=== PATIENT | female | born 1940 | race Caucasian/White ===

== ENCOUNTER 2021-01-25 17:22 | Observation (INO) | payer OTHER ==
--- OUTSIDE RECORDS SUMMARY | 2021-01-25 17:27 | XMS REPORT | Continuity of Care Document ---
:1940 Author Organization [facility] t Address [address] [place] [address] Care Team Providers Name Role Phone Asked, Pcp Primary Care Physician Unavailable Payers Payer Name Policy Type Policy Number Effective Date Expiration Date S ource Problems This patient has no known problems. Allergies, Adverse Reactions, Alerts Allergy Allergy Status Severity Reaction(s) Onset Inactive Treating Comm ents Source Name Type Date Date Clinician ciproflo DA Active U [facility] xacin 5-28 Clear 00:00: [address] [place] Active [place] 2018-11 [facility] ins 0-04 Clear 00:00: [address] codeine DA Active [place] 2018-11 [facility] 0-04 Clear 00:00: [address] [place] Active [place] 2018-11 [facility] ins [place]- [place] 00:00: [address] codeine DA Active [place] 2018-11 [facility] 0- [place] 00:00: [address] [place] [facility] ins 08-09 [place] 00:00: [address] codeine DA Active [place] [facility] 9 [place] 00:00: [address] [place] [facility] ins 03-07 [place] 00:00: [address] codeine DA Active AR [facility] 4-27 [place] 00:00: [address] Social History Social Habit Start Date Stop Date Quantity Comments Source Sex Assigned At [birth year] Jamie Wesley ethodist 00:00:00 00:00:00 Medications This patient has no known medications. Procedures This patient has no known procedures. Plan of Care Planned Activity Planned Date Details Comments Source Future Scheduled 2020-06-11 INFLUENZA VACCINE [place] [facility] 00:00:00 [code = INFLUENZA VACCINE] Future Scheduled 1990 SHINGLES VACCINES (#1) [facility] 00:00:00 [code = SHINGLES VACCINES (#1)] Future Scheduled 1956 [facility]-19 [facility]INE [facility]:00 2) [code = COVID-19 VACCINE (1 of 2)] Future Scheduled 1946 65+ PNEUMOCOCCAL [place] [facility] 00:00:00 VACCINE (1 of 2 - PPSV23) [code = 65+ PNEUMOCOCCAL VACCINE (1 of 2 - PPSV23)] Results Test Description Test Time Test Comments Results Result Comments Source SURG 2020-04-12 14:43:00 RUN DATE: 04/12/20 [facility] PAGE 1 RUN TIME: 6953 Specimen Inquiry RUN USER: INTERFACE PATIENT: RUTH LOCK ACCHaley #: [id number] LOC: [place] #: [id number] AGE/SX: 79/F ROOM: [facility] RE04/07/20REG DR: Harry Johns MD : 40 BED: 1 DIS: 04/09/20 STATUS: DIS IN TLOC: SPEC #: [id number] RECD: 04/08/20 STATUS: REESE REEdenilson #: [id number] TRANG: 04/08/[address]: Harry Johns MD ENTERED: 04/08/20 SP TYPE: SURG OTHR DR: DOES_NOT KNOW Self Referred Shane Palacio Jr, MD, Nizam Mohammad MDORDERED: SURG PATH LVL 02/10 COPIES TO: DOES_NOT KNOW Self Referred Shane Palacio Jr, MD [address] [facility] [address] [facility] [address] [place] [address] [place] [address] [email or web address] Rosario Nuñez MD [address] [address] HISTOLOGY: TISSUE ID BLK PCS RASHAWN LEV PROCEDURE DISPOSITION ____ ___ ___ ___ STOMACH, NOS A 1 2 STOMACH, NOS B 1 2 PROCEDURES: SURG PATH LVL 4 (04/08/20) TISSUES: A. STOMACH, NOS - GASTRIC ULCER BIOPSY B. STOMACH, NOS - ANTRUM AND BODY BIOPSY CLINICAL HISTORY HTN/DM CONTINUED ON NEXT PAGE RUN DATE: 04/12/20 [facility] PAGE 2 RUN TIME: 1443 Specimen Inquiry RUN USER: INTERFACE SPEC #: [id number] PATIENT: RUTH LOCK #[id number] (Continued)--------- --- CPT CODES CPT CODE(S): 11241K3 , , , , , , FINAL DIAGNOSIS A. Stomach, biopsy: ACUTE AND CHRONIC GASTRITIS WITH INTESTINAL METAPLASIA NEGATIVE FOR DYSPLASIA OR MALIGNANCY NEGATIVE FOR HELICOBACTER PYLORI ORGANISMS B. Stomach, antrum and body, biopsy: MILD CHRONIC GASTRITIS NEGATIVE FOR INTESTINAL METAPLASIA, DYSPLASIA, OR MALIGNANCY NEGATIVE FOR HELICOBACTER PYLORI ORGANISMS GROSS DESCRIPTION A. Gastric ulcer biopsy. Received in formalin are two cohen tissue fragments, 0.2 - 0.6 cm, all as A. B. Antrum and body biopsy. Received in formalin are two cohen tissue fragments, 0.2 cm each, all as B. judi/nr Grossing performed at [facility] Pathology, [address] [place] [address], [address], [place], [place] [address]. Acrylic Fabricator: Julian Phan M.D. MICROSCOPIC DESCRIPTION A. Gastric ulcer biopsy. Sections demonstrate gastric mucosa with chronic inflammation and intestinal metaplasia. Mucosa demonstrates a reactive appearance. No evidence of dysplasia or malignancy is seen. No evidence of Helicobacter pylori organisms is identified. B. Antrum and body biopsy. Sections demonstrate gastric mucosa with mild chronic inflammation. No dysplasia or malignancy is identified. No evidence of Helicobacter pylori organisms or intestinal metaplasia is seen. Signed SIGNATURE ON FILE Augusto Crum 04/12/20 1443 END OF REPORT HGB HCT 2020-04-09 13:42:00 Test Item Value Reference Range Interpretation Comme nts HEMOGLOBIN (test code = HGB) 9.4 G/DL 10.4-14.9 L HEMATOCRIT (test code = HCT) 29.2 % 31.5-44.1 L GLUCOSE BEDSIDE [id number] 12:16:00 Test Item Value Reference Range Interpretation Comments GLUCOSE BEDSIDE TESTING (test code 132 mg/dL 70-110 H = GLUBED) GLUCOSE BEDSIDE [id number] 07:57:00 Test Item Value Reference Range Interpretation Comments GLUCOSE BEDSIDE TESTING (test code = 85 mg/dL 70-110 N GLUBED) BASIC METABOLIC [id number] 06:28:00 Test Item Value Reference Range Interpretation Comments SODIUM (test code = NA) 135 mmol/L 134-147 N POTASSIUM (test code = 3.7 mmol/L 3.4-5.0 N K) CHLORIDE (test code = 104 mmol/L 100-108 N CL) CARBON DIOXIDE (test 23 mmol/L 21-32 N code = CO2) ANION GAP (test code = 8.0 GAP calc 4.0-15.0 N GAP) GLUCOSE (test code = 86 MG/DL 70-110 N GLU) BLOOD UREA NITROGEN 7 MG/DL 7-18 (test code = BUN) GLOMERULAR FILTRATION >=60 max estimate >60 RATE (test code = GFR) estGFR CREATININE (test code = 0.7 MG/DL 0.6-1.0 N CREAT) CALCIUM (test code = CA) 8.3 MG/DL 8.5-10.1 L CBC W/AUTO [id number] 06:22:00 Test Item Value Reference Range Interpretation Comments WHITE BLOOD CELL (test code = 6.1 K/mm3 3.5-11.0 N WBC) RED BLOOD CELL (test code = 3.21 M/mm3 4.70-6.10 L RBC) HEMOGLOBIN (test code = HGB) 8.9 G/DL 10.4-14.9 L HEMATOCRIT (test code = HCT) 28.0 % 31.5-44.1 L MEAN CELL VOLUME (test code = 87.2 Fl 84.5-98.6 N MCV) MEAN CELL HGB (test code = MCH) 27.7 pg 27.0-34.2 N MEAN CELL HGB CONCETRATION 31.8 G/DL 31.5-34.0 N (test code = MCHC) RED CELL DISTRIBUTION WIDTH 13.4 SD 11.5-14.5 N (test code = RDW) PLATELET COUNT (test code = 167 K/mm3 150-450 N PLT) MEAN PLATELET VOLUME (test code 9.60 fL 7.0-10.5 N = MPV) NEUTROPHIL % (test code = NT%) 60.3 % 40-76 N LYMPHOCYTE % (test code = LY%) 27.3 % 20.5-51.1 N MONOCYTE % (test code = MO%) 8.8 % 1.7-9.3 N EOSINOPHIL % (test code = EO%) 2.3 % 0.0-6.0 N BASOPHIL % (test code = BA%) 0.8 % 0.0-2.0 N NUCLEATED RBC % (test code = 0.0 /100WBC% 0.0-1.0 N NRBC%) NEUTROPHIL # (test code = NT#) 3.7 K/mm3 1.8-7.6 N IMMATURE GRANULOCYTE # (test 0.03 x10 3/uL 0.00-0.03 N code = IG#) LYMPHOCYTE # (test code = LY#) 1.7 K/mm3 0.6-3.2 N MONOCYTE # (test code = MO#) 0.5 K/mm3 0.3-1.1 N EOSINOPHIL # (test code = EO#) 0.1 K/mm3 0.0-0.4 N BASOPHIL # (test code = BA#) 0.1 K/mm3 0.0-0.1 N NUCLEATED RBC # (test code = 0.0 K/mm3 0.0-0.1 N NRBC#) MANUAL DIFF REQUIRED (test code NO DIFF/SCN CRITERIA = MDIFF) - XR KNEE 1 OR 2 V [id number] 23:00:00 Name: RUTH LOCK [place] : 1940 Age/S: 79 / F [address] [address] Unit #: [id number] Loc: [place] [address] Phys: Amy Pena MD Acct: [id number] Dis Date: Status: ADM IN PHONE #: [phone] Exam Date: 04/08/2020 2250 FAX #: Reason: right knee pain, s/p fall EXAMS: CPT: [id number] XR KNEE 1 [place] 2 [place] [address] Fluoro Time: DAP (Gy m2): Air Kerma (mGy): Location code: H5 Right knee 2 views: Indication: right knee pain, s/p fall Comparison: none. Findings: No evidence of fracture, subluxation, or dislocation. Jointspace is preserved. Articular surfaces are smooth. No evidence of joint effusion. Soft tissues are unremarkable. Vascular calcification. Impression: 1. Normal exam. at 2300 Reportedand signed by: Austin Baca M.D. CC: Shane Palacio Jr, MD; Amy Pena MD; Harry Johns MD PAGE 1 Signed Report Name: RUTH LOCK [place] : 1940 Age/S: 79 / F [address] Unit #: [id number] Loc: [place] [address] Phys:Amy Pena MD Acct: [id number] Dis Date: Status: ADM IN PHONE #: [phone] Exam Date: 04/08/20202252 FAX #: Reason: right knee pain, s/p fall EXAMS: CPT: [id number] XR KNEE 1 OR 2 [place] [address]91 Fluoro Time: DAP (Gy m2): Air Kerma (mGy): <Continued> Technologist: Louann Ascencio, RT(R)(CT) Trnscb Date/Time: 04/08/2020 (2299) t.SDR.DRB1 Orig Print D/T: S: 04/08/2020 (2302) PAGE 2 Signed ReportGLUCOSE BEDSIDE TESTING 2020-04-08 20:40:00 Test Item Value Reference Range Interpretation Comments GLUCOSE BEDSIDE TESTING (test code 131 mg/dL 70-110 H = GLUBED) HGB [id number] 17:56:00 Test Item Value Reference Range Interpretation Comments HEMOGLOBIN (test code = HGB) 8.9 G/DL 10.4-14.9 L HEMATOCRIT (test code = HCT) 27.0 % 31.5-44.1 L GLUCOSE BEDSIDE [id number] 16:53:00 Test Item Value Reference Range Interpretation Comments GLUCOSE BEDSIDE TESTING (test code = 90 mg/dL 70-110 N GLUBED) GLUCOSE BEDSIDE [id number] 12:20:00 Test Item Value Reference Range Interpretation Comments GLUCOSE BEDSIDE TESTING (test code = 90 mg/dL 70-110 N GLUBED) HGB [id number] 09:51:00 Test Item Value Reference Range Interpretation Comments HEMOGLOBIN (test code = HGB) 10.0 G/DL 10.4-14.9 L HEMATOCRIT (test code = HCT) 31.2 % 31.5-44.1 L GLUCOSE BEDSIDE [id number] 09:42:00 Test Item Value Reference Range Interpretation Comments GLUCOSE BEDSIDE TESTING (test code = 91 mg/dL 70-110 N GLUBED) HGB [id number] 01:53:00 Test Item Value Reference Range Interpretation Comments HEMOGLOBIN (test code = HGB) 6.8 G/DL 10.4-14.9 L HEMATOCRIT (test code = HCT) 22.1 % 31.5-44.1 L GLUCOSE BEDSIDE [id number] 21:24:00 Test Item Value Reference Range Interpretation Comments GLUCOSE BEDSIDE TESTING (test code 106 mg/dL 70-110 N = GLUBED) HGB [id number] 17:29:00 Test Item Value Reference Range Interpretation Comments HEMOGLOBIN (test code = HGB) 7.2 G/DL 10.4-14.9 L HEMATOCRIT (test code = HCT) 22.5 % 31.5-44.1 L GLUCOSE BEDSIDE [id number] 17:06:00 Test Item Value Reference Range Interpretation Comments GLUCOSE BEDSIDE TESTING (test code 102 mg/dL 70-110 N = GLUBED) Coronavirus 2019 nCoV [id number] 13:34:00 Test Item Value Reference Range Interpretation Comments Coronavirus 2019 nCoV Bedside (test Negative code = COVNONPUIBED) GLUCOSE BEDSIDE [id number] 12:01:00 Test Item Value Reference Range Interpretation Comments GLUCOSE BEDSIDE TESTING (test code = 96 mg/dL 70-110 N GLUBED) HGB [id number] 08:55:00 Test Item Value Reference Range Interpretation Comments HEMOGLOBIN (test code = HGB) 7.1 G/DL 10.4-14.9 L HEMATOCRIT (test code = HCT) 22.6 % 31.5-44.1 L GLUCOSE BEDSIDE [id number] 08:02:00 Test Item Value Reference Range Interpretation Comments GLUCOSE BEDSIDE TESTING (test code = 95 mg/dL 70-110 N GLUBED) [id number] 03:21:00 Test Item Value Reference Range Interpretation Comments GLYCOSYLATED HEMOGLOBIN (HA1C) 5.8 % A1C 0.0-5.7 H (test code = GLYHGB) ESTIMATED AVERAGE GLUCOSE (test 120 MG/DLest code = EAG) CBC W/AUTO [id number] 03:03:00 Test Item Value Reference Range Interpretation Comments WHITE BLOOD CELL (test code = 12.3 K/mm3 3.5-11.0 H WBC) RED BLOOD CELL (test code = RBC) 2.84 M/mm3 4.70-6.10 L HEMOGLOBIN (test code = HGB) 7.6 G/DL 10.4-14.9 L HEMATOCRIT (test code = HCT) 23.9 % 31.5-44.1 L MEAN CELL VOLUME (test code = 84.2 Fl 84.5-98.6 L MCV) MEAN CELL HGB (test code = MCH) 26.8 pg 27.0-34.2 L MEAN CELL HGB CONCETRATION (test 31.8 G/DL 31.5-34.0 N code = MCHC) RED CELL DISTRIBUTION WIDTH (test 13.3 SD 11.5-14.5 N code = RDW) PLATELET COUNT (test code = PLT) 183.0 K/mm3 150-450 N MEAN PLATELET VOLUME (test code = 9.70 fL 7.0-10.5 N MPV) NEUTROPHIL % (test code = NT%) 84.6 % 40-76 H LYMPHOCYTE % (test code = LY%) 10.8 % 20.5-51.1 L MONOCYTE % (test code = MO%) 4.4 % 1.7-9.3 N EOSINOPHIL % (test code = EO%) 0.0 % 0.0-6.0 N BASOPHIL % (test code = BA%) 0.2 % 0.0-2.0 N NEUTROPHIL # (test code = NT#) 10.43 K/mm3 1.8-7.6 H LYMPHOCYTE # (test code = LY#) 1.3 K/mm3 0.6-3.2 N MONOCYTE # (test code = MO#) 0.5 K/mm3 0.3-1.1 N EOSINOPHIL # (test code = EO#) 0.0 K/mm3 0.0-0.4 N BASOPHIL # (test code = BA#) 0.0 K/mm3 0.0-0.1 N MANUAL DIFF REQUIRED (test code = NO DIFF/SCN CRITERIA MDIFF) COMPREHENSIVE METABOLIC [id number] 02:44:00 Test Item Value Reference Range Interpretation Comments SODIUM (test code = NA) 130 mmol/L 134-147 L POTASSIUM (test code = 4.1 mmol/L 3.4-5.0 N K) CHLORIDE (test code = 105 mmol/L 100-108 N CL) CARBON DIOXIDE (test 16 mmol/L 21-32 L code = CO2) ANION GAP (test code = 9.0 GAP calc 4.0-15.0 N GAP) GLUCOSE (test code = 122 MG/DL 70-110 H GLU) BLOOD UREA NITROGEN 52 MG/DL 7-18 H (test code = BUN) GLOMERULAR FILTRATION >=60 max estimate >60 RATE (test code = GFR) estGFR CREATININE (test code = 0.8 MG/DL 0.6-1.0 N CREAT) TOTAL PROTEIN (test code 5.6 G/DL 6.4-8.2 L = PROT) ALBUMIN (test code = 2.5 G/DL 3.4-5.0 L ALB) GLOBULIN (test code = 3.1 GM/dL GLOB) ALBUMIN/GLOBULIN RATIO 0.8 RATIO 1.2-2.2 L (test code = A/G) CALCIUM (test code = CA) 7.6 MG/DL 8.5-10.1 L BILIRUBIN TOTAL (test 0.40 MG/DL 0.2-1.2 N code = BILT) SGOT/AST (test code = 19 Unit/L 15-37 N AST) SGPT/ALT (test code = 12 Unit/L 12-78 N ALT) ALKALINE PHOSPHATASE 66 Unit/L 45-117 N TOTAL (test code = ALKP) COMPREHENSIVE METABOLIC [id number] 06:20:00 Test Item Value Reference Range Interpretation Comments SODIUM (test code = NA) 128 MMOL/L 137-145 L POTASSIUM (test code = 3.8 MMOL/L 3.5-5.1 N K) CHLORIDE (test code = 98 MMOL/L 98-107 N CL) CARBON DIOXIDE (test 26 MMOL/L 22-30 N code = CO2) ANION GAP (test code = 8 MMOL/L 14-24 L GAP) GLUCOSE (test code = 95 MG/DL 74-106 N GLU) BLOOD UREA NITROGEN 15 MG/DL 7-17 N (test code = BUN) GLOMERULAR FILTRATION > 60 Report ing units: RATE (test code = GFR) ml/mi n/1.73 m2 (Modified MDRD Formula)Referen ce Range: > or = 6 0 ml/min/1.73 m2 CREATININE (test code = 0.50 MG/DL 0.52-1.04 L CREAT) TOTAL PROTEIN (test 5.4 G/DL 6.3-8.2 L code = PROT) ALBUMIN (test code = 3.1 G/DL 3.5-5.0 L ALB) CALCIUM (test code = 8.7 MG/DL 8.4-10.2 N CA) BILIRUBIN TOTAL (test 0.7 MG/DL 0.2-1.3 N code = BILT) SGOT/AST (test code = 24 UNITS/L 14-36 N AST) SGPT/ALT (test code = 25 UNITS/L 9-52 ALT) ALKALINE PHOSPHATASE 61 UNITS/L 38-126 N (test code = ALKP) COMPREHENSIVE METABOLIC [id number] 06:19:00 Test Item Value Reference Range Interpretation Comments SODIUM (test code = NA) 128 MMOL/L 137-145 L POTASSIUM (test code = 3.8 MMOL/L 3.5-5.1 N K) CHLORIDE (test code = 98 MMOL/L 98-107 N CL) CARBON DIOXIDE (test 26 MMOL/L 22-30 N code = CO2) ANION GAP (test code = 8 MMOL/L 14-24 L GAP) GLUCOSE (test code = 95 MG/DL 74-106 N GLU) BLOOD UREA NITROGEN 15 MG/DL 7-17 N (test code = BUN) GLOMERULAR FILTRATION > 60 Report ing units: RATE (test code = GFR) ml/mi n/1.73 m2 (Modified MDRD Formula)Referen ce Range: > or = 6 0 ml/min/1.73 m2 CREATININE (test code = 0.50 MG/DL 0.52-1.04 L CREAT) TOTAL PROTEIN (test 5.4 G/DL 6.3-8.2 L code = PROT) ALBUMIN (test code = 3.1 G/DL 3.5-5.0 L ALB) CALCIUM (test code = MG/DL 8.7-9.7 CA) BILIRUBIN TOTAL (test 0.7 MG/DL 0.2-1.3 N code = BILT) SGOT/AST (test code = 24 UNITS/L 14-36 N AST) SGPT/ALT (test code = 25 UNITS/L 9-52 ALT) ALKALINE PHOSPHATASE 61 UNITS/L 38-126 N (test code = ALKP) COMPREHENSIVE METABOLIC [id number] 06:18:00 Test Item Value Reference Range Interpretation Comments SODIUM (test code = NA) 128 MMOL/L 137-145 L POTASSIUM (test code = 3.8 MMOL/L 3.5-5.1 N K) CHLORIDE (test code = 98 MMOL/L 98-107 N CL) CARBON DIOXIDE (test MMOL/L 22-30 code = CO2) GLUCOSE (test code = MG/DL 74-106 GLU) BLOOD UREA NITROGEN MG/DL 7-17 (test code = BUN) GLOMERULAR FILTRATION > 60 Report ing units: RATE (test code = GFR) ml/mi n/1.73 m2 (Modified MDRD Formula)Referen ce Range: > or = 6 0 ml/min/1.73 m2 CREATININE (test code = 0.50 MG/DL 0.52-1.04 L CREAT) TOTAL PROTEIN (test G/DL 6.3-8.2 code = PROT) ALBUMIN (test code = 3.1 G/DL 3.5-5.0 L ALB) CALCIUM (test code = MG/DL 8.7-9.7 CA) BILIRUBIN TOTAL (test 0.7 MG/DL 0.2-1.3 N code = BILT) SGOT/AST (test code = UNITS/L 15-37 AST) SGPT/ALT (test code = UNITS/L 9-52 ALT) ALKALINE PHOSPHATASE UNITS/L 38-126 (test code = ALKP) COMPREHENSIVE METABOLIC [id number] 06:16:00 Test Item Value Reference Range Interpretation Comments SODIUM (test code = NA) 128 MMOL/L 137-145 L POTASSIUM (test code = K) 3.8 MMOL/L 3.5-5.1 N CHLORIDE (test code = CL) 98 MMOL/L 98-107 N CARBON DIOXIDE (test code = CO2) MMOL/L 22-30 GLUCOSE (test code = GLU) MG/DL 74-106 BLOOD UREA NITROGEN (test code = MG/DL 7-17 BUN) GLOMERULAR FILTRATION RATE (test code = GFR) CREATININE (test code = CREAT) MG/DL 0.52-1.04 TOTAL PROTEIN (test code = PROT) G/DL 6.3-8.2 ALBUMIN (test code = ALB) 3.1 G/DL 3.5-5.0 L CALCIUM (test code = CA) MG/DL 8.7-9.7 BILIRUBIN TOTAL (test code = BILT) MG/DL 0.2-1.3 SGOT/AST (test code = AST) UNITS/L 15-37 SGPT/ALT (test code = ALT) UNITS/L 9-52 ALKALINE PHOSPHATASE (test code = UNITS/L 38-126 ALKP) - XR CHEST [id number] 07:39:00 Patient Name: RUTH LOCK Unit No: [id number] EXAMS: CPT CODE: [id number] XR CHEST 1V 15295 EXAM: Portable chest x-ray Dictation location: [id number]: Chest x-ray performed one day prior INDICATION: s/p pericardial window, chest tube, pleural effusion DISCUSSION: Left retrocardiac consolidation and the left pleural effusion are improving, the latter of which is small. 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 The cardiac silhouette is within normal limits. No acute bony abnormalities are identified. IMPRESSION: Improving left retrocardiac atelectasis or pneumonia and improving small left pleural effusion. No new abnormalities. at 0739 Reported and signed by: Mynor Weiss MD CC: Cj Palacio MD; Erica Burgess MD; Kristan Trejo BLOWER ROOM ATTENDANT Technologist: Lary Lewis (RT)(R) Transcrpt Date/Tm/Trnsp: 08/21/2019(0739) t.SDR.BC0 [facility] NAME: RUTH LOCK [address] PHYS: KRIST[place] [address] : 1940 AGE: 79 SEX: F LOC: [id number] A PHONE #: [phone] EXAM DATE: 08/21/2019 STATUS:ADM IN FAX #: [phone] RADIOLOGY NO: PAGE 1 Signed ReportBASIC METABOLIC [id number] 06:44:00 Test Item Value Reference Range Interpretation Comments SODIUM (test code = 128 MMOL/L 137-145 L NA) POTASSIUM (test code = 4.1 MMOL/L 3.5-5.1 N K) CHLORIDE (test code = 96 MMOL/L 98-107 L CL) CARBON DIOXIDE (test 28 MMOL/L 22-30 N code = CO2) GLUCOSE (test code = 101 MG/DL 74-106 GLU) BLOOD UREA NITROGEN 16 MG/DL 7-17 N (test code = BUN) GLOMERULAR FILTRATION > 60 Report ing units: RATE (test code = GFR) ml/mi n/1.73 m2 (Modified MDRD Formula)Referen ce Range: > or = 6 0 ml/min/1.73 m2 CREATININE (test code 0.50 MG/DL 0.52-1.04 L = CREAT) CALCIUM (test code = 8.7 MG/DL 8.4-10.2 N CA) BASIC METABOLIC [id number] 06:43:00 Test Item Value Reference Range Interpretation Comments SODIUM (test code = 128 MMOL/L 137-145 L NA) POTASSIUM (test code = 4.1 MMOL/L 3.5-5.1 N K) CHLORIDE (test code = 96 MMOL/L 98-107 L CL) CARBON DIOXIDE (test 28 MMOL/L 22-30 N code = CO2) GLUCOSE (test code = MG/DL 74-106 GLU) BLOOD UREA NITROGEN MG/DL 7-17 (test code = BUN) GLOMERULAR FILTRATION > 60 Report ing units: RATE (test code = GFR) ml/mi n/1.73 m2 (Modified MDRD Formula)Referen ce Range: > or = 6 0 ml/min/1.73 m2 CREATININE (test code 0.50 MG/DL 0.52-1.04 L = CREAT) CALCIUM (test code = MG/DL 8.7-9.7 CA) BASIC METABOLIC [id number] 06:41:00 Test Item Value Reference Range Interpretation Comments SODIUM (test code = NA) 128 MMOL/L 137-145 L POTASSIUM (test code = K) 4.1 MMOL/L 3.5-5.1 N CHLORIDE (test code = CL) 96 MMOL/L 98-107 L CARBON DIOXIDE (test code = CO2) MMOL/L 22-30 GLUCOSE (test code = GLU) MG/DL 74-106 BLOOD UREA NITROGEN (test code = MG/DL 7-17 BUN) GLOMERULAR FILTRATION RATE (test code = GFR) CREATININE (test code = CREAT) MG/DL 0.52-1.04 CALCIUM (test code = CA) MG/DL 8.7-9.7 BASIC METABOLIC [id number] 06:39:00 Test Item Value Reference Range Interpretation Comments SODIUM (test code = NA) 128 MMOL/L 137-145 L POTASSIUM (test code = K) MMOL/L 3.5-5.1 CHLORIDE (test code = CL) 96 MMOL/L 98-107 L CARBON DIOXIDE (test code = CO2) MMOL/L 22-30 GLUCOSE (test code = GLU) MG/DL 74-106 BLOOD UREA NITROGEN (test code = MG/DL 7-17 BUN) GLOMERULAR FILTRATION RATE (test code = GFR) CREATININE (test code = CREAT) MG/DL 0.52-1.04 CALCIUM (test code = CA) MG/DL 8.7-9.7 - XR CHEST [id number] 07:45:00 Patient Name: RUTH LOCK Unit No: [id number] EXAMS: CPT CODE: [id number] XR CHEST 1V 22225 EXAM: Chest x-ray Dictation location: B2 COMPARISON: Chest x-ray on 08/19/2019 INDICATION: s/p pericardial window, chest tube, pleural effusion DISCUSSION: Left retrocardiac consolidation and a small left pleural effusion are again noted. No pneumothorax is seen. 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 The cardiac silhouette is within normal limits. No acute bony abnormalities are identified. IMPRESSION: Unchanged left retrocardiac atelectasis or pneumonia and small left pleural effusion. No new abnormalities. at 0745 Reported and signed by: Mynor Weiss MD CC: Cj Palacio MD; Erica Burgess MD; Kristan Trejo NP Technologist: Michelle Wei RT(R) Transcrpt Date/Tm/Trnsp: 08/20/2019 (0745) [email or web address] Orig Print D/T: S: 08/20/2019 (0748) [facility] NAME: RUTH LOCK [id number] [address] PHYS: [place] [address] : 1940 AGE: 79 SEX: F LOC: [id number] A PHONE #: [phone] EXAM DATE: 08/20/2019 STATUS: ADM IN FAX #: [phone] RADIOLOGY NO: PAGE 1 Signed ReportBASIC METABOLIC [id number] 06:44:00 Test Item Value Reference Range Interpretation Comments SODIUM (test code = 129 MMOL/L 137-145 L NA) POTASSIUM (test code = 4.0 MMOL/L 3.5-5.1 N K) CHLORIDE (test code = 95 MMOL/L 98-107 L CL) CARBON DIOXIDE (test 30 MMOL/L 22-30 N code = CO2) GLUCOSE (test code = 86 MG/DL 74-106 N GLU) BLOOD UREA NITROGEN 18 MG/DL 7-17 H (test code = BUN) GLOMERULAR FILTRATION > 60 Report ing units: RATE (test code = GFR) ml/mi n/1.73 m2 (Modified MDRD Formula)Referen ce Range: > or = 6 0 ml/min/1.73 m2 CREATININE (test code 0.50 MG/DL 0.52-1.04 L = CREAT) CALCIUM (test code = 8.5 MG/DL 8.4-10.2 N CA) BASIC METABOLIC [id number] 06:43:00 Test Item Value Reference Range Interpretation Comments SODIUM (test code = 129 MMOL/L 137-145 L NA) POTASSIUM (test code = 4.0 MMOL/L 3.5-5.1 N K) CHLORIDE (test code = 95 MMOL/L 98-107 L CL) CARBON DIOXIDE (test 30 MMOL/L 22-30 N code = CO2) GLUCOSE (test code = MG/DL 74-106 GLU) BLOOD UREA NITROGEN 18 MG/DL 7-17 H (test code = BUN) GLOMERULAR FILTRATION > 60 Report ing units: RATE (test code = GFR) ml/mi n/1.73 m2 (Modified MDRD Formula)Referen ce Range: > or = 6 0 ml/min/1.73 m2 CREATININE (test code 0.50 MG/DL 0.52-1.04 L = CREAT) CALCIUM (test code = MG/DL 8.7-9.7 CA) BASIC METABOLIC [id number] 06:40:00 Test Item Value Reference Range Interpretation Comments SODIUM (test code = NA) 129 MMOL/L 137-145 L POTASSIUM (test code = K) 4.0 MMOL/L 3.5-5.1 N CHLORIDE (test code = CL) 95 MMOL/L 98-107 L CARBON DIOXIDE (test code = CO2) MMOL/L 22-30 GLUCOSE (test code = GLU) MG/DL 74-106 BLOOD UREA NITROGEN (test code = MG/DL 7-17 BUN) GLOMERULAR FILTRATION RATE (test code = GFR) CREATININE (test code = CREAT) MG/DL 0.52-1.04 CALCIUM (test code = CA) MG/DL 8.7-9.7 - XR CHEST [id number] 09:35:00 Patient Name: RUTH LOCK Unit No: [id number] EXAMS: CPT CODE: [id number] XR CHEST 1V [id number] LOCATION: T18 EXAM: CHEST 1 VIEW INDICATION: s/p pericardial window, chest tube, pleural effusion COMPARISON: Chest x-ray August 19, 2019 TECHNIQUE: AP chest radiograph. FINDINGS: Moderate left pleural effusion again noted without change. The heart is normal in size. Calcification aorta noted. Right subclavian catheter is unchanged. Patient status post median sternotomy. Bones are unchanged. IMPRESSION: Unchanged moderate left pleural effusion. Cardiac silhouetteis normal in size. at 0935 Reported and signed by: Tha Rogers MD CC: Cj Paalcio MD; Erica Burgess MD; Kristan Trejo BLOWER ROOM ATTENDANT Technologist: [facility] STUDENT ; Cr Barton (RT) (R) Transcrpt Date/Tm/Trnsp: 08/19/2019 (0935) [email or web address] Orig Print D/T: S: 08/19/2019 (0938) [facility] NAME: RUTH LOCK [address] PHYS: KRISTIE.[place] [address] : 1940 AGE: 79 SEX: F LOC: Z.361 A PHONE #: [phone] EXAM DATE: 08/19/2019 STATUS: ADM IN FAX #: [phone] RADIOLOGY NO: PAGE 1 Signed Report- XR CHEST [id number] 07:42:00 Patient Name: RUTH LOCK Unit No: [id number] EXAMS: CPT CODE: [id number] XR CHEST 1V 96051 Chest Radiograph History: post CT Comparison: August 16, 2019 Location: R16 A single frontal view of the chest is submitted. The heart appears unchanged in size. Pulmonary vasculature is unremarkable. There is a tiny left pleural effusion. There is increased density in the left retrocardiac region. The bones appear unchanged. The vascular catheter appears unchanged. IMPRESSION: There is a tiny left pleural effusion. There continues to be increased density in the left cardiac region. This could be due to atelectasis or pneumonia. Elec tronically Signed by Brad Mackey MD on 08/19/2019 at 0742 Reported and signed by: Brad Mackey MD CC: Cj Dodson; Erica Burgess MD; Alem Hernandez NP Technologist: Michelle Wei RT(R) Transcrpt Date/Tm/Trnsp: 08/19/2019 (0742) [email or web address] Orig Print D/T: S: 08/19/2019 (0745) [facility] NAME: RUTH LOCK[address] PHYS: [place] [address] : 1940 AGE: 79 SEX: F LOC: ZNini A PHONE #: [phone] EXAM DATE: 08/19/2019 STATUS: ADM IN FAX #: [phone] RADIOLOGY NO: PAGE 1 Signed ReportCOMPREHENSIVE METABOLIC [id number] 07:17:00 Test Item Value Reference Range Interpretation Comments SODIUM (test code = NA) 128 MMOL/L 137-145 L POTASSIUM (test code = 4.2 MMOL/L 3.5-5.1 N K) CHLORIDE (test code = 94 MMOL/L 98-107 L CL) CARBON DIOXIDE (test 28 MMOL/L 22-30 N code = CO2) ANION GAP (test code = 10 MMOL/L 14-24 L GAP) GLUCOSE (test code = 98 MG/DL 74-106 N GLU) BLOOD UREA NITROGEN 21 MG/DL 7-17 H (test code = BUN) GLOMERULAR FILTRATION > 60 Report ing units: RATE (test code = GFR) ml/mi n/1.73 m2 (Modified MDRD Formula)Referen ce Range: > or = 6 0 ml/min/1.73 m2 CREATININE (test code = 0.50 MG/DL 0.52-1.04 L CREAT) TOTAL PROTEIN (test 5.1 G/DL 6.3-8.2 L code = PROT) ALBUMIN (test code = 2.9 G/DL 3.5-5.0 L ALB) CALCIUM (test code = 8.6 MG/DL 8.4-10.2 N CA) BILIRUBIN TOTAL (test 0.7 MG/DL 0.2-1.3 N code = BILT) SGOT/AST (test code = 17 UNITS/L 14-36 N AST) SGPT/ALT (test code = 18 UNITS/L 9-52 N ALT) ALKALINE PHOSPHATASE 63 UNITS/L 38-126 N (test code = ALKP) COMPREHENSIVE METABOLIC [id number] 07:16:00 Test Item Value Reference Range Interpretation Comments SODIUM (test code = NA) 128 MMOL/L 137-145 L POTASSIUM (test code = 4.2 MMOL/L 3.5-5.1 N K) CHLORIDE (test code = 94 MMOL/L 98-107 L CL) CARBON DIOXIDE (test 28 MMOL/L 22-30 N code = CO2) ANION GAP (test code = 10 MMOL/L 14-24 L GAP) GLUCOSE (test code = 98 MG/DL 74-106 N GLU) BLOOD UREA NITROGEN 21 MG/DL 7-17 H (test code = BUN) GLOMERULAR FILTRATION > 60 Report ing units: RATE (test code = GFR) ml/mi n/1.73 m2 (Modified MDRD Formula)Referen ce Range: > or = 6 0 ml/min/1.73 m2 CREATININE (test code = 0.50 MG/DL 0.52-1.04 L CREAT) TOTAL PROTEIN (test 5.1 G/DL 6.3-8.2 L code = PROT) ALBUMIN (test code = 2.9 G/DL 3.5-5.0 L ALB) CALCIUM (test code = MG/DL 8.7-9.7 CA) BILIRUBIN TOTAL (test 0.7 MG/DL 0.2-1.3 N code = BILT) SGOT/AST (test code = 17 UNITS/L 14-36 N AST) SGPT/ALT (test code = 18 UNITS/L 9-52 N ALT) ALKALINE PHOSPHATASE 63 UNITS/L 38-126 N (test code = ALKP) COMPREHENSIVE METABOLIC [id number] 07:15:00 Test Item Value Reference Range Interpretation Comments SODIUM (test code = NA) 128 MMOL/L 137-145 L POTASSIUM (test code = 4.2 MMOL/L 3.5-5.1 N K) CHLORIDE (test code = 94 MMOL/L 98-107 L CL) CARBON DIOXIDE (test MMOL/L 22-30 code = CO2) GLUCOSE (test code = MG/DL 74-106 GLU) BLOOD UREA NITROGEN MG/DL 7-17 (test code = BUN) GLOMERULAR FILTRATION > 60 Report ing units: RATE (test code = GFR) ml/mi n/1.73 m2 (Modified MDRD Formula)Referen ce Range: > or = 6 0 ml/min/1.73 m2 CREATININE (test code = 0.50 MG/DL 0.52-1.04 L CREAT) TOTAL PROTEIN (test G/DL 6.3-8.2 code = PROT) ALBUMIN (test code = 2.9 G/DL 3.5-5.0 L ALB) CALCIUM (test code = MG/DL 8.7-9.7 CA) BILIRUBIN TOTAL (test MG/DL 0.2-1.3 code = BILT) SGOT/AST (test code = UNITS/L 15-37 AST) SGPT/ALT (test code = UNITS/L 9-52 ALT) ALKALINE PHOSPHATASE UNITS/L 38-126 (test code = ALKP) COMPREHENSIVE METABOLIC [id number] 07:13:00 Test Item Value Reference Range Interpretation Comments SODIUM (test code = NA) MMOL/L 137-145 POTASSIUM (test code = K) MMOL/L 3.5-5.1 CHLORIDE (test code = CL) MMOL/L 98-107 CARBON DIOXIDE (test code = CO2) MMOL/L 22-30 GLUCOSE (test code = GLU) MG/DL 74-106 BLOOD UREA NITROGEN (test code = MG/DL 7-17 BUN) GLOMERULAR FILTRATION RATE (test code = GFR) CREATININE (test code = CREAT) MG/DL 0.52-1.04 TOTAL PROTEIN (test code = PROT) G/DL 6.3-8.2 ALBUMIN (test code = ALB) 2.9 G/DL 3.5-5.0 L CALCIUM (test code = CA) MG/DL 8.7-9.7 BILIRUBIN TOTAL (test code = BILT) MG/DL 0.2-1.3 SGOT/AST (test code = AST) UNITS/L 15-37 SGPT/ALT (test code = ALT) UNITS/L 9-52 ALKALINE PHOSPHATASE (test code = UNITS/L 38-126 ALKP) COMPREHENSIVE METABOLIC [id number] 07:13:00 Test Item Value Reference Range Interpretation Comments SODIUM (test code = NA) 128 MMOL/L 137-145 L POTASSIUM (test code = K) 4.2 MMOL/L 3.5-5.1 N CHLORIDE (test code = CL) 94 MMOL/L 98-107 L CARBON DIOXIDE (test code = CO2) MMOL/L 22-30 GLUCOSE (test code = GLU) MG/DL 74-106 BLOOD UREA NITROGEN (test code = MG/DL 7-17 BUN) GLOMERULAR FILTRATION RATE (test code = GFR) CREATININE (test code = CREAT) MG/DL 0.52-1.04 TOTAL PROTEIN (test code = PROT) G/DL 6.3-8.2 ALBUMIN (test code = ALB) 2.9 G/DL 3.5-5.0 L CALCIUM (test code = CA) MG/DL 8.7-9.7 BILIRUBIN TOTAL (test code = BILT) MG/DL 0.2-1.3 SGOT/AST (test code = AST) UNITS/L 15-37 SGPT/ALT (test code = ALT) UNITS/L 9-52 ALKALINE PHOSPHATASE (test code = UNITS/L 38-126 ALKP) CBC W/AUTO [id number] 06:51:00 Test Item Value Reference Range Interpretation Comments WHITE BLOOD CELL (test code = 7.7 K/MM3 3.8-9.8 N WBC) RED BLOOD CELL (test code = 3.75 M/MM3 3.58-4.97 N RBC) HEMOGLOBIN (test code = HGB) 10.7 G/DL 11.2-14.9 L HEMATOCRIT (test code = HCT) 32.1 % 33.2-43.5 L MEAN CELL VOLUME (test code = 86 fL 80.7-99.1 N MCV) MEAN CELL HGB (test code = MCH) 28.5 pg 27.0-34.1 N MEAN CELL HGB CONCETRATION 33.3 % 32.2-35.7 N (test code = MCHC) RED CELL DISTRIBUTION WIDTH 13.9 % 12.1-15.2 N (test code = RDW) PLATELET COUNT (test code = 154 K/MM3 129-368 N PLT) MEAN PLATELET VOLUME (test code 10.4 fl 7.4-10.4 N = MPV) NEUTROPHIL % (test code = NT%) 62.0 % 43-75 N IMMATURE GRANULOCYTE % (test 0.5 % 0.0-2.0 N code = IG%) LYMPHOCYTE % (test code = LY%) 23.4 % 14-44 N MONOCYTE % (test code = MO%) 11.9 % 4-13 N EOSINOPHIL % (test code = EO%) 2.1 % 0-6 N BASOPHIL % (test code = BA%) 0.1 % 0-2 N NUCLEATED RBC % (test code = 0.0 % 0-1.0 N NRBC%) NEUTROPHIL # (test code = NT#) 4.75 K/mm3 2.0-7.6 N IMMATURE GRANULOCYTE # (test 0.04 x10 3/uL 0-0.03 H code = IG#) LYMPHOCYTE # (test code = LY#) 1.79 K/mm3 1.0-3.8 N MONOCYTE # (test code = MO#) 0.91 K/mm3 0.1-0.8 H EOSINOPHIL # (test code = EO#) 0.16 K/mm3 0.0-0.2 N BASOPHIL # (test code = BA#) 0.01 K/mm3 0.0-0.2 N NUCLEATED RBC # (test code = 0.00 K/mm3 0.0-0.1 N NRBC#) CBC W/AUTO [id number] 13:00:00 Test Item Value Reference Range Interpretation Comments WHITE BLOOD CELL (test code = 11.0 K/MM3 3.8-9.8 H WBC) RED BLOOD CELL (test code = 3.90 M/MM3 3.58-4.97 N RBC) HEMOGLOBIN (test code = HGB) 11.4 G/DL 11.2-14.9 N HEMATOCRIT (test code = HCT) 33.8 % 33.2-43.5 N MEAN CELL VOLUME (test code = 87 fL 80.7-99.1 N MCV) MEAN CELL HGB (test code = MCH) 29.2 pg 27.0-34.1 N MEAN CELL HGB CONCETRATION 33.7 % 32.2-35.7 N (test code = MCHC) RED CELL DISTRIBUTION WIDTH 14.0 % 12.1-15.2 N (test code = RDW) PLATELET COUNT (test code = 162 K/MM3 129-368 N PLT) MEAN PLATELET VOLUME (test code 10.3 fl 7.4-10.4 N = MPV) NEUTROPHIL % (test code = NT%) 75.9 % 43-75 H IMMATURE GRANULOCYTE % (test 0.5 % 0.0-2.0 N code = IG%) LYMPHOCYTE % (test code = LY%) 14.0 % 14-44 N MONOCYTE % (test code = MO%) 8.7 % 4-13 N EOSINOPHIL % (test code = EO%) 0.8 % 0-6 N BASOPHIL % (test code = BA%) 0.1 % 0-2 N NUCLEATED RBC % (test code = 0.0 % 0-1.0 N NRBC%) NEUTROPHIL # (test code = NT#) 8.34 K/mm3 2.0-7.6 H IMMATURE GRANULOCYTE # (test 0.05 x10 3/uL 0-0.03 H code = IG#) LYMPHOCYTE # (test code = LY#) 1.54 K/mm3 1.0-3.8 N MONOCYTE # (test code = MO#) 0.95 K/mm3 0.1-0.8 H EOSINOPHIL # (test code = EO#) 0.09 K/mm3 0.0-0.2 N BASOPHIL # (test code = BA#) 0.01 K/mm3 0.0-0.2 N NUCLEATED RBC # (test code = 0.00 K/mm3 0.0-0.1 N NRBC#) UNABLE TO DRAW BLOOD, REASON: CBNNOTIFIED PATIENT CARE STAFF: SANDHYA JC 08/18/19 AT 1247 BY Ana Loomis METABOLIC [id number] 05:14:00 Test Item Value Reference Range Interpretation Comments SODIUM (test code = NA) 130 MMOL/L 137-145 L POTASSIUM (test code = 4.4 MMOL/L 3.5-5.1 N K) CHLORIDE (test code = 95 MMOL/L 98-107 L CL) CARBON DIOXIDE (test 31 MMOL/L 22-30 H code = CO2) GLUCOSE (test code = 98 MG/DL 74-106 N GLU) BLOOD UREA NITROGEN 18 MG/DL 7-17 H (test code = BUN) GLOMERULAR FILTRATION > 60 Report ing units: RATE (test code = GFR) ml/mi n/1.73 m2 (Modified MDRD Formula)Referen ce Range: > or = 6 0 ml/min/1.73 m2 CREATININE (test code = 0.50 MG/DL 0.52-1.04 L CREAT) TOTAL PROTEIN (test 5.2 G/DL 6.3-8.2 L code = PROT) ALBUMIN (test code = 3.1 G/DL 3.5-5.0 L ALB) CALCIUM (test code = 8.6 MG/DL 8.4-10.2 N CA) BILIRUBIN TOTAL (test 0.9 MG/DL 0.2-1.3 N code = BILT) SGOT/AST (test code = 23 UNITS/L 14-36 N AST) SGPT/ALT (test code = 21 UNITS/L 9-52 N ALT) ALKALINE PHOSPHATASE 67 UNITS/L 38-126 N (test code = ALKP) COMPREHENSIVE METABOLIC [id number] 05:11:00 Test Item Value Reference Range Interpretation Comments SODIUM (test code = NA) 130 MMOL/L 137-145 L POTASSIUM (test code = K) 4.4 MMOL/L 3.5-5.1 N CHLORIDE (test code = CL) 95 MMOL/L 98-107 L CARBON DIOXIDE (test code = CO2) MMOL/L 22-30 GLUCOSE (test code = GLU) MG/DL 74-106 BLOOD UREA NITROGEN (test code = MG/DL 7-17 BUN) GLOMERULAR FILTRATION RATE (test code = GFR) CREATININE (test code = CREAT) MG/DL 0.52-1.04 TOTAL PROTEIN (test code = PROT) G/DL 6.3-8.2 ALBUMIN (test code = ALB) 3.1 G/DL 3.5-5.0 L CALCIUM (test code = CA) MG/DL 8.7-9.7 BILIRUBIN TOTAL (test code = BILT) MG/DL 0.2-1.3 SGOT/AST (test code = AST) UNITS/L 15-37 SGPT/ALT (test code = ALT) UNITS/L 9-52 ALKALINE PHOSPHATASE (test code = UNITS/L 38-126 ALKP) COMPREHENSIVE METABOLIC [id number] 04:44:00 Test Item Value Reference Range Interpretation Comments SODIUM (test code = NA) 129 MMOL/L 137-145 L POTASSIUM (test code = 3.5 MMOL/L 3.5-5.1 N K) CHLORIDE (test code = 96 MMOL/L 98-107 L CL) CARBON DIOXIDE (test 28 MMOL/L 22-30 N code = CO2) ANION GAP (test code = 9 MMOL/L 14-24 L GAP) GLUCOSE (test code = 90 MG/DL 74-106 GLU) BLOOD UREA NITROGEN 20 MG/DL 7-17 H (test code = BUN) GLOMERULAR FILTRATION > 60 Report ing units: RATE (test code = GFR) ml/mi n/1.73 m2 (Modified MDRD Formula)Referen ce Range: > or = 6 0 ml/min/1.73 m2 CREATININE (test code = 0.50 MG/DL 0.52-1.04 L CREAT) TOTAL PROTEIN (test 4.9 G/DL 6.3-8.2 L code = PROT) ALBUMIN (test code = 2.6 G/DL 3.5-5.0 L ALB) CALCIUM (test code = 8.0 MG/DL 8.4-10.2 L CA) BILIRUBIN TOTAL (test 0.9 MG/DL 0.2-1.3 N code = BILT) SGOT/AST (test code = 18 UNITS/L 14-36 AST) SGPT/ALT (test code = 21 UNITS/L 9-52 N ALT) ALKALINE PHOSPHATASE 51 UNITS/L 38-126 (test code = ALKP) COMPREHENSIVE METABOLIC [id number] 04:21:00 Test Item Value Reference Range Interpretation Comments SODIUM (test code = NA) 129 MMOL/L 137-145 L POTASSIUM (test code = K) 3.5 MMOL/L 3.5-5.1 N CHLORIDE (test code = CL) 96 MMOL/L 98-107 L CARBON DIOXIDE (test code = CO2) MMOL/L 22-30 GLUCOSE (test code = GLU) MG/DL 74-106 BLOOD UREA NITROGEN (test code = MG/DL 7-17 BUN) GLOMERULAR FILTRATION RATE (test code = GFR) CREATININE (test code = CREAT) MG/DL 0.52-1.04 TOTAL PROTEIN (test code = PROT) G/DL 6.3-8.2 ALBUMIN (test code = ALB) 2.6 G/DL 3.5-5.0 L CALCIUM (test code = CA) MG/DL 8.7-9.7 BILIRUBIN TOTAL (test code = BILT) MG/DL 0.2-1.3 SGOT/AST (test code = AST) UNITS/L 15-37 SGPT/ALT (test code = ALT) UNITS/L 9-52 ALKALINE PHOSPHATASE (test code = UNITS/L 38-126 ALKP) - XR CHEST [id number] 09:06:00 Patient Name: RUTH LOCK Unit No: [id number] EXAMS: CPT CODE: [id number] XR CHEST 1V 51127 Location: T 18 Chest x-ray exam, portable upright frontal projec tion, 08/16/19 Comparison exam: 08/15/19 chest x-ray exam CLINICAL HISTORY: Postextubation ET tube and nasogastric tube have been removed. Right subclavian line remains in situ. COPD identified. Improvement in aeration at the left lung base with persistence of some retrocardiac density likely due to residual atelectatic changes versus possible pneumonia. Small degree of blunting of both CP angles noted. IMPRESSION: Patient has been extubated and there has been removal of the nasogastric tube.Some improvement in retrocardiac density. at 0906 Reported and signed by: Emilia Garcia MD CC: Cj Palacio MD; Erica Burgess MD; Alem Hernandez NP Technologist: Lary Lewis (RT)(R) Transcrpt Date/Tm/Trnsp: 08/16/2019 (0906) [email or web address] [facility] NAME: RUTH LOCK [address] [address] PHYS: [place] [address] : 1940 AGE: 79 SEX: F LOC: Z.SI06 A PHONE #: [phone] EXAM DATE: 08/16/2019 STATUS: ADM IN FAX #: [phone] RADIOLOGY NO: PAGE 1 Signed ReportCOMPREHENSIVE METABOLIC PANEL 2019-08-16 05:25:00 Test Item Value Reference Range Interpretation Comments SODIUM (test code = NA) 130 MMOL/L 137-145 L POTASSIUM (test code = 3.9 MMOL/L 3.5-5.1 N K) CHLORIDE (test code = 94 MMOL/L 98-107 L CL) CARBON DIOXIDE (test 32 MMOL/L 22-30 H code = CO2) ANION GAP (test code = 8 MMOL/L 14-24 L GAP) GLUCOSE (test code = 114 MG/DL 74-106 H GLU) BLOOD UREA NITROGEN 18 MG/DL 7-17 H (test code = BUN) GLOMERULAR FILTRATION > 60 Report ing units: RATE (test code = GFR) ml/mi n/1.73 m2 (Modified MDRD Formula)Referen ce Range: > or = 6 0 ml/min/1.73 m2 CREATININE (test code = 0.40 MG/DL 0.52-1.04 L CREAT) TOTAL PROTEIN (test 5.7 G/DL 6.3-8.2 L code = PROT) ALBUMIN (test code = 3.3 G/DL 3.5-5.0 L ALB) CALCIUM (test code = 8.5 MG/DL 8.4-10.2 N CA) BILIRUBIN TOTAL (test 0.9 MG/DL 0.2-1.3 code = BILT) SGOT/AST (test code = 23 UNITS/L 14-36 N AST) SGPT/ALT (test code = 20 UNITS/L 9-52 N ALT) ALKALINE PHOSPHATASE 71 UNITS/L 38-126 N (test code = ALKP) COMPREHENSIVE METABOLIC [id number] 05:16:00 Test Item Value Reference Range Interpretation Comments SODIUM (test code = NA) 130 MMOL/L 137-145 L POTASSIUM (test code = 3.9 MMOL/L 3.5-5.1 N K) CHLORIDE (test code = 94 MMOL/L 98-107 L CL) CARBON DIOXIDE (test 32 MMOL/L 22-30 H code = CO2) ANION GAP (test code = 8 MMOL/L 14-24 L GAP) GLUCOSE (test code = MG/DL 74-106 GLU) BLOOD UREA NITROGEN MG/DL 7-17 (test code = BUN) GLOMERULAR FILTRATION > 60 Report ing units: RATE (test code = GFR) ml/mi n/1.73 m2 (Modified MDRD Formula)Referen ce Range: > or = 6 0 ml/min/1.73 m2 CREATININE (test code = 0.40 MG/DL 0.52-1.04 L CREAT) TOTAL PROTEIN (test G/DL 6.3-8.2 code = PROT) ALBUMIN (test code = 3.3 G/DL 3.5-5.0 L ALB) CALCIUM (test code = MG/DL 8.7-9.7 CA) BILIRUBIN TOTAL (test MG/DL 0.2-1.3 code = BILT) SGOT/AST (test code = UNITS/L 15-37 AST) SGPT/ALT (test code = UNITS/L 9-52 ALT) ALKALINE PHOSPHATASE UNITS/L 38-126 (test code = ALKP) COMPREHENSIVE METABOLIC [id number] 05:15:00 Test Item Value Reference Range Interpretation Comments SODIUM (test code = NA) 130 MMOL/L 137-145 L POTASSIUM (test code = K) 3.9 MMOL/L 3.5-5.1 N CHLORIDE (test code = CL) 94 MMOL/L 98-107 L CARBON DIOXIDE (test code = CO2) MMOL/L 22-30 GLUCOSE (test code = GLU) MG/DL 74-106 BLOOD UREA NITROGEN (test code = MG/DL 7-17 BUN) GLOMERULAR FILTRATION RATE (test code = GFR) CREATININE (test code = CREAT) MG/DL 0.52-1.04 TOTAL PROTEIN (test code = PROT) G/DL 6.3-8.2 ALBUMIN (test code = ALB) 3.3 G/DL 3.5-5.0 L CALCIUM (test code = CA) MG/DL 8.7-9.7 BILIRUBIN TOTAL (test code = BILT) MG/DL 0.2-1.3 SGOT/AST (test code = AST) UNITS/L 15-37 SGPT/ALT (test code = ALT) UNITS/L 9-52 ALKALINE PHOSPHATASE (test code = UNITS/L 38-126 ALKP) COMPREHENSIVE METABOLIC [id number] 05:14:00 Test Item Value Reference Range Interpretation Comments SODIUM (test code = NA) 130 MMOL/L 137-145 L POTASSIUM (test code = K) MMOL/L 3.5-5.1 CHLORIDE (test code = CL) 94 MMOL/L 98-107 L CARBON DIOXIDE (test code = CO2) MMOL/L 22-30 GLUCOSE (test code = GLU) MG/DL 74-106 BLOOD UREA NITROGEN (test code = MG/DL 7-17 BUN) GLOMERULAR FILTRATION RATE (test code = GFR) CREATININE (test code = CREAT) MG/DL 0.52-1.04 TOTAL PROTEIN (test code = PROT) G/DL 6.3-8.2 ALBUMIN (test code = ALB) 3.3 G/DL 3.5-5.0 L CALCIUM (test code = CA) MG/DL 8.7-9.7 BILIRUBIN TOTAL (test code = BILT) MG/DL 0.2-1.3 SGOT/AST (test code = AST) UNITS/L 15-37 SGPT/ALT (test code = ALT) UNITS/L 9-52 ALKALINE PHOSPHATASE (test code = UNITS/L 38-126 ALKP) - XR CHEST [id number] 07:30:00 Patient Name: RUTH LOCK Unit No: [id number] EXAMS: CPT CODE: [id number] XR CHEST 1V 56937 Portable AP chest, 1 view Location Code: D4 CLINICAL HISTO RY: On Ventilator COMPARISON: 08/14/2019 COMMENT: Tubes and life support lines are stable. Mild central congestion remains. Patchy bibasilar airspace disease with likely small effusions appear stable. The cardiomediastinal silhouette is unchanged. There is no acute osseous abnormality. IMPRESSION: No significant interval change. at 0730 Reported and signed by: Flaco Livingston MD CC: Cj Palacio MD; [facility] JIAN; Erica Burgess MD Technologist: Flaco Puentes, RT(R) Transcrpt Date/Tm/Trnsp: 08/15/2019 (07) [id number] Orig Print D/T: S: 08/15/2019 (33) [facility] NAME: RUTH LOCK [address] [address] PHYS: CURTO - EDDIE,[place] [address] : 1940 AGE: 79 SEX: F LOC: Z.SI06 A PHONE #: [phone] EXAM DATE: 08/15/2019 STATUS: ADM IN FAX #: [phone] RADIOLOGY NO: PAGE 1 Signed ReportCOMPREHENSIVE METABOLIC PANEL 2019-08-15 07:10:00 Test Item Value Reference Range Interpretation Comments SODIUM (test code = NA) 131 MMOL/L 137-145 L POTASSIUM (test code = 3.7 MMOL/L 3.5-5.1 N K) CHLORIDE (test code = 98 MMOL/L 98-107 N CL) CARBON DIOXIDE (test 30 MMOL/L 22-30 N code = CO2) GLUCOSE (test code = 113 MG/DL 74-106 H GLU) BLOOD UREA NITROGEN 18 MG/DL 7-17 H (test code = BUN) GLOMERULAR FILTRATION > 60 Report ing units: RATE (test code = GFR) ml/mi n/1.73 m2 (Modified MDRD Formula)Referen ce Range: > or = 6 0 ml/min/1.73 m2 CREATININE (test code = 0.40 MG/DL 0.52-1.04 L CREAT) TOTAL PROTEIN (test 5.7 G/DL 6.3-8.2 L code = PROT) ALBUMIN (test code = 3.2 G/DL 3.5-5.0 L ALB) CALCIUM (test code = 8.3 MG/DL 8.4-10.2 L CA) BILIRUBIN TOTAL (test 0.8 MG/DL 0.2-1.3 code = BILT) SGOT/AST (test code = 21 UNITS/L 14-36 N AST) SGPT/ALT (test code = 21 UNITS/L 9-52 ALT) ALKALINE PHOSPHATASE 62 UNITS/L 38-126 N (test code = ALKP) COMPREHENSIVE METABOLIC [id number] 06:52:00 Test Item Value Reference Range Interpretation Comments SODIUM (test code = NA) 131 MMOL/L 137-145 L POTASSIUM (test code = 3.7 MMOL/L 3.5-5.1 N K) CHLORIDE (test code = 98 MMOL/L 98-107 N CL) CARBON DIOXIDE (test 30 MMOL/L 22-30 N code = CO2) GLUCOSE (test code = MG/DL 74-106 GLU) BLOOD UREA NITROGEN MG/DL 7-17 (test code = BUN) GLOMERULAR FILTRATION > 60 Report ing units: RATE (test code = GFR) ml/mi n/1.73 m2 (Modified MDRD Formula)Referen ce Range: > or = 6 0 ml/min/1.73 m2 CREATININE (test code = 0.40 MG/DL 0.52-1.04 L CREAT) TOTAL PROTEIN (test G/DL 6.3-8.2 code = PROT) ALBUMIN (test code = 3.2 G/DL 3.5-5.0 L ALB) CALCIUM (test code = MG/DL 8.7-9.7 CA) BILIRUBIN TOTAL (test MG/DL 0.2-1.3 code = BILT) SGOT/AST (test code = UNITS/L 15-37 AST) SGPT/ALT (test code = UNITS/L 9-52 ALT) ALKALINE PHOSPHATASE UNITS/L 38-126 (test code = ALKP) COMPREHENSIVE METABOLIC [id number] 06:50:00 Test Item Value Reference Range Interpretation Comments SODIUM (test code = NA) 131 MMOL/L 137-145 L POTASSIUM (test code = K) 3.7 MMOL/L 3.5-5.1 N CHLORIDE (test code = CL) 98 MMOL/L 98-107 N CARBON DIOXIDE (test code = CO2) MMOL/L 22-30 GLUCOSE (test code = GLU) MG/DL 74-106 BLOOD UREA NITROGEN (test code = MG/DL 7-17 BUN) GLOMERULAR FILTRATION RATE (test code = GFR) CREATININE (test code = CREAT) MG/DL 0.52-1.04 TOTAL PROTEIN (test code = PROT) G/DL 6.3-8.2 ALBUMIN (test code = ALB) 3.2 G/DL 3.5-5.0 L CALCIUM (test code = CA) MG/DL 8.7-9.7 BILIRUBIN TOTAL (test code = BILT) MG/DL 0.2-1.3 SGOT/AST (test code = AST) UNITS/L 15-37 SGPT/ALT (test code = ALT) UNITS/L 9-52 ALKALINE PHOSPHATASE (test code = UNITS/L 38-126 ALKP) COMPREHENSIVE METABOLIC [id number] 06:49:00 Test Item Value Reference Range Interpretation Comments SODIUM (test code = NA) MMOL/L 137-145 POTASSIUM (test code = K) MMOL/L 3.5-5.1 CHLORIDE (test code = CL) 98 MMOL/L 98-107 N CARBON DIOXIDE (test code = CO2) MMOL/L 22-30 GLUCOSE (test code = GLU) MG/DL 74-106 BLOOD UREA NITROGEN (test code = MG/DL 7-17 BUN) GLOMERULAR FILTRATION RATE (test code = GFR) CREATININE (test code = CREAT) MG/DL 0.52-1.04 TOTAL PROTEIN (test code = PROT) G/DL 6.3-8.2 ALBUMIN (test code = ALB) G/DL 3.5-5.0 CALCIUM (test code = CA) MG/DL 8.7-9.7 BILIRUBIN TOTAL (test code = BILT) MG/DL 0.2-1.3 SGOT/AST (test code = AST) UNITS/L 15-37 SGPT/ALT (test code = ALT) UNITS/L 9-52 ALKALINE PHOSPHATASE (test code = UNITS/L 38-126 ALKP) ARTERIAL BLOOD [id number] 05:52:00 Test Item Value Reference Range Interpretation Comments ARTERIAL BLOOD GAS PH (test code 7.47 mmHg 7.35-7.45 H = PHA) ARTERIAL BLOOD GAS PCO2 (test 35.6 mmHg 35.0-45.0 N code = PCO2A) ARTERIAL BLOOD GAS PO2 (test code 79.7 mmol/L 80.0-100.0 L = PO2A) BICARBONATE TOTAL HCO3 (test code 25.4 mmol/L 20.0-26.0 N = HCO3) BASE EXCESS (test code = DEMETRI) 2.1 mmol/L -3.0-3.0 N ABG O2 SATURATION (test code = 96.5 % 95.0-100.0 N SATA) ABG DELIVERY (test code = THOMAS) VENT ABG VENT MODE (test code = MODEA) CPAP ABG PEEP (test code = PEEPA) 5.0 cmH2O ABG PRESSURE SUPPORT (test code = 10 cmH2O PSABG) ABG TEMPERATURE (test code = 37.0 C >37 TEMPA) ABG SITE (test code = SITEA) RB ALLENS TEST (test code = ALLENS) NA CHECK FIO2 (test code = COHBGFFIO2) 30 % - XR CHEST [id number] 09:31:00 Patient Name: RUTH LOCK Unit No: [id number] EXAMS: CPT CODE: [id number] XR CHEST 1V [id number] STUDY: Chest radiograph HISTORY: Ventilator COMPAR SAADIA: 08/13/2019 TECHNIQUE: Frontal view of the chest. SITE: R16 FINDINGS: Endotracheal tube, enteric tube, right subclavian line are in similar positions. The cardiac silhouette is stable in size. The aorta is atherosclerotic.There is a hazy opacity at the left lung base, not significantly changed. There is improved aeration at the right lung base. No pneumothorax is demonstrated. IMPRESSION: Improved aeration at the right lung base. No additional significant change. at 0931 Reported and signed by: Ankit Carroll MD CC: Cj Palacio MD; DANIEL GRIFFITH [facility];Erica Burgess MD Technologist: Emperatriz Khan RT(R) Transcrpt Date/Tm/Trnsp: 08/14/2019 (930) [email or web address] Orig Print D/T: S: 08/14/2019 (0934)[facility] NAME: RUTH LOCK [id number] [address] PHYS: JIANTO - EDDIE,DANIEL GRIFFITH [employer] [place] [address] : 1940AGE: 79 SEX: F LOC: [id number] A PHONE #: [phone] EXAM DATE: 08/14/2019 STATUS: ADM IN FAX #: [phone] RADIOLOGY NO: PAGE 1 Signed ReportCOMPREHENSIVE METABOLIC [id number] 07:30:00 Test Item Value Reference Range Interpretation Comments SODIUM (test code = NA) 132 MMOL/L 137-145 L POTASSIUM (test code = 3.1 MMOL/L 3.5-5.1 L K) CHLORIDE (test code = 103 MMOL/L 98-107 N CL) CARBON DIOXIDE (test 26 MMOL/L 22-30 N code = CO2) ANION GAP (test code = 6 MMOL/L 14-24 L GAP) GLUCOSE (test code = 125 MG/DL 74-106 H GLU) BLOOD UREA NITROGEN 16 MG/DL 7-17 N (test code = BUN) GLOMERULAR FILTRATION > 60 Report ing units: RATE (test code = GFR) ml/mi n/1.73 m2 (Modified MDRD Formula)Referen ce Range: > or = 6 0 ml/min/1.73 m2 CREATININE (test code = 0.40 MG/DL 0.52-1.04 L CREAT) TOTAL PROTEIN (test 5.2 G/DL 6.3-8.2 L code = PROT) ALBUMIN (test code = 2.9 G/DL 3.5-5.0 L ALB) CALCIUM (test code = 7.9 MG/DL 8.4-10.2 L CA) BILIRUBIN TOTAL (test 0.5 MG/DL 0.2-1.3 N code = BILT) SGOT/AST (test code = 19 UNITS/L 14-36 N AST) SGPT/ALT (test code = 17 UNITS/L 9-52 N ALT) ALKALINE PHOSPHATASE 56 UNITS/L 38-126 N (test code = ALKP) COMPREHENSIVE METABOLIC [id number] 07:25:00 Test Item Value Reference Range Interpretation Comments SODIUM (test code = NA) 132 MMOL/L 137-145 L POTASSIUM (test code = 3.1 MMOL/L 3.5-5.1 L K) CHLORIDE (test code = 103 MMOL/L 98-107 N CL) CARBON DIOXIDE (test MMOL/L 22-30 code = CO2) GLUCOSE (test code = MG/DL 74-106 GLU) BLOOD UREA NITROGEN MG/DL 7-17 (test code = BUN) GLOMERULAR FILTRATION > 60 Report ing units: RATE (test code = GFR) ml/mi n/1.73 m2 (Modified MDRD Formula)Referen ce Range: > or = 6 0 ml/min/1.73 m2 CREATININE (test code = 0.40 MG/DL 0.52-1.04 L CREAT) TOTAL PROTEIN (test G/DL 6.3-8.2 code = PROT) ALBUMIN (test code = 2.9 G/DL 3.5-5.0 L ALB) CALCIUM (test code = MG/DL 8.7-9.7 CA) BILIRUBIN TOTAL (test MG/DL 0.2-1.3 code = BILT) SGOT/AST (test code = UNITS/L 15-37 AST) SGPT/ALT (test code = UNITS/L 9-52 ALT) ALKALINE PHOSPHATASE UNITS/L 38-126 (test code = ALKP) COMPREHENSIVE METABOLIC [id number] 07:23:00 Test Item Value Reference Range Interpretation Comments SODIUM (test code = NA) MMOL/L 137-145 POTASSIUM (test code = K) MMOL/L 3.5-5.1 CHLORIDE (test code = CL) 103 MMOL/L 98-107 N CARBON DIOXIDE (test code = CO2) MMOL/L 22-30 GLUCOSE (test code = GLU) MG/DL 74-106 BLOOD UREA NITROGEN (test code = MG/DL 7-17 BUN) GLOMERULAR FILTRATION RATE (test code = GFR) CREATININE (test code = CREAT) MG/DL 0.52-1.04 TOTAL PROTEIN (test code = PROT) G/DL 6.3-8.2 ALBUMIN (test code = ALB) 2.9 G/DL 3.5-5.0 L CALCIUM (test code = CA) MG/DL 8.7-9.7 BILIRUBIN TOTAL (test code = BILT) MG/DL 0.2-1.3 SGOT/AST (test code = AST) UNITS/L 15-37 SGPT/ALT (test code = ALT) UNITS/L 9-52 ALKALINE PHOSPHATASE (test code = UNITS/L 38-126 ALKP) COMPREHENSIVE METABOLIC [id number] 07:23:00 Test Item Value Reference Range Interpretation Comments SODIUM (test code = NA) 132 MMOL/L 137-145 L POTASSIUM (test code = K) MMOL/L 3.5-5.1 CHLORIDE (test code = CL) 103 MMOL/L 98-107 N CARBON DIOXIDE (test code = CO2) MMOL/L 22-30 GLUCOSE (test code = GLU) MG/DL 74-106 BLOOD UREA NITROGEN (test code = MG/DL 7-17 BUN) GLOMERULAR FILTRATION RATE (test code = GFR) CREATININE (test code = CREAT) MG/DL 0.52-1.04 TOTAL PROTEIN (test code = PROT) G/DL 6.3-8.2 ALBUMIN (test code = ALB) 2.9 G/DL 3.5-5.0 L CALCIUM (test code = CA) MG/DL 8.7-9.7 BILIRUBIN TOTAL (test code = BILT) MG/DL 0.2-1.3 SGOT/AST (test code = AST) UNITS/L 15-37 SGPT/ALT (test code = ALT) UNITS/L 9-52 ALKALINE PHOSPHATASE (test code = UNITS/L 38-126 ALKP) COMPREHENSIVE METABOLIC [id number] 07:23:00 Test Item Value Reference Range Interpretation Comments SODIUM (test code = NA) 132 MMOL/L 137-145 L POTASSIUM (test code = K) 3.1 MMOL/L 3.5-5.1 L CHLORIDE (test code = CL) 103 MMOL/L 98-107 N CARBON DIOXIDE (test code = CO2) MMOL/L 22-30 GLUCOSE (test code = GLU) MG/DL 74-106 BLOOD UREA NITROGEN (test code = MG/DL 7-17 BUN) GLOMERULAR FILTRATION RATE (test code = GFR) CREATININE (test code = CREAT) MG/DL 0.52-1.04 TOTAL PROTEIN (test code = PROT) G/DL 6.3-8.2 ALBUMIN (test code = ALB) 2.9 G/DL 3.5-5.0 L CALCIUM (test code = CA) MG/DL 8.7-9.7 BILIRUBIN TOTAL (test code = BILT) MG/DL 0.2-1.3 SGOT/AST (test code = AST) UNITS/L 15-37 SGPT/ALT (test code = ALT) UNITS/L 9-52 ALKALINE PHOSPHATASE (test code = UNITS/L 38-126 ALKP) ARTERIAL BLOOD [id number] 03:50:00 Test Item Value Reference Range Interpretation Comments ARTERIAL BLOOD GAS PH (test code 7.44 mmHg 7.35-7.45 N = PHA) ARTERIAL BLOOD GAS PCO2 (test 35.3 mmHg 35.0-45.0 N code = PCO2A) ARTERIAL BLOOD GAS PO2 (test 133.4 mmol/L 80.0-100.0 H code = PO2A) BICARBONATE TOTAL HCO3 (test 23.5 mmol/L 20.0-26.0 N code = HCO3) BASE EXCESS (test code = DEMETRI) -0.1 mmol/L -3.0-3.0 N ABG O2 SATURATION (test code = 98.8 % 95.0-100.0 N SATA) ABG DELIVERY (test code = THOMAS) VENT ABG VENT MODE (test code = A/C MODEA) ABG VENT RESP RATE (test code = 14.0 /MIN RRA) ABG TIDAL VOLUME (test code = 350 ml TVA) ABG PEEP (test code = PEEPA) 5.0 cmH2O ABG TEMPERATURE (test code = 37.0 C >37 TEMPA) ABG SITE (test code = SITEA) RB ALLENS TEST (test code = ALLENS) NA CHECK FIO2 (test code = COHBGFFIO2) 35 % [id number] 20:05:00 Test Item Value Reference Range Interpretation Comments SODIUM (test code = NA) 132 MMOL/L 137-145 L UNABLE TO DRAW BLOOD, REASON: CBN NOTIFIED PATIENT CARE STAFF: SANDHYA HADDAD 08/13/19 AT 1933 BY Tolu Virgen METABOLIC [id number] 18:07:00 Test Item Value Reference Range Interpretation Comments SODIUM (test code = 132 MMOL/L 137-145 L NA) POTASSIUM (test code = 3.6 MMOL/L 3.5-5.1 N K) CHLORIDE (test code = 104 MMOL/L 98-107 N CL) CARBON DIOXIDE (test 23 MMOL/L 22-30 N code = CO2) GLUCOSE (test code = 150 MG/DL 74-106 H GLU) BLOOD UREA NITROGEN 13 MG/DL 7-17 N (test code = BUN) GLOMERULAR FILTRATION > 60 Report ing units: RATE (test code = GFR) ml/mi n/1.73 m2 (Modified MDRD Formula)Referen ce Range: > or = 6 0 ml/min/1.73 m2 CREATININE (test code 0.40 MG/DL 0.52-1.04 L = CREAT) CALCIUM (test code = 8.0 MG/DL 8.4-10.2 L CA) BASIC METABOLIC [id number] 18:06:00 Test Item Value Reference Range Interpretation Comments SODIUM (test code = 132 MMOL/L 137-145 L NA) POTASSIUM (test code = 3.6 MMOL/L 3.5-5.1 N K) CHLORIDE (test code = 104 MMOL/L 98-107 N CL) CARBON DIOXIDE (test MMOL/L 22-30 code = CO2) GLUCOSE (test code = MG/DL 74-106 GLU) BLOOD UREA NITROGEN MG/DL 7-17 (test code = BUN) GLOMERULAR FILTRATION > 60 Report ing units: RATE (test code = GFR) ml/mi n/1.73 m2 (Modified MDRD Formula)Referen ce Range: > or = 6 0 ml/min/1.73 m2 CREATININE (test code 0.40 MG/DL 0.52-1.04 L = CREAT) CALCIUM (test code = MG/DL 8.7-9.7 CA) BASIC METABOLIC [id number] 18:04:00 Test Item Value Reference Range Interpretation Comments SODIUM (test code = NA) 132 MMOL/L 137-145 L POTASSIUM (test code = K) 3.6 MMOL/L 3.5-5.1 N CHLORIDE (test code = CL) 104 MMOL/L 98-107 N CARBON DIOXIDE (test code = CO2) MMOL/L 22-30 GLUCOSE (test code = GLU) MG/DL 74-106 BLOOD UREA NITROGEN (test code = MG/DL 7-17 BUN) GLOMERULAR FILTRATION RATE (test code = GFR) CREATININE (test code = CREAT) MG/DL 0.52-1.04 CALCIUM (test code = CA) MG/DL 8.7-9.7 BASIC METABOLIC [id number] 18:03:00 Test Item Value Reference Range Interpretation Comments SODIUM (test code = NA) MMOL/L 137-145 POTASSIUM (test code = K) MMOL/L 3.5-5.1 CHLORIDE (test code = CL) 104 MMOL/L 98-107 N CARBON DIOXIDE (test code = CO2) MMOL/L 22-30 GLUCOSE (test code = GLU) MG/DL 74-106 BLOOD UREA NITROGEN (test code = MG/DL 7-17 BUN) GLOMERULAR FILTRATION RATE (test code = GFR) CREATININE (test code = CREAT) MG/DL 0.52-1.04 CALCIUM (test code = CA) MG/DL 8.7-9.7 [id number] 17:56:00 Test Item Value Reference Range Interpretation Comments SODIUM (test code = NA) 132 MMOL/L 137-145 L - XR CHEST [id number] 10:44:00 Patient Name: RUTH LOCK Unit No: [id number] EXAMS: CPT CODE: [id number] XR CHEST 1V [id number] Site ID: [id number] Portable AP chest x ray INDICATION: V entilator patient COMPARISON: Chest x ray of the previous day FINDINGS: Endotracheal and NG tube and right subclavian line remain appropriately positioned. No pneumothorax or evolving alveolar infiltrate. The heart size and mediastinal contours are within normal limits. Previous CABG noted. No acute osseous finding. IMPRESSION: Adequately situated lines and tubes, without evidence of pneumothorax or acute cardiopulmonary process at 1044 Reported and signed by: Adams Romero MD CC: Cj Palacio MD; [facility] CUR; Erica Burgess MD Technologist: Emperatriz Khan, RT(R) Transcrpt Date/Tm/Trnsp: 08/13/2019 (1044) [id number] OrigPrint D/T: S: 08/13/2019 (1048) [facility] NAME: RUTH LOCK [id number] [address] PHYS: CURTO - CURL,DANIELKulwinder [place] [address] : 1940 AGE: 79 SEX: F LOC: Z.SI06 A PHONE #: [phone] EXAM DATE: 08/13/2019 STATUS: ADM IN FAX #: [phone] RADIOLOGY NO: PAGE 1 Signed ReportARTERIAL BLOOD [id number] 10:43:00 Test Item Value Reference Range Interpretation Comments ARTERIAL BLOOD GAS PH 7.44 mmHg 7.35-7.45 N (test code = PHA) ARTERIAL BLOOD GAS 38.3 mmHg 35.0-45.0 N PCO2 (test code = PCO2A) ARTERIAL BLOOD GAS 159.5 mmol/L 80.0-100.0 H PO2 (test code = PO2A) BICARBONATE TOTAL 25.1 mmol/L 20.0-26.0 N HCO3 (test code = HCO3) BASE EXCESS (test 1.1 mmol/L -3.0-3.0 N code = DEMETRI) ABG O2 SATURATION 99.1 % 95.0-100.0 N All critic al values (test code = SATA) report to and readback by by DANITZA at 08/12/2019 9:40: 05 AM ABG L/M (test code = 40 L/MIN L/M) ABG DELIVERY (test VENT Previousl y reported code = THOMAS) result: HI FLOW NC Edited by: FLOR PATIÑO on 08/13/19:[id number] 9 1042: DELIVE RY previously repo rted as: HI FLOW NC ABG VENT MODE (test A/C code = MODEA) ABG VENT RESP RATE 18 /MIN (test code = RRA) ABG TIDAL VOLUME 350 ml (test code = TVA) ABG PEEP (test code = 5 cmH2O PEEPA) ABG TEMPERATURE (test 37.0 C >37 code = TEMPA) ABG SITE (test code = AL SITEA) ALLENS TEST (test NA CHECK code = ALLENS) FIO2 (test code = 60 % COHBGFFIO2) ARTERIAL BLOOD [id number] 06:06:00 Test Item Value Reference Range Interpretation Comments ARTERIAL BLOOD GAS PH 7.53 mmHg 7.35-7.45 HH (test code = PHA) ARTERIAL BLOOD GAS 28.3 mmHg 35.0-45.0 LL PCO2 (test code = PCO2A) ARTERIAL BLOOD GAS PO2 139.7 mmol/L 80.0-100.0 H (test code = PO2A) BICARBONATE TOTAL HCO3 23.0 mmol/L 20.0-26.0 N (test code = HCO3) BASE EXCESS (test code 1.5 mmol/L -3.0-3.0 N = DEMETRI) ABG O2 SATURATION 99.1 % 95.0-100.0 N All critic al values (test code = SATA) report to and readback by Dr. Molina by GILES at 08/13/2019 6:05: 15 AM ABG DELIVERY (test VENT code = THOMAS) ABG VENT MODE (test A/C code = MODEA) ABG VENT RESP RATE 18.0 /MIN (test code = RRA) ABG TIDAL VOLUME (test 350 ml code = TVA) ABG PEEP (test code = 5.0 cmH2O PEEPA) ABG TEMPERATURE (test 37.0 C >37 code = TEMPA) ABG SITE (test code = AL SITEA) ALLENS TEST (test code NA CHECK = ALLENS) FIO2 (test code = 35 % COHBGFFIO2) COMPREHENSIVE METABOLIC [id number] 04:55:00 Test Item Value Reference Range Interpretation Comments SODIUM (test code = NA) 124 MMOL/L 137-145 L POTASSIUM (test code = 3.2 MMOL/L 3.5-5.1 L K) CHLORIDE (test code = 95 MMOL/L 98-107 L CL) CARBON DIOXIDE (test 25 MMOL/L 22-30 N code = CO2) GLUCOSE (test code = 148 MG/DL 74-106 H GLU) BLOOD UREA NITROGEN 15 MG/DL 7-17 N (test code = BUN) GLOMERULAR FILTRATION > 60 Report ing units: RATE (test code = GFR) ml/mi n/1.73 m2 (Modified MDRD Formula)Referen ce Range: > or = 6 0 ml/min/1.73 m2 CREATININE (test code = 0.40 MG/DL 0.52-1.04 L CREAT) TOTAL PROTEIN (test 5.2 G/DL 6.3-8.2 L code = PROT) ALBUMIN (test code = 2.9 G/DL 3.5-5.0 L ALB) CALCIUM (test code = 8.3 MG/DL 8.4-10.2 L CA) BILIRUBIN TOTAL (test 0.7 MG/DL 0.2-1.3 N code = BILT) SGOT/AST (test code = 23 UNITS/L 14-36 N AST) SGPT/ALT (test code = 20 UNITS/L 9-52 N ALT) ALKALINE PHOSPHATASE 56 UNITS/L 38-126 N (test code = ALKP) [id number] 04:55:00 Test Item Value Reference Range Interpretation Comments MAGNESIUM (test code = MAG) 1.8 MG/DL 1.6-2.3 N COMPREHENSIVE METABOLIC [id number] 04:54:00 Test Item Value Reference Range Interpretation Comments SODIUM (test code = NA) 124 MMOL/L 137-145 L POTASSIUM (test code = 3.2 MMOL/L 3.5-5.1 L K) CHLORIDE (test code = 95 MMOL/L 98-107 L CL) CARBON DIOXIDE (test 25 MMOL/L 22-30 N code = CO2) GLUCOSE (test code = MG/DL 74-106 GLU) BLOOD UREA NITROGEN 15 MG/DL 7-17 N (test code = BUN) GLOMERULAR FILTRATION > 60 Report ing units: RATE (test code = GFR) ml/mi n/1.73 m2 (Modified MDRD Formula)Referen ce Range: > or = 6 0 ml/min/1.73 m2 CREATININE (test code = 0.40 MG/DL 0.52-1.04 L CREAT) TOTAL PROTEIN (test 5.2 G/DL 6.3-8.2 L code = PROT) ALBUMIN (test code = 2.9 G/DL 3.5-5.0 L ALB) CALCIUM (test code = MG/DL 8.7-9.7 CA) BILIRUBIN TOTAL (test 0.7 MG/DL 0.2-1.3 N code = BILT) SGOT/AST (test code = 23 UNITS/L 14-36 N AST) SGPT/ALT (test code = UNITS/L 9-52 ALT) ALKALINE PHOSPHATASE 56 UNITS/L 38-126 N (test code = ALKP) [id number] 04:54:00 Test Item Value Reference Range Interpretation Comments MAGNESIUM (test code = MAG) MG/DL 1.6-2.3 COMPREHENSIVE METABOLIC [id number] 04:52:00 Test Item Value Reference Range Interpretation Comments SODIUM (test code = NA) 124 MMOL/L 137-145 L POTASSIUM (test code = K) 3.2 MMOL/L 3.5-5.1 L CHLORIDE (test code = CL) 95 MMOL/L 98-107 L CARBON DIOXIDE (test code = CO2) MMOL/L 22-30 GLUCOSE (test code = GLU) MG/DL 74-106 BLOOD UREA NITROGEN (test code = MG/DL 7-17 BUN) GLOMERULAR FILTRATION RATE (test code = GFR) CREATININE (test code = CREAT) MG/DL 0.52-1.04 TOTAL PROTEIN (test code = PROT) G/DL 6.3-8.2 ALBUMIN (test code = ALB) 2.9 G/DL 3.5-5.0 L CALCIUM (test code = CA) MG/DL 8.7-9.7 BILIRUBIN TOTAL (test code = BILT) MG/DL 0.2-1.3 SGOT/AST (test code = AST) UNITS/L 15-37 SGPT/ALT (test code = ALT) UNITS/L 9-52 ALKALINE PHOSPHATASE (test code = UNITS/L 38-126 ALKP) [id number] 04:52:00 Test Item Value Reference Range Interpretation Comments MAGNESIUM (test code = MAG) MG/DL 1.6-2.3 COMPREHENSIVE METABOLIC [id number] 04:51:00 Test Item Value Reference Range Interpretation Comments SODIUM (test code = NA) MMOL/L 137-145 POTASSIUM (test code = K) MMOL/L 3.5-5.1 CHLORIDE (test code = CL) MMOL/L 98-107 CARBON DIOXIDE (test code = CO2) MMOL/L 22-30 GLUCOSE (test code = GLU) MG/DL 74-106 BLOOD UREA NITROGEN (test code = MG/DL 7-17 BUN) GLOMERULAR FILTRATION RATE (test code = GFR) CREATININE (test code = CREAT) MG/DL 0.52-1.04 TOTAL PROTEIN (test code = PROT) G/DL 6.3-8.2 ALBUMIN (test code = ALB) 2.9 G/DL 3.5-5.0 L CALCIUM (test code = CA) MG/DL 8.7-9.7 BILIRUBIN TOTAL (test code = BILT) MG/DL 0.2-1.3 SGOT/AST (test code = AST) UNITS/L 15-37 SGPT/ALT (test code = ALT) UNITS/L 9-52 ALKALINE PHOSPHATASE (test code = UNITS/L 38-126 ALKP) [id number] 04:51:00 Test Item Value Reference Range Interpretation Comments MAGNESIUM (test code = MAG) MG/DL 1.6-2.3 CBC W/AUTO [id number] 04:41:00 Test Item Value Reference Range Interpretation Comments WHITE BLOOD CELL (test code = 8.6 K/MM3 3.8-9.8 N WBC) RED BLOOD CELL (test code = 3.86 M/MM3 3.58-4.97 N RBC) HEMOGLOBIN (test code = HGB) 10.9 G/DL 11.2-14.9 L HEMATOCRIT (test code = HCT) 32.6 % 33.2-43.5 L MEAN CELL VOLUME (test code = 85 fL 80.7-99.1 N MCV) MEAN CELL HGB (test code = MCH) 28.2 pg 27.0-34.1 N MEAN CELL HGB CONCETRATION 33.4 % 32.2-35.7 N (test code = MCHC) RED CELL DISTRIBUTION WIDTH 13.6 % 12.1-15.2 N (test code = RDW) PLATELET COUNT (test code = 141 K/MM3 129-368 N PLT) MEAN PLATELET VOLUME (test code 10.2 fl 7.4-10.4 N = MPV) NEUTROPHIL % (test code = NT%) 85.0 % 43-75 H IMMATURE GRANULOCYTE % (test 0.8 % 0.0-2.0 N code = IG%) LYMPHOCYTE % (test code = LY%) 8.3 % 14-44 L MONOCYTE % (test code = MO%) 5.9 % 4-13 N EOSINOPHIL % (test code = EO%) 0.0 % 0-6 N BASOPHIL % (test code = BA%) 0 % 0-2 N NUCLEATED RBC % (test code = 0.0 % 0-1.0 N NRBC%) NEUTROPHIL # (test code = NT#) 7.29 K/mm3 2.0-7.6 N IMMATURE GRANULOCYTE # (test 0.07 x10 3/uL 0-0.03 H code = IG#) LYMPHOCYTE # (test code = LY#) 0.71 K/mm3 1.0-3.8 L MONOCYTE # (test code = MO#) 0.51 K/mm3 0.1-0.8 N EOSINOPHIL # (test code = EO#) 0.00 K/mm3 0.0-0.2 N BASOPHIL # (test code = BA#) 0 K/mm3 0.0-0.2 N NUCLEATED RBC # (test code = 0.00 K/mm3 0.0-0.1 N NRBC#) ARTERIAL BLOOD [id number] 14:25:00 Test Item Value Reference Range Interpretation Comments ARTERIAL BLOOD GAS PH 7.44 mmHg 7.35-7.45 N (test code = PHA) ARTERIAL BLOOD GAS 38.3 mmHg 35.0-45.0 N PCO2 (test code = PCO2A) ARTERIAL BLOOD GAS PO2 159.5 mmol/L 80.0-100.0 H (test code = PO2A) BICARBONATE TOTAL HCO3 25.1 mmol/L 20.0-26.0 N (test code = HCO3) BASE EXCESS (test code 1.1 mmol/L -3.0-3.0 N = DEMETRI) ABG O2 SATURATION 99.1 % 95.0-100.0 N All critic al values (test code = SATA) report to and readback by by DANITZA at 08/12/2019 9:40: 05 AM ABG L/M (test code = 40 L/MIN L/M) ABG DELIVERY (test HI FLOW NC code = THOMAS) ABG TEMPERATURE (test 37.0 C >37 code = TEMPA) ABG SITE (test code = AL SITEA) ALLENS TEST (test code NA CHECK = ALLENS) FIO2 (test code = 60 % COHBGFFIO2) ARTERIAL BLOOD [id number] 14:17:00 Test Item Value Reference Range Interpretation Comments ARTERIAL BLOOD GAS PH 7.46 mmHg 7.35-7.45 H (test code = PHA) ARTERIAL BLOOD GAS 33.5 mmHg 35.0-45.0 L PCO2 (test code = PCO2A) ARTERIAL BLOOD GAS PO2 142.0 mmol/L 80.0-100.0 H (test code = PO2A) BICARBONATE TOTAL HCO3 23.4 mmol/L 20.0-26.0 N (test code = HCO3) BASE EXCESS (test code 0.3 mmol/L -3.0-3.0 N = DEMETRI) ABG O2 SATURATION 99.0 % 95.0-100.0 N All critic al values (test code = SATA) report to and readback by DR. DUARTE by DANITZA at 08/12/2019 1:49: 23 PM ABG DELIVERY (test VENT code = THOMAS) ABG VENT MODE (test A/C code = MODEA) ABG VENT RESP RATE 18.0 /MIN (test code = RRA) ABG TIDAL VOLUME (test 350 ml code = TVA) ABG PEEP (test code = 5.0 cmH2O PEEPA) ABG TEMPERATURE (test 37.0 C >37 code = TEMPA) ABG SITE (test code = AL SITEA) ALLENS TEST (test code NA CHECK = ALLENS) FIO2 (test code = 40 % COHBGFFIO2) LACTIC [id number] 11:20:00 Test Item Value Reference Range Interpretation Comments LACTIC ACID (test code = LACT) 1.0 MMOL/L 0.7-2.1 N UNABLE TO DRAW BLOOD, REASON: CBNNOTIFIED PATIENT CARE STAFF: SOLIS MCKEON 08/12/19 AT 1101 BY [place] EppsnB-TYPE NATRIURETIC [id number] 09:42:00 Test Item Value Reference Range Interpretation Comments B-TYPE NATRIURETIC PEPTIDE (test 1186.0 PG/ML 0-100 H code = BNP) - XR CHEST [id number] 09:18:00 Patient Name: RUTH LOCK Unit No: [id number] EXAMS: CPT CODE: [id number] XR CHEST 1V [id number] STUDY: Chest radiograph HISTORY: Intubated ELAINAI SON: 08/12/2019 TECHNIQUE: Frontal view of the chest. SITE: R16 FINDINGS: There has been placement of an endotracheal tube 5.5 cm proximal to the vicenta. The right subclavian line remains in similar position. The cardiac silhouette isstable in size. The patient is status post median sternotomy. The interstitial lung markings are again noted to be coarsened, this may be related to the hyperaerated lungs suggestive of COPD. There is improved aeration of bibasilar opacities. No pneumothorax is demonstrated. Again seen is screw fixation of the right humeral head. IMPRESSION: Interval endotracheal tube placement in appropriate position. Improving bibasilar atelectasis/infiltrates. at 0918 Reported and signed by: Ankit Carroll MD CC: Cj Palacio MD; [facility] JIAN; Erica Burgess MD Technologist: Cr Barton (RT) (R) Transcrpt Date/Tm/Trnsp: 08/12/2019 (0918) [email or web address] Orig Print D/T: S: 08/12/2019 (920) [facility] NAME: RUTH LOCK [id number] [address] PHYS: [place] [address] : 1940 AGE: 79 SEX: F LOC: Z.SI06 A PHONE #: [phone] EXAM DATE: 08/12/2019 STATUS: ADM INFAX #: [phone] RADIOLOGY NO: PAGE 1 Signed ReportARTERIAL BLOOD [id number] 08:46:00 Test Item Value Reference Range Interpretation Comments ARTERIAL BLOOD GAS PH 7.29 mmHg 7.35-7.45 LL (test code = PHA) ARTERIAL BLOOD GAS 52.3 mmHg 35.0-45.0 HH PCO2 (test code = PCO2A) ARTERIAL BLOOD GAS PO2 108.1 mmol/L 80.0-100.0 H (test code = PO2A) BICARBONATE TOTAL HCO3 24.8 mmol/L 20.0-26.0 N (test code = HCO3) BASE EXCESS (test code -2.5 mmol/L -3.0-3.0 N = DEMETRI) ABG O2 SATURATION 97.4 % 95.0-100.0 N All critic al values (test code = SATA) report to and readback by dr paul by JARED SILVERIOA at 08/12/2019 7:40:14 AM ABG DELIVERY (test HI FLOW NC code = THOMAS) ABG TEMPERATURE (test 37.0 C >37 code = TEMPA) ABG SITE (test code = AL SITEA) ALLENS TEST (test code NA CHECK = ALLENS) FIO2 (test code = 60 % COHBGFFIO2) - XR CHEST [id number] 08:38:00 Patient Name: RUTH LOCK Unit No: [id number] EXAMS: CPT CODE: [id number] XR CHEST 1V [id number] Single View Chest. Location: B2 Clinical Indication: 79-year-old with extubation Comparison: August 11, 2019 Findings: An AP view of the chest was obtained. The left neck surgical drain has been removed. Right subclavian central line remains in place. There is dense hazy opacification of the lower lungs, slightly worsened from prior study. Heart size is stable. Prior sternotomy and CABG. No acute osseous abnormality. Prior internal fixation of the right humerus. Impression: 1. Interval removal of the left neck surgical drain. 2. Increasingopacification of the lung bases, likely a combination of edema and atelectasis. at 0838 Reported and signed by: Ankit Conrad M.D. CC: Cj Palacio MD; Erica Burgess MD Technologist: Lauren Cardona, RT (R); [facility] STUDENT Transcrpt Date/Tm/Trnsp: 08/12/2019 (837) [id number] Orig Print D/T: S: 08/12/2019 (0842) [facility] NAME: RUTH LOCK [id number] PHYS: [place] [address] : 1940 AGE: 79 SEX: F LOC: [id number] A PHONE #: [phone] EXAM DATE: 08/12/2019 STATUS: ADM IN FAX #: [phone] RADIOLOGY NO: PAGE 1 Signed ReportBASIC METABOLIC [id number] 06:55:00 Test Item Value Reference Range Interpretation Comments SODIUM (test code = 127 MMOL/L 137-145 L NA) POTASSIUM (test code = 3.5 MMOL/L 3.5-5.1 N K) CHLORIDE (test code = 90 MMOL/L 98-107 L CL) CARBON DIOXIDE (test 27 MMOL/L 22-30 N code = CO2) GLUCOSE (test code = 156 MG/DL 74-106 H GLU) BLOOD UREA NITROGEN 13 MG/DL 7-17 N (test code = BUN) GLOMERULAR FILTRATION > 60 Report ing units: RATE (test code = GFR) ml/mi n/1.73 m2 (Modified MDRD Formula)Referen ce Range: > or = 6 0 ml/min/1.73 m2 CREATININE (test code 0.30 MG/DL 0.52-1.04 L = CREAT) CALCIUM (test code = 8.6 MG/DL 8.4-10.2 N CA) [id number] 06:55:00 Test Item Value Reference Range Interpretation Comments MAGNESIUM (test code = MAG) 1.8 MG/DL 1.6-2.3 N BASIC METABOLIC [id number] 06:54:00 Test Item Value Reference Range Interpretation Comments SODIUM (test code = 127 MMOL/L 137-145 L NA) POTASSIUM (test code = 3.5 MMOL/L 3.5-5.1 N K) CHLORIDE (test code = 90 MMOL/L 98-107 L CL) CARBON DIOXIDE (test 27 MMOL/L 22-30 N code = CO2) GLUCOSE (test code = MG/DL 74-106 GLU) BLOOD UREA NITROGEN MG/DL 7-17 (test code = BUN) GLOMERULAR FILTRATION > 60 Report ing units: RATE (test code = GFR) ml/mi n/1.73 m2 (Modified MDRD Formula)Referen ce Range: > or = 6 0 ml/min/1.73 m2 CREATININE (test code 0.30 MG/DL 0.52-1.04 L = CREAT) CALCIUM (test code = MG/DL 8.7-9.7 CA) [id number] 06:54:00 Test Item Value Reference Range Interpretation Comments MAGNESIUM (test code = MAG) MG/DL 1.6-2.3 BASIC METABOLIC [id number] 06:51:00 Test Item Value Reference Range Interpretation Comments SODIUM (test code = NA) 127 MMOL/L 137-145 L POTASSIUM (test code = K) MMOL/L 3.5-5.1 CHLORIDE (test code = CL) 90 MMOL/L 98-107 L CARBON DIOXIDE (test code = CO2) MMOL/L 22-30 GLUCOSE (test code = GLU) MG/DL 74-106 BLOOD UREA NITROGEN (test code = MG/DL 7-17 BUN) GLOMERULAR FILTRATION RATE (test code = GFR) CREATININE (test code = CREAT) MG/DL 0.52-1.04 CALCIUM (test code = CA) MG/DL 8.7-9.7 [id number] 06:51:00 Test Item Value Reference Range Interpretation Comments MAGNESIUM (test code = MAG) MG/DL 1.6-2.3 CBC W/AUTO [id number] 06:49:00 Test Item Value Reference Range Interpretation Comments WHITE BLOOD CELL (test code = 12.5 K/MM3 3.8-9.8 H WBC) RED BLOOD CELL (test code = 4.16 M/MM3 3.58-4.97 N RBC) HEMOGLOBIN (test code = HGB) 11.8 G/DL 11.2-14.9 N HEMATOCRIT (test code = HCT) 36.5 % 33.2-43.5 N MEAN CELL VOLUME (test code = 88 fL 80.7-99.1 N MCV) MEAN CELL HGB (test code = MCH) 28.4 pg 27.0-34.1 N MEAN CELL HGB CONCETRATION 32.3 % 32.2-35.7 N (test code = MCHC) RED CELL DISTRIBUTION WIDTH 13.9 % 12.1-15.2 N (test code = RDW) PLATELET COUNT (test code = 162 K/MM3 129-368 N PLT) MEAN PLATELET VOLUME (test code 10.2 fl 7.4-10.4 N = MPV) NEUTROPHIL % (test code = NT%) 90.6 % 43-75 H IMMATURE GRANULOCYTE % (test 1.1 % 0.0-2.0 N code = IG%) LYMPHOCYTE % (test code = LY%) 4.4 % 14-44 L MONOCYTE % (test code = MO%) 3.8 % 4-13 L EOSINOPHIL % (test code = EO%) 0.0 % 0-6 N BASOPHIL % (test code = BA%) 0.1 % 0-2 N NUCLEATED RBC % (test code = 0.0 % 0-1.0 N NRBC%) NEUTROPHIL # (test code = NT#) 11.34 K/mm3 2.0-7.6 H IMMATURE GRANULOCYTE # (test 0.14 x10 3/uL 0-0.03 H code = IG#) LYMPHOCYTE # (test code = LY#) 0.55 K/mm3 1.0-3.8 L MONOCYTE # (test code = MO#) 0.47 K/mm3 0.1-0.8 N EOSINOPHIL # (test code = EO#) 0.00 K/mm3 0.0-0.2 N BASOPHIL # (test code = BA#) 0.01 K/mm3 0.0-0.2 N NUCLEATED RBC # (test code = 0.00 K/mm3 0.0-0.1 N NRBC#) ARTERIAL BLOOD [id number] 03:48:00 Test Item Value Reference Range Interpretation Comments ARTERIAL BLOOD GAS PH 7.26 mmHg 7.35-7.45 LL (test code = PHA) ARTERIAL BLOOD GAS PCO2 63.1 mmHg 35.0-45.0 HH (test code = PCO2A) ARTERIAL BLOOD GAS PO2 47.7 mmol/L 80.0-100.0 LL (test code = PO2A) BICARBONATE TOTAL HCO3 27.7 mmol/L 20.0-26.0 H (test code = HCO3) BASE EXCESS (test code -0.9 mmol/L -3.0-3.0 N = DEMETRI) ABG O2 SATURATION (test 76.4 % 95.0-100.0 L All critical values code = SATA) report to and readback by SANDHYA VALENZUELA by JARED MONTAGUE at 08/12/2019 3:38:06 AM ABG DELIVERY (test code HI FLOW NC = THOMAS) ABG TEMPERATURE (test 37.0 C >37 code = TEMPA) ABG SITE (test code = AL SITEA) ALLENS TEST (test code NA CHECK = ALLENS) FIO2 (test code = 30 % COHBGFFIO2) ARTERIAL BLOOD [id number] 19:46:00 Test Item Value Reference Range Interpretation Comments ARTERIAL BLOOD GAS PH (test code 7.37 mmHg 7.35-7.45 N = PHA) ARTERIAL BLOOD GAS PCO2 (test 37.2 mmHg 35.0-45.0 N code = PCO2A) ARTERIAL BLOOD GAS PO2 (test 136.8 mmol/L 80.0-100.0 H code = PO2A) BICARBONATE TOTAL HCO3 (test 20.9 mmol/L 20.0-26.0 N code = HCO3) BASE EXCESS (test code = DEMETRI) -3.8 mmol/L -3.0-3.0 L ABG O2 SATURATION (test code = 98.7 % 95.0-100.0 N SATA) ABG DELIVERY (test code = THOMAS) N/C ABG TEMPERATURE (test code = 37.0 C >37 TEMPA) ABG SITE (test code = SITEA) AL ALLENS TEST (test code = ALLENS) NA CHECK FIO2 (test code = COHBGFFIO2) 28 % ARTERY,[id number] 15:32:00 RUN DATE: 08/11/19 [facility] PAGE 1 RUN TIME: 1533 Specimen Inquiry RUN USER: INTERFACE PATIENT: RUTH LOCK LOC: MONY Zelaya #: [id number] AGE/SX: 79/F ROOM: DARON RE08/07/19REG DR: Ankit Love MD : 40 BED: A DIS: STATUS: ADM IN TLOC: SPEC #: [id number]:[id number] RECD: 08/10/19-1600 STATUS: REESE REEdenilson #: [id number] TRANG: 08/10/19-[address]: Ankit Love MD ENTERED: 08/10/19-1601 SP TYPE: ARTERY, PL OTHR DR: April Escamilla MD, David E MD Dabaghi, Salim F MD Karim, Nioti R MD Patel, Rupert MDORDERED: DECAL, SURG PATH LVL 3, SURG PATH LVL 4 CODES: [id number] - PLAQUE, NOS [id number] - ARTERY, NOS [id number] - CAROTID ARTERY ATHEROSCLEROSIS [id number] - CERVIX EXCISIONAL BIOP [id number] - LY MPH NODE, NOS [place]: [place] [address] [place] [address] [email or web address] Cj Palacio MD [address] [place] [address] Erica Burgess MD [address] [place] [address] [address] [place] [id number] [email or web address] [address] [place] [address] [place] [address] [facility] [address] [place] [address] Eric Lamas MD [address] [facility] [address] [place] [id number] CONTINUED ON NEXT PAGE RUN DATE: 08/11/19 [facility] LAB PAGE 2 RUN TIME: 1533 Specimen Inquiry RUN USER: INTERFACE SPEC #: [id number]:[id number] PATIENT: RUTH LOCK #[id number] (Continued) ICD CODES: 440 - PROCEDURES: DECAL (08/10/19-1601) SURG PATH LVL 3 (08/10/19-1601) SURG PATH LVL 4 (08/10/191601) TISSUES: A. ARTERY, NOS - LEFT CAROTID PLAQUE B. LYMPH NODE, NOS - LEFT CERVICAL LYMPH NODE CLINICAL HISTORY LEFT INTERNAL CAROTID ENDARTECTOMY CPT CODES CPT CODE(S): 68708 , 09326 , 33068 , , , , FINAL DIAGNOSIS A. Plaque, left carotid artery, endarterectomy: SEVERE ATHEROSCLEROSIS B. Lymph node, left cervical, excisional biopsy: MILD, NONSPECIFIC, REACTIVE CHANGE GROSS DESCRIPTION A. Left carotid plaque. Received in formalin is a Y-shaped yellow-cohen material, grossly consistent with plaque, 3.0 x 1.2 x 0.5 cm. The cut surface is yellow-cohen and solid with focal gritty areas. Bpm Architect sections submitted following decalcification labeled A. B. Left cervical lymph node. Received in formalin is an ovoid, rubbery, yellow-cohen nodule, grossly consistent with lymph node, 1.3 x 1.1 x 0.6 cm. The lymph node is serially sectioned and entirely submitted as B. ba/nr MICROSCOPIC DESCRIPTION A. Left carotid plaque. Ovoid sclerotic nodule with dense calcific degeneration and foci of luminal recanalization. No atypical features. B. Left cervical lymph node. Benign lymphnode with mild follicular, paracortical, and sinusoidal reactive change. No atypical features. /j b SignedSIGNATURE ON FILE Ervin Deras 08/11/19 1532 END OF REPORT ARTERIAL BLOOD [id number] 13:58:00 Test Item Value Reference Range Interpretation Comments ARTERIAL BLOOD GAS PH (test code 7.50 mmHg 7.35-7.45 H = PHA) ARTERIAL BLOOD GAS PCO2 (test 31.5 mmHg 35.0-45.0 L code = PCO2A) ARTERIAL BLOOD GAS PO2 (test 169.3 mmol/L 80.0-100.0 H code = PO2A) BICARBONATE TOTAL HCO3 (test 23.9 mmol/L 20.0-26.0 N code = HCO3) BASE EXCESS (test code = DEMETRI) 1.5 mmol/L -3.0-3.0 N ABG O2 SATURATION (test code = 99.3 % 95.0-100.0 N SATA) ABG DELIVERY (test code = THOMAS) FACETENT ABG TEMPERATURE (test code = 37.0 C >37 TEMPA) ABG SITE (test code = SITEA) CORD ALLENS TEST (test code = ALLENS) Y CHECK FIO2 (test code = COHBGFFIO2) 60 % - XR CHEST [id number] 13:01:00 Patient Name: RUTH LOCK Unit No: [id number] EXAMS: CPT CODE: [id number] XR CHEST 1V 02528 STUDY: Chest radiograph HISTORY: Extubation. GEORGES RISON: 08/11/2019 TECHNIQUE: Frontal view of the chest. SITE: R16 FINDINGS: There has been interval removal of an endotracheal tube. Left internal jugular venous sheath and right subclavian line are in similar positions. The patient is status post median sternotomy. The cardiac silhouette is stable in size. The aorta isatherosclerotic. The lungs are hyperaerated. There is improved aeration of a hazy opacities at the lung bases. There is no pleural effusion or pneumothorax. No acute osseous abnormalities are identified. 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 IMPRESSION: Interval extubation with improved aeration at the lung bases. at 1301 Reported and signed by: Ankit Carroll MD CC: Cj Palacio MD; Erica Burgess MD; Alem Hernandez NP Technologist: Michelle Wei RT(R) Transcrpt Date/Tm/Trnsp: 08/11/2019 (1301) t.[email or web address] Orig Print D/T: S: 08/11/2019 (3584) [facility] NAME: RUTH LOCK [address] PHYS: [place] [address] : 1940 AGE: 79 SEX: F LOC: Z.SI06 A PHONE #: [phone] EXAM DATE: 08/11/2019 STATUS: ADM IN FAX #: [phone] RADIOLOGY NO: PAGE 1 Signed ReportARTERIAL BLOOD [id number] 12:05:00 Test Item Value Reference Range Interpretation Comments ARTERIAL BLOOD GAS PH 7.55 mmHg 7.35-7.45 HH (test code = PHA) ARTERIAL BLOOD GAS 28.8 mmHg 35.0-45.0 LL PCO2 (test code = PCO2A) ARTERIAL BLOOD GAS PO2 134.5 mmol/L 80.0-100.0 H (test code = PO2A) BICARBONATE TOTAL HCO3 24.6 mmol/L 20.0-26.0 N (test code = HCO3) BASE EXCESS (test code 3.3 mmol/L -3.0-3.0 H = DEEMTRI) ABG O2 SATURATION 99.0 % 95.0-100.0 N All critic al values (test code = SATA) report to and readback by ICU Physician by WILNER at 08/11/2019 12:05 :10 PM ABG DELIVERY (test VENT code = THOMAS) ABG VENT MODE (test CPAP code = MODEA) ABG PEEP (test code = 5.0 cmH2O PEEPA) ABG PRESSURE SUPPORT 10 cmH2O (test code = PSABG) ABG TEMPERATURE (test 37.0 C >37 code = TEMPA) ABG SITE (test code = LINE SITEA) ALLENS TEST (test code NA CHECK = ALLENS) FIO2 (test code = 30 % COHBGFFIO2) - XR CHEST [id number] 08:16:00 Patient Name: RUTH LOCK Unit No: [id number] EXAMS: CPT CODE: [id number] XR CHEST 1V 57303 REASON FOR EXAM: Respiratory distress, ventilator. COMPARISON: [facility] 2018. Chest, portable single frontal view. The ET tube is in good position above the vicenta by 4.7 cm. Right subclavian central line with its tip at the right atrium margin. Left IJ sheath, stable. The lungs are well-inflated and clear. Heart size is normal. Pulmonary vessels may be borderline congested. Median sternotomy changes. No effusion or pneumothorax can be seen. Osseous structures appear to beintact. IMPRESSION: No acute infiltrates. Borderline vascular congestion. Support lines and tubes intact Location: U19 Electronically Sig richie by Ankit Fowler MD on 08/11/2019 at 0816 Reported and signed by: Ankit Fowler MD CC: Cj Dodson; DANIELKulwinder [facility] CURL; Erica Burgess MD Technologist: Emperatriz Khan RT(R) Transcrpt Date/Tm/Trnsp: 08/11/2019 (0816) Jennifer Orig Print D/T: S: 08/11/2019 (0819) [facility] NAME: RUTH LOCK[address] PHYS: CURTO - CURL,DANIELKul[place] [address] : 1940 AGE: 79 SEX: F LOC: Z.SI06 A PHONE #: [phone] EXAM DATE: 08/11/2019 STATUS: ADM IN FAX #: [phone] RADIOLOGY NO: PAGE 1 Signed ReportARTERIAL BLOOD [id number] 05:35:00 Test Item Value Reference Range Interpretation Comments ARTERIAL BLOOD GAS PH (test code 7.41 mmHg 7.35-7.45 N = PHA) ARTERIAL BLOOD GAS PCO2 (test 39.0 mmHg 35.0-45.0 N code = PCO2A) ARTERIAL BLOOD GAS PO2 (test code 97.0 mmol/L 80.0-100.0 N = PO2A) BICARBONATE TOTAL HCO3 (test code 24.2 mmol/L 20.0-26.0 N = HCO3) BASE EXCESS (test code = DEMETRI) -0.2 mmol/L -3.0-3.0 N ABG O2 SATURATION (test code = 97.5 % 95.0-100.0 N SATA) ABG DELIVERY (test code = THOMAS) VENT ABG VENT MODE (test code = MODEA) SIMV ABG VENT RESP RATE (test code = 12.0 /MIN RRA) ABG TIDAL VOLUME (test code = 350 ml TVA) ABG PEEP (test code = PEEPA) 5.0 cmH2O ABG PRESSURE SUPPORT (test code = 10 cmH2O PSABG) ABG TEMPERATURE (test code = 37.0 C >37 TEMPA) ABG SITE (test code = SITEA) AL ALLENS TEST (test code = ALLENS) NA CHECK FIO2 (test code = COHBGFFIO2) 30 % COMPREHENSIVE METABOLIC [id number] 04:57:00 Test Item Value Reference Range Interpretation Comments SODIUM (test code = NA) 128 MMOL/L 137-145 L POTASSIUM (test code = 3.8 MMOL/L 3.5-5.1 N K) CHLORIDE (test code = 97 MMOL/L 98-107 L CL) CARBON DIOXIDE (test 26 MMOL/L 22-30 N code = CO2) ANION GAP (test code = 9 MMOL/L 14-24 L GAP) GLUCOSE (test code = 167 MG/DL 74-106 H GLU) BLOOD UREA NITROGEN 14 MG/DL 7-17 N (test code = BUN) GLOMERULAR FILTRATION > 60 Report ing units: RATE (test code = GFR) ml/mi n/1.73 m2 (Modified MDRD Formula)Referen ce Range: > or = 6 0 ml/min/1.73 m2 CREATININE (test code = 0.30 MG/DL 0.52-1.04 L CREAT) TOTAL PROTEIN (test 5.9 G/DL 6.3-8.2 L code = PROT) ALBUMIN (test code = 3.4 G/DL 3.5-5.0 L ALB) CALCIUM (test code = 8.4 MG/DL 8.4-10.2 N CA) BILIRUBIN TOTAL (test 0.8 MG/DL 0.2-1.3 N code = BILT) SGOT/AST (test code = 24 UNITS/L 14-36 AST) SGPT/ALT (test code = 18 UNITS/L 9-52 ALT) ALKALINE PHOSPHATASE 70 UNITS/L 38-126 (test code = ALKP) [id number] 04:57:00 Test Item Value Reference Range Interpretation Comments MAGNESIUM (test code = MAG) 2.0 MG/DL 1.6-2.3 N COMPREHENSIVE METABOLIC [id number] 04:49:00 Test Item Value Reference Range Interpretation Comments SODIUM (test code = NA) 128 MMOL/L 137-145 L POTASSIUM (test code = K) 3.8 MMOL/L 3.5-5.1 N CHLORIDE (test code = CL) 97 MMOL/L 98-107 L CARBON DIOXIDE (test code = CO2) MMOL/L 22-30 GLUCOSE (test code = GLU) MG/DL 74-106 BLOOD UREA NITROGEN (test code = MG/DL 7-17 BUN) GLOMERULAR FILTRATION RATE (test code = GFR) CREATININE (test code = CREAT) MG/DL 0.52-1.04 TOTAL PROTEIN (test code = PROT) G/DL 6.3-8.2 ALBUMIN (test code = ALB) 3.4 G/DL 3.5-5.0 L CALCIUM (test code = CA) MG/DL 8.7-9.7 BILIRUBIN TOTAL (test code = BILT) MG/DL 0.2-1.3 SGOT/AST (test code = AST) UNITS/L 15-37 SGPT/ALT (test code = ALT) UNITS/L 9-52 ALKALINE PHOSPHATASE (test code = UNITS/L 38-126 ALKP) [id number] 04:49:00 Test Item Value Reference Range Interpretation Comments MAGNESIUM (test code = MAG) MG/DL 1.6-2.3 COMPREHENSIVE METABOLIC [id number] 04:48:00 Test Item Value Reference Range Interpretation Comments SODIUM (test code = NA) MMOL/L 137-145 POTASSIUM (test code = K) MMOL/L 3.5-5.1 CHLORIDE (test code = CL) MMOL/L 98-107 CARBON DIOXIDE (test code = CO2) MMOL/L 22-30 GLUCOSE (test code = GLU) MG/DL 74-106 BLOOD UREA NITROGEN (test code = MG/DL 7-17 BUN) GLOMERULAR FILTRATION RATE (test code = GFR) CREATININE (test code = CREAT) MG/DL 0.52-1.04 TOTAL PROTEIN (test code = PROT) G/DL 6.3-8.2 ALBUMIN (test code = ALB) 3.4 G/DL 3.5-5.0 L CALCIUM (test code = CA) MG/DL 8.7-9.7 BILIRUBIN TOTAL (test code = BILT) MG/DL 0.2-1.3 SGOT/AST (test code = AST) UNITS/L 15-37 SGPT/ALT (test code = ALT) UNITS/L 9-52 ALKALINE PHOSPHATASE (test code = UNITS/L 38-126 ALKP) [id number] 04:48:00 Test Item Value Reference Range Interpretation Comments MAGNESIUM (test code = MAG) MG/DL 1.6-2.3 CBC W/AUTO [id number] 04:37:00 Test Item Value Reference Range Interpretation Comments WHITE BLOOD CELL (test code = 16.4 K/MM3 3.8-9.8 H WBC) RED BLOOD CELL (test code = 4.08 M/MM3 3.58-4.97 N RBC) HEMOGLOBIN (test code = HGB) 11.5 G/DL 11.2-14.9 N HEMATOCRIT (test code = HCT) 35.3 % 33.2-43.5 N MEAN CELL VOLUME (test code = 87 fL 80.7-99.1 N MCV) MEAN CELL HGB (test code = MCH) 28.2 pg 27.0-34.1 N MEAN CELL HGB CONCETRATION 32.6 % 32.2-35.7 N (test code = MCHC) RED CELL DISTRIBUTION WIDTH 14.0 % 12.1-15.2 N (test code = RDW) PLATELET COUNT (test code = 164 K/MM3 129-368 N PLT) MEAN PLATELET VOLUME (test code 9.8 fl 7.4-10.4 N = MPV) NEUTROPHIL % (test code = NT%) 93.1 % 43-75 H IMMATURE GRANULOCYTE % (test 0.6 % 0.0-2.0 N code = IG%) LYMPHOCYTE % (test code = LY%) 3.7 % 14-44 L MONOCYTE % (test code = MO%) 2.5 % 4-13 L EOSINOPHIL % (test code = EO%) 0.0 % 0-6 N BASOPHIL % (test code = BA%) 0.1 % 0-2 N NUCLEATED RBC % (test code = 0.0 % 0-1.0 N NRBC%) NEUTROPHIL # (test code = NT#) 15.24 K/mm3 2.0-7.6 H IMMATURE GRANULOCYTE # (test 0.10 x10 3/uL 0-0.03 H code = IG#) LYMPHOCYTE # (test code = LY#) 0.60 K/mm3 1.0-3.8 L MONOCYTE # (test code = MO#) 0.41 K/mm3 0.1-0.8 N EOSINOPHIL # (test code = EO#) 0.00 K/mm3 0.0-0.2 N BASOPHIL # (test code = BA#) 0.01 K/mm3 0.0-0.2 N NUCLEATED RBC # (test code = 0.00 K/mm3 0.0-0.1 N NRBC#) [id number] 00:36:00 Test Item Value Reference Range Interpretation Comments POTASSIUM (test code = K) 3.9 MMOL/L 3.5-5.1 N [id number] 00:36:00 Test Item Value Reference Range Interpretation Comments CALCIUM (test code = CA) MG/DL 8.7-9.7 [id number] 00:36:00 Test Item Value Reference Range Interpretation Comments MAGNESIUM (test code = MAG) 2.1 MG/DL 1.6-2.3 N [id number] 00:36:00 Test Item Value Reference Range Interpretation Comments POTASSIUM (test code = K) 3.9 MMOL/L 3.5-5.1 N [id number] 00:36:00 Test Item Value Reference Range Interpretation Comments CALCIUM (test code = CA) 8.5 MG/DL 8.4-10.2 N [id number] 00:36:00 Test Item Value Reference Range Interpretation Comments MAGNESIUM (test code = MAG) 2.1 MG/DL 1.6-2.3 N [id number] 00:33:00 Test Item Value Reference Range Interpretation Comments POTASSIUM (test code = K) 3.9 MMOL/L 3.5-5.1 N [id number] 00:33:00 Test Item Value Reference Range Interpretation Comments CALCIUM (test code = CA) MG/DL 8.7-9.7 [id number] 00:33:00 Test Item Value Reference Range Interpretation Comments MAGNESIUM (test code = MAG) MG/DL 1.6-2.3 ARTERIAL BLOOD [id number] 20:54:00 Test Item Value Reference Range Interpretation Comments ARTERIAL BLOOD GAS PH (test code 7.35 mmHg 7.35-7.45 N = PHA) ARTERIAL BLOOD GAS PCO2 (test 39.2 mmHg 35.0-45.0 N code = PCO2A) ARTERIAL BLOOD GAS PO2 (test code 75.0 mmol/L 80.0-100.0 L = PO2A) BICARBONATE TOTAL HCO3 (test code 21.2 mmol/L 20.0-26.0 N = HCO3) BASE EXCESS (test code = DEMETRI) -4.0 mmol/L -3.0-3.0 L ABG O2 SATURATION (test code = 94.5 % 95.0-100.0 L SATA) ABG DELIVERY (test code = THOMAS) VENT ABG VENT MODE (test code = MODEA) SIMV ABG VENT RESP RATE (test code = 10.0 /MIN RRA) ABG TIDAL VOLUME (test code = 350 ml TVA) ABG PEEP (test code = PEEPA) 5.0 cmH2O ABG PRESSURE SUPPORT (test code = 10 cmH2O PSABG) ABG TEMPERATURE (test code = 37.0 C >37 TEMPA) ABG SITE (test code = SITEA) AL ALLENS TEST (test code = ALLENS) NA CHECK FIO2 (test code = COHBGFFIO2) 21 % ARTERIAL BLOOD [id number] 17:23:00 Test Item Value Reference Range Interpretation Comments ARTERIAL BLOOD GAS PH (test code 7.39 mmHg 7.35-7.45 N = PHA) ARTERIAL BLOOD GAS PCO2 (test 36.7 mmHg 35.0-45.0 N code = PCO2A) ARTERIAL BLOOD GAS PO2 (test 116.8 mmol/L 80.0-100.0 H code = PO2A) BICARBONATE TOTAL HCO3 (test 21.8 mmol/L 20.0-26.0 N code = HCO3) BASE EXCESS (test code = DEMETRI) -2.5 mmol/L -3.0-3.0 N ABG O2 SATURATION (test code = 98.3 % 95.0-100.0 N SATA) ABG DELIVERY (test code = THOMAS) VENT ABG VENT MODE (test code = A/C MODEA) ABG VENT RESP RATE (test code = 16.0 /MIN RRA) ABG TIDAL VOLUME (test code = 350 ml TVA) ABG PEEP (test code = PEEPA) 5.0 cmH2O ABG TEMPERATURE (test code = 37.0 C >37 TEMPA) ABG SITE (test code = SITEA) AL ALLENS TEST (test code = ALLENS) NA CHECK FIO2 (test code = COHBGFFIO2) 45 % POC ARTERIAL BLOOD [id number] 17:09:00 Test Item Value Reference Range Interpretation Comments POC ARTERIAL BLOOD GAS PH (test 7.417 7.35-7.45 N code = POCPHA) POC ARTERIAL BLOOD GAS PCO2 (test 36.3 mmHg 35.0-45.0 N code = YKNJRK2O) POC ARTERIAL BLOOD GAS PO2 (test 472 75.0-100.0 HH code = [id number]) POC HCO3 ARTERIAL (test code = 23.4 MMOL/L 20.0-26.0 N [id number]) POC BASE EXCESS (test code = -1.0 MMOL/L -3.0-3.0 N POCBEA) POC O2 SATURATION (test code = 100 % 92.0-98.5 H POCO2S) FIO2 (test code = FIO2A) 100 % 21-100 N ABG DELIVERY (test code = THOMAS) Anesth ABG SITE (test code = SITEA) Art Line ALLENS TEST (test code = ALLENS) N/A CHECK ~ POC LACTIC ACID (test code = 0.87 MMOL/L 0.4-2.0 N POCLAC) B-TYPE NATRIURETIC [id number] 17:05:00 Test Item Value Reference Range Interpretation Comments B-TYPE NATRIURETIC PEPTIDE (test 1101.0 PG/ML 0-100 H code = BNP) - XR CHEST [id number] 16:55:00 Patient Name: RUTH LOCK Unit No: [id number] EXAMS: CPT CODE: [id number] XR CHEST 1V 43973 STUDY: Chest radiograph HISTORY: Intubation. GEORGES RISON: 08/10/2019 TECHNIQUE: Frontal view of the chest. SITE: R16 FINDINGS: There has been interval placement of an endotracheal tube with tip at the level of the vicenta. Right subclavian and left IJ catheter/sheath are in similar positions. The cardiac silhouette is stable in size. There is similar appearance of pulmonary vascular congestion and increased densities at the lung bases. There is no pneumothorax. The lungs are hyperaerated. IMPRESSION: Endotracheal tube tip is at the level of the vicenta, recommend retraction of 5 cm. No additional significant interval anibal e. at 5761 Reported and signed by: Ankit Carroll MD CC: Cj Palacio MD; Erica Burgess MD; Yun Brothers MD Technologist: CHIDI Schwartz, RT(R) Transcrpt Date/Tm/Trnsp: 08/10/2019 (5744) [email or web address].[email or web address] Orig Print D/T: S: 08/10/2019 (2416) [facility] NAME: RUTH LOCK [address] [address] PHYS: [place] [address] : 1940 AGE: 79 SEX: F LOC: Z.SI06 A PHONE #: [phone] EXAM DATE: 08/10/2019 STATUS: ADM IN FAX #: [phone] RADIOLOGY NO: PAGE 1 Signed ReportCOMPREHENSIVE METABOLIC [id number] 16:54:00 Test Item Value Reference Range Interpretation Comments SODIUM (test code = 129 MMOL/L 137-145 L NA) POTASSIUM (test code = 4.3 MMOL/L 3.5-5.1 N K) CHLORIDE (test code = 100 MMOL/L 98-107 N CL) CARBON DIOXIDE (test 23 MMOL/L 22-30 N code = CO2) ANION GAP (test code = 10 MMOL/L 14-24 L GAP) GLUCOSE (test code = 208 MG/DL 74-106 H GLU) BLOOD UREA NITROGEN 16 MG/DL 7-17 N (test code = BUN) GLOMERULAR FILTRATION > 60 Report ing units: RATE (test code = GFR) ml/mi n/1.73 m2 (Modified MDRD Formula)Referen ce Range: > or = 6 0 ml/min/1.73 m2 CREATININE (test code 0.40 MG/DL 0.52-1.04 L = CREAT) TOTAL PROTEIN (test 5.8 G/DL 6.3-8.2 L code = PROT) ALBUMIN (test code = 3.4 G/DL 3.5-5.0 L ALB) CALCIUM (test code = 8.3 MG/DL 8.4-10.2 L CA) BILIRUBIN TOTAL (test 0.8 MG/DL 0.2-1.3 code = BILT) SGOT/AST (test code = 20 UNITS/L 14-36 AST) SGPT/ALT (test code = < 6 UNITS/L 9-52 L ALT) ALKALINE PHOSPHATASE 56 UNITS/L 38-126 N (test code = ALKP) [id number] 16:54:00 Test Item Value Reference Range Interpretation Comments PHOSPHOROUS (test code = PHOS) 3.2 MG/DL 2.5-4.5 N [id number] 16:54:00 Test Item Value Reference Range Interpretation Comments MAGNESIUM (test code = MAG) 1.9 MG/DL 1.6-2.3 N PROCALCITONIN (PCT)2019-08-10 16:54:00 Test Item Value Reference Range Interpretation Comments PROCALCITONIN (PCT) < 0.05 NG/ML PROCALCI TONIN (PCT) (test code = PROCAL) NORMAL RANGE (ADULT):<0.05 N G/ML. - a concentratio n < 0.5 ng/mL represent s a low risk ofsevere s epsis and/or septic s hock. - a concentratio n > 2 ng/mL represent s a high risk ofsev ere sepsis and/or s eptic shock. Neverth eless, concentrations < 0.5 ng/mL do not ex clude aninfection, on account of loca lized infections (withoutsystemi c signs) which ca n be associated with such lowconcentratio ns, or a systemic infe ction in its initials tages (< 6 hours). Furthermore, in creased procalcitoninca n occur without infecti on. PCT concentrations between 0.5and 2.0 ng/ mL should be inter preted taking into acc ount thepatient's hi story. It is recommend ed to retest PCT with in 6-24 hours if any concentrations < 2 ng/mL are obtai richie. COMPREHENSIVE METABOLIC [id number] 16:42:00 Test Item Value Reference Range Interpretation Comments SODIUM (test code = 129 MMOL/L 137-145 L NA) POTASSIUM (test code = 4.3 MMOL/L 3.5-5.1 N K) CHLORIDE (test code = 100 MMOL/L 98-107 N CL) CARBON DIOXIDE (test 23 MMOL/L 22-30 N code = CO2) ANION GAP (test code = 10 MMOL/L 14-24 L GAP) GLUCOSE (test code = 208 MG/DL 74-106 H GLU) BLOOD UREA NITROGEN 16 MG/DL 7-17 N (test code = BUN) GLOMERULAR FILTRATION > 60 Report ing units: RATE (test code = GFR) ml/mi n/1.73 m2 (Modified MDRD Formula)Referen ce Range: > or = 6 0 ml/min/1.73 m2 CREATININE (test code 0.40 MG/DL 0.52-1.04 L = CREAT) TOTAL PROTEIN (test 5.8 G/DL 6.3-8.2 L code = PROT) ALBUMIN (test code = 3.4 G/DL 3.5-5.0 L ALB) CALCIUM (test code = 8.3 MG/DL 8.4-10.2 L CA) BILIRUBIN TOTAL (test 0.8 MG/DL 0.2-1.3 code = BILT) SGOT/AST (test code = 20 UNITS/L 14-36 AST) SGPT/ALT (test code = < 6 UNITS/L 9-52 L ALT) ALKALINE PHOSPHATASE 56 UNITS/L 38-126 N (test code = ALKP) [id number] 16:42:00 Test Item Value Reference Range Interpretation Comments PHOSPHOROUS (test code = PHOS) 3.2 MG/DL 2.5-4.5 N [id number] 16:42:00 Test Item Value Reference Range Interpretation Comments MAGNESIUM (test code = MAG) 1.9 MG/DL 1.6-2.3 N PROCALCITONIN (PCT)2019-08-10 16:42:00 Test Item Value Reference Range Interpretation Comments PROCALCITONIN (PCT) (test code = NG/ML PROCAL) LACTIC [id number] 16:38:00 Test Item Value Reference Range Interpretation Comments LACTIC ACID (test code = LACT) 1.1 MMOL/L 0.7-2.1 N COMPREHENSIVE METABOLIC [id number] 16:37:00 Test Item Value Reference Range Interpretation Comments SODIUM (test code = NA) 129 MMOL/L 137-145 L POTASSIUM (test code = K) 4.3 MMOL/L 3.5-5.1 N CHLORIDE (test code = CL) 100 MMOL/L 98-107 N CARBON DIOXIDE (test code = CO2) MMOL/L 22-30 GLUCOSE (test code = GLU) MG/DL 74-106 BLOOD UREA NITROGEN (test code = MG/DL 7-17 BUN) GLOMERULAR FILTRATION RATE (test code = GFR) CREATININE (test code = CREAT) MG/DL 0.52-1.04 TOTAL PROTEIN (test code = PROT) G/DL 6.3-8.2 ALBUMIN (test code = ALB) 3.4 G/DL 3.5-5.0 L CALCIUM (test code = CA) MG/DL 8.7-9.7 BILIRUBIN TOTAL (test code = BILT) MG/DL 0.2-1.3 SGOT/AST (test code = AST) UNITS/L 15-37 SGPT/ALT (test code = ALT) UNITS/L 9-52 ALKALINE PHOSPHATASE (test code = UNITS/L 38-126 ALKP) [id number] 16:37:00 Test Item Value Reference Range Interpretation Comments PHOSPHOROUS (test code = PHOS) MG/DL 2.5-4.5 [id number] 16:37:00 Test Item Value Reference Range Interpretation Comments MAGNESIUM (test code = MAG) MG/DL 1.6-2.3 PROCALCITONIN (PCT)2019-08-10 16:37:00 Test Item Value Reference Range Interpretation Comments PROCALCITONIN (PCT) (test code = NG/ML PROCAL) BASIC METABOLIC [id number] 15:45:00 Test Item Value Reference Range Interpretation Comments SODIUM (test code = 131 MMOL/L 137-145 L NA) POTASSIUM (test code = 4.1 MMOL/L 3.5-5.1 N K) CHLORIDE (test code = 102 MMOL/L 98-107 N CL) CARBON DIOXIDE (test 24 MMOL/L 22-30 N code = CO2) ANION GAP (test code = 9 MMOL/L 14-24 L GAP) GLUCOSE (test code = 152 MG/DL 74-106 H GLU) BLOOD UREA NITROGEN 15 MG/DL 7-17 N (test code = BUN) GLOMERULAR FILTRATION > 60 Report ing units: RATE (test code = GFR) ml/mi n/1.73 m2 (Modified MDRD Formula)Referen ce Range: > or = 6 0 ml/min/1.73 m2 CREATININE (test code 0.40 MG/DL 0.52-1.04 L = CREAT) CALCIUM (test code = 8.4 MG/DL 8.4-10.2 N CA) [id number] 15:45:00 Test Item Value Reference Range Interpretation Comments MAGNESIUM (test code = MAG) 1.9 MG/DL 1.6-2.3 N BASIC METABOLIC [id number] 15:38:00 Test Item Value Reference Range Interpretation Comments SODIUM (test code = NA) 131 MMOL/L 137-145 L POTASSIUM (test code = K) 4.1 MMOL/L 3.5-5.1 N CHLORIDE (test code = CL) 102 MMOL/L 98-107 N CARBON DIOXIDE (test code = CO2) MMOL/L 22-30 GLUCOSE (test code = GLU) MG/DL 74-106 BLOOD UREA NITROGEN (test code = MG/DL 7-17 BUN) GLOMERULAR FILTRATION RATE (test code = GFR) CREATININE (test code = CREAT) MG/DL 0.52-1.04 CALCIUM (test code = CA) MG/DL 8.7-9.7 [id number] 15:38:00 Test Item Value Reference Range Interpretation Comments MAGNESIUM (test code = MAG) MG/DL 1.6-2.3 CBC W/AUTO [id number] 15:37:00 Test Item Value Reference Range Interpretation Comments WHITE BLOOD CELL (test code = 14.3 K/MM3 3.8-9.8 H WBC) RED BLOOD CELL (test code = 4.03 M/MM3 3.58-4.97 RBC) HEMOGLOBIN (test code = HGB) 11.7 G/DL 11.2-14.9 HEMATOCRIT (test code = HCT) 34.9 % 33.2-43.5 MEAN CELL VOLUME (test code = 87 fL 80.7-99.1 N MCV) MEAN CELL HGB (test code = MCH) 29.0 pg 27.0-34.1 N MEAN CELL HGB CONCETRATION 33.5 % 32.2-35.7 N (test code = MCHC) RED CELL DISTRIBUTION WIDTH 14.0 % 12.1-15.2 N (test code = RDW) PLATELET COUNT (test code = 144 K/MM3 129-368 N PLT) MEAN PLATELET VOLUME (test code 9.8 fl 7.4-10.4 N = MPV) NEUTROPHIL % (test code = NT%) 82.3 % 43-75 H IMMATURE GRANULOCYTE % (test 0.8 % 0.0-2.0 N code = IG%) LYMPHOCYTE % (test code = LY%) 10.8 % 14-44 L MONOCYTE % (test code = MO%) 5.6 % 4-13 N EOSINOPHIL % (test code = EO%) 0.4 % 0-6 N BASOPHIL % (test code = BA%) 0.1 % 0-2 N NUCLEATED RBC % (test code = 0.0 % 0-1.0 N NRBC%) NEUTROPHIL # (test code = NT#) 11.74 K/mm3 2.0-7.6 H IMMATURE GRANULOCYTE # (test 0.12 x10 3/uL 0-0.03 H code = IG#) LYMPHOCYTE # (test code = LY#) 1.55 K/mm3 1.0-3.8 N MONOCYTE # (test code = MO#) 0.80 K/mm3 0.1-0.8 N EOSINOPHIL # (test code = EO#) 0.06 K/mm3 0.0-0.2 N BASOPHIL # (test code = BA#) 0.02 K/mm3 0.0-0.2 N NUCLEATED RBC # (test code = 0.00 K/mm3 0.0-0.1 N NRBC#) - XR CHEST [id number] 15:32:00 Patient Name: RUTH LOCK Unit No: [id number] EXAMS: CPT CODE: [id number] XR CHEST 1V 46433 STUDY: Chest radiograph HISTORY: Postop. COMPARISON: 08/10/2019 TECHNIQUE: Frontal view of the chest. SITE: B2 FINDINGS: There is a right subclavian catheter with tip projecting over the cavoatrialjunction. A left internal jugular catheter/sheath is also present. There is tubing overlyingthe right hemithorax, possibly extrinsic. The patient is status post median sternotomy. The cardiac silhouette is at the upper lungs are normal in size. The aorta is atherosclerotic. There is pulmonary vascular congestion with increased densities at the lung bases. The lungs are hyperaerated suggestive of underlying COPD. No pneumothorax is demonstrated. Chronic bony remodeling of the right shoulder is unchanged. There is a chronic, left distal clavicular fracture. IMPRESSION: Mild pulmonary vascular congestion with bibasilar atelectasis. Support lines as above. at 1532 Reported and signed by: Ankit Carroll MD CC: Cj Palacio MD; Erica Burgess MD Technologist: Veronica Hoang, RT(R) Transcrpt Date/Tm/Trnsp: 08/10/2019 (1532) [id number] Orig Print D/T: S: 08/10/2019 (1533) [facility] NAME: RUTH LOCK [id number] PHYS: [place] [address] : 1940 AGE: 79 SEX: F LOC: [id number] Aj PHONE #: [phone] EXAMDATE: 08/10/2019 STATUS: ADM IN FAX #: [phone] RADIOLOGY NO: PAGE1 Signed ReportARTERIAL BLOOD [id number] 15:24:00 Test Item Value Reference Range Interpretation Comments ARTERIAL BLOOD GAS PH (test code 7.33 mmHg 7.35-7.45 L = PHA) ARTERIAL BLOOD GAS PCO2 (test 41.9 mmHg 35.0-45.0 N code = PCO2A) ARTERIAL BLOOD GAS PO2 (test 167.5 mmol/L 80.0-100.0 H code = PO2A) BICARBONATE TOTAL HCO3 (test 21.4 mmol/L 20.0-26.0 N code = HCO3) BASE EXCESS (test code = DEMETRI) -4.3 mmol/L -3.0-3.0 L ABG O2 SATURATION (test code = 99.0 % 95.0-100.0 N SATA) ABG DELIVERY (test code = THOMAS) FACETENT ABG TEMPERATURE (test code = 37.0 C >37 TEMPA) ABG SITE (test code = SITEA) AL ALLENS TEST (test code = ALLENS) NA CHECK FIO2 (test code = COHBGFFIO2) 98 % CHEMISTRY 8 [id number] 13:29:00 Test Item Value Reference Range Interpretation Comments IONIZED CALCIUM (test MMOL/L 1.12-1.24 code = CAIABG) ISTAT-TCO2 VENOUS (test MMOL/L 23-32 N code = TCO2VP) ISTAT-SODIUM (test code MMOL/L 137-144 = NAP) ISTAT-POTASSIUM (test MMOL/L 3.1-4.8 code = KP) ISTAT-CHLORIDE (test MMOL/L 97-108 code = CLP) ISTAT-GLUCOSE (test code MG/DL 60-99 H = GLUP) ISTAT-BUN (test code = MG/DL 9-21 N BUNP) BEDSIDE CREATININE (test MG/DL 0.6-1.4 L code = CREATBED) GLOMERULAR FILTRATION 215 39-90 H Report ing units: RATE POC (test code = ml/min /1.73 m2 GFRBED) (Modified MDRD Formula)Referen ce Range: > or = 6 0 ml/min/1.73 m2 CHEMISTRY 8 [id number] 13:29:00 Test Item Value Reference Range Interpretation Comments IONIZED CALCIUM (test 1.10 MMOL/L 1.12-1.24 L code = CAIABG) ISTAT-TCO2 VENOUS 25 MMOL/L 23-32 N (test code = TCO2VP) ISTAT-HEMOGLOBIN 7.8 G/DL 11.2-14.9 L HGB result is (test code = HBP) calculated from the HCT ISTAT-HEMATOCRIT 23 % 33.2-43.5 L (test code = HCTP) ISTAT-SODIUM (test 132 MMOL/L 137-144 L code = NAP) ISTAT-POTASSIUM (test 3.5 MMOL/L 3.1-4.8 N code = KP) ISTAT-CHLORIDE (test 101 MMOL/L 97-108 N code = CLP) ISTAT-GLUCOSE (test 102 MG/DL 60-99 H code = GLUP) ISTAT-BUN (test code 15 MG/DL 9-21 N = BUNP) BEDSIDE CREATININE 0.3 MG/DL 0.6-1.4 L (test code = CREATBED) GLOMERULAR FILTRATION 215 39-90 H Report ing units: RATE POC (test code = ml/min /1.73 m2 GFRBED) (Modified MDRD Formula)Referen ce Range: > or = 6 0 ml/min/1.73 m2 - XR CHEST [id number] 08:13:00 Patient Name: RUTH LOCK Unit No: [id number] EXAMS: CPT CODE: [id number] XR CHEST 1V 44364 REASON FOR EXAM: Cardiorespiratory clearance for surgery. COMPAR SAADIA: August 07, 2019. Chest, single view, frontal projection. The lungs are hyperinflated with chronic lung pattern changes but no acute infiltrates. Haziness inthe left lung likely from overlying breast tissue artifact Median sternotomy changes. Heart size is normal. No effusion or pneumothorax can be seen. Osseous structures appear to be intact. Old internally reduced right humeral neck fracture . IMPRESSION: No acute cardiopulmonary disease. Hyperinflated lung pattern with some chronic lung pattern changes Location: U19 at 0813 Reported and signed by: Ankit Fowler MD CC: Cj Palacio MD; Erica Burgess MD; Alem Hernandez NP Technologist: Michelle Wei RT(R) Transcrpt Date/Tm/Trnsp: 08/10/2019 (08) t.SDR.RCM Orig Print D/T: S: 08/10/2019 (0816) [facility] NAME: RUTH LOCK [id number] PHYS: [place] [address] : 1940 AGE: 79 SEX: F LOC: [id number] PHONE #: [phone] EXAM DATE: 08/10/2019 STATUS: ADM IN FAX #:[phone] RADIOLOGY NO: PAGE 1 Signed Report COMPREHENSIVE METABOLIC [id number] 07:04:00 Test Item Value Reference Range Interpretation Comments SODIUM (test code = NA) 130 MMOL/L 137-145 L POTASSIUM (test code = 3.9 MMOL/L 3.5-5.1 N K) CHLORIDE (test code = 103 MMOL/L 98-107 N CL) CARBON DIOXIDE (test 21 MMOL/L 22-30 L code = CO2) ANION GAP (test code = 10 MMOL/L 14-24 L GAP) GLUCOSE (test code = 93 MG/DL 74-106 GLU) BLOOD UREA NITROGEN 21 MG/DL 7-17 H (test code = BUN) GLOMERULAR FILTRATION > 60 Report ing units: RATE (test code = GFR) ml/mi n/1.73 m2 (Modified MDRD Formula)Referen ce Range: > or = 6 0 ml/min/1.73 m2 CREATININE (test code = 0.50 MG/DL 0.52-1.04 L CREAT) TOTAL PROTEIN (test 5.4 G/DL 6.3-8.2 L code = PROT) ALBUMIN (test code = 3.2 G/DL 3.5-5.0 L ALB) CALCIUM (test code = 8.6 MG/DL 8.4-10.2 N CA) BILIRUBIN TOTAL (test 0.3 MG/DL 0.2-1.3 N code = BILT) SGOT/AST (test code = 15 UNITS/L 14-36 N AST) SGPT/ALT (test code = 10 UNITS/L 9-52 ALT) ALKALINE PHOSPHATASE 55 UNITS/L 38-126 N (test code = ALKP) COMPREHENSIVE METABOLIC [id number] 07:02:00 Test Item Value Reference Range Interpretation Comments SODIUM (test code = NA) 130 MMOL/L 137-145 L POTASSIUM (test code = 3.9 MMOL/L 3.5-5.1 N K) CHLORIDE (test code = 103 MMOL/L 98-107 N CL) CARBON DIOXIDE (test MMOL/L 22-30 code = CO2) GLUCOSE (test code = MG/DL 74-106 GLU) BLOOD UREA NITROGEN MG/DL 7-17 (test code = BUN) GLOMERULAR FILTRATION > 60 Report ing units: RATE (test code = GFR) ml/mi n/1.73 m2 (Modified MDRD Formula)Referen ce Range: > or = 6 0 ml/min/1.73 m2 CREATININE (test code = 0.50 MG/DL 0.52-1.04 L CREAT) TOTAL PROTEIN (test G/DL 6.3-8.2 code = PROT) ALBUMIN (test code = 3.2 G/DL 3.5-5.0 L ALB) CALCIUM (test code = MG/DL 8.7-9.7 CA) BILIRUBIN TOTAL (test 0.3 MG/DL 0.2-1.3 N code = BILT) SGOT/AST (test code = UNITS/L 15-37 AST) SGPT/ALT (test code = UNITS/L 9-52 ALT) ALKALINE PHOSPHATASE UNITS/L 38-126 (test code = ALKP) COMPREHENSIVE METABOLIC [id number] 07:00:00 Test Item Value Reference Range Interpretation Comments SODIUM (test code = NA) 130 MMOL/L 137-145 L POTASSIUM (test code = K) 3.9 MMOL/L 3.5-5.1 N CHLORIDE (test code = CL) 103 MMOL/L 98-107 N CARBON DIOXIDE (test code = CO2) MMOL/L 22-30 GLUCOSE (test code = GLU) MG/DL 74-106 BLOOD UREA NITROGEN (test code = MG/DL 7-17 BUN) GLOMERULAR FILTRATION RATE (test code = GFR) CREATININE (test code = CREAT) MG/DL 0.52-1.04 TOTAL PROTEIN (test code = PROT) G/DL 6.3-8.2 ALBUMIN (test code = ALB) 3.2 G/DL 3.5-5.0 L CALCIUM (test code = CA) MG/DL 8.7-9.7 BILIRUBIN TOTAL (test code = BILT) MG/DL 0.2-1.3 SGOT/AST (test code = AST) UNITS/L 15-37 SGPT/ALT (test code = ALT) UNITS/L 9-52 ALKALINE PHOSPHATASE (test code = UNITS/L 38-126 ALKP) CBC W/AUTO [id number] 06:23:00 Test Item Value Reference Range Interpretation Comments WHITE BLOOD CELL (test code = 14.4 K/MM3 3.8-9.8 H WBC) RED BLOOD CELL (test code = 3.19 M/MM3 3.58-4.97 L RBC) HEMOGLOBIN (test code = HGB) 9.1 G/DL 11.2-14.9 L HEMATOCRIT (test code = HCT) 28.1 % 33.2-43.5 L MEAN CELL VOLUME (test code = 88 fL 80.7-99.1 N MCV) MEAN CELL HGB (test code = MCH) 28.5 pg 27.0-34.1 N MEAN CELL HGB CONCETRATION 32.4 % 32.2-35.7 N (test code = MCHC) RED CELL DISTRIBUTION WIDTH 14.1 % 12.1-15.2 N (test code = RDW) PLATELET COUNT (test code = 165 K/MM3 129-368 N PLT) MEAN PLATELET VOLUME (test code 9.6 fl 7.4-10.4 N = MPV) NEUTROPHIL % (test code = NT%) 85.9 % 43-75 H IMMATURE GRANULOCYTE % (test 0.5 % 0.0-2.0 N code = IG%) LYMPHOCYTE % (test code = LY%) 8.9 % 14-44 L MONOCYTE % (test code = MO%) 4.6 % 4-13 N EOSINOPHIL % (test code = EO%) 0.0 % 0-6 N BASOPHIL % (test code = BA%) 0.1 % 0-2 N NUCLEATED RBC % (test code = 0.0 % 0-1.0 N NRBC%) NEUTROPHIL # (test code = NT#) 12.34 K/mm3 2.0-7.6 H IMMATURE GRANULOCYTE # (test 0.07 x10 3/uL 0-0.03 H code = IG#) LYMPHOCYTE # (test code = LY#) 1.28 K/mm3 1.0-3.8 N MONOCYTE # (test code = MO#) 0.66 K/mm3 0.1-0.8 N EOSINOPHIL # (test code = EO#) 0.00 K/mm3 0.0-0.2 N BASOPHIL # (test code = BA#) 0.01 K/mm3 0.0-0.2 N NUCLEATED RBC # (test code = 0.00 K/mm3 0.0-0.1 N NRBC#) BASIC METABOLIC [id number] 20:19:00 Test Item Value Reference Range Interpretation Comments SODIUM (test code = 130 MMOL/L 137-145 L NA) POTASSIUM (test code = 4.6 MMOL/L 3.5-5.1 N K) CHLORIDE (test code = 100 MMOL/L 98-107 N CL) CARBON DIOXIDE (test 23 MMOL/L 22-30 N code = CO2) ANION GAP (test code = 12 MMOL/L 14-24 L GAP) GLUCOSE (test code = 142 MG/DL 74-106 H GLU) BLOOD UREA NITROGEN 24 MG/DL 7-17 H (test code = BUN) GLOMERULAR FILTRATION > 60 Report ing units: RATE (test code = GFR) ml/mi n/1.73 m2 (Modified MDRD Formula)Referen ce Range: > or = 6 0 ml/min/1.73 m2 CREATININE (test code 0.50 MG/DL 0.52-1.04 L = CREAT) CALCIUM (test code = 9.1 MG/DL 8.4-10.2 N CA) BASIC METABOLIC [id number] 20:05:00 Test Item Value Reference Range Interpretation Comments SODIUM (test code = 130 MMOL/L 137-145 L NA) POTASSIUM (test code = 4.6 MMOL/L 3.5-5.1 N K) CHLORIDE (test code = 100 MMOL/L 98-107 N CL) CARBON DIOXIDE (test MMOL/L 22-30 code = CO2) GLUCOSE (test code = MG/DL 74-106 GLU) BLOOD UREA NITROGEN MG/DL 7-17 (test code = BUN) GLOMERULAR FILTRATION > 60 Report ing units: RATE (test code = GFR) ml/mi n/1.73 m2 (Modified MDRD Formula)Referen ce Range: > or = 6 0 ml/min/1.73 m2 CREATININE (test code 0.50 MG/DL 0.52-1.04 L = CREAT) CALCIUM (test code = MG/DL 8.7-9.7 CA) PROTHROMBIN [id number] 20:04:00 Test Item Value Reference Range Interpretation Comments PROTHROMBIN TIME 10.0 SECONDS 9.6-11.6 N PATIENT (test code = PTP) INTERNATIONAL NORMAL 0.9 0.8-1.1 N The INR is to be RATIO (test code = used only for INR) monitoring oral anticoagulantth erap y. INDICATION I NR VALUE ---- ---- ---- -------1. Prophylaxis, de ep venous thrombos is, including hig h risk surgery. 2.0 - 3.0 2. Prophylaxis, de ep venous thrombos is, hip surgery, treatment for d eep venous thrombosis or pulmonary prevention of systemic emboli sm in patients wit h valvular heart disease, atrial fibrillation, tissue heart va lve, or acute myocar dial infarction. 2.0 - 3 .0 3. Mechanical prosthesis hear t valves, recurrent syste nidia embolism. 3.0 - 4.5 PTT [id number] 20:04:00 Test Item Value Reference Range Interpretation Comments PTT ACTIVATED (test code = APTT) 25.2 SECONDS 22.0-33.0 N BASIC METABOLIC [id number] 20:03:00 Test Item Value Reference Range Interpretation Comments SODIUM (test code = NA) 130 MMOL/L 137-145 L POTASSIUM (test code = K) 4.6 MMOL/L 3.5-5.1 N CHLORIDE (test code = CL) 100 MMOL/L 98-107 N CARBON DIOXIDE (test code = CO2) MMOL/L 22-30 GLUCOSE (test code = GLU) MG/DL 74-106 BLOOD UREA NITROGEN (test code = MG/DL 7-17 BUN) GLOMERULAR FILTRATION RATE (test code = GFR) CREATININE (test code = CREAT) MG/DL 0.52-1.04 CALCIUM (test code = CA) MG/DL 8.7-9.7 GLUCOSE BEDSIDE [id number] 17:16:00 Test Item Value Reference Range Interpretation Comments GLUCOSE BEDSIDE TESTING (test code 172 MG/DL 60-99 H = GLUBED) HCG SERUM [id number] 14:15:00 Test Item Value Reference Range Interpretation Comments HCG SERUM QUAL (test code = HCGQL) NEGATIVE NEGATIVE A ADD ONURINALYSIS [id number] 12:40:00 Test Item Value Reference Range Interpretation Comments UA COLOR (test code = YELLOW YELLOW COLU) UA APPEARANCE (test code very cloudy CLEAR = APPU) UA GLUCOSE DIPSTICK (test 50 MG/DL NORMAL A code = DGLUU) UA BILIRUBIN DIPSTICK NEGATIVE MG/DL NEGATIVE (test code = BILU) UA KETONE DIPSTICK (test NEGATIVE MG/DL NEGATIVE code = KETU) UA SPECIFIC GRAVITY (test 1.015 1.003-1.030 N code = SGU) UA BLOOD DIPSTICK (test 25 Rustam/mm3 NEGATIVE A code = ABEL) UA PH DIPSTICK (test code 6.0 5.0-9.0 N = KRISTINA) UA PROTEIN DIPSTICK (test 30 MG/DL NEGATIVE A code = PROU) UA UROBILINIOGEN DIPSTICK NORMAL MG/DL NORMAL (test code = URO) UA NITRITE DIPSTICK (test POSITIVE NEGATIVE A code = TAMICA) UA LEUKOCYTE ESTERASE 500 /mm3 NEGATIVE A DIPSTICK (test code = LEUU) UA CULTURE NEEDED? (test YES,WBC>10 & EPI<25 Culture Chk code = UACULT) Criteria SOURCE OF URINE: CLEAN CATCHUA [id number] 12:40:00 Test Item Value Reference Range Interpretation Comments UA RBC (test code = RBCU) 5-10 RBC/HPF 0-3 A UA WBC (test code = XWBCU) >100 WBC/HPF 0-5 A UA EPITHELIAL CELLS (test code = FEW EPI/HPF FEW EPIU) UA BACTERIA (test code = XBACU) MANY NONE A UA MUCUS (test code = MUCU) SLIGHT #/LPF NONE SOURCE OF URINE: CLEAN CATCHURINALYSIS [id number] 12:33:00 Test Item Value Reference Range Interpretation Comments UA COLOR (test code = COLU) YELLOW YELLOW UA APPEARANCE (test code = very cloudy CLEAR APPU) UA GLUCOSE DIPSTICK (test code 50 MG/DL NORMAL A = DGLUU) UA BILIRUBIN DIPSTICK (test NEGATIVE MG/DL NEGATIVE code = BILU) UA KETONE DIPSTICK (test code NEGATIVE MG/DL NEGATIVE = KETU) UA SPECIFIC GRAVITY (test code 1.015 1.003-1.030 N = SGU) UA BLOOD DIPSTICK (test code = 25 Rustam/mm3 NEGATIVE A ABEL) UA PH DIPSTICK (test code = 6.0 5.0-9.0 N KRISTINA) UA PROTEIN DIPSTICK (test code 30 MG/DL NEGATIVE A = PROU) UA UROBILINIOGEN DIPSTICK NORMAL MG/DL NORMAL (test code = URO) UA NITRITE DIPSTICK (test code POSITIVE NEGATIVE A = TAMICA) UA LEUKOCYTE ESTERASE DIPSTICK 500 /mm3 NEGATIVE A (test code = LEUU) UA CULTURE NEEDED? (test code Criteria Culture Chk = UACULT) SOURCE OF URINE: CLEAN CATCHUA [id number] 12:33:00 Test Item Value Reference Range Interpretation Comments UA RBC (test code = RBCU) RBC/HPF 0-3 UA WBC (test code = XWBCU) WBC/HPF 0-5 UA EPITHELIAL CELLS (test code = EPI/HPF FEW EPIU) UA BACTERIA (test code = XBACU) NONE SOURCE OF URINE: CLEAN CATCHURINALYSIS [id number] 12:33:00 Test Item Value Reference Range Interpretation Comments UA COLOR (test code = COLU) YELLOW YELLOW UA APPEARANCE (test code = very cloudy CLEAR APPU) UA GLUCOSE DIPSTICK (test code 50 MG/DL NORMAL A = DGLUU) UA BILIRUBIN DIPSTICK (test NEGATIVE MG/DL NEGATIVE code = BILU) UA KETONE DIPSTICK (test code NEGATIVE MG/DL NEGATIVE = KETU) UA SPECIFIC GRAVITY (test code 1.015 1.003-1.030 N = SGU) UA BLOOD DIPSTICK (test code = 25 Rustam/mm3 NEGATIVE A ABEL) UA PH DIPSTICK (test code = 6.0 5.0-9.0 N KRISTINA) UA PROTEIN DIPSTICK (test code 30 MG/DL NEGATIVE A = PROU) UA UROBILINIOGEN DIPSTICK NORMAL MG/DL NORMAL (test code = URO) UA NITRITE DIPSTICK (test code POSITIVE NEGATIVE A = TAMICA) UA LEUKOCYTE ESTERASE DIPSTICK 500 /mm3 NEGATIVE A (test code = LEUU) UA CULTURE NEEDED? (test code Criteria Culture Chk = UACULT) SOURCE OF URINE: CLEAN CATCHUA [id number] 12:33:00 Test Item Value Reference Range Interpretation Comments UA RBC (test code = RBCU) RBC/HPF 0-3 UA WBC (test code = XWBCU) WBC/HPF 0-5 UA EPITHELIAL CELLS (test code = EPI/HPF FEW EPIU) UA BACTERIA (test code = XBACU) NONE SOURCE OF URINE: CLEAN CATCHCOMPREHENSIVE METABOLIC [id number] 06:13:00 Test Item Value Reference Range Interpretation Comments SODIUM (test code = NA) 130 MMOL/L 137-145 L POTASSIUM (test code = 4.4 MMOL/L 3.5-5.1 N K) CHLORIDE (test code = 100 MMOL/L 98-107 N CL) CARBON DIOXIDE (test 22 MMOL/L 22-30 N code = CO2) ANION GAP (test code = 12 MMOL/L 14-24 L GAP) GLUCOSE (test code = 147 MG/DL 74-106 H GLU) BLOOD UREA NITROGEN 18 MG/DL 7-17 H (test code = BUN) GLOMERULAR FILTRATION > 60 Report ing units: RATE (test code = GFR) ml/mi n/1.73 m2 (Modified MDRD Formula)Referen ce Range: > or = 6 0 ml/min/1.73 m2 CREATININE (test code = 0.50 MG/DL 0.52-1.04 L CREAT) TOTAL PROTEIN (test 6.3 G/DL 6.3-8.2 N code = PROT) ALBUMIN (test code = 3.7 G/DL 3.5-5.0 N ALB) CALCIUM (test code = 9.0 MG/DL 8.4-10.2 N CA) BILIRUBIN TOTAL (test 0.6 MG/DL 0.2-1.3 code = BILT) SGOT/AST (test code = 17 UNITS/L 14-36 AST) SGPT/ALT (test code = 8 UNITS/L 9-52 L ALT) ALKALINE PHOSPHATASE 68 UNITS/L 38-126 (test code = ALKP) COMPREHENSIVE METABOLIC [id number] 06:04:00 Test Item Value Reference Range Interpretation Comments SODIUM (test code = NA) 130 MMOL/L 137-145 L POTASSIUM (test code = 4.4 MMOL/L 3.5-5.1 N K) CHLORIDE (test code = 100 MMOL/L 98-107 N CL) CARBON DIOXIDE (test MMOL/L 22-30 code = CO2) GLUCOSE (test code = MG/DL 74-106 GLU) BLOOD UREA NITROGEN MG/DL 7-17 (test code = BUN) GLOMERULAR FILTRATION > 60 Report ing units: RATE (test code = GFR) ml/mi n/1.73 m2 (Modified MDRD Formula)Referen ce Range: > or = 6 0 ml/min/1.73 m2 CREATININE (test code = 0.50 MG/DL 0.52-1.04 L CREAT) TOTAL PROTEIN (test G/DL 6.3-8.2 code = PROT) ALBUMIN (test code = 3.7 G/DL 3.5-5.0 N ALB) CALCIUM (test code = MG/DL 8.7-9.7 CA) BILIRUBIN TOTAL (test MG/DL 0.2-1.3 code = BILT) SGOT/AST (test code = UNITS/L 15-37 AST) SGPT/ALT (test code = UNITS/L 9-52 ALT) ALKALINE PHOSPHATASE UNITS/L 38-126 (test code = ALKP) COMPREHENSIVE METABOLIC [id number] 06:03:00 Test Item Value Reference Range Interpretation Comments SODIUM (test code = NA) 130 MMOL/L 137-145 L POTASSIUM (test code = K) 4.4 MMOL/L 3.5-5.1 N CHLORIDE (test code = CL) 100 MMOL/L 98-107 N CARBON DIOXIDE (test code = CO2) MMOL/L 22-30 GLUCOSE (test code = GLU) MG/DL 74-106 BLOOD UREA NITROGEN (test code = MG/DL 7-17 BUN) GLOMERULAR FILTRATION RATE (test code = GFR) CREATININE (test code = CREAT) MG/DL 0.52-1.04 TOTAL PROTEIN (test code = PROT) G/DL 6.3-8.2 ALBUMIN (test code = ALB) 3.7 G/DL 3.5-5.0 N CALCIUM (test code = CA) MG/DL 8.7-9.7 BILIRUBIN TOTAL (test code = BILT) MG/DL 0.2-1.3 SGOT/AST (test code = AST) UNITS/L 15-37 SGPT/ALT (test code = ALT) UNITS/L 9-52 ALKALINE PHOSPHATASE (test code = UNITS/L 38-126 ALKP) COMPREHENSIVE METABOLIC [id number] 06:02:00 Test Item Value Reference Range Interpretation Comments SODIUM (test code = NA) 130 MMOL/L 137-145 L POTASSIUM (test code = K) MMOL/L 3.5-5.1 CHLORIDE (test code = CL) 100 MMOL/L 98-107 N CARBON DIOXIDE (test code = CO2) MMOL/L 22-30 GLUCOSE (test code = GLU) MG/DL 74-106 BLOOD UREA NITROGEN (test code = MG/DL 7-17 BUN) GLOMERULAR FILTRATION RATE (test code = GFR) CREATININE (test code = CREAT) MG/DL 0.52-1.04 TOTAL PROTEIN (test code = PROT) G/DL 6.3-8.2 ALBUMIN (test code = ALB) 3.7 G/DL 3.5-5.0 N CALCIUM (test code = CA) MG/DL 8.7-9.7 BILIRUBIN TOTAL (test code = BILT) MG/DL 0.2-1.3 SGOT/AST (test code = AST) UNITS/L 15-37 SGPT/ALT (test code = ALT) UNITS/L 9-52 ALKALINE PHOSPHATASE (test code = UNITS/L 38-126 ALKP) CBC W/AUTO [id number] 05:31:00 Test Item Value Reference Range Interpretation Comments WHITE BLOOD CELL (test code = 8.9 K/MM3 3.8-9.8 N WBC) RED BLOOD CELL (test code = 3.72 M/MM3 3.58-4.97 N RBC) HEMOGLOBIN (test code = HGB) 10.6 G/DL 11.2-14.9 L HEMATOCRIT (test code = HCT) 32.4 % 33.2-43.5 L MEAN CELL VOLUME (test code = 87 fL 80.7-99.1 N MCV) MEAN CELL HGB (test code = MCH) 28.5 pg 27.0-34.1 N MEAN CELL HGB CONCETRATION 32.7 % 32.2-35.7 N (test code = MCHC) RED CELL DISTRIBUTION WIDTH 13.8 % 12.1-15.2 N (test code = RDW) PLATELET COUNT (test code = 188 K/MM3 129-368 N PLT) MEAN PLATELET VOLUME (test code 9.9 fl 7.4-10.4 N = MPV) NEUTROPHIL % (test code = NT%) 92.0 % 43-75 H IMMATURE GRANULOCYTE % (test 0.5 % 0.0-2.0 N code = IG%) LYMPHOCYTE % (test code = LY%) 6.9 % 14-44 L MONOCYTE % (test code = MO%) 0.5 % 4-13 L EOSINOPHIL % (test code = EO%) 0.0 % 0-6 N BASOPHIL % (test code = BA%) 0.1 % 0-2 N NUCLEATED RBC % (test code = 0.0 % 0-1.0 N NRBC%) NEUTROPHIL # (test code = NT#) 8.15 K/mm3 2.0-7.6 H IMMATURE GRANULOCYTE # (test 0.04 x10 3/uL 0-0.03 H code = IG#) LYMPHOCYTE # (test code = LY#) 0.61 K/mm3 1.0-3.8 L MONOCYTE # (test code = MO#) 0.04 K/mm3 0.1-0.8 L EOSINOPHIL # (test code = EO#) 0.00 K/mm3 0.0-0.2 N BASOPHIL # (test code = BA#) 0.01 K/mm3 0.0-0.2 N NUCLEATED RBC # (test code = 0.00 K/mm3 0.0-0.1 N NRBC#) BASIC METABOLIC [id number] 21:20:00 Test Item Value Reference Range Interpretation Comments SODIUM (test code = 126 MMOL/L 137-145 L NA) POTASSIUM (test code = 4.4 MMOL/L 3.5-5.1 N K) CHLORIDE (test code = 95 MMOL/L 98-107 L CL) CARBON DIOXIDE (test 21 MMOL/L 22-30 L code = CO2) ANION GAP (test code = 14 MMOL/L 14-24 N GAP) GLUCOSE (test code = 216 MG/DL 74-106 H GLU) BLOOD UREA NITROGEN 16 MG/DL 7-17 N (test code = BUN) GLOMERULAR FILTRATION > 60 Report ing units: RATE (test code = GFR) ml/mi n/1.73 m2 (Modified MDRD Formula)Referen ce Range: > or = 6 0 ml/min/1.73 m2 CREATININE (test code 0.70 MG/DL 0.52-1.04 N = CREAT) CALCIUM (test code = 8.9 MG/DL 8.4-10.2 N CA) BASIC METABOLIC [id number] 21:12:00 Test Item Value Reference Range Interpretation Comments SODIUM (test code = NA) 126 MMOL/L 137-145 L POTASSIUM (test code = K) 4.4 MMOL/L 3.5-5.1 N CHLORIDE (test code = CL) 95 MMOL/L 98-107 L CARBON DIOXIDE (test code = CO2) MMOL/L 22-30 GLUCOSE (test code = GLU) MG/DL 74-106 BLOOD UREA NITROGEN (test code = MG/DL 7-17 BUN) GLOMERULAR FILTRATION RATE (test code = GFR) CREATININE (test code = CREAT) MG/DL 0.52-1.04 CALCIUM (test code = CA) MG/DL 8.7-9.7 - CT HD/BR W W/O [id number] 20:23:00 Patient Name: RUTH LOCK Unit No: [id number] EXAMS: CPT CODE: [id number] CT HD/BR W W/O CONT [address] HEAD WITHOUT and with CONTRAST HISTORY: hyponat remia TECHNIQUE: Axial CT images from the skull base to the vertex without intravenous contrast. Coronal and sagittal reformatted images were created from the data set. One or more of the following dose reduction techniques were used: Automated exposure control, adjustment of the mA and/or kV according to patient size, and/or iterative reconstructio n. COMPARISON: None FINDINGS: Multiple white matter hypodensities. No evidence of acute infarction, intracranial hemorrhage, mass or mass effect, or abnormal extra-axial fluid collection. Volume loss results in mild ex vacuo dilatat ion of the ventricular system. The density in the larger dural sinuses is grossly normal. The osseous structures and orbits have no significant abnormalities. The visualized paranasal sinuses and mastoid air cells are predominantly clear. No abnormal parenchymal or leptomeningeal enhancement. IMPRESSION: Moderate white matter microvascular disease. at 2022 Reported and signed by: Jaquan Magallanes MD CC: Cj Palacio MD; Erica Burgess MD; Eric Lamas M.D. Technologist: [facility] STUDENT ; Judd Rollins RT CTDI: DLP: Trnscrpt: 08/08/2019 (2022) t.SDR.VB7 [facility] NAME: RUTH LOCK [id number] [address] PHYS: [place] [address] : 1940 AGE: 79 SEX: F LOC: Z.355 A PHONE #: [phone] EXAM DATE: 08/08/2019 STATUS: ADM IN FAX #: [phone] RAD #: D/C DT PAGE 1 Signed Report Patient Name: RUTH LOCK Unit No: [id number] EXAMS: CPT CODE: [id number] CT HD/BR W W/O CONT 87872 <Continued> Orig Print D/T: S: 08/08/2019 (2025) [facility] NAME: RUTH LOCK [address] [address] PHYS: [place] [address] : 1940 AGE: 79 SEX: F LOC: Z.355 A PHONE #: [phone] EXAM DATE: 08/08/2019 STATUS: ADM IN FAX #: [phone] RAD #: D/C DT PAGE 2 Signed Report- CT CHEST W/[id number] 16:24:00 Patient Name: RUTH LOCK Unit No: [id number] EXAMS: CPT CODE: [id number] CT CHEST W/CONTRAST 06443 CT chest History: HYPONATREMIA Comparison: None at this time Location: R16 CT scan of the chest was performed with intravenouscontrast. One or more of the following radiation dose reduction techniques was used: automated exposure control, adjustment of mA and/or KV according to patient size, and/or utilization of iterative reconstruction technique. Quality of Exam: Acceptable. Thoracic aorta: The thoracic aorta is unremarkable. Other mediastinal structures: The other mediastinal structures are unremarkable. Pulmonary arteries: The main pulmonary artery and right and left main pulmonary arteries are unremarkable, without intraluminal filling defect. Lymph nodes: No lymphadenopathy is identified. Pleura: There are no pleural effusions. Lung parenchyma: There is minimal dependent atelectasis in the lungs. Bones/soft tissues: No concerning bony lesion is identified. No mass lesions are identified. EXAM: CT abdomen and pelvis COMPARISON: None at this time CT scan of the abdomen and pelvis was performed with intravenous contrast. One or more of the following radiation dose reduction techniques was used: aut omated exposure control, adjustment of mA and/or KV according to patient size, and/or utilization of iterative reconstruction technique. FINDINGS: Quality of Exam: Acceptable. LIVER: There are small hypodense lesions in the liver, measuring less than 1 cm in diameter each. BILIARY SYSTEM: There is no biliary dilatation. [facility] NAME: RUTH LOCK [id number] [address] PHYS: [place] [address] : 1940 AGE: 79 SEX: F LOC: Z.355 A PHONE #: [phone] EXAM DATE: 08/08/2019 STATUS: ADM IN FAX #: [phone] RAD #: D/C DT PAGE 1 Signed Report (CONTINUED) Patient Name: RUTH LOCK Unit No: [id number] EXAMS: CPT CODE: [id number] CT CHEST W/CONTRAST 25248 <Continued> SPLEEN: The spleen is unremarkable. PANCREAS: The pancreas is unremarkable. ADRENAL GLANDS: The adrenalglands are unremarkable. 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 The left kidney is unremarkable. AORTA: There is no abdominal aortic aneurysm or dissection. APPENDIX: The appendix is not identified. No abnormal inflammatory changes in the region of the expected location of the appendix are identified. GASTROINTESTINAL: There is no imaging evidence of large or small bowel obstruction. There are diverticula involving the colon. BONES/SOFT TISSUES: No concerning bony lesion identified. LYMPHATICS: No enlarged lymph nodes by CT criteria. PERITONEUM/OTHER: No free air and no free fluid are identified. IMPRESSION: There are small hypodense lesions in the liver, measuring less than a centimeter in diameter each. These are too small to characterize with CT. Metastatic disease is possible and follow-up is recommended. There is diverticulosis of the colon. ElectronicallySigned by Brad Mackey MD on 08/08/2019 at 1624 Reported and signed by: Brad Mackey MD CC: Cj Palacio MD; Erica Burgess MD Technologist: [facility] STUDENT ; Judd SÁNCHEZ CTDI: DLP: Trnscrpt: 08/08/2019 (3416)t.SDR.PMT [facility] NAME: RUTH LOCK[address] PHYS: Ankit Pinzon MD [place] [id number] : 1940 AGE: 79 SEX: F LOC: Z.355 A PHONE #: [phone] EXAM DATE: 08/08/2019 STATUS: ADM IN FAX #: [phone] RAD #: D/C DT PAGE 2 Signed Report Patient Name: RUTH LOCK Unit No: [id number] EXAMS: CPT CODE: [id number] CT CHEST W/CONTRAST 28263 <Continued> Orig Print D/T: S: 08/08/2019 (7102) [facility] NAME: RUTH LOCK [address] PHYS: [place] [address] : 1940 AGE: 79 SEX: F LOC: Z.355 A PHONE #: [phone] EXAM DATE: 08/08/2019 STATUS: ADM IN FAX #: [phone] RAD #: D/C DT PAGE 3 Signed Report- CT ABD PELVIS [id number] 16:24:00 Patient Name: RUTH LOCK Unit No: [id number] EXAMS: CPT CODE: [id number] CT ABD PELVIS W/CONT 67903 CT chest History: HYPONATREMIA Comparison: None at this time Location: R16 CT scan of the chest was performed with intravenouscontrast. One or more of the following radiation dose reduction techniques was used: automated exposure control, adjustment of mA and/or KV according to patient size, and/or utilization of iterative reconstruction technique. Quality of Exam: Acceptable. Thoracic aorta: The thoracic aorta is unremarkable. Other mediastinal structures: The other mediastinal structures are unremarkable. Pulmonary arteries: The main pulmonary artery and right and left main pulmonary arteries are unremarkable, without intraluminal filling defect. Lymph nodes: No lymphadenopathy is identified. Pleura: There are no pleural effusions. Lung parenchyma: There is minimal dependent atelectasis in the lungs. Bones/soft tissues: No concerning bony lesion is identified. No mass lesions are identified. EXAM: CT abdomen and pelvis COMPARISON: None at this time CT scan of the abdomen and pelvis was performed with intravenous contrast. One or more of the following radiation dose reduction techniques was used: automated exposure control, adjustment of mA and/or KV according to patient size, and/or utilization of iterative reconstruction technique. FINDINGS: Quality of Exam: Acceptable. LIVER: There are small hypodense lesions in the liver, measuring less than 1 cm in diameter each. BILIARY SYSTEM: There is no biliary dilatation. [facility] NAME: RUTH LOCK [address] [address] PHYS: ANAYELI [place] [address] : 1940 AGE: 79 SEX: F LOC: Z.355 A PHONE #: [phone] EXAM DATE: 08/08/2019 STATUS: ADM IN FAX #: [phone] RAD #: D/C DT PAGE 1 Signed Report (CONTINUED) Patient Name: RUTH LOCK Unit No: [id number] EXAMS: CPT CODE: [id number] CT ABD PELVIS W/CONT 57217 <Continued> SPLEEN: The spleen is unremarkable. PANCREAS: The pancreas is unremarkable. ADRENAL GLANDS: The adrenalglands are unremarkable. 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 The left kidney is unremarkable. AORTA: There is no abdominal aortic aneurysm or dissection. APPENDIX: The appendix is not identified. No abnormal inflammatory changes in the region of the expected location of the appendix are identified. GASTROINTESTINAL: There is no imaging evidence of large or small bowel obstruction. There are diverticul a involving the colon. BONES/SOFT TISSUES: No concerning bony lesion identified. LYMPHATICS: No enlarged lymph nodes by CT criteria. PERITONEUM/OTHER: No free air and no free fluid are identified. IMPRESSION: There are small hypodense lesions in the liver, measuring less than a centimeter in diameter each. These are too small to characterize with CT. Metastatic disease is possible and follow-up is recommended. There is diverticulosis of the colon. ElectronicallySigned by Brad Mackey MD on 08/08/2019 at 1624 Reported and signed by: Brad Mackey MD CC: Cj Palacio MD; Erica Burgess MD; Eric Lamas M.D. Technologist: [facility] STUDENT ; Judd SÁNCHEZ CTDI: DLP: Trnscrpt: 08/08/2019 (4316)t.SDR.PMT [facility] NAME: RUTH LOCK [address] [address] PHYS: [place] [address] : 1940 AGE: 79 SEX: F LOC: Z.355 A PHONE #: [phone] EXAM DATE: 08/08/2019 STATUS: ADM IN FAX #: [phone] RAD #: D/C DT PAGE 2 Signed Report Patient Name: RUTH LOCK Unit No: [id number] EXAMS: CPT CODE: [id number] CT ABD PELVIS W/CONT 53252 <Continued> Orig Print D/T: S: 08/08/2019 (5809) [facility] NAME: RUTH LOCK [address] [address] PHYS: [place] [address] : 1940 AGE: 79 SEX: F LOC: Z.355 A PHONE #: [phone] EXAM DATE: 08/08/2019 STATUS: ADM IN FAX #: [phone] RAD #: D/C DT PAGE 3 Signed ReportUR OSMOLALITY [id number] 12:16:00 Test Item Value Reference Range Interpretation Comments UR OSMOLALITY RANDOM (test code = 384 MOS/KG 300-1200 OSMOU) BASIC METABOLIC [id number] 10:30:00 Test Item Value Reference Range Interpretation Comments SODIUM (test code = 126 MMOL/L 137-145 L NA) POTASSIUM (test code = 4.0 MMOL/L 3.5-5.1 N K) CHLORIDE (test code = 93 MMOL/L 98-107 L CL) CARBON DIOXIDE (test 25 MMOL/L 22-30 N code = CO2) GLUCOSE (test code = 90 MG/DL 74-106 GLU) BLOOD UREA NITROGEN 14 MG/DL 7-17 N (test code = BUN) GLOMERULAR FILTRATION > 60 Report ing units: RATE (test code = GFR) ml/mi n/1.73 m2 (Modified MDRD Formula)Referen ce Range: > or = 6 0 ml/min/1.73 m2 CREATININE (test code 0.50 MG/DL 0.52-1.04 L = CREAT) CALCIUM (test code = 9.0 MG/DL 8.4-10.2 N CA) BASIC METABOLIC [id number] 10:08:00 Test Item Value Reference Range Interpretation Comments SODIUM (test code = 126 MMOL/L 137-145 L NA) POTASSIUM (test code = 4.0 MMOL/L 3.5-5.1 N K) CHLORIDE (test code = 93 MMOL/L 98-107 L CL) CARBON DIOXIDE (test 25 MMOL/L 22-30 N code = CO2) GLUCOSE (test code = MG/DL 74-106 GLU) BLOOD UREA NITROGEN 14 MG/DL 7-17 N (test code = BUN) GLOMERULAR FILTRATION > 60 Report ing units: RATE (test code = GFR) ml/mi n/1.73 m2 (Modified MDRD Formula)Referen ce Range: > or = 6 0 ml/min/1.73 m2 CREATININE (test code 0.50 MG/DL 0.52-1.04 L = CREAT) CALCIUM (test code = MG/DL 8.7-9.7 CA) BASIC METABOLIC [id number] 10:05:00 Test Item Value Reference Range Interpretation Comments SODIUM (test code = NA) 126 MMOL/L 137-145 L POTASSIUM (test code = K) 4.0 MMOL/L 3.5-5.1 N CHLORIDE (test code = CL) 93 MMOL/L 98-107 L CARBON DIOXIDE (test code = CO2) MMOL/L 22-30 GLUCOSE (test code = GLU) MG/DL 74-106 BLOOD UREA NITROGEN (test code = MG/DL 7-17 BUN) GLOMERULAR FILTRATION RATE (test code = GFR) CREATININE (test code = CREAT) MG/DL 0.52-1.04 CALCIUM (test code = CA) MG/DL 8.7-9.7 THYROID STIMULATING [id number] 07:25:00 Test Item Value Reference Range Interpretation Comments THYROID STIMULATING 3.680 MIU/L 0.465-4.68 N Please b e aware that HORMONE (test code = bias re sults for TSH TSH) may occur forpa tient who are taking Biotin suppleme nts. COMPREHENSIVE METABOLIC [id number] 07:24:00 Test Item Value Reference Range Interpretation Comments SODIUM (test code = 120 MMOL/L 137-145 L CALLED Haley Bernstein & NA) READBACK ON AT 0722 Jena Trivedi POTASSIUM (test code = 5.2 MMOL/L 3.5-5.1 H K) CHLORIDE (test code = 95 MMOL/L 98-107 L CL) CARBON DIOXIDE (test 21 MMOL/L 22-30 L code = CO2) ANION GAP (test code = 9 MMOL/L 14-24 L GAP) GLUCOSE (test code = 72 MG/DL 74-106 L GLU) BLOOD UREA NITROGEN 16 MG/DL 7-17 N (test code = BUN) GLOMERULAR FILTRATION > 60 Report ing units: RATE (test code = GFR) ml/mi n/1.73 m2 (Modified MDRD Formula)Referen ce Range: > or = 6 0 ml/min/1.73 m2 CREATININE (test code 0.50 MG/DL 0.52-1.04 L = CREAT) TOTAL PROTEIN (test 6.1 G/DL 6.3-8.2 L code = PROT) ALBUMIN (test code = 3.5 G/DL 3.5-5.0 N ALB) CALCIUM (test code = 8.8 MG/DL 8.4-10.2 N CA) BILIRUBIN TOTAL (test 1.0 MG/DL 0.2-1.3 code = BILT) SGOT/AST (test code = 31 UNITS/L 14-36 AST) SGPT/ALT (test code = < 6 UNITS/L 9-52 L ALT) ALKALINE PHOSPHATASE 52 UNITS/L 38-126 (test code = ALKP) COMPREHENSIVE METABOLIC [id number] 06:54:00 Test Item Value Reference Range Interpretation Comments SODIUM (test code = NA) MMOL/L 137-145 POTASSIUM (test code = K) MMOL/L 3.5-5.1 CHLORIDE (test code = CL) MMOL/L 98-107 CARBON DIOXIDE (test code = CO2) MMOL/L 22-30 GLUCOSE (test code = GLU) MG/DL 74-106 BLOOD UREA NITROGEN (test code = MG/DL 7-17 BUN) GLOMERULAR FILTRATION RATE (test code = GFR) CREATININE (test code = CREAT) MG/DL 0.52-1.04 TOTAL PROTEIN (test code = PROT) G/DL 6.3-8.2 ALBUMIN (test code = ALB) 3.5 G/DL 3.5-5.0 N CALCIUM (test code = CA) MG/DL 8.7-9.7 BILIRUBIN TOTAL (test code = BILT) MG/DL 0.2-1.3 SGOT/AST (test code = AST) UNITS/L 15-37 SGPT/ALT (test code = ALT) UNITS/L 9-52 ALKALINE PHOSPHATASE (test code = UNITS/L 38-126 ALKP) CBC W/AUTO [id number] 06:40:00 Test Item Value Reference Range Interpretation Comments WHITE BLOOD CELL (test code = 6.6 K/MM3 3.8-9.8 N WBC) RED BLOOD CELL (test code = 3.62 M/MM3 3.58-4.97 N RBC) HEMOGLOBIN (test code = HGB) 10.3 G/DL 11.2-14.9 L HEMATOCRIT (test code = HCT) 31.0 % 33.2-43.5 L MEAN CELL VOLUME (test code = 86 fL 80.7-99.1 N MCV) MEAN CELL HGB (test code = MCH) 28.5 pg 27.0-34.1 N MEAN CELL HGB CONCETRATION 33.2 % 32.2-35.7 N (test code = MCHC) RED CELL DISTRIBUTION WIDTH 13.8 % 12.1-15.2 N (test code = RDW) PLATELET COUNT (test code = 174 K/MM3 129-368 N PLT) MEAN PLATELET VOLUME (test code 10.1 fl 7.4-10.4 N = MPV) NEUTROPHIL % (test code = NT%) 65.8 % 43-75 N IMMATURE GRANULOCYTE % (test 0.2 % 0.0-2.0 N code = IG%) LYMPHOCYTE % (test code = LY%) 23.2 % 14-44 N MONOCYTE % (test code = MO%) 8.2 % 4-13 N EOSINOPHIL % (test code = EO%) 2.0 % 0-6 N BASOPHIL % (test code = BA%) 0.6 % 0-2 N NUCLEATED RBC % (test code = 0.0 % 0-1.0 N NRBC%) NEUTROPHIL # (test code = NT#) 4.34 K/mm3 2.0-7.6 N IMMATURE GRANULOCYTE # (test 0.01 x10 3/uL 0-0.03 N code = IG#) LYMPHOCYTE # (test code = LY#) 1.53 K/mm3 1.0-3.8 N MONOCYTE # (test code = MO#) 0.54 K/mm3 0.1-0.8 N EOSINOPHIL # (test code = EO#) 0.13 K/mm3 0.0-0.2 N BASOPHIL # (test code = BA#) 0.04 K/mm3 0.0-0.2 N NUCLEATED RBC # (test code = 0.00 K/mm3 0.0-0.1 N NRBC#) UR OSMOLALITY [id number] 20:44:00 Test Item Value Reference Range Interpretation Comments UR OSMOLALITY RANDOM (test code = 335 MOS/KG 300-1200 N OSMOU) - XR CHEST 2 [id number] 19:29:00 Patient Name: RUTH LOCK Unit No: [id number] EXAMS: CPT CODE: [id number] XR CHEST 2 V 25980 EXAM: - XR CHEST 2 V LOCATION: C3 HISTORY: CAD, HTN COMPARISON: 08/07/2019 FINDINGS: 2 views of the chest. No indwelling lines or tubes. No pneumothorax. The lungs areclear without significant effusions. The mediastinal contours are unremarkable/unchanged. The mediastinal contours are unremarkable. No acute osseous findings are present. IMPRESSION: No acute cardiopulmonary abnormality. at 1929 Reported and signed by: Dylan Benítez MD CC: Cj Palacio MD; Erica Burgess MD; Eric Lamas M.D. Technologist: Tavia Bryan RT(R) Transcrpt Date/Tm/Trnsp: 08/07/2019 (1928) [id number] Orig Print D/T: S: 08/07/2019 (1931) [facility] NAME: RUTH LOCK [address] [address] PHYS: [place] [address] : 1940 AGE: 79 SEX: F LOC: Z.355 A PHONE #: [phone] EXAM DATE: 08/07/2019 STATUS: ADM IN FAX #: [phone] RADIOLOGY NO:PAGE 1 Signed ReportBASIC METABOLIC [id number] 14:21:00 Test Item Value Reference Range Interpretation Comments SODIUM (test code = 127 MMOL/L 137-145 L NA) POTASSIUM (test code = 4.7 MMOL/L 3.5-5.1 N K) CHLORIDE (test code = 93 MMOL/L 98-107 L CL) CARBON DIOXIDE (test 26 MMOL/L 22-30 N code = CO2) GLUCOSE (test code = 88 MG/DL 74-106 N GLU) BLOOD UREA NITROGEN 11 MG/DL 7-17 N (test code = BUN) GLOMERULAR FILTRATION > 60 Report ing units: RATE (test code = GFR) ml/mi n/1.73 m2 (Modified MDRD Formula)Referen ce Range: > or = 6 0 ml/min/1.73 m2 CREATININE (test code 0.50 MG/DL 0.52-1.04 L = CREAT) CALCIUM (test code = 9.4 MG/DL 8.4-10.2 N CA) BASIC METABOLIC [id number] 14:18:00 Test Item Value Reference Range Interpretation Comments SODIUM (test code = NA) 127 MMOL/L 137-145 L POTASSIUM (test code = K) 4.7 MMOL/L 3.5-5.1 N CHLORIDE (test code = CL) 93 MMOL/L 98-107 L CARBON DIOXIDE (test code = CO2) MMOL/L 22-30 GLUCOSE (test code = GLU) MG/DL 74-106 BLOOD UREA NITROGEN (test code = MG/DL 7-17 BUN) GLOMERULAR FILTRATION RATE (test code = GFR) CREATININE (test code = CREAT) MG/DL 0.52-1.04 CALCIUM (test code = CA) MG/DL 8.7-9.7 HIV 12 AB [id number] 13:07:00 Test Item Value Reference Range Interpretation Comments HIV 1 2 COMBO AG/AB SCREEN AB/AG NON REACTIVE NONREACTIVE (test code = [id number]) PLT RESPONSE TO [id number] 12:49:00 Test Item Value Reference Range Interpretation Comments PLT RESPONSE TO 377 PRU 194-418 N P2Y12 Result s PLAVIX (test code = Interpre tation: Test PLAVRES) results are in P2Y12 Reaction Units (PRU). Pre-Drug Refe rence Range is 194-41 8. Pre-drug platel et function estima pamela the total possible platelet aggregation independent of P2Y12 inhibitor drugs . Values <194 cou ld be due to low HCT, low platelet count, or p resence of IIb/IIIa inhibi tors. Post-Drug Resu lts: Lower PRU levels are associated with expec fracisco antiplatelet ef fect. Values may be b elow the stated refe rence range. Studies show that patients wi th <230 PRU had fewer a dverse events. CLOTTED; RECOLLECT 1215 SMGIS PATIENT ON ANTICOAGULANTS: IRVIN ANTICOAGULANTS: Aspirin- XR CHEST [id number] 12:42:00 Patient Name: RUTH LOCK Unit No: [id number] EXAMS: CPT CODE: [id number] XR CHEST 1V 70173 Single View Chest. Location: B2 Clinical Indication: 79-year-old presents for preoperative assessment Comparison: None Findings: An AP view of the chest was obtained. Prior sternotomy. Prior CABG. Aortic atherosclerosis is present. The lungs are hyperinflated. No focal consolidation. Lungs are hyper inflat ed. There is some linear high density which appears to be on or within the chest wall rather than within the lungs. No acute osseous abnormality. Impression: Pulmonary hyperinflation. No focal consolidation. at 1242 Reported and signed by: Ankit Conrad M.D. CC: Cj Palacio MD; Erica Burgess MD Technologist: Lary Lewis (RT)(R) Transcrpt Date/Tm/Trnsp: 08/07/2019 (5729) NoemiR.[email or web address] Orig Print D/T: S: 08/07/2019 (8949) [facility] NAME: RUTH LOCK [address] [address] PHYS: [place] [address] : 1940 AGE: 79 SEX: F LOC: Z.SRG PHONE #: [phone] EXAM DATE: 08/07/2019 STATUS: REG SDC FAX #: [phone] RADIOLOGY NO: PAGE 1 Signed ReportGLYCOSYLATED HEMOGLOBIN [id number] 12:09:00 Test Item Value Reference Range Interpretation Comments GLYCOSYLATED 5.8 % 4.8-5.9 N Any condition t hat HEMOGLOBIN (HA1C) shortens e rythocyte (test code = survival or dec reasesmean GLYHGB) erythrocyte age (e.g., recovery from a cute blood loss,hemolytic anemia) will falsely lo wer HGBA1c resultsregardle ss of the method used. H GBA1c results from jada cooney HbSS, HbCC, and HbSc must be interpreted with cautiongiven th e pathological pr ocesses, including anemia,increase d red cell turnover, trans fusion requirements, thatadversely i mpact HGBA1c as a mar ker of long-term glycemiccontrol . Alternative for ms of testing such as fructosaminesho uld be considered for these patients. MEAN BLOOD GLUCOSE 120 MG/DL 70-110 H (test code = MBG) COMPREHENSIVE METABOLIC [id number] 12:07:00 Test Item Value Reference Range Interpretation Comments SODIUM (test code = NA) 126 MMOL/L 137-145 L POTASSIUM (test code = 4.5 MMOL/L 3.5-5.1 N K) CHLORIDE (test code = 92 MMOL/L 98-107 L CL) CARBON DIOXIDE (test 26 MMOL/L 22-30 N code = CO2) GLUCOSE (test code = 92 MG/DL 74-106 N GLU) BLOOD UREA NITROGEN 12 MG/DL 7-17 N (test code = BUN) GLOMERULAR FILTRATION > 60 Report ing units: RATE (test code = GFR) ml/mi n/1.73 m2 (Modified MDRD Formula)Referen ce Range: > or = 6 0 ml/min/1.73 m2 CREATININE (test code = 0.50 MG/DL 0.52-1.04 L CREAT) TOTAL PROTEIN (test 6.8 G/DL 6.3-8.2 N code = PROT) ALBUMIN (test code = 4.1 G/DL 3.5-5.0 N ALB) CALCIUM (test code = 9.6 MG/DL 8.4-10.2 N CA) BILIRUBIN TOTAL (test 0.7 MG/DL 0.2-1.3 N code = BILT) SGOT/AST (test code = 23 UNITS/L 14-36 N AST) SGPT/ALT (test code = 10 UNITS/L 9-52 N ALT) ALKALINE PHOSPHATASE 72 UNITS/L 38-126 N (test code = ALKP) COMPREHENSIVE METABOLIC [id number] 12:06:00 Test Item Value Reference Range Interpretation Comments SODIUM (test code = NA) 126 MMOL/L 137-145 L POTASSIUM (test code = 4.5 MMOL/L 3.5-5.1 N K) CHLORIDE (test code = 92 MMOL/L 98-107 L CL) CARBON DIOXIDE (test 26 MMOL/L 22-30 N code = CO2) GLUCOSE (test code = MG/DL 74-106 GLU) BLOOD UREA NITROGEN MG/DL 7-17 (test code = BUN) GLOMERULAR FILTRATION > 60 Report ing units: RATE (test code = GFR) ml/mi n/1.73 m2 (Modified MDRD Formula)Referen ce Range: > or = 6 0 ml/min/1.73 m2 CREATININE (test code = 0.50 MG/DL 0.52-1.04 L CREAT) TOTAL PROTEIN (test G/DL 6.3-8.2 code = PROT) ALBUMIN (test code = 4.1 G/DL 3.5-5.0 N ALB) CALCIUM (test code = MG/DL 8.7-9.7 CA) BILIRUBIN TOTAL (test 0.7 MG/DL 0.2-1.3 N code = BILT) SGOT/AST (test code = UNITS/L 15-37 AST) SGPT/ALT (test code = UNITS/L 9-52 ALT) ALKALINE PHOSPHATASE UNITS/L 38-126 (test code = ALKP) COMPREHENSIVE METABOLIC [id number] 12:04:00 Test Item Value Reference Range Interpretation Comments SODIUM (test code = NA) 126 MMOL/L 137-145 L POTASSIUM (test code = K) 4.5 MMOL/L 3.5-5.1 N CHLORIDE (test code = CL) 92 MMOL/L 98-107 L CARBON DIOXIDE (test code = CO2) MMOL/L 22-30 GLUCOSE (test code = GLU) MG/DL 74-106 BLOOD UREA NITROGEN (test code = MG/DL 7-17 BUN) GLOMERULAR FILTRATION RATE (test code = GFR) CREATININE (test code = CREAT) MG/DL 0.52-1.04 TOTAL PROTEIN (test code = PROT) G/DL 6.3-8.2 ALBUMIN (test code = ALB) 4.1 G/DL 3.5-5.0 N CALCIUM (test code = CA) MG/DL 8.7-9.7 BILIRUBIN TOTAL (test code = BILT) MG/DL 0.2-1.3 SGOT/AST (test code = AST) UNITS/L 15-37 SGPT/ALT (test code = ALT) UNITS/L 9-52 ALKALINE PHOSPHATASE (test code = UNITS/L 38-126 ALKP) CBC W/AUTO [id number] 11:39:00 Test Item Value Reference Range Interpretation Comments WHITE BLOOD CELL (test code = 4.8 K/MM3 3.8-9.8 N WBC) RED BLOOD CELL (test code = 3.79 M/MM3 3.58-4.97 N RBC) HEMOGLOBIN (test code = HGB) 10.7 G/DL 11.2-14.9 L HEMATOCRIT (test code = HCT) 32.8 % 33.2-43.5 L MEAN CELL VOLUME (test code = 87 fL 80.7-99.1 N MCV) MEAN CELL HGB (test code = MCH) 28.2 pg 27.0-34.1 N MEAN CELL HGB CONCETRATION 32.6 % 32.2-35.7 N (test code = MCHC) RED CELL DISTRIBUTION WIDTH 13.9 % 12.1-15.2 N (test code = RDW) PLATELET COUNT (test code = 193 K/MM3 129-368 N PLT) MEAN PLATELET VOLUME (test code 9.5 fl 7.4-10.4 N = MPV) NEUTROPHIL % (test code = NT%) 67.3 % 43-75 N IMMATURE GRANULOCYTE % (test 0.2 % 0.0-2.0 N code = IG%) LYMPHOCYTE % (test code = LY%) 24.2 % 14-44 N MONOCYTE % (test code = MO%) 6.9 % 4-13 N EOSINOPHIL % (test code = EO%) 0.8 % 0-6 N BASOPHIL % (test code = BA%) 0.6 % 0-2 N NUCLEATED RBC % (test code = 0.0 % 0-1.0 N NRBC%) NEUTROPHIL # (test code = NT#) 3.19 K/mm3 2.0-7.6 N IMMATURE GRANULOCYTE # (test 0.01 x10 3/uL 0-0.03 N code = IG#) LYMPHOCYTE # (test code = LY#) 1.15 K/mm3 1.0-3.8 N MONOCYTE # (test code = MO#) 0.33 K/mm3 0.1-0.8 N EOSINOPHIL # (test code = EO#) 0.04 K/mm3 0.0-0.2 N BASOPHIL # (test code = BA#) 0.03 K/mm3 0.0-0.2 N NUCLEATED RBC # (test code = 0.00 K/mm3 0.0-0.1 N NRBC#) PROTHROMBIN [id number] 08:10:00 Test Item Value Reference Range Interpretation Comments PROTHROMBIN TIME 10.3 SECONDS 9.6-11.6 N PATIENT (test code = PTP) INTERNATIONAL NORMAL 1.0 0.8-1.1 N The INR is to be RATIO (test code = used only for INR) monitoring oral anticoagulantth erap y. INDICATION I NR VALUE ---- ---- ---- -------1. Prophylaxis, de ep venous thrombos is, including hig h risk surgery. 2.0 - 3.0 2. Prophylaxis, de ep venous thrombos is, hip surgery, treatment for d eep venous thrombosis or pulmonary prevention of systemic emboli sm in patients wit h valvular heart disease, atrial fibrillation, tissue heart va lve, or acute myocar dial infarction. 2.0 - 3 .0 3. Mechanical prosthesis hear t valves, recurrent syste nidia embolism. 3.0 - 4.5 Comments to Airport Operations Manager: WILL BRING TO LABPTT [id number] 08:10:00 Test Item Value Reference Range Interpretation Comments PTT ACTIVATED (test code = APTT) 28.8 SECONDS 22.0-33.0 N Comments to Airport Operations Manager: WILL BRING TO LABBASIC METABOLIC [id number] 08:08:00 Test Item Value Reference Range Interpretation Comments SODIUM (test code = 126 MMOL/L 137-145 L NA) POTASSIUM (test code = 4.5 MMOL/L 3.5-5.1 N K) CHLORIDE (test code = 94 MMOL/L 98-107 L CL) CARBON DIOXIDE (test 24 MMOL/L 22-30 N code = CO2) GLUCOSE (test code = 89 MG/DL 74-106 N GLU) BLOOD UREA NITROGEN 12 MG/DL 7-17 N (test code = BUN) GLOMERULAR FILTRATION > 60 Report ing units: RATE (test code = GFR) ml/mi n/1.73 m2 (Modified MDRD Formula)Referen ce Range: > or = 6 0 ml/min/1.73 m2 CREATININE (test code 0.50 MG/DL 0.52-1.04 L = CREAT) CALCIUM (test code = 9.3 MG/DL 8.4-10.2 N CA) LIPID PROFILE (CORONARY RISK)2019-07-18 08:08:00 Test Item Value Reference Range Interpretation Comments TRIGLYCERIDES (test 55 MG/DL TRIGLYCE RIDES code = TRIG) REFERENCE RANGE:Normal: < 150 mg/dLBorderline High: 150-199 mg/dLHi gh: 200-499 mg/dLVe ry High: >=500 mg/ dL CHOLESTEROL (test code 167 MG/DL <200 = CHOL) HDL CHOLESTEROL (test 81 MG/DL 40-59 H code = HDL) LIPOPROTEIN LDL (test 78 MG/DL 0-99 N code = LDL) OPTIMAL........ .<100 mg/dLNEAR OPTIMAL/ABOVE OPTIMAL........ .100-12 9 mg/dL BORDERLINE HIGH.........13 0-159 mg/dL HIGH.........16 0-189 mg/dL VERY HIGH...... ...>/= 190 mg/dL [id number] 08:08:00 Test Item Value Reference Range Interpretation Comments MAGNESIUM (test code = MAG) 1.9 MG/DL 1.6-2.3 N BASIC METABOLIC [id number] 07:58:00 Test Item Value Reference Range Interpretation Comments SODIUM (test code = 126 MMOL/L 137-145 L NA) POTASSIUM (test code = 4.5 MMOL/L 3.5-5.1 N K) CHLORIDE (test code = 94 MMOL/L 98-107 L CL) CARBON DIOXIDE (test 24 MMOL/L 22-30 N code = CO2) GLUCOSE (test code = 89 MG/DL 74-106 N GLU) BLOOD UREA NITROGEN 12 MG/DL 7-17 N (test code = BUN) GLOMERULAR FILTRATION > 60 Report ing units: RATE (test code = GFR) ml/mi n/1.73 m2 (Modified MDRD Formula)Referen ce Range: > or = 6 0 ml/min/1.73 m2 CREATININE (test code 0.50 MG/DL 0.52-1.04 L = CREAT) CALCIUM (test code = 9.3 MG/DL 8.4-10.2 N CA) LIPID PROFILE (CORONARY RISK)2019-07-18 07:58:00 Test Item Value Reference Range Interpretation Comments TRIGLYCERIDES (test 55 MG/DL TRIGLYCE RIDES code = TRIG) REFERENCE RANGE:Normal: < 150 mg/dLBorderline High: 150-199 mg/dLHi gh: 200-499 mg/dLVe ry High: >=500 mg/ dL CHOLESTEROL (test code 167 MG/DL <200 = CHOL) HDL CHOLESTEROL (test 81 MG/DL 40-59 H code = HDL) LIPOPROTEIN LDL (test MG/DL 0-99 code = LDL) [id number] 07:58:00 Test Item Value Reference Range Interpretation Comments MAGNESIUM (test code = MAG) 1.9 MG/DL 1.6-2.3 N CBC W/AUTO [id number] 07:43:00 Test Item Value Reference Range Interpretation Comments WHITE BLOOD CELL (test code = 6.5 K/MM3 3.8-9.8 N WBC) RED BLOOD CELL (test code = 4.15 M/MM3 3.58-4.97 N RBC) HEMOGLOBIN (test code = HGB) 11.8 G/DL 11.2-14.9 N HEMATOCRIT (test code = HCT) 35.7 % 33.2-43.5 N MEAN CELL VOLUME (test code = 86 fL 80.7-99.1 N MCV) MEAN CELL HGB (test code = MCH) 28.4 pg 27.0-34.1 N MEAN CELL HGB CONCETRATION 33.1 % 32.2-35.7 N (test code = MCHC) RED CELL DISTRIBUTION WIDTH 13.7 % 12.1-15.2 N (test code = RDW) PLATELET COUNT (test code = 176 K/MM3 129-368 N PLT) MEAN PLATELET VOLUME (test code 10.0 fl 7.4-10.4 N = MPV) NEUTROPHIL % (test code = NT%) 70.2 % 43-75 N IMMATURE GRANULOCYTE % (test 0.3 % 0.0-2.0 N code = IG%) LYMPHOCYTE % (test code = LY%) 20.4 % 14-44 N MONOCYTE % (test code = MO%) 7.1 % 4-13 N EOSINOPHIL % (test code = EO%) 1.4 % 0-6 N BASOPHIL % (test code = BA%) 0.6 % 0-2 N NUCLEATED RBC % (test code = 0.0 % 0-1.0 N NRBC%) NEUTROPHIL # (test code = NT#) 4.58 K/mm3 2.0-7.6 N IMMATURE GRANULOCYTE # (test 0.02 x10 3/uL 0-0.03 N code = IG#) LYMPHOCYTE # (test code = LY#) 1.33 K/mm3 1.0-3.8 N MONOCYTE # (test code = MO#) 0.46 K/mm3 0.1-0.8 N EOSINOPHIL # (test code = EO#) 0.09 K/mm3 0.0-0.2 N BASOPHIL # (test code = BA#) 0.04 K/mm3 0.0-0.2 N NUCLEATED RBC # (test code = 0.00 K/mm3 0.0-0.1 N NRBC#)
[2021-01-25 19:56] LABS: Basophils % 0.8 % (0-1.3); Hematocrit 36.8 % (36.0-45.0); Lymphocytes % 26.8 % (15.3-44.8); MPV 8.4 fL (7.6-11.3); RBC Red Blood Cell Count 4.51 M/uL (3.86-4.86)
[2021-01-25 20:07] LABS: Protime INR 0.93
[2021-01-25] MEDS ORDERED: NA CHLORIDE 0.9% 1,000 ML ONE (20:09)
[2021-01-25 20:14] LABS: Urine Blood 1+ (NEG); Urine Glucose NEGATIVE (NEG); Urine Protein 1+ (NEG); Urine Specific Gravity 1.025 (1.005-1.030)
[2021-01-25] MEDS ORDERED: CEFTRIAXONE/SWI 1gm 1 GM/10 ML SYR ONE (20:38)
[2021-01-25 21:12] LABS: ALT/SGPT 15 U/L (12-78); AST/SGOT 15 U/L (15-37); Alkaline Phosphatase ND U/L (45-117); BUN Blood Urea Nitrogen 16 mg/dL (7-18); Bicarbonate 26 mmol/L (21-32); Bilirubin Direct 0.2 mg/dL (0-0.2); Bilirubin Total 0.6 mg/dL (0.2-1.0); Glucose Level 116 mg/dL (74-106); Magnesium 2.3 mg/dL (1.8-2.4); NT PRO-BNP 1796 pg/mL (<450); Potassium 4.7 mmol/L (3.5-5.1); Protein, Total 7.4 g/dL (6.4-8.2); Sodium Level 139 mmol/L (136-145); Troponin (Emerg Dept Use Only) < 0.02 ng/mL (0.0-0.045)
--- NOTE | 2021-01-25 21:27 | RAD REPORT ---
EXAM DESCRIPTION: US - Extrem Venous W Compress Derrick - 01/25/2021 8:32 pm CLINICAL HISTORY: Pain;Swelling COMPARISON: None. TECHNIQUE: Real-time sonographic evaluation of the bilateral lower extremity common femoral, superfi cial femoral, popliteal and posterior tibial veins was performed. FINDINGS: Normal compressibility, flow augmentation, phasic flow and spontaneous flow are identified in the left and right lower extremity common femoral, superficial femoral, popliteal and posterior t ibial veins. No intraluminal filling defects seen. IMPRESSION: No DVT in either lower extremity.
--- NOTE | 2021-01-25 21:28 | RAD REPORT ---
EXAM DESCRIPTION: RAD - Chest Single View - 01/25/2021 8:45 pm CLINICAL HISTORY: COUGH COMPARISON: None TECHNIQUE: AP portable chest image was obtained 01/25/2021 8:45 pm . FINDINGS: Fibrotic lung changes are present. Skin fold artifacts are seen over the right chest. No p eripheral mass or consolidation. 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 Heart and vasculature are normal. N o measurable pleural effusion and no pneumothorax. No acute bone finding. Postsurgical changes are pr esent at the proximal right humerus. No acute aortic findings suspected. IMPRESSION: No pulmonary edema findings identifiable. Prominent interstitial pattern is most likely baseline. A mild edema or infiltrate could be masked.
--- NOTE | 2021-01-25 21:55 | EDPHYS ---
Physician Documentation [facility] Name: Venus Summers Age: 80 yrs Sex: Female : 1940 Arrival Date: 01/25/2021 Time: 17:27 Bed 3 Private MD: Shane Palacio E ED Physician Steve Barros HPI: 01/25 19:31 This 80 yrs old Female presents to ER via Ambulatory with complaints of Feet melly Swelling. 19:31 The patient presents with pain, swelling, tenderness. The complaints affect the right melly leg and left leg. Context: The problem was sustained at an unknown site. Onset: The symptoms/episode began/occurred 3 day(s) ago. Modifying factors: The symptoms are alleviated by nothing. the symptoms are aggravated by movement. Associated signs and symptoms: The patient has no apparent associated signs or symptoms. Severity of symptoms: At their worst the symptoms were mild, moderate, in the emergency department the symptoms have resolved. The patient has not experienced similar symptoms in the past. Historical: - Allergies: 18:06 PENICILLINS; ll1 18:06 Cipro PO; ll1 - PMHx: 18:06 Hypertension; High Cholesterol; ll1 - PSHx: 18:06 bowel obstruction with gangrene; Hysterectomy; kidney CA-R kidney removed; CABG; L ll1 carotid sx; - Immunization history:: Flu vaccine is not up to date. - Social history:: Smoking status: Patient reports the use of cigarette tobacco products, smokes one-half pack cigarettes per day. - Family history:: not pertinent. ROS: 19:31 Constitutional: Negative for fever, chills, and weight loss, Eyes: Negative for injury, melly pain, redness, and discharge, ENT: Negative for injury, pain, and discharge, Neck: Negative for injury, pain, and swelling, Cardiovascular: Negative for chest pain, palpitations, and edema, Respiratory: Negative for shortness of breath, cough, wheezing, and pleuritic chest pain, Abdomen/GI: Negative for abdominal pain, nausea, vomiting, diarrhea, and constipation, Back: Negative for injury and pain, : Negative for injury, bleeding, discharge, and swelling, Skin: Negative for injury, rash, and discoloration, Neuro: Negative for headache, weakness, numbness, tingling, and seizure, Psych: Negative for depression, anxiety, suicide ideation, homicidal ideation, and hallucinations, Allergy/Immunology: Negative for hives, rash, and allergies, Endocrine: Negative for neck swelling, polydipsia, polyuria, polyphagia, and marked weight changes, Hematologic/Lymphatic: Negative for swollen nodes, abnormal bleeding, and unusual bruising. 19:31 MS/extremity: Positive for pain, swelling, tenderness, of the left leg. Exam: 19:31 Constitutional: This is a well developed, well nourished patient who is awake, alert, melly and in no acute distress. Head/Face: Normocephalic, atraumatic. Eyes: Pupils equal round and reactive to light, extra-ocular motions intact. Lids and lashes normal. Conjunctiva and sclera are non-icteric and not injected. Cornea within normal limits. Periorbital areas with no swelling, redness, or edema. ENT: Nares patent. No nasal discharge, no septal abnormalities noted. Tympanic membranes are normal and external auditory canals are clear. Oropharynx with no redness, swelling, or masses, exudates, or evidence of obstruction, uvula midline. Mucous membranes moist. Neck: Trachea midline, no thyromegaly or masses palpated, and no cervical lymphadenopathy. Supple, full range of motion without nuchal rigidity, or vertebral point tenderness. No Meningismus. Chest/axilla: Normal chest wall appearance and motion. Nontender with no deformity. No lesions are appreciated. Cardiovascular: Regular rate and rhythm with a normal S1 and S2. No gallops, murmurs, or rubs. Normal PMI, no JVD. No pulse deficits. Respiratory: Lungs have equal breath sounds bilaterally, clear to auscultation and percussion. No rales, rhonchi or wheezes noted. No increased work of breathing, no retractions or nasal flaring. Abdomen/GI: Soft, non-tender, with normal bowel sounds. No distension or tympany. No guarding or rebound. No evidence of tenderness throughout. Back: No spinal tenderness. No costovertebral tenderness. Full range of motion. Female : Normal external genitalia. MS/ Extremity: Pulses equal, no cyanosis. Neurovascular intact. Full, normal range of motion. Neuro: Awake and alert, GCS 15, oriented to person, place, time, and situation. Cranial nerves II-XII grossly intact. Motor strength 5/5 in all extremities. Sensory grossly intact. Cerebellar exam normal. Normal gait. Psych: Awake, alert, with orientation to person, place and time. Behavior, mood, and affect are within normal limits. 19:31 Musculoskeletal/extremity: ROM: no acute changes, intact in all extremities, full active range of motion, Circulation is intact in all extremities. Sensation intact. Compartment Syndrome exam of affected extremity: is normal. DVT Exam: no pain, no tenderness, negative Homans' sign noted on exam, no appreciated bluish discoloration, no erythema, no increased warmth, swelling. 22:06 ECG was reviewed by the Attending Physician. [facility] Vital Signs: 18:03 BP 165 / 63; Pulse 63; Resp 17; Temp 98.2; Pulse Ox 97% ; Weight 49.44 kg; Height 5 ft. ll1 0 in. (152.40 cm); Pain 3/10; 20:00 BP 146 / 54; Pulse 53; Resp 16; Pulse Ox 98% on R/A; rv 21:00 BP 152 / 61; Pulse 58; Resp 16; Pulse Ox 98% on R/A; rv 22:30 BP 137 / 56; Pulse 53; Resp 18; Pulse Ox 97% on R/A; wh 01/26 00:30 BP 172 / 50; Pulse 64; Resp 18; Pulse Ox 95% on R/A; wh 02:30 BP 143 / 54; Pulse 51; Resp 18; Pulse Ox 95% on R/A; wh 01/25 18:03 Body Mass Index 21.29 (49.44 kg, 152.40 cm) ll1 MDM: 01/25 19:10 Patient medically screened. [facility] 19:33 Differential diagnosis: contusion. Data reviewed: vital signs, nurses notes, lab test [facility] result(s), EKG, radiologic studies, doppler, plain films. Data interpreted: application development team lead: rate is 63 beats/min, rhythm is regular, Pulse oximetry: on room air is 97 %. Test interpretation: by ED physician or midlevel provider: ECG, plain radiologic studies. 01/25 19:29 Order name: Basic Metabolic Panel [facility] 01/25 19:29 Order name: CBC with Diff [facility] 01/25 19:29 Order name: LFT's [facility] 01/25 19:29 Order name: Magnesium [facility] 01/25 19:29 Order name: NT PRO-BNP [facility] 01/25 19:29 Order name: PT-INR [facility] 01/25 19:29 Order name: Troponin (emerg Dept Use Only); Complete Time: 21:49 [facility] 01/25 19:29 Order name: Urine Culture [facility] 01/25 19:29 Order name: Basic Metabolic Panel; Complete Time: 21:49 [facility] 01/25 19:29 Order name: CBC with Automated Diff; Complete Time: 20:16 [facility] 01/25 19:29 Order name: Liver (Hepatic) Function; Complete Time: 21:49 [facility] 01/25 19:29 Order name: Magnesium; Complete Time: 21:49 [facility] 01/25 19:29 Order name: NT PRO-BNP; Complete Time: 21:49 [facility] 01/25 19:29 Order name: Protime (+INR); Complete Time: 20:16 [facility] 01/25 19:29 Order name: XRAY Chest (1 view); Complete Time: 21:49 [facility] 01/25 19:29 Order name: EKG; Complete Time: 19:32 [facility] 01/25 19:29 Order name: US Extremity Venous W Compression Derrick; Complete Time: 21:49 [facility] 01/25 20:09 Order name: Urine Dipstick--Ancillary (enter results); Complete Time: 20:16 mw2 01/25 22:22 Order name: Tib Fib Left XRAY dm5 01/25 22:53 Order name: CT Aorta for Dissection [facility] 01/26 00:12 Order name: SARS-COV-[address] [facility] 01/25 19:29 Order name: Cardiac monitoring; Complete Time: 19:56 [facility] 01/25 19:29 Order name: EKG - Nurse/Tech; Complete Time: 19:56 [facility] 01/25 19:29 Order name: IV Saline Lock; Complete Time: 19:56 [facility] 01/25 19:29 Order name: Labs collected and sent; Complete Time: 19:56 [facility] 01/25 19:29 Order name: O2 Per Protocol; Complete Time: 19:56 [facility] 01/25 19:29 Order name: O2 Sat Monitoring; Complete Time: 19:56 [facility] 01/25 19:29 Order name: Urine Dipstick-Ancillary (obtain specimen); Complete Time: 21:01 [facility] EC:06 Rate is 57 beats/min. Rhythm is regular. QRS [place] is Normal. SD interval is normal. QRS melly interval is normal. QT interval is normal. No Q waves. T waves are Normal. No ST changes noted. Clinical impression: Sinus bradycardia. Interpreted by me. Reviewed by me. Administered Medications: Discontinued: NS 0.9% 1000 ml IV at 75 ml/hr continuous 20:30 Drug: NS 0.9% 1000 ml Route: IV; Rate: 75 ml/hr; Site: left antecubital; 22:46 Follow up: Response: No adverse reaction 23:06 Follow up: IV Status: Order to discontinue infusion 20:35 Drug: Rocephin - (cefTRIAXone) 1 grams Route: IVPB; Infused Over: 30 mins; Site: left antecubital; 22:46 Follow up: Response: No adverse reaction; IV Status: Completed infusion 22:08 Drug: Lasix 20 mg Route: IVP; Site: left antecubital; 22:46 Follow up: Response: No adverse reaction 22:10 Drug: Pepcid 20 mg Route: IVP; Site: left antecubital; 22:46 Follow up: Response: No adverse reaction 22:30 Drug: Nicoderm CQ 14 mg/24 hr 14 mg Route: Transdermal; Site: affected area; 22:39 Drug: morphine 2 mg {Note: RASS 0.} Route: IVP; Site: left antecubital; 23:06 Follow up: Response: No adverse reaction; Pain is decreased; RASS: Alert and Calm (0) 22:41 Drug: Pyridium 200 mg Route: PO; 23:06 Follow up: Response: No adverse reaction 22:43 Drug: Zofran (Ondansetron) 4 mg Route: IVP; Site: left antecubital; 23:06 Follow up: Response: No adverse reaction; Nausea is decreased 01/26 03:02 Drug: morphine 2 mg {Note: RASS 0.} Route: IVP; Site: right forearm; 03:30 Follow up: Response: No adverse reaction; Pain is decreased; RASS: Alert and Calm (0) Disposition: 01/25/21 21:53 Hospitalization ordered by Sly Lomas for Observation. Preliminary diagnosis are Edema, unspecified, Tobacco abuse counseling, Tobacco use, Systolic (congestive) heart failure, Urinary tract infection, site not specified, Retention of urine. - Bed requested for Telemetry/MedSurg (observation). - Status is Observation. - Condition is Fair. - Problem is new. - Symptoms have improved. Signatures: Dispatcher [employer] [facility] Steve Barros MD MD cha Attema, Lee, DIRECT CASTING OPERATOR-C DIRECT CASTING OPERATOR-Cla1 Tierney Renee, RN RN tl1 Oscar Richter, RN RN Pantera Jimenez RN RN ll1 Corrections: (The following items were deleted from the chart) 01/25 22:05 21:53 Hospitalization Ordered by Corey Lema DO for Observation. Preliminary melly diagnosis is Edema, unspecified; Tobacco abuse counseling; Tobacco use; Systolic (congestive) heart failure. Bed requested for Telemetry/MedSurg (observation). Status is Observation. Condition is Fair. Problem is new. Symptoms have improved. melly 22:05 22:05 01/25/2021 21:53 Hospitalization Ordered by Corey Lema DO for Observation. la1 Preliminary diagnosis is Edema, unspecified; Tobacco abuse counseling; Tobacco use; Systolic (congestive) heart failure; Urinary tract infection, site not specified. Bed requested for Telemetry/MedSurg (observation). Status is Observation. Condition is Fair. Problem is new. Symptoms have improved. melly 22:23 21:51 CORONAVIRUS+MR.LAB.BRZ ordered. [facility] 01/26 02:18 01/25 22:05 01/25/2021 21:53 Hospitalization Ordered by Sly Lomas MD for melly Observation. Preliminary diagnosis is Edema, unspecified; Tobacco abuse counseling; Tobacco use; Systolic (congestive) heart failure. Bed requested for Telemetry/MedSurg (observation). Status is Observation. Condition is Fair. Problem is new. Symptoms have improved. la1 01/26 02:52 02:18 01/25/2021 21:53 Hospitalization Ordered by Sly Lomas MD for Observation. tl1 Preliminary diagnosis is Edema, unspecified; Tobacco abuse counseling; Tobacco use; Systolic (congestive) heart failure; Urinary tract infection, site not specified; Retention of urine. Bed requested for Telemetry/MedSurg (observation). Status is Observation. Condition is Fair. Problem is new. Symptoms have improved. melly 02:55 02:17 Bladder Scanner ordered. melly 03:29 02:52 01/25/2021 21:53 Hospitalization Ordered by Sly Lomas MD for Observation. wh Preliminary diagnosis is Edema, unspecified; Tobacco abuse counseling; Tobacco use; Systolic (congestive) heart failure; Urinary tract infection, site not specified; Retention of urine. Bed requested for Telemetry/MedSurg (observation). Status is Observation. Condition is Fair. Problem is new. Symptoms have improved. tl1
--- NOTE | 2021-01-25 21:55 | ER ---
Nurse's Notes [facility] Name: Venus Summers Age: 80 yrs Sex: Female : 1940 Arrival Date: 01/25/2021 Time: 17:27 Bed 3 Private MD: Shane Palacio E Diagnosis: Edema, unspecified;Tobacco abuse counseling;Tobacco use;Systolic (congestive) heart failure;Urinary tract infection, site not specified;Retention of urine Presentation: 01/25 18:03 Chief complaint: Patient states: LLE swelling 3+ pitting for 10-14 days. PMS intact. No ll1 trauma or falls. Coronavirus screen: Client denies travel out of the [place] in the last 14 days. At this time, the client does not indicate any symptoms associated with coronavirus-19. Ebola Screen: Patient denies travel to an Ebola-affected area in the 21 days before illness onset. Initial Sepsis Screen: Does the patient meet any 2 criteria? No. Patient's initial sepsis screen is negative. Does the patient have a suspected source of infection? Yes: Other: leg swelling. Risk Assessment: Do you want to hurt yourself or someone else? Patient reports no desire to harm self or others. Onset of symptoms was January 12, 2021. 18:03 Method Of Arrival: Ambulatory ll1 18:03 Acuity: [place] 3 ll1 Historical: - Allergies: 18:06 PENICILLINS; ll1 18:06 Cipro PO; ll1 - PMHx: 18:06 Hypertension; High Cholesterol; ll1 - PSHx: 18:06 bowel obstruction with gangrene; Hysterectomy; kidney CA-R kidney removed; CABG; L ll1 carotid sx; - Immunization history:: Flu vaccine is not up to date. - Social history:: Smoking status: Patient reports the use of cigarette tobacco products, smokes one-half pack cigarettes per day. - Family history:: not pertinent. Screenin:47 Abuse screen: Denies threats or abuse. Denies injuries from another. Nutritional rv screening: No deficits noted. Tuberculosis screening: No symptoms or risk factors identified. Fall Risk None identified. Assessment: 20:00 General: Appears comfortable, Behavior is calm, cooperative. rv 20:00 Pain: Denies pain. Neuro: Level of Consciousness is awake, alert, obeys commands, rv Oriented to person, place, time, situation. Cardiovascular: Patient's skin is warm and dry. Respiratory: Airway is patent Respiratory effort is even, unlabored. Derm: Skin is intact. 21:00 Reassessment: Patient appears in no apparent distress at this time. Patient and/or wh family updated on plan of care and expected duration. Pain level reassessed. Patient is alert, oriented x 3, equal unlabored respirations, skin warm/dry/pink. 22:30 Reassessment: Patient appears in no apparent distress at this time. Patient and/or wh family updated on plan of care and expected duration. Pain level reassessed. Patient is alert, oriented x 3, equal unlabored respirations, skin warm/dry/pink. 23:04 Reassessment: Provider at bedside explaining POC need for admit. 01/26 00:00 Reassessment: Patient appears in no apparent distress at this time. Patient and/or wh family updated on plan of care and expected duration. Pain level reassessed. Patient is alert, oriented x 3, equal unlabored respirations, skin warm/dry/pink. 01:00 Reassessment: Per [facility]ist awaiting result of Imaging before admitting Pt. 02:00 Reassessment: Patient appears in no apparent distress at this time. Patient and/or wh family updated on plan of care and expected duration. Pain level reassessed. Patient is alert, oriented x 3, equal unlabored respirations, skin warm/dry/pink. 02:30 Reassessment: Bladder scan done, PVR 221 ml reported to ER MD. 02:40 Reassessment: ER provider at bedside explaining POC. Vital Signs: 01/25 18:03 BP 165 / 63; Pulse 63; Resp 17; Temp 98.2; Pulse Ox 97% ; Weight 49.44 kg; Height 5 ft. ll1 0 in. (152.40 cm); Pain 3/10; 20:00 BP 146 / 54; Pulse 53; Resp 16; Pulse Ox 98% on R/A; rv 21:00 BP 152 / 61; Pulse 58; Resp 16; Pulse Ox 98% on R/A; rv 22:30 BP 137 / 56; Pulse 53; Resp 18; Pulse Ox 97% on R/A; wh 01/26 00:30 BP 172 / 50; Pulse 64; Resp 18; Pulse Ox 95% on R/A; 02:30 BP 143 / 54; Pulse 51; Resp 18; Pulse Ox 95% on R/A; wh 01/25 18:03 Body Mass Index 21.29 (49.44 kg, 152.40 cm) ll1 ED Course: 01/25 17:27 Patient arrived in ED. mr 17:28 Shane Palacio MD is Private Physician. mr 18:04 Triage completed. ll1 18:07 Arm band placed on. ll1 19:10 Steve Barros MD is Attending Physician. melly 19:50 Oscar Richter, SANDHYA is Primary Nurse. 20:00 Inserted saline lock: 20 gauge in left antecubital area, using aseptic technique. Blood oe collected. 20:33 US Extremity Venous W Compression Derrick In Process Unspecified. EDMS 20:45 XRAY Chest (1 view) In Process Unspecified. EDMS 21:47 Patient has correct armband on for positive identification. Pulse ox on. NIBP on. rv 21:48 No provider procedures requiring assistance completed. rv 21:52 Corey Lema DO is Hospitalizing Provider. melly 22:05 Sly Lomas MD is Hospitalizing Provider. la1 23:58 Tib Fib Left XRAY In Process Unspecified. EDMS 03 00:38 CT Aorta for Dissection In Process Unspecified. EDMS 03:18 Patient admitted, IV remains in place. Administered Medications: Discontinued: NS 0.9% 1000 ml IV at 75 ml/hr continuous 17 20:30 Drug: NS 0.9% 1000 ml Route: IV; Rate: 75 ml/hr; Site: left antecubital; 22:46 Follow up: Response: No adverse reaction 23:06 Follow up: IV Status: Order to discontinue infusion 20:35 Drug: Rocephin - (cefTRIAXone) 1 grams Route: IVPB; Infused Over: 30 mins; Site: left wh antecubital; 22:46 Follow up: Response: No adverse reaction; IV Status: Completed infusion 22:08 Drug: Lasix 20 mg Route: IVP; Site: left antecubital; 22:46 Follow up: Response: No adverse reaction 22:10 Drug: Pepcid 20 mg Route: IVP; Site: left antecubital; 22:46 Follow up: Response: No adverse reaction 22:30 Drug: Nicoderm CQ 14 mg/24 hr 14 mg Route: Transdermal; Site: affected area; 22:39 Drug: morphine 2 mg {Note: RASS 0.} Route: IVP; Site: left antecubital; 23:06 Follow up: Response: No adverse reaction; Pain is decreased; RASS: Alert and Calm (0) 22:41 Drug: Pyridium 200 mg Route: PO; 23:06 Follow up: Response: No adverse reaction 22:43 Drug: Zofran (Ondansetron) 4 mg Route: IVP; Site: left antecubital; 23:06 Follow up: Response: No adverse reaction; Nausea is decreased 01/26 03:02 Drug: morphine 2 mg {Note: RASS 0.} Route: IVP; Site: right forearm; 03:30 Follow up: Response: No adverse reaction; Pain is decreased; RASS: Alert and Calm (0) Outcome: 01/25 21:53 Decision to Hospitalize by Provider. [facility] 01/26 03:17 Admitted to Med/surg accompanied by tech, via stretcher, room 223, with chart, Report called to Erica Gore RN Condition: stable Instructed on the need for admit. 03:29 Patient left the ED. Signatures: Dispatcher [employer] EDSteve Clarke MD MD cha Rivera, Siena TolliverangeliaRaul, DOWEL STICKER OPERATOR-C DOWEL STICKER OPERATOR-Cla1 Yuniel Good Winsy, RN RN Ryan Mendoza RN RN rv Lewis, Lynsay, RN RN ll1 Corrections: (The following items were deleted from the chart) 01/25 22:45 22:[address] [facility] 01/26 02:53 00:30 BP 172 / 50; Pulse 64bpm; Resp 18bpm; Pulse Ox 95%; [facility]
[2021-01-25] MEDS ORDERED: FUROSEMIDE 20 MG/ 2ML VIAL ONE (22:21)
[2021-01-25] MEDS ORDERED: FAMOTIDINE 20 MG/2 ML VIAL IV ONE (22:21)
[2021-01-25] MEDS ORDERED: NICOTINE 14 MG/PAT TD ONE (22:38)
[2021-01-25] MEDS ORDERED: PHENAZOPYRIDINE 100MG TAB PO ONE (22:54)
[2021-01-25] MEDS ORDERED: ONDANSETRON 4 MG/2 ML VIAL ONE (22:55)
[2021-01-25] MEDS ORDERED: MORPHINE 2 MG/ML SYR ONE (22:55)
--- NOTE | 2021-01-26 02:58 | P.HP ---
Certification for Inpatient Patient admitted to: Observation With expected LOS: <2 Midnights Patient will require the following post-hospital care: None Practitioner: I am a practitioner with admitting privileges, knowledge of patient current condition, hospital course, and medical plan of care. Services: Services provided to patient in accordance with Admission requirements found in Title 42 Section 412.3 of the Code of Federal Regulations <Raul Olivares - Last Filed: 01/26/21 02:53> Patient History Date of Service: 01/26/21 Primary Care Provider: Dr. Palacio Reason for admission: LE Edema, UTI History of Present Illness: 80-year-old female with history of CAD status post CABG, renal cancer with nephrectomy, hypertension, hyperlipidemia, PVD/PVD presents emergency department for left lower extremity edema over the course of the last 2 weeks. Patient initially had ultrasound left lower extremity which was negative for DVT, after this CT dissection protocol was ordered to examine chest abdomen pelvis for possible obstructive etiology , CT with many vascular findings detailed in the exam all of which a noncritical, there is a noted 1.5 cm pulmonary nodule in the medial left lower lobe which is increased from April 06, 2020 and a previous exam. Patient was unaware of this finding, radiology recommends PET scan in the liver multiple hypo enhancing lesions are again noted throughout the liver which have increased in size as well also a retroperitoneal lymph nodes are prominent. Also noted bladder wall thickening. Findings discussed with patient, unaware of previous findings from March 2020, recommend follow up with PCP/oncology for PET to further evaluate these findings. No o bstructive findings to explain left lower extremity edema, labs remarkable for BNP 1769 GFR 66. Patient does report distant history of vein stripping to the left lower extremity, swelling likely related to this. ED provider concern for early heart failure would like to admit under observation. - Past Medical/Surgical History -: CAD S/P CABG -: Hypertension -: Hyperlipidemia -: CAD/PVD -: History of renal cancer with nephrectomy -: Nephrectomy -: Hysterectomy -: CABG -: Carotid stent -: Bowel surgery Psychosocial/ Personal History: Patient retired, lives alone in a elderly community. - Family History Father -: Heart disease Mother -: Heart disease - Social History Smoking Status: Current every day smoker Counseled patient to stop smoking for: less than 10 minutes Smoking therapy provided: No Alcohol use: No CD- Drugs: No Caffeine use: No Place of Residence: Home <Raul Olivares - Last Filed: 01/26/21 02:53> Date of Service: 01/26/21 <Sly Lomas - Last Filed: 01/26/21 20:24> Review of Systems 10-point ROS is otherwise unremarkable Genitourinary: Dysuria, Frequency, Urgency Musculoskeletal: Pedal edema <Raul Olivares - Last Filed: 01/26/21 02:53> Physical Examination - Physical Exam General: Alert, In no apparent distress, Oriented x3 HEENT: Atraumatic, PERRLA, Mucous membr. moist/pink Neck: Supple, 2+ carotid pulse no bruit, No LAD Respiratory: Clear to auscultation bilaterally, Normal air movement Cardiovascular: Regular rate/rhythm, Normal S1 S2 Gastrointestinal: Normal bowel sounds, No tenderness Musculoskeletal: No tenderness Integumentary: No rashes Neurological: Normal speech, Normal strength at 5/5 x4 extr, Normal tone, Normal affect - Studies Laboratory Data (last 24 hrs) 01/25/21 19:45: PT 10.7, INR 0.93 01/25/21 19:45: WBC 7.40, Hgb 12.3, Hct 36.8, Plt Count 169 01/25/21 19:45: Sodium 139, Potassium 4.7, BUN 16, Creatinine 0.73, Glucose 116 H, Magnesium 2.3, Total Bilirubin 0.6, AST 15, ALT 15, Alkaline Phosphatase ND <Raul Olivares - Last Filed: 01/26/21 02:53> - Studies Laboratory Data (last 24 hrs) 01/25/21 19:45: Sodium 139, Potassium 4.7, BUN 16, Creatinine 0.73, Glucose 116 H, Magnesium 2.3, Total Bilirubin 0.6, AST 15, ALT 15, Alkaline Phosphatase ND <Sly Lomas - Last Filed: 01/26/21 20:24> Assessment and Plan - Plan Assessment Left lower extremity edema Elevated BNP with lower extremity edema CAD S/P CABG Hypertension Hyperlipidemia PAD/PVD Plan Left lower extremity edema: Negative for DVT, CT dissection performed to rule out obstructive causes. Likely vascular issue related to previous vascular surgery and vein stripping. Multiple incidental findings on CT scan, these were discussed with patient, patient provided with copy of CT and follow up instructions. Patient reports that swelling does go down with elevation, suggested that patient could obtain compression stockings to wear throughout the day and will need to follow up with vascular, PCP. Elevated BNP with lower extremity edema: BNP elevated, some trace swelling to the right lower extremity in addition to the left lower extremity. Cardiology consulted, patient not currently on a diuretic therapy. Appreciate further input from cardiology. CAD S/P CABG: Home medications continued Hypertension: Home medications continued Hyperlipidemia: Home medications continued PAD/PVD: Home medications continued, stable. Additional findings detailed on CT scan. Discharge Plan: Home Plan to discharge in: 24 Hours - Advance Directives Does patient have a Living Will: No Does patient have a Durable POA for Healthcare: No - Code Status/Comfort Care Code Status Assessed: Yes (DNR) Critical Care: No Time Spent Managing Pts Care (In Minutes): 55 <Raul Olivares - Last Filed: 01/26/21 02:53> - Plan Plan of care reviewed as noted above by Raul Olivares swelling likely due to CHF, lasix ordered. cardiology consulted. <Sly Lomas - Last Filed: 01/26/21 20:24>
[2021-01-26] MEDS ORDERED: MORPHINE 2 MG/ML SYR ONE (03:16)
[2021-01-26] MEDS ORDERED: ONDANSETRON 4 MG/2 ML VIAL ONE (03:37)
[2021-01-26 03:42] VITALS: O2SAT 95
[2021-01-26] MEDS ORDERED: PHENAZOPYRIDINE 100MG TAB PO PRN (03:43)
[2021-01-26] MEDS ORDERED: ONDANSETRON 4 MG/2 ML VIAL IV PRN (03:43)
[2021-01-26] MEDS ORDERED: ACETAMINOPHEN 500 MG TAB PO PRN (03:43)
[2021-01-26] MEDS: LIDOCAINE 4% PATCH TOP SCH ×3 (04:48→10:00)
[2021-01-26 06:49] LABS: Absolute Lymphocytes (CBC) 1.3 K/uL (0.7-4.9); Basophils % 0.8 % (0-1.3); Hematocrit 34.8 % (36.0-45.0); Lymphocytes % 17.5 % (15.3-44.8); MPV 8.7 fL (7.6-11.3); RBC Red Blood Cell Count 4.25 M/uL (3.86-4.86)
[2021-01-26 07:14] LABS: Potassium 3.9 mmol/L (3.5-5.1)
[2021-01-26 07:16] LABS: Thyroid Stimulating Hormone 4.84 uIU/mL (0.360-3.740)
[2021-01-26 07:43] VITALS: BMI 21.2
--- NOTE | 2021-01-26 08:50 | RAD REPORT ---
EXAM DESCRIPTION: RAD - Tib Fib Left - 01/25/2021 11:58 pm CLINICAL HISTORY: PAIN COMPARISON: No comparisons FINDINGS: There is a large amount of soft tissue swelling along the lateral aspect of the ankle. No acute fracture seen. Heavy atherosclerosis is present.
[2021-01-26] MEDS ORDERED: CEFTRIAXONE/SWI 1gm 1 GM/10 ML SYR IV SCH (09:00)
[2021-01-26] MEDS ORDERED: AMLODIPINE 10 MG TAB PO SCH (09:00)
[2021-01-26] MEDS ORDERED: CLOPIDOGREL 75 MG TABLET PO SCH (09:00)
[2021-01-26] MEDS ORDERED: ASPIRIN EC 81 MG TAB PO SCH (09:00)
[2021-01-26] MEDS ORDERED: ENOXAPARIN 40 MG/0.4 ML SQ SCH (09:00)
[2021-01-26] MEDS ORDERED: NEBIVOLOL HCL 20 MG TABLET PO SCH (09:00)
[2021-01-26] MEDS ORDERED: LOSARTAN POTASSIUM 50 MG TABLET PO SCH (09:00)
[2021-01-26] MEDS ORDERED: FUROSEMIDE 20 MG TABLET PO SCH (09:00)
[2021-01-26] MEDS ORDERED: CEFTRIAXONE 1 GM/NS 50 ML 1 GM/50 ML BAG IV SCH (09:00)
[2021-01-26] MEDS ORDERED: ISOSORBIDE MONO SR 60 MG TAB PO SCH (09:00)
--- NOTE | 2021-01-26 09:49 | RAD REPORT ---
EXAM DESCRIPTION: CTA Chest, Abdomen, and Pelvis COMPARISON: CT abdomen pelvis April 06, 2020 CLINICAL HISTORY: [facility] MAIN ABDOMINAL DISTENTION TECHNIQUE: CTA of the chest, abdomen and pelvis was acquired with IV contrast material. Coronal and sagittal reconstructions were obtained. Automated exposure control was utilized on this examination a s a dose lowering technique. CTA FINDINGS: Severe multivessel calcified atherosclerosis. No dissection or aneurysm. Approximately 50% stenosis at the origin of the left common carotid artery, 30% stenosis at the origi n of the left subclavian artery. 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 There appears to be distal reconstitution of the common hepatic artery and distal splenic artery. Similar appearance of complete occlusion of the proximal superior mesenteric artery with distal reconstitution. Patent left renal artery with mil d stenosis. Right nephrectomy. Severe atherosclerosis at the origin of the inferior mesenteric artery with otherwise apparent patency. Multiple tandem stenoses up to 60% of the left common iliac, internal and external iliac, and left co mmon femoral artery. Complete occlusion of the right common iliac artery, right external iliac artery with reconstitution of the right internal iliac artery and common femoral artery. NONVASCULAR CHEST FINDINGS: Heart and mediastinum: Heart size is normal with surgical changes of CABG. No lymphadenopathy. Thyroid gland: The majority is out of the [id number]. Only a small portion of the left thyroid is visible and appears unremarkable. Lungs: 1.5 cm pulmonary nodule in the medial left lower lobe on series 501 image 67. Mild left basila r atelectasis. Airways: No filling defects. No bronchiectasis. Pleura: No pneumothorax. No significant pleural effusion. Musculoskeletal and soft tissues: Bilateral breast implants with peripheral calcifications and intrac apsular ruptures. CHEST IMPRESSION: 1. Severe atherosclerosis without evidence of dissection or aneurysm. 2. 50% stenosis of the origin of the left common carotid artery. 3. A 1.5 cm pulmonary nodule in the medial left lower lobe has increased in size from April 06, 2020, p reviously measuring 1.3 cm. This is again concerning for metastasis. Consider further evaluation with PET/CT or tissue sampling. NONVASCULAR ABDOMEN & PELVIS FINDINGS: Liver: Multiple hypoenhancing lesions are again noted throughout the liver. Reference lesion in hepat ic segment 2/3 on series 501 image 54 has increased in size and now measures 1.8 cm, previously 0.8 c m on April 06, 2020. Remaining lesions have only mildly increased in size. Gallbladder and biliary: Normal gallbladder. Unremarkable biliary tree. Pancreas: Fatty infiltration is present. Spleen: Normal. Kidneys and adrenal glands: Mild bilateral adrenal hyperplasia. Right nephrectomy. Normal left kidney . Stomach and Small Bowel: Normal stomach. There are a few loops of small bowel in the right upper quad rant which are mildly dilated. Urinary bladder: Urinary bladder wall thickening with several diverticula/trabeculation. Uterus and Adnexa: The uterus is atrophic or absent. Colon and Appendix: Severe sigmoid diverticulosis is present. The colon is tortuous. No evidence of a ppendicitis. Peritoneal cavity: No ascites or free air. Retroperitoneum and lymph nodes: Retroperitoneal, mesenteric, and periportal lymph nodes are again mi ldly prominent. The largest conglomeration of mesenteric lymph nodes measures 2.2 x 1.3 cm on series 501 image 128. The largest conglomeration of retroperitoneal lymph nodes measures 1.9 x 1.8 cm on ser ies 501 image 105. Musculoskeletal and soft tissues: Soft tissues are unremarkable. Lumbar spondylosis. Chronic L3 compr ession fracture with 50% height loss. No aggressive bone lesions. ABDOMEN AND PELVIS IMPRESSION: 1. 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 2. Chronic occlusion of the right common iliac artery and right external iliac artery with reconstitu tion of the right internal iliac and common femoral arteries. 3. Multiple hypoenhancing lesions throughout the liver are again seen. Some have increased in size fr om March 2020. These are again concerning for metastases. 4. Prominent mesenteric and retroperitoneal lymph nodes again may represent metastatic disease or lym phoma. These are more matted but appear stable in size from March 2020. 5. Right nephrectomy. 6. A few loops of mildly dilated small bowel in the right upper quadrant may represent mild ileus or partial obstruction. 7. Changes of chronic urinary retention. 8. Severe sigmoid diverticulosis. Electronically signed by: Louis Sharp MD 01/26/2021 1:16 AM CDT Due to temporary technical issues with the PACS/Fluency reporting system, reports are being signed by the in house radiologist without review as a courtesy to ensure prompt reporting. The interpreting r adiologist is fully responsible for the content of the report.
[2021-01-26 12:34] VITALS: BP 123/59
[2021-01-26] MEDS ORDERED: CYCLOBENZAPRINE 10 MG TAB PO ONE (13:11)
[2021-01-26] MEDS ORDERED: MORPHINE 2 MG/ML SYR IV PRN (13:13)
[2021-01-26] MEDS ORDERED: MAGNESIUM OXIDE 400 MG TAB PO ONE (15:26)
[2021-01-26] MEDS ORDERED: POTASSIUM CL SA 10 MEQ TAB PO ONE (15:26)
[2021-01-26 16:40] VITALS: TEMP 98.6
--- NOTE | 2021-01-26 18:06 | CON ---
Date of Consultation: 01/26/2021 Reason For Consultation: Lower extremity edema. History Of Present Illness: An 80-year-old female with history of coronary artery disease status pos t CABG, renal cell carcinoma status post nephrectomy, dyslipidemia, hypertension, peripheral vascular disease, presented with lower extremity edema, mainly on the left. No significant chest pain. No s hortness of breath. She was diuresed and she was feeling better. She is having significant cramps i n lower extremity. Past Medical History: As outlined above in HPI. Medications: Refer to reconciliation sheet for detailed list. Allergies: PENICILLIN AND CIPRO. Family History: No premature coronary artery disease or cancer. Social History: Smokes half a pack of cigarettes per day. Does not drink, use any drugs. Review of Systems: All systems reviewed and they were negative except what mentioned in the HPI. Physical Examination: Vital Signs: Temperature is 98.0, pulse 54, breathing at 17, blood pressure is 123/59, saturating 95 %. General: Pleasant elderly female, no apparent distress. Head and Neck: Pupils are equal, reactive to light. Intact eye movements. No JVD. No cervical lym phadenopathy. Neck: Supple. Thyroid is not enlarged. Lungs: Clear to auscultation bilaterally. No rhonchi, rales, or crackles. No accessory muscle use. Heart: Regular rate and rhythm. No extra sounds. Abdomen: Soft, nontender. Bowel sounds positive. No organomegaly. No masses or hernia. No rigidi ty or rebound. Extremities: No edema, clubbing, or cyanosis. Intact pulses. Skin: No rash noted. Neurologic: Alert, awake, oriented x3. No acute focal deficits appreciated. Investigations: Venous Doppler of lower extremities negative for DVT. CT scan dissection protocol s howed severe atherosclerosis with no aneurysm or dissection with 30% stenosis at the region of the le ft common carotid artery. Assessment And Recommendations: Lower extremity edema probably due to congestive heart failure, resp onded well to diuretics. NT-proBNP is elevated. Please obtain echocardiogram to further evaluate. From my perspective, the patient can be released home and follow up as an outpatient as her symptoms have resolved and there is no evidence of deep vein thrombosis on review of the Dopplers. Thank you for the consult. /HOMERO Voice ID: [id number] Report ID: [id number]
--- NOTE | 2021-01-26 20:33 | P.DS ---
Admission Date: 01/26/21 Discharge Date: 01/26/21 Primary Care Provider: Dr. Palacio Disposition: ROUTINE DISCHARGE Discharge Condition: GOOD Reason for Admission: LE Edema, UTI Consultations: Cardiology - Dr. Preston Procedures: CXR (01/25): : Fibrotic lung changes are present. Skin fold artifacts are seen over the right chest. No peripheral mass or consolidation. 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 Heart and vasculature are normal. No measurable pleural effusion and no pneumothorax. No acute bone finding. Postsurgical changes are present at the proximal right humerus. No acute aortic findings suspected. Venous U/S (01/25): No DVT in either lower extremity. Tibia/Fibula X-ray (01/25): large amount of soft tissue swelling along the lateral aspect of the ankle. No acute fracture seen. Heavy atherosclerosis is present. CT Dissection (01/25): CHEST IMPRESSION: 1. Severe atherosclerosis without evidence of dissection or aneurysm. 2. 50% stenosis of the origin of the left common carotid artery. 3. A 1.5 cm pulmonary nodule in the medial left lower lobe has increased in size from April 06, 2020, previously measuring 1.3 cm. This is again concerning for metastasis. Consider further evaluation with PET/CT or tissue sampling. ABDOMEN AND PELVIS IMPRESSION: 1. 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 2. 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 3. Multiple hypoenhancing lesions throughout the liver are again seen. Some have increased in size from March 2020. These are again concerning for metastases. 4. Prominent mesenteric and retroperitoneal lymph nodes again may represent metastatic disease or lymphoma. These are more matted but appear stable in size from March 2020. 5. Right nephrectomy. 6. A few loops of mildly dilated small bowel in the right upper quadrant may represent mild ileus or partial obstruction. 7. Changes of chronic urinary retention. 8. Severe sigmoid diverticulosis. Problem List: Elevated BNP with lower extremity edema concerning for CHF acute cystitis CAD S/P CABG Hypertension Hyperlipidemia PAD/PVD Brief History of Present Illness: 80-year-old female with history of CAD status post CABG, renal cancer with nephrectomy, hypertension, hyperlipidemia, PVD/PVD presents emergency department for left lower extremity edema over the course of the last 2 weeks. Patient initially had ultrasound left lower extremity which was negative for DVT, after this CT dissection protocol was ordered to examine chest abdomen pelvis for possible obstructive etiology , CT with many vascular findings detailed in the exam all of which a noncritical, there is a noted 1.5 cm pulmonary nodule in the medial left lower lobe which is increased from April 06, 2020 and a previous exam. Patient was unaware of this finding, radiology recommends PET scan in the liver multiple hypo enhancing lesions are again noted throughout the liver which have increased in size as well also a retroperitoneal lymph nodes are prominent. Also noted bladder wall thickening. Findings discussed with patient, unaware of previous findings from March 2020, recommend follow up with PCP/oncology for PET to further evaluate these findings. No obstructive findings to explain left lower extremity edema, labs remarkable for BNP 1769 GFR 66. Patient does report distant history of vein stripping to the left lower extremity, swelling likely related to this. ED provider concern for early heart failure would like to admit under observation. Hospital Course: She was given lasix and diuresed well. She also reported dysuria and was found to have a UTI. She was treated with antibiotics and pyridium with improvement of her dysuria. Cardiology was consulted who felt patient didn't require any further evaluation at this time and to discharge home with close follow up with Cardiology in the next week. She can undergo Echocardiogram as an outpatient. She reported bilateral lower leg muscle spasms, worse than she typically gets. She reported these typically improve with OTC PO magnesium. She was given magnesium with improvement of her symptoms. She was discharged with an antibiotic and pyridium for her UTI. There were multiple incidental findings on the CT done in the ED as noted above. Patient was informed and advised to follow up with her PCP for further evaluation. She expressed understanding and agreement with the plan. Vital Signs/Physical Exam: Physical Exam General: Alert, In no apparent distress, Oriented x3 HEENT: Atraumatic, PERRLA, Mucous membr. moist/pink Neck: Supple, 2+ carotid pulse no bruit, No LAD Respiratory: Clear to auscultation bilaterally, Normal air movement Cardiovascular: Regular rate/rhythm, Normal S1 S2 Gastrointestinal: Normal bowel sounds, No tenderness Integumentary: No rashes Ext: 1+ LLE edema to knee, no edema of RLE Neurological: Normal speech, Normal strength at 5/5 x4 extr, Normal tone, Normal affect Temp Pulse Resp BP Pulse Ox 98.6 F 100 H 19 123/59 L 96 01/26/21 16:00 01/26/21 16:00 01/26/21 16:00 01/26/21 16:00 01/26/21 16:00 Laboratory Data at Discharge: WBC 7.50 K/uL (4.3-10.9) 01/26/21 06:18 Hgb 11.6 g/dL (12.0-15.0) L 01/26/21 06:18 Hct 34.8 % (36.0-45.0) L 01/26/21 06:18 Plt Count 164 K/uL (152-406) 01/26/21 06:18 PT 10.7 SECONDS (9.5-12.5) 01/25/21 19:45 INR 0.93 01/25/21 19:45 Sodium 139 mmol/L (136-145) 01/26/21 06:18 Potassium 3.9 mmol/L (3.5-5.1) 01/26/21 06:18 BUN 16 mg/dL (7-18) 01/26/21 06:18 Creatinine 0.84 mg/dL (0.55-1.3) 01/26/21 06:18 Glucose 107 mg/dL (74-106) H 01/26/21 06:18 Magnesium 2.2 mg/dL (1.8-2.4) 01/26/21 11:01 Total Bilirubin 0.6 mg/dL (0.2-1.0) 01/25/21 19:45 AST 15 U/L (15-37) 01/25/21 19:45 ALT 15 U/L (12-78) 01/25/21 19:45 Alkaline Phosphatase ND 01/25/21 19:45 Triglycerides 40 mg/dL (<150) 01/26/21 06:18 Cholesterol 180 mg/dL (<200) 01/26/21 06:18 HDL Cholesterol 87 mg/dL (40-60) H 01/26/21 06:18 Cholesterol/HDL Ratio 2.07 01/26/21 06:18 Home Medications: Cefpodoxime Proxetil [Vantin] 200 mg PO BID 7 Days #14 tablet 01/26/21 Phenazopyridine HCl [Pyridium] 100 mg PO TID PRN 1 Days #6 tablet 01/26/21 RX: Amlodipine [Norvasc*] 10 mg PO DAILY 01/26/21 RX: Aspirin [Aspirin EC 81 MG] 81 mg PO DAILY 01/26/21 RX: Clopidogrel Bisulfate [Plavix*] 75 mg PO DAILY 01/26/21 RX: Isosorbide Mononitrate [Isosorbide Mononitrate ER] 60 mg PO BID 01/26/21 RX: Losartan Potassium [Cozaar] 100 mg PO DAILY 01/26/21 RX: Nebivolol HCl [Bystolic*] 20 mg PO DAILY 01/26/21 RX: Rosuvastatin [Crestor*] 10 mg PO BEDTIME 01/26/21 New Medications: Phenazopyridine HCl [Pyridium] 100 mg PO TID PRN 1 Days #6 tablet PRN Reason: Pain Scale 5-7 (Moderate) Cefpodoxime Proxetil [Vantin] 200 mg PO BID 7 Days #14 tablet Physician Discharge Instructions: PROBLEM: UTI GOAL: Clear understanding of disease process INSTRUCTIONS: Diet: Heart healthy Activity: As tolerated If you have any questions regarding your stay call [phone] If your symptoms worsen call 911 or go to the ED. Your left leg swelling was partly due to some fluid overload, possibly from your heart and from your urinary infection. You were given a dose of lasix in the hospital which helped the swelling. You also had some muscle spasms which may have been precipitated by the lasix. You are discharged with an antibiotic and pyridium (for bladder spasm/pain) to treat your bladder infection. Please follow up with Dr. Preston in his office in the next week. Recommend following up with your PCP as well in the next week. The ultrasound of your leg did not show any blood clots in your veins. The CT scan done of your chest/abdomen showed a 1.5cm pulmonary nodule which was slightly larger than seen in 04/06, and some lesions seen on your liver seen again. It is recommended you follow up with your PCP or oncologist to further evaluate with a PET scan in the near future. Diet: AHA Activity: Ad anthony Followup: Shane Palacio MD [Primary Care Provider] - Anton Preston MD [ACTIVE - CAN ADMIT] -
[2021-01-26] MEDS ORDERED: ROSUVASTATIN 10 MG TAB PO SCH (21:00)
[2021-01-27] MEDS ORDERED: POTASSIUM CL SA 10 MEQ TAB PO SCH (09:00)
== END 2021-01-26 17:18 | disposition home or self-care (01) ==
LOC: ER 17:22 → ERHOLD 01-26 02:42 → 2ND 01-26 03:22
PROVIDERS: ADMIT Hospitalist; ATTEND Hospitalist
DX: R22.42 Localized swelling, mass and lump, left lower limb (principal); N39.0 Urinary tract infection, site not specified; I25.10 Atherosclerotic heart disease of native coronary artery without angina pectoris; Z95.1 Presence of aortocoronary bypass graft; Z85.528 Personal history of other malignant neoplasm of kidney; Z20.822 Contact with and (suspected) exposure to COVID-19; I10 Essential (primary) hypertension; E78.5 Hyperlipidemia, unspecified; R93.2 Abnormal findings on diagnostic imaging of liver and biliary tract; R91.1 Solitary pulmonary nodule; K57.30 Diverticulosis of large intestine without perforation or abscess without bleeding; I73.9 Peripheral vascular disease, unspecified; F17.210 Nicotine dependence, cigarettes, uncomplicated
CPT/HCPCS: 93005; 87088; 85025 ×2; 87086; 80048 ×2; 36415; 83735 ×2; 85610; 80061; 80076; 84443; 87077; 87186; 81003; 84484; 84439; 83880; 71275; 74175; 71045; 73590; 93970; 99285; U0003; Q9967; J1940; J1650; J2270 ×3; J0696 ×2; J7030; J2405 ×3; G0378

== ENCOUNTER 2021-02-02 05:11 | Emergency (ER) | payer OTHER ==
--- OUTSIDE RECORDS SUMMARY | 2021-02-02 05:18 | XMS REPORT | Continuity of Care Document ---
:1940 Author Organization [facility] t Address [address] [place] [address] Care Team Providers Name Role Phone Asked, Pcp Primary Care Physician Unavailable Payers Payer Name Policy Type Policy Number Effective Date Expiration Date S ource Problems This patient has no known problems. Allergies, Adverse Reactions, Alerts Allergy Allergy Status Severity Reaction(s) Onset Inactive Treating Comm ents Source Name Type Date Date Clinician ciproflo DA Active U [facility] xacin 5-28 Clear 00:00: [address] [place] Active [place] 2018-11 [facility] ins 0-04 Clear 00:00: [address] codeine [place] Active [place] 2018-11 [facility] 0-04 Clear 00:00: [address] [place] 2018-11 [facility] ins 0-03 [place] 00:00: [address] code[place] Active [place] 2018-11 [facility] 0-03 [place] 00:00: [address] [place] [facility] ins 08-09 [place] 00:00: [address] codeine DA Active [place] 2018- [facility] 9- [place] 00:00: [address] [place] [facility] ins 03-07 [place] 00:00: [address] elton NELSON Active [place] [facility] 4-27 [place] 00:00: [address] Social History Social Habit Start Date Stop Date Quantity Comments Source Sex Assigned At [birth year] Jamie Wesley ethodist 00:00:00 00:00:00 Medications This patient has no known medications. Procedures This patient has no known procedures. Plan of Care Planned Activity Planned Date Details Comments Source Future Scheduled 2020-06-11 INFLUENZA VACCINE [place] [facility] 00:00:00 [code = INFLUENZA VACCINE] Future Scheduled 1990 SHINGLES VACCINES (#1) [place] [facility] 00:00:00 [code = SHINGLES VACCINES (#1)] Future Scheduled 1956 COVID-19 VACCINE (1) [place] 00:00:00 [code = COVID-19 VACCINE (1)] Future Scheduled 1946 65+ PNEUMOCOCCAL [place] [facility] 00:00:00 VACCINE (1 of 2 - PPSV23) [code = 65+ PNEUMOCOCCAL VACCINE (1 of 2 - PPSV23)] Results Test Description Test Time Test Comments Results Result Comments Source SURG 2020-04-12 14:43:00 RUN DATE: 04/12/20 [facility] PAGE 1 RUN TIME: 1443 Specimen Inquiry RUN USER: INTERFACE PATIENT: RUTH LOCK #: [id number] LOC: Sterling Zelaya #: [id number] AGE/SX: 79/F ROOM: [facility] RE04/07/20REG DR: Harry Johns MD : 40 BED: 1 DIS: 04/09/20 STATUS: DIS IN TLOC: SPEC #: [id number] RECD: 04/08/20 STATUS: REESE ABRAHAM #: [id number] TRANG: 04/08/[address]: Harry Johns MD ENTERED: 04/08/20 SP TYPE: SURG OTHR DR: DOES_NOT KNOW Self Referred Shane Palacio Jr, MD, Nizam Mohammad MDORDERED: SURG PATH LVL 02/10 COPIES TO: DOES_NOT KNOW Self Referred Shane Palacio Jr, MD [address] [facility] [address] [facility] [address] [place] [address] [place] [address] [email or web address] Rosario Nuñez MD [address] [id number] HISTOLOGY: TISSUE ID BLK PCS RASHAWN LEV PROCEDURE DISPOSITION ____ ___ ___ ___ STOMACH, NOS A 1 2 STOMACH, NOS B 1 2 PROCEDURES: SURG PATH LVL 4 (04/08/20) TISSUES: A. STOMACH, NOS - GASTRIC ULCER BIOPSY B. STOMACH, NOS - ANTRUM AND BODY BIOPSY CLINICAL HISTORY HTN/DM CONTINUED ON NEXT PAGE RUN DATE: 04/12/20 [facility] PAGE 2 RUN TIME: 1443 Specimen Inquiry RUN USER: INTERFACE SPEC #: [id number] PATIENT: RUTH LOCK #[id number] (Continued)--------- --- CPT CODES CPT CODE(S): 37669I4 , , , , , , FINAL [...] all as B. judi/nr Grossing performed at [facility] Pathology, [address] [place] [address], [address], [place], [place] [address]. Casing Trimmer: Julian Phan M.D. MICROSCOPIC DESCRIPTION A. Gastric [...] seen. Signed SIGNATURE ON FILE Augusto Crum Lupillo 04/12/20 1443 END OF REPORT HGB HCT 2020-04-09 13:42:00 Test Item Value Reference Range Interpretation Comme nts HEMOGLOBIN (test code = HGB) 9.4 G/DL 10.4-14.9 L HEMATOCRIT (test code = HCT) 29.2 % 31.5-44.1 L GLUCOSE BEDSIDE [id number] 12:16:00 Test Item Value Reference Range Interpretation Comments GLUCOSE BEDSIDE TESTING (test code 132 mg/dL 70-110 H = GLUBED) GLUCOSE BEDSIDE [id number] 07:57:00 Test Item Value Reference Range Interpretation Comments GLUCOSE BEDSIDE TESTING (test code = 85 mg/dL 70-110 N GLUBED) BASIC METABOLIC [id number] 06:28:00 Test Item Value Reference Range Interpretation [...] CA) 8.3 MG/DL 8.5-10.1 L CBC W/AUTO [id number] 06:22:00 Test Item Value Reference Range Interpretation [...] - XR KNEE 1 OR 2 V [id number] 23:00:00 Name: RUTH LOCK [place] : 1940 Age/S: 79 / F [address] [address] Unit #: [id number] Loc: [place] [address] Phys: Amy Pena MD Acct: [id number] Dis Date: Status: ADM IN PHONE #: [phone] Exam Date: 04/08/2020 2256 FAX #: Reason: right knee pain, s/p fall EXAMS: CPT: [id number] XR KNEE 1 OR 2 [place] RT [address] Fluoro Time: DAP (Gy m2): Air Kerma [...] PAGE 1 Signed Report Name: RUTH LOCK [place] : 1940 Age/S: 79 / F [address] Unit #: [id number] Loc: [place] [address] Phys:Amy Pena MD Acct: [id number] Dis Date: Status: ADM IN PHONE #: [phone] Exam Date: 04/08/20202252 FAX #: Reason: right knee pain, s/p fall EXAMS: CPT: [id number] XR KNEE 1 OR 2 [place] RT [address] Fluoro Time: DAP (Gy m2): Air Kerma (mGy): <Continued> Technologist: Louann Ascencio, RT(R)(CT) Trnscb Date/Time: 04/08/2020 (2299) t.SDR.DRB1 Orig Print D/T: S: 04/08/2020 (2302) PAGE 2 Signed ReportGLUCOSE BEDSIDE TESTING 2020-04-08 20:40:00 Test Item Value Reference Range Interpretation Comments GLUCOSE BEDSIDE TESTING (test code 131 mg/dL 70-110 H = GLUBED) HGB [id number] 17:56:00 Test Item Value Reference Range Interpretation Comments HEMOGLOBIN (test code = HGB) 8.9 G/DL 10.4-14.9 L HEMATOCRIT (test code = HCT) 27.0 % 31.5-44.1 L GLUCOSE BEDSIDE [id number] 16:53:00 Test Item Value Reference Range Interpretation Comments GLUCOSE BEDSIDE TESTING (test code = 90 mg/dL 70-110 N GLUBED) GLUCOSE BEDSIDE [id number] 12:20:00 Test Item Value Reference Range Interpretation Comments GLUCOSE BEDSIDE TESTING (test code = 90 mg/dL 70-110 N GLUBED) HGB [id number] 09:51:00 Test Item Value Reference Range Interpretation Comments HEMOGLOBIN (test code = HGB) 10.0 G/DL 10.4-14.9 L HEMATOCRIT (test code = HCT) 31.2 % 31.5-44.1 L GLUCOSE BEDSIDE [id number] 09:42:00 Test Item Value Reference Range Interpretation Comments GLUCOSE BEDSIDE TESTING (test code = 91 mg/dL 70-110 N GLUBED) HGB [id number] 01:53:00 Test Item Value Reference Range Interpretation Comments HEMOGLOBIN (test code = HGB) 6.8 G/DL 10.4-14.9 L HEMATOCRIT (test code = HCT) 22.1 % 31.5-44.1 L GLUCOSE BEDSIDE [id number] 21:24:00 Test Item Value Reference Range Interpretation Comments GLUCOSE BEDSIDE TESTING (test code 106 mg/dL 70-110 N = GLUBED) HGB [id number] 17:29:00 Test Item Value Reference Range Interpretation Comments HEMOGLOBIN (test code = HGB) 7.2 G/DL 10.4-14.9 L HEMATOCRIT (test code = HCT) 22.5 % 31.5-44.1 L GLUCOSE BEDSIDE [id number] 17:06:00 Test Item Value Reference Range Interpretation Comments GLUCOSE BEDSIDE TESTING (test code 102 mg/dL 70-110 N = GLUBED) Coronavirus 2019 nCoV [id number] 13:34:00 Test Item Value Reference Range Interpretation Comments Coronavirus 2019 nCoV Bedside (test Negative code = COVNONPUIBED) GLUCOSE BEDSIDE [id number] 12:01:00 Test Item Value Reference Range Interpretation Comments GLUCOSE BEDSIDE TESTING (test code = 96 mg/dL 70-110 N GLUBED) HGB [id number] 08:55:00 Test Item Value Reference Range Interpretation Comments HEMOGLOBIN (test code = HGB) 7.1 G/DL 10.4-14.9 L HEMATOCRIT (test code = HCT) 22.6 % 31.5-44.1 L GLUCOSE BEDSIDE [id number] 08:02:00 Test Item Value Reference Range Interpretation Comments GLUCOSE BEDSIDE TESTING (test code = 95 mg/dL 70-110 N GLUBED) [id number] 03:21:00 Test Item Value Reference Range Interpretation Comments GLYCOSYLATED HEMOGLOBIN (HA1C) 5.8 % A1C 0.0-5.7 H (test code = GLYHGB) ESTIMATED AVERAGE GLUCOSE (test 120 MG/DLest code = EAG) CBC W/AUTO [id number] 03:03:00 Test Item Value Reference Range Interpretation [...] = NO DIFF/SCN CRITERIA MDIFF) COMPREHENSIVE METABOLIC [id number] 02:44:00 Test Item Value Reference Range Interpretation [...] TOTAL (test code = ALKP) COMPREHENSIVE METABOLIC [id number] 06:20:00 Test Item Value Reference Range Interpretation [...] N (test code = ALKP) COMPREHENSIVE METABOLIC [id number] 06:19:00 Test Item Value Reference Range Interpretation [...] N (test code = ALKP) COMPREHENSIVE METABOLIC [id number] 06:18:00 Test Item Value Reference Range Interpretation [...] 38-126 (test code = ALKP) COMPREHENSIVE METABOLIC [id number] 06:16:00 Test Item Value Reference Range Interpretation [...] = UNITS/L 38-126 ALKP) - XR CHEST [id number] 07:39:00 Patient Name: RUTH LOCK Unit No: [id number] EXAMS: CPT CODE: [id number] XR CHEST 1V 94302 EXAM: Portable chest x-ray Dictation location: [id number]: Chest x-ray performed one day prior INDICATION: [...] Palacio MD; Erica Burgess MD; Kristan Trejo ELECTRICAL FITTER Technologist: Lary Lewis (RT)(R) Transcrpt Date/Tm/Trnsp: 08/21/2019(0739) t.SDR.BC0 [facility] NAME: RUTH LOCK [address] PHYS: KRISTIE.Caprice [place] [address] : 1940 AGE: 79 SEX: F LOC: Z.361 A PHONE #: [phone] EXAM DATE: 08/21/2019 STATUS:ADM IN FAX #: [phone] RADIOLOGY NO: PAGE 1 Signed ReportBASIC METABOLIC [id number] 06:44:00 Test Item Value Reference Range Interpretation [...] 8.7 MG/DL 8.4-10.2 N CA) BASIC METABOLIC [id number] 06:43:00 Test Item Value Reference Range Interpretation [...] code = MG/DL 8.7-9.7 CA) BASIC METABOLIC [id number] 06:41:00 Test Item Value Reference Range Interpretation [...] code = CA) MG/DL 8.7-9.7 BASIC METABOLIC [id number] 06:39:00 Test Item Value Reference Range Interpretation [...] = CA) MG/DL 8.7-9.7 - XR CHEST [id number] 07:45:00 Patient Name: RUTH LOCK Unit No: [id number] EXAMS: CPT CODE: [id number] XR CHEST 1V 23715 EXAM: Chest x-ray Dictation location: B2 COMPARISON: [...] t.SDR.BC0 Orig Print D/T: S: 08/20/2019 (0748) [facility] NAME: RUTH LOCK [address] PHYS: [place] [address] : 1940 AGE: 79 SEX: F LOC: ZNini A PHONE #: [phone] EXAM DATE: 08/20/2019 STATUS: ADM IN FAX #: [phone] RADIOLOGY NO: PAGE 1 Signed ReportBASIC METABOLIC [id number] 06:44:00 Test Item Value Reference Range Interpretation [...] 8.5 MG/DL 8.4-10.2 N CA) BASIC METABOLIC [id number] 06:43:00 Test Item Value Reference Range Interpretation [...] code = MG/DL 8.7-9.7 CA) BASIC METABOLIC [id number] 06:40:00 Test Item Value Reference Range Interpretation [...] = CA) MG/DL 8.7-9.7 - XR CHEST [id number] 09:35:00 Patient Name: RUTH LOCK Unit No: [id number] EXAMS: CPT CODE: [id number] XR CHEST 1V 75014 LOCATION: T18 EXAM: CHEST 1 VIEW INDICATION: [...] signed by: Tha Rogers MD CC: Cj Palacio MD; Erica Burgess MD; Kristan Trejo ELECTRICAL FITTER Technologist: [facility] STUDENT ; Cr Barton (RT) (R) Transcrpt Date/Tm/Trnsp: 08/19/2019 (0935) t.SDR.JP19 Orig Print D/T: S: 08/19/2019 (0938) [facility] NAME: RUTH LOCK [address] PHYS: KRISTIE.Caprice [place] [address] : 1940 AGE: 79 SEX: F LOC: Z.361 A PHONE #: [phone] EXAM DATE: 08/19/2019 STATUS: ADM IN FAX #: [phone] RADIOLOGY NO: PAGE 1 Signed Report- XR CHEST [id number] 07:42:00 Patient Name: RUTH LOCK Unit No: [id number] EXAMS: CPT CODE: [id number] XR CHEST 1V 91047 Chest Radiograph History: post CT Comparison: August [...] t.SDR.PMT Orig Print D/T: S: 08/19/2019 (0745) [facility] NAME: RUTH LOCK[address] PHYS: [place] [address] : 1940 AGE: 79 SEX: F LOC: Z.361 A PHONE #: [phone] EXAM DATE: 08/19/2019 STATUS: ADM IN FAX #: [phone] RADIOLOGY NO: PAGE 1 Signed ReportCOMPREHENSIVE METABOLIC [id number] 07:17:00 Test Item Value Reference Range Interpretation [...] N (test code = ALKP) COMPREHENSIVE METABOLIC [id number] 07:16:00 Test Item Value Reference Range Interpretation [...] N (test code = ALKP) COMPREHENSIVE METABOLIC [id number] 07:15:00 Test Item Value Reference Range Interpretation [...] 38-126 (test code = ALKP) COMPREHENSIVE METABOLIC [id number] 07:13:00 Test Item Value Reference Range Interpretation [...] code = UNITS/L 38-126 ALKP) COMPREHENSIVE METABOLIC [id number] 07:13:00 Test Item Value Reference Range Interpretation [...] code = UNITS/L 38-126 ALKP) CBC W/AUTO [id number] 06:51:00 Test Item Value Reference Range Interpretation [...] 0.00 K/mm3 0.0-0.1 N NRBC#) CBC W/AUTO [id number] 13:00:00 Test Item Value Reference Range Interpretation [...] 08/18/19 AT 1247 BY Ana Loomis METABOLIC [id number] 05:14:00 Test Item Value Reference Range Interpretation [...] N (test code = ALKP) COMPREHENSIVE METABOLIC [id number] 05:11:00 Test Item Value Reference Range Interpretation [...] code = UNITS/L 38-126 ALKP) COMPREHENSIVE METABOLIC [id number] 04:44:00 Test Item Value Reference Range Interpretation [...] 38-126 (test code = ALKP) COMPREHENSIVE METABOLIC [id number] 04:21:00 Test Item Value Reference Range Interpretation [...] = UNITS/L 38-126 ALKP) - XR CHEST [id number] 09:06:00 Patient Name: RUTH LOCK Unit No: [id number] EXAMS: CPT CODE: [id number] XR CHEST 1V 75377 Location: T 18 Chest x-ray exam, portable [...] Lary Lewis (RT)(R) Transcrpt Date/Tm/Trnsp: 08/16/2019 (0906) GuidoDAS6 [facility] NAME: RUTH LOCK [id number] PHYS: [place] [address] : 1940 AGE: 79 SEX: F LOC: Z.SI06 A PHONE #: [phone] EXAM DATE: 08/16/2019 STATUS: ADM IN FAX #: [phone] RADIOLOGY NO: PAGE 1 Signed ReportCOMPREHENSIVE METABOLIC [...] N (test code = ALKP) COMPREHENSIVE METABOLIC [id number] 05:16:00 Test Item Value Reference Range Interpretation [...] 38-126 (test code = ALKP) COMPREHENSIVE METABOLIC [id number] 05:15:00 Test Item Value Reference Range Interpretation [...] code = UNITS/L 38-126 ALKP) COMPREHENSIVE METABOLIC [id number] 05:14:00 Test Item Value Reference Range Interpretation [...] = UNITS/L 38-126 ALKP) - XR CHEST [id number] 07:30:00 Patient Name: RUTH LOCK Unit No: [id number] EXAMS: CPT CODE: [id number] XR CHEST 1V 04131 Portable AP chest, 1 view Location Code: [...] MD CC: Cj Palacio MD; [facility] JIAN; Erica Burgess MD Technologist: Flaco Puentes, RT(R) Transcrpt Date/Tm/Trnsp: 08/15/2019 (729) GuidoRAO1 Orig Print D/T: S: 08/15/2019 (33) [facility] NAME: RUTH LOCK [address] [address] PHYS: [place] [address] : 1940 AGE: 79 SEX: F LOC: Z.SI06 A PHONE #: [phone] EXAM DATE: 08/15/2019 STATUS: ADM IN FAX #: [phone] RADIOLOGY NO: PAGE 1 Signed ReportCOMPREHENSIVE METABOLIC [...] N (test code = ALKP) COMPREHENSIVE METABOLIC [id number] 06:52:00 Test Item Value Reference Range Interpretation [...] 38-126 (test code = ALKP) COMPREHENSIVE METABOLIC [id number] 06:50:00 Test Item Value Reference Range Interpretation [...] code = UNITS/L 38-126 ALKP) COMPREHENSIVE METABOLIC [id number] 06:49:00 Test Item Value Reference Range Interpretation [...] code = UNITS/L 38-126 ALKP) ARTERIAL BLOOD [id number] 05:52:00 Test Item Value Reference Range Interpretation [...] = COHBGFFIO2) 30 % - XR CHEST [id number] 09:31:00 Patient Name: RUTH LOCK Unit No: [id number] EXAMS: CPT CODE: [id number] XR CHEST 1V 03195 STUDY: Chest radiograph HISTORY: Ventilator COMPAR SAADIA: [...] MD CC: Cj Palacio MD; [facility];Erica Burgess MD Technologist: Emperatriz Khan RT(R) Transcrpt Date/Tm/Trnsp: 08/14/2019 (930) tJESSAR.RH16 Orig Print D/T: S: 08/14/2019 (0934)[facility] NAME: RUTH LOCK [address] PHYS: JIANTO - EDDIE,DANIEL GRIFFITH [facility] [place] [address] : 1940AGE: 79 SEX: F LOC: Z.SI06 A PHONE #: [phone] EXAM DATE: 08/14/2019 STATUS: ADM IN FAX #: [phone] RADIOLOGY NO: PAGE 1 Signed ReportCOMPREHENSIVE METABOLIC [id number] 07:30:00 Test Item Value Reference Range Interpretation [...] N (test code = ALKP) COMPREHENSIVE METABOLIC [id number] 07:25:00 Test Item Value Reference Range Interpretation [...] 38-126 (test code = ALKP) COMPREHENSIVE METABOLIC [id number] 07:23:00 Test Item Value Reference Range Interpretation [...] code = UNITS/L 38-126 ALKP) COMPREHENSIVE METABOLIC [id number] 07:23:00 Test Item Value Reference Range Interpretation [...] code = UNITS/L 38-126 ALKP) COMPREHENSIVE METABOLIC [id number] 07:23:00 Test Item Value Reference Range Interpretation [...] code = UNITS/L 38-126 ALKP) ARTERIAL BLOOD [id number] 03:50:00 Test Item Value Reference Range Interpretation [...] FIO2 (test code = COHBGFFIO2) 35 % [id number] 20:05:00 Test Item Value Reference Range Interpretation Comments SODIUM (test code = NA) 132 MMOL/L 137-145 L UNABLE TO DRAW BLOOD, REASON: CBN NOTIFIED PATIENT CARE STAFF: SANDHYA HADDAD 08/13/19 AT 1933 BY Tolu Virgen METABOLIC [id number] 18:07:00 Test Item Value Reference Range Interpretation [...] 8.0 MG/DL 8.4-10.2 L CA) BASIC METABOLIC [id number] 18:06:00 Test Item Value Reference Range Interpretation [...] code = MG/DL 8.7-9.7 CA) BASIC METABOLIC [id number] 18:04:00 Test Item Value Reference Range Interpretation [...] code = CA) MG/DL 8.7-9.7 BASIC METABOLIC [id number] 18:03:00 Test Item Value Reference Range Interpretation [...] CALCIUM (test code = CA) MG/DL 8.7-9.7 [id number] 17:56:00 Test Item Value Reference Range Interpretation Comments SODIUM (test code = NA) 132 MMOL/L 137-145 L - XR CHEST [id number] 10:44:00 Patient Name: RUTH LOCK Unit No: [id number] EXAMS: CPT CODE: [id number] XR CHEST 1V 98358 Site ID: [id number] Portable AP chest x [...] MD CC: Cj Palacio MD; [facility] CURL; Erica Burgess MD Technologist: Emperatriz Khan, RT(R) Transcrpt Date/Tm/Trnsp: 08/13/2019 (1044) t.DARRELLREsmerAJP6 OrigPrint D/T: S: 08/13/2019 (1048) [facility] NAME: RUTH LOCK [id number] PHYS: CURTO - CURL,[place] [address] : 1940 AGE: 79 SEX: F LOC: Z.SI06 A PHONE #: [phone] EXAM DATE: 08/13/2019 STATUS: ADM IN FAX #: [phone] RADIOLOGY NO: PAGE 1 Signed ReportARTERIAL BLOOD [id number] 10:43:00 Test Item Value Reference Range Interpretation [...] FLOW NC Edited by: FLOR PATIÑO on 08/13/19:223982 9 1042: DELIVE RY previously repo rted [...] code = 60 % COHBGFFIO2) ARTERIAL BLOOD [id number] 06:06:00 Test Item Value Reference Range Interpretation [...] to and readback by Dr. Molina by GRAHAMLMArlen at 08/13/2019 6:05: 15 AM [facility] DELIVERY [...] code = 35 % COHBGFFIO2) COMPREHENSIVE METABOLIC [id number] 04:55:00 Test Item Value Reference Range Interpretation [...] UNITS/L 38-126 N (test code = ALKP) [id number] 04:55:00 Test Item Value Reference Range Interpretation Comments MAGNESIUM (test code = MAG) 1.8 MG/DL 1.6-2.3 N COMPREHENSIVE METABOLIC [id number] 04:54:00 Test Item Value Reference Range Interpretation [...] UNITS/L 38-126 N (test code = ALKP) [id number] 04:54:00 Test Item Value Reference Range Interpretation Comments MAGNESIUM (test code = MAG) MG/DL 1.6-2.3 COMPREHENSIVE METABOLIC [id number] 04:52:00 Test Item Value Reference Range Interpretation [...] PHOSPHATASE (test code = UNITS/L 38-126 ALKP) [id number] 04:52:00 Test Item Value Reference Range Interpretation Comments MAGNESIUM (test code = MAG) MG/DL 1.6-2.3 COMPREHENSIVE METABOLIC [id number] 04:51:00 Test Item Value Reference Range Interpretation [...] PHOSPHATASE (test code = UNITS/L 38-126 ALKP) [id number] 04:51:00 Test Item Value Reference Range Interpretation Comments MAGNESIUM (test code = MAG) MG/DL 1.6-2.3 CBC W/AUTO [id number] 04:41:00 Test Item Value Reference Range Interpretation [...] 0.00 K/mm3 0.0-0.1 N NRBC#) ARTERIAL BLOOD [id number] 14:25:00 Test Item Value Reference Range Interpretation [...] code = 60 % COHBGFFIO2) ARTERIAL BLOOD [id number] 14:17:00 Test Item Value Reference Range Interpretation [...] (test code = 40 % COHBGFFIO2) LACTIC [id number] 11:20:00 Test Item Value Reference Range Interpretation Comments LACTIC ACID (test code = LACT) 1.0 MMOL/L 0.7-2.1 N UNABLE TO DRAW BLOOD, REASON: CBNNOTIFIED PATIENT CARE STAFF: SOLIS MCKEON 08/12/19 AT 1101 BY Tapan EppsnB-TYPE NATRIURETIC [id number] 09:42:00 Test Item Value Reference Range Interpretation Comments B-TYPE NATRIURETIC PEPTIDE (test 1186.0 PG/ML 0-100 H code = BNP) - XR CHEST [id number] 09:18:00 Patient Name: RUTH LOCK Unit No: [id number] EXAMS: CPT CODE: [id number] XR CHEST 1V 87109 STUDY: Chest radiograph HISTORY: Intubated ELAINAI SON: [...] MD CC: Cj Palacio MD; [facility] EDDIE; Erica Burgess MD Technologist: Cr Barton (RT) (R) Transcrpt Date/Tm/Trnsp: 08/12/2019 (0918) t.SDR.RH16 Orig Print D/T: S: 08/12/2019 (920) [facility] NAME: RUTH LOCK [address] PHYS: [place] [address] : 1940 AGE: 79 SEX: F LOC: Z.SI06 A PHONE #: [phone] EXAM DATE: 08/12/2019 STATUS: ADM INFAX #: [phone] RADIOLOGY NO: PAGE 1 Signed ReportARTERIAL BLOOD [id number] 08:46:00 Test Item Value Reference Range Interpretation [...] = 60 % COHBGFFIO2) - XR CHEST [id number] 08:38:00 Patient Name: RUTH LOCK Unit No: [id number] EXAMS: CPT CODE: [id number] XR CHEST 1V 60421 Single View Chest. Location: B2 Clinical Indication: [...] Burgess MD Technologist: Lauren Cardona, RT (R); [facility] STUDENT Transcrpt Date/Tm/Trnsp: 08/12/2019 (837) GuidoRB24 Orig Print D/T: S: 08/12/2019 (0842) [facility] NAME: RUTH LOCK [id number] [address] PHYS: [place] [address] : 1940 AGE: 79 SEX: F LOC: Z.SI06 A PHONE #: [phone] EXAM DATE: 08/12/2019 STATUS: ADM IN FAX #: [phone] RADIOLOGY NO: PAGE 1 Signed ReportBASIC METABOLIC [id number] 06:55:00 Test Item Value Reference Range Interpretation [...] code = 8.6 MG/DL 8.4-10.2 N CA) [id number] 06:55:00 Test Item Value Reference Range Interpretation Comments MAGNESIUM (test code = MAG) 1.8 MG/DL 1.6-2.3 N BASIC METABOLIC [id number] 06:54:00 Test Item Value Reference Range Interpretation [...] CALCIUM (test code = MG/DL 8.7-9.7 CA) [id number] 06:54:00 Test Item Value Reference Range Interpretation Comments MAGNESIUM (test code = MAG) MG/DL 1.6-2.3 BASIC METABOLIC [id number] 06:51:00 Test Item Value Reference Range Interpretation [...] CALCIUM (test code = CA) MG/DL 8.7-9.7 [id number] 06:51:00 Test Item Value Reference Range Interpretation Comments MAGNESIUM (test code = MAG) MG/DL 1.6-2.3 CBC W/AUTO [id number] 06:49:00 Test Item Value Reference Range Interpretation [...] 0.00 K/mm3 0.0-0.1 N NRBC#) ARTERIAL BLOOD [id number] 03:48:00 Test Item Value Reference Range Interpretation [...] code = 30 % COHBGFFIO2) ARTERIAL BLOOD [id number] 19:46:00 Test Item Value Reference Range Interpretation [...] ABG SITE (test code = SITEA) AL LILIANAS TEST (test code = ALLENS) NA CHECK FIO2 (test code = COHBGFFIO2) 28 % ARTERY,[id number] 15:32:00 RUN DATE: 08/11/19 [facility] - LAB PAGE 1 RUN TIME: 1533 Specimen Inquiry RUN USER: INTERFACE PATIENT: RUTH LOCK LOC: MONY Zelaya #: [id number] AGE/SX: 79/F ROOM: DARON RE08/07/19REG DR: Ankit Love MD : 40 BED: A DIS: STATUS: ADM IN TLOC: SPEC #: [id number]:PATEL:[id number] RECD: 08/10/19-1600 STATUS: REESE ROSARIO #: [id number] TRANG: 08/10/19-[address]: Ankit Love MD ENTERED: 08/10/19-160 SP TYPE: ARTERY, PL OTHR DR: April Escamilla MD, David E MD Dabaghi, Salim F MD Karim, Nioti R MD Patel, Rupert MDORDERED: DECAL, SURG PATH LVL 3, SURG PATH LVL 4 CODES: [id number] - PLAQUE, NOS [id number] - ARTERY, NOS [id number] - CAROTID ARTERY ATHEROSCLEROSIS [id number] - CERVIX EXCISIONAL BIOP [id number] - LY MPH NODE, NOS [place]: [place] [id number] [place] [address] [email or web address] Cj Palacio MD [address] [place] [address] Erica Burgess MD [address] [place] [address] [address] [place] [id number] [email or web address] C[place] [address] [place] [id number] [place] [address] [facility] [address] [place] [id number] Eric Lamas MD [address] [facility] [place] [id number] CONTINUED ON NEXT PAGE RUN DATE: 08/11/19 [facility] PAGE 2 RUN TIME: 1533 Specimen Inquiry RUN USER: INTERFACE SPEC #: [id number]:[id number] PATIENT: RUTH LOCK #[id number] (Continued) ICD CODES: 440 - PROCEDURES: DECAL (08/10/19-1601) SURG PATH LVL 3 (08/10/19) SURG PATH LVL 4 (08/10/191601) TISSUES: A. ARTERY, NOS - LEFT CAROTID PLAQUE B. LYMPH NODE, NOS - LEFT CERVICAL LYMPH NODE CLINICAL HISTORY LEFT INTERNAL CAROTID ENDARTECTOMY CPT CODES CPT CODE(S): 00971 , 90434 , 20007 , , , , FINAL DIAGNOSIS A. Plaque, left carotid artery, endarterectomy: SEVERE ATHEROSCLEROSIS B. Lymph node, left cervical, excisional biopsy: MILD, NONSPECIFIC, REACTIVE CHANGE GROSS DESCRIPTION A. Left carotid plaque. Received in formalin is a Y-shaped yellow-cohen material, grossly consistent with plaque, 3.0 x 1.2 x 0.5 cm. The cut surface is yellow-cohen and solid with focal gritty areas. [employer] sections submitted following decalcification labeled A. B. [...] 08/11/19 1532 END OF REPORT ARTERIAL BLOOD [id number] 13:58:00 Test Item Value Reference Range Interpretation [...] = COHBGFFIO2) 60 % - XR CHEST [id number] 13:01:00 Patient Name: RUTH LOCK Unit No: [id number] EXAMS: CPT CODE: [id number] XR CHEST 1V 52466 STUDY: Chest radiograph HISTORY: Extubation. GEORGES RISON: [...] Michelle Wei RT(R) Transcrpt Date/Tm/Trnsp: 08/11/2019 (1301) t.SDR.RH16 Orig Print D/T: S: 08/11/2019 (9644) [facility] NAME: RUTH LOCK [address] PHYS: [place] [address] : 1940 AGE: 79 SEX: F LOC: Z.SI06 A PHONE #: [phone] EXAM DATE: 08/11/2019 STATUS: ADM IN FAX #: [phone] RADIOLOGY NO: PAGE 1 Signed ReportARTERIAL BLOOD [id number] 12:05:00 Test Item Value Reference Range Interpretation [...] (test code 3.3 mmol/L -3.0-3.0 H = DEMETRI) ABG O2 SATURATION 99.0 % [...] = 30 % COHBGFFIO2) - XR CHEST [id number] 08:16:00 Patient Name: RUTH LOCK Unit No: [id number] EXAMS: CPT CODE: [id number] XR CHEST 1V 15400 REASON FOR EXAM: Respiratory distress, ventilator. COMPARISON: [facility] 2018. Chest, portable single frontal view. The [...] by: Ankit Fowler MD CC: Cj Dodson; [facility] CUR; Erica Burgess MD Technologist: Emperatriz Khan RT(R) Transcrpt Date/Tm/Trnsp: 08/11/2019 (0816) Jennifer Orig Print D/T: S: 08/11/2019 (0819) [facility] NAME: RUTH LOCK[address] PHYS: CURTO - CURL,[place] [address] : 1940 AGE: 79 SEX: F LOC: Z.SI06 A PHONE #: [phone] EXAM DATE: 08/11/2019 STATUS: ADM IN FAX #: [phone] RADIOLOGY NO: PAGE 1 Signed ReportARTERIAL BLOOD [id number] 05:35:00 Test Item Value Reference Range Interpretation [...] code = COHBGFFIO2) 30 % COMPREHENSIVE METABOLIC [id number] 04:57:00 Test Item Value Reference Range Interpretation [...] 70 UNITS/L 38-126 (test code = ALKP) [id number] 04:57:00 Test Item Value Reference Range Interpretation Comments MAGNESIUM (test code = MAG) 2.0 MG/DL 1.6-2.3 N COMPREHENSIVE METABOLIC [id number] 04:49:00 Test Item Value Reference Range Interpretation [...] PHOSPHATASE (test code = UNITS/L 38-126 ALKP) [id number] 04:49:00 Test Item Value Reference Range Interpretation Comments MAGNESIUM (test code = MAG) MG/DL 1.6-2.3 COMPREHENSIVE METABOLIC [id number] 04:48:00 Test Item Value Reference Range Interpretation [...] PHOSPHATASE (test code = UNITS/L 38-126 ALKP) [id number] 04:48:00 Test Item Value Reference Range Interpretation Comments MAGNESIUM (test code = MAG) MG/DL 1.6-2.3 CBC W/AUTO [id number] 04:37:00 Test Item Value Reference Range Interpretation [...] code = 0.00 K/mm3 0.0-0.1 N NRBC#) [id number] 00:36:00 Test Item Value Reference Range Interpretation Comments POTASSIUM (test code = K) 3.9 MMOL/L 3.5-5.1 N [id number] 00:36:00 Test Item Value Reference Range Interpretation Comments CALCIUM (test code = CA) MG/DL 8.7-9.7 [id number] 00:36:00 Test Item Value Reference Range Interpretation Comments MAGNESIUM (test code = MAG) 2.1 MG/DL 1.6-2.3 N [id number] 00:36:00 Test Item Value Reference Range Interpretation Comments POTASSIUM (test code = K) 3.9 MMOL/L 3.5-5.1 N [id number] 00:36:00 Test Item Value Reference Range Interpretation Comments CALCIUM (test code = CA) 8.5 MG/DL 8.4-10.2 N [id number] 00:36:00 Test Item Value Reference Range Interpretation Comments MAGNESIUM (test code = MAG) 2.1 MG/DL 1.6-2.3 N [id number] 00:33:00 Test Item Value Reference Range Interpretation Comments POTASSIUM (test code = K) 3.9 MMOL/L 3.5-5.1 N [id number] 00:33:00 Test Item Value Reference Range Interpretation Comments CALCIUM (test code = CA) MG/DL 8.7-9.7 [id number] 00:33:00 Test Item Value Reference Range Interpretation Comments MAGNESIUM (test code = MAG) MG/DL 1.6-2.3 ARTERIAL BLOOD [id number] 20:54:00 Test Item Value Reference Range Interpretation [...] code = COHBGFFIO2) 21 % ARTERIAL BLOOD [id number] 17:23:00 Test Item Value Reference Range Interpretation [...] = COHBGFFIO2) 45 % POC ARTERIAL BLOOD [id number] 17:09:00 Test Item Value Reference Range Interpretation Comments POC ARTERIAL BLOOD GAS PH (test 7.417 7.35-7.45 N code = POCPHA) POC ARTERIAL BLOOD GAS PCO2 (test 36.3 mmHg 35.0-45.0 N code = GVMUMP3T) POC ARTERIAL BLOOD GAS PO2 (test 472 75.0-100.0 HH code = OIKYG0W) POC HCO3 ARTERIAL (test code = 23.4 MMOL/L 20.0-26.0 N PXBVTK0C) POC BASE EXCESS (test code = -1.0 [...] 0.87 MMOL/L 0.4-2.0 N POCLAC) B-TYPE NATRIURETIC [id number] 17:05:00 Test Item Value Reference Range Interpretation Comments B-TYPE NATRIURETIC PEPTIDE (test 1101.0 PG/ML 0-100 H code = BNP) - XR CHEST [id number] 16:55:00 Patient Name: RUTH LOCK Unit No: [id number] EXAMS: CPT CODE: [id number] XR CHEST 1V 33449 STUDY: Chest radiograph HISTORY: Intubation. GEORGES RISON: [...] 5 cm. No additional significant interval anibal valladares at 1900 Reported and signed by: Ankit Carroll MD CC: Cj Palacio MD; Erica Burgess MD; Yun Brothers MD Technologist: CHIDI Schwartz, RT(R) Transcrpt Date/Tm/Trnsp: 08/10/2019 (6424) Jermain.RH16 Orig Print D/T: S: 08/10/2019 (9582) [facility] NAME: RUTH LOCK [address] PHYS: [place] [address] : 1940 AGE: 79 SEX: F LOC: ZEsmerSI06 A PHONE #: [phone] EXAM DATE: 08/10/2019 STATUS: ADM IN FAX #: [phone] RADIOLOGY NO: PAGE 1 Signed ReportCOMPREHENSIVE METABOLIC [id number] 16:54:00 Test Item Value Reference Range Interpretation [...] UNITS/L 38-126 N (test code = ALKP) [id number] 16:54:00 Test Item Value Reference Range Interpretation Comments PHOSPHOROUS (test code = PHOS) 3.2 MG/DL 2.5-4.5 N [id number] 16:54:00 Test Item Value Reference Range Interpretation [...] 2 ng/mL are obtai richie. COMPREHENSIVE METABOLIC [id number] 16:42:00 Test Item Value Reference Range Interpretation [...] UNITS/L 38-126 N (test code = ALKP) [id number] 16:42:00 Test Item Value Reference Range Interpretation Comments PHOSPHOROUS (test code = PHOS) 3.2 MG/DL 2.5-4.5 N [id number] 16:42:00 Test Item Value Reference Range Interpretation Comments MAGNESIUM (test code = MAG) 1.9 MG/DL 1.6-2.3 N PROCALCITONIN (PCT)2019-08-10 16:42:00 Test Item Value Reference Range Interpretation Comments PROCALCITONIN (PCT) (test code = NG/ML PROCAL) LACTIC [id number] 16:38:00 Test Item Value Reference Range Interpretation Comments LACTIC ACID (test code = LACT) 1.1 MMOL/L 0.7-2.1 N COMPREHENSIVE METABOLIC [id number] 16:37:00 Test Item Value Reference Range Interpretation [...] PHOSPHATASE (test code = UNITS/L 38-126 ALKP) [id number] 16:37:00 Test Item Value Reference Range Interpretation Comments PHOSPHOROUS (test code = PHOS) MG/DL 2.5-4.5 [id number] 16:37:00 Test Item Value Reference Range Interpretation Comments MAGNESIUM (test code = MAG) MG/DL 1.6-2.3 PROCALCITONIN (PCT)2019-08-10 16:37:00 Test Item Value Reference Range Interpretation Comments PROCALCITONIN (PCT) (test code = NG/ML PROCAL) BASIC METABOLIC [id number] 15:45:00 Test Item Value Reference Range Interpretation [...] code = 8.4 MG/DL 8.4-10.2 N CA) [id number] 15:45:00 Test Item Value Reference Range Interpretation Comments MAGNESIUM (test code = MAG) 1.9 MG/DL 1.6-2.3 N BASIC METABOLIC [id number] 15:38:00 Test Item Value Reference Range Interpretation [...] CALCIUM (test code = CA) MG/DL 8.7-9.7 [id number] 15:38:00 Test Item Value Reference Range Interpretation Comments MAGNESIUM (test code = MAG) MG/DL 1.6-2.3 CBC W/AUTO [id number] 15:37:00 Test Item Value Reference Range Interpretation [...] K/mm3 0.0-0.1 N NRBC#) - XR CHEST [id number] 15:32:00 Patient Name: RUTH LOCK Unit No: [id number] EXAMS: CPT CODE: [id number] XR CHEST 1V 52498 STUDY: Chest radiograph HISTORY: Postop. COMPARISON: 08/10/2019 [...] (1532) t.SDR.RH16 Orig Print D/T: S: 08/10/2019 (2559) [facility] NAME: RUTH LOCK [address] PHYS: [place] [address] : 1940 AGE: 79 SEX: F LOC: ZEsmerSI06 Aj PHONE #: [phone] EXAMDATE: 08/10/2019 STATUS: ADM IN FAX #: [phone] RADIOLOGY NO: PAGE1 Signed ReportARTERIAL BLOOD [id number] 15:24:00 Test Item Value Reference Range Interpretation [...] code = COHBGFFIO2) 98 % CHEMISTRY 8 [id number] 13:29:00 Test Item Value Reference Range Interpretation [...] = 6 0 ml/min/1.73 m2 CHEMISTRY 8 [id number] 13:29:00 Test Item Value Reference Range Interpretation [...] 6 0 ml/min/1.73 m2 - XR CHEST [id number] 08:13:00 Patient Name: RUTH LOCK Unit No: [id number] EXAMS: CPT CODE: [id number] XR CHEST 1V 24451 REASON FOR EXAM: Cardiorespiratory clearance for surgery. [...] Technologist: Michelle Wei RT(R) Transcrpt Date/Tm/Trnsp: 08/10/2019 (812) t.SDR.RCM Orig Print D/T: S: 08/10/2019 (08) [facility] NAME: RUTH LOCK [address] PHYS: [place] [address] : 1940 AGE: 79 SEX: F LOC: Z.355 A PHONE #: [phone] EXAM DATE: 08/10/2019 STATUS: ADM IN FAX #:[phone] RADIOLOGY NO: PAGE 1 Signed Report COMPREHENSIVE METABOLIC [id number] 07:04:00 Test Item Value Reference Range Interpretation [...] N (test code = ALKP) COMPREHENSIVE METABOLIC [id number] 07:02:00 Test Item Value Reference Range Interpretation [...] 38-126 (test code = ALKP) COMPREHENSIVE METABOLIC [id number] 07:00:00 Test Item Value Reference Range Interpretation [...] code = UNITS/L 38-126 ALKP) CBC W/AUTO [id number] 06:23:00 Test Item Value Reference Range Interpretation [...] 0.00 K/mm3 0.0-0.1 N NRBC#) BASIC METABOLIC [id number] 20:19:00 Test Item Value Reference Range Interpretation [...] 9.1 MG/DL 8.4-10.2 N CA) BASIC METABOLIC [id number] 20:05:00 Test Item Value Reference Range Interpretation [...] (test code = MG/DL 8.7-9.7 CA) PROTHROMBIN [id number] 20:04:00 Test Item Value Reference Range Interpretation [...] syste nidia embolism. 3.0 - 4.5 PTT [id number] 20:04:00 Test Item Value Reference Range Interpretation Comments PTT ACTIVATED (test code = APTT) 25.2 SECONDS 22.0-33.0 N BASIC METABOLIC [id number] 20:03:00 Test Item Value Reference Range Interpretation [...] code = CA) MG/DL 8.7-9.7 GLUCOSE BEDSIDE [id number] 17:16:00 Test Item Value Reference Range Interpretation Comments GLUCOSE BEDSIDE TESTING (test code 172 MG/DL 60-99 H = GLUBED) HCG SERUM [id number] 14:15:00 Test Item Value Reference Range Interpretation Comments HCG SERUM QUAL (test code = HCGQL) NEGATIVE NEGATIVE A ADD ONURINALYSIS [id number] 12:40:00 Test Item Value Reference Range Interpretation [...] UACULT) Criteria SOURCE OF URINE: CLEAN CATCHUA [id number] 12:40:00 Test Item Value Reference Range Interpretation Comments UA RBC (test code = RBCU) 5-10 RBC/HPF 0-3 A UA WBC (test code = XWBCU) >100 WBC/HPF 0-5 A UA EPITHELIAL CELLS (test code = FEW EPI/HPF FEW EPIU) UA BACTERIA (test code = XBACU) MANY NONE A UA MUCUS (test code = MUCU) SLIGHT #/LPF NONE SOURCE OF URINE: CLEAN CATCHURINALYSIS [id number] 12:33:00 Test Item Value Reference Range Interpretation [...] = UACULT) SOURCE OF URINE: CLEAN CATCHUA [id number] 12:33:00 Test Item Value Reference Range Interpretation Comments UA RBC (test code = RBCU) RBC/HPF 0-3 UA WBC (test code = XWBCU) WBC/HPF 0-5 UA EPITHELIAL CELLS (test code = EPI/HPF FEW EPIU) UA BACTERIA (test code = XBACU) NONE SOURCE OF URINE: CLEAN CATCHURINALYSIS [id number] 12:33:00 Test Item Value Reference Range Interpretation [...] = UACULT) SOURCE OF URINE: CLEAN CATCHUA [id number] 12:33:00 Test Item Value Reference Range Interpretation Comments UA RBC (test code = RBCU) RBC/HPF 0-3 UA WBC (test code = XWBCU) WBC/HPF 0-5 UA EPITHELIAL CELLS (test code = EPI/HPF FEW EPIU) UA BACTERIA (test code = XBACU) NONE SOURCE OF URINE: CLEAN CATCHCOMPREHENSIVE METABOLIC [id number] 06:13:00 Test Item Value Reference Range Interpretation [...] 38-126 (test code = ALKP) COMPREHENSIVE METABOLIC [id number] 06:04:00 Test Item Value Reference Range Interpretation [...] 38-126 (test code = ALKP) COMPREHENSIVE METABOLIC [id number] 06:03:00 Test Item Value Reference Range Interpretation [...] code = UNITS/L 38-126 ALKP) COMPREHENSIVE METABOLIC [id number] 06:02:00 Test Item Value Reference Range Interpretation [...] code = UNITS/L 38-126 ALKP) CBC W/AUTO [id number] 05:31:00 Test Item Value Reference Range Interpretation [...] 0.00 K/mm3 0.0-0.1 N NRBC#) BASIC METABOLIC [id number] 21:20:00 Test Item Value Reference Range Interpretation [...] 8.9 MG/DL 8.4-10.2 N CA) BASIC METABOLIC [id number] 21:12:00 Test Item Value Reference Range Interpretation [...] MG/DL 8.7-9.7 - CT HD/BR W W/O [id number] 20:23:00 Patient Name: RUTH LOCK Unit No: [id number] EXAMS: CPT CODE: [id number] CT HD/BR W W/O CONT [address] HEAD WITHOUT and with CONTRAST [...] Erica Burgess MD; Eric Lamas M.D. Technologist: [facility] STUDENT ; Judd Rollins RT CTDI: DLP: Trnscrpt: 08/08/2019 (2022) t.SDR.VB7 [facility] NAME: RUTH LOCK [address] PHYS: [place] [address] : 1940 AGE: 79 SEX: F LOC: Z.355 A PHONE #: [phone] EXAM DATE: 08/08/2019 STATUS: ADM IN FAX #: [phone] RAD #: D/C DT PAGE 1 Signed Report Patient Name: RUTH LOCK Unit No: [id number] EXAMS: CPT CODE: [id number] CT HD/BR W W/O CONT 38113 <Continued> Orig Print D/T: S: 08/08/2019 (2025) [facility] NAME: RUTH LOCK [address] [address] PHYS: [place] [address] : 1940 AGE: 79 SEX: F LOC: Z.355 A PHONE #: [phone] EXAM DATE: 08/08/2019 STATUS: ADM IN FAX #: [phone] RAD #: D/C DT PAGE 2 Signed Report- CT CHEST W/[id number] 16:24:00 Patient Name: RUTH LOCK Unit No: [id number] EXAMS: CPT CODE: [id number] CT CHEST W/CONTRAST 22279 CT chest History: HYPONATREMIA Comparison: None at [...] BILIARY SYSTEM: There is no biliary dilatation. [facility] NAME: RUTH LOCK [address] PHYS: [place] [address] : 1940 AGE: 79 SEX: F LOC: Z.355 A PHONE #: [phone] EXAM DATE: 08/08/2019 STATUS: ADM IN FAX #: [phone] RAD #: D/C DT PAGE 1 Signed Report (CONTINUED) Patient Name: RUTH LOCK Unit No: [id number] EXAMS: CPT CODE: [id number] CT CHEST W/CONTRAST 80764 <Continued> SPLEEN: The spleen is unremarkable. PANCREAS: [...] Cj Palacio MD; Erica Burgess MD Technologist: [facility] STUDENT ; Judd SÁNCHEZ CTDI: DLP: Trnscrpt: 08/08/2019 (6501)t.SDR.PMT [facility] NAME: RUTH LOCK[address] PHYS: Ankit Pinzon MD [place] [id number] : 1940 AGE: 79 SEX: F LOC: Z.355 A PHONE #: [phone] EXAM DATE: 08/08/2019 STATUS: ADM IN FAX #: [phone] RAD #: D/C DT PAGE 2 Signed Report Patient Name: RUTH LOCK Unit No: [id number] EXAMS: CPT CODE: [id number] CT CHEST W/CONTRAST 28777 <Continued> Orig Print D/T: S: 08/08/2019 (5550) [facility] NAME: RUTH LOCK [address] PHYS: [place] [address] : 1940 AGE: 79 SEX: F LOC: Z.355 A PHONE #: [phone] EXAM DATE: 08/08/2019 STATUS: ADM IN FAX #: [phone] RAD #: D/C DT PAGE 3 Signed Report- CT ABD PELVIS [id number] 16:24:00 Patient Name: RUTH LOCK Unit No: [id number] EXAMS: CPT CODE: [id number] CT ABD PELVIS W/CONT 07977 CT chest History: HYPONATREMIA Comparison: None at [...] BILIARY SYSTEM: There is no biliary dilatation. [facility] NAME: RUTH LOCK [address] PHYS: [place] [address] : 1940 AGE: 79 SEX: F LOC: Z.355 A PHONE #: [phone] EXAM DATE: 08/08/2019 STATUS: ADM IN FAX #: [phone] RAD #: D/C DT PAGE 1 Signed Report (CONTINUED) Patient Name: RUTH LOCK Unit No: [id number] EXAMS: CPT CODE: [id number] CT ABD PELVIS W/CONT 46011 <Continued> SPLEEN: The spleen is unremarkable. PANCREAS: [...] Erica Burgess MD; Eric Lamas M.D. Technologist: [facility] STUDENT ; Judd SÁNCHEZ CTDI: DLP: Trnscrpt: 08/08/2019 (3468)t.SDR.PMT [facility] NAME: RUTH LOCK [address] [address] PHYS: Eric Duke MD [place] [id number] : 1940 AGE: 79 SEX: F LOC: Z.355 A PHONE #: [phone] EXAM DATE: 08/08/2019 STATUS: ADM IN FAX #: [phone] RAD #: D/C DT PAGE 2 Signed Report Patient Name: RUTH LOCK Unit No: [id number] EXAMS: CPT CODE: [id number] CT ABD PELVIS W/CONT 14993 <Continued> Orig Print D/T: S: 08/08/2019 (2533) [facility] NAME: RUTH LOCK [address] [address] PHYS: [place] [address] : 1940 AGE: 79 SEX: F LOC: Z.355 A PHONE #: [phone] EXAM DATE: 08/08/2019 STATUS: ADM IN FAX #: [phone] RAD #: D/C DT PAGE 3 Signed ReportUR OSMOLALITY [id number] 12:16:00 Test Item Value Reference Range Interpretation Comments UR OSMOLALITY RANDOM (test code = 384 MOS/KG 300-1200 OSMOU) BASIC METABOLIC [id number] 10:30:00 Test Item Value Reference Range Interpretation [...] 9.0 MG/DL 8.4-10.2 N CA) BASIC METABOLIC [id number] 10:08:00 Test Item Value Reference Range Interpretation [...] code = MG/DL 8.7-9.7 CA) BASIC METABOLIC [id number] 10:05:00 Test Item Value Reference Range Interpretation [...] code = CA) MG/DL 8.7-9.7 THYROID STIMULATING [id number] 07:25:00 Test Item Value Reference Range Interpretation Comments THYROID STIMULATING 3.680 MIU/L 0.465-4.68 N Please b e aware that HORMONE (test code = bias re sults for TSH TSH) may occur forpa tient who are taking Biotin suppleme nts. COMPREHENSIVE METABOLIC [id number] 07:24:00 Test Item Value Reference Range Interpretation Comments SODIUM (test code = 120 MMOL/L 137-145 L CALLED Haley Dallas NA) READBACK ON AT 0722 Jena Trivedi [...] 38-126 (test code = ALKP) COMPREHENSIVE METABOLIC [id number] 06:54:00 Test Item Value Reference Range Interpretation [...] code = UNITS/L 38-126 ALKP) CBC W/AUTO [id number] 06:40:00 Test Item Value Reference Range Interpretation [...] 0.00 K/mm3 0.0-0.1 N NRBC#) UR OSMOLALITY [id number] 20:44:00 Test Item Value Reference Range Interpretation Comments UR OSMOLALITY RANDOM (test code = 335 MOS/KG 300-1200 N OSMOU) - XR CHEST 2 [id number] 19:29:00 Patient Name: RUTH LOCK Unit No: [id number] EXAMS: CPT CODE: [id number] XR CHEST 2 V 62293 EXAM: - XR CHEST 2 V LOCATION: [...] Erica Burgess MD; Eric Lamas M.D. Technologist: RT Elena(R) Transcrpt Date/Tm/Trnsp: 08/07/2019 (1928) GuidoHV2 Orig Print D/T: S: 08/07/2019 (1931) [facility] NAME: RUTH LOCK [address] [address] PHYS: ANAYELI - [place] [address] : 1940 AGE: 79 SEX: F LOC: Z.355 A PHONE #: [phone] EXAM DATE: 08/07/2019 STATUS: ADM IN FAX #: [phone] RADIOLOGY NO:PAGE 1 Signed ReportBASIC METABOLIC [id number] 14:21:00 Test Item Value Reference Range Interpretation [...] 9.4 MG/DL 8.4-10.2 N CA) BASIC METABOLIC [id number] 14:18:00 Test Item Value Reference Range Interpretation [...] = CA) MG/DL 8.7-9.7 HIV 12 AB [id number] 13:07:00 Test Item Value Reference Range Interpretation Comments HIV 1 2 COMBO AG/AB SCREEN AB/AG NON REACTIVE NONREACTIVE (test code = [id number]) PLT RESPONSE TO [id number] 12:49:00 Test Item Value Reference Range Interpretation [...] ON ANTICOAGULANTS: IRVIN ANTICOAGULANTS: Aspirin- XR CHEST [id number] 12:42:00 Patient Name: RUTH LOCK Unit No: [id number] EXAMS: CPT CODE: [id number] XR CHEST 1V 92765 Single View Chest. Location: B2 Clinical Indication: [...] Technologist: Lary Lewis (RT)(R) Transcrpt Date/Tm/Trnsp: 08/07/2019 (6693) NoemiR.RB24 Orig Print D/T: S: 08/07/2019 (0357) [facility] NAME: RUTH OLCK [address] [address] PHYS: [place] [address] : 1940 AGE: 79 SEX: F LOC: Z.SRG PHONE #: [phone] EXAM DATE: 08/07/2019 STATUS: REG SDC FAX #: [phone] RADIOLOGY NO: PAGE 1 Signed ReportGLYCOSYLATED HEMOGLOBIN [id number] 12:09:00 Test Item Value Reference Range Interpretation [...] H (test code = MBG) COMPREHENSIVE METABOLIC [id number] 12:07:00 Test Item Value Reference Range Interpretation [...] N (test code = ALKP) COMPREHENSIVE METABOLIC [id number] 12:06:00 Test Item Value Reference Range Interpretation [...] 38-126 (test code = ALKP) COMPREHENSIVE METABOLIC [id number] 12:04:00 Test Item Value Reference Range Interpretation [...] code = UNITS/L 38-126 ALKP) CBC W/AUTO [id number] 11:39:00 Test Item Value Reference Range Interpretation [...] = 0.00 K/mm3 0.0-0.1 N NRBC#) PROTHROMBIN [id number] 08:10:00 Test Item Value Reference Range Interpretation [...] nidia embolism. 3.0 - 4.5 Comments to Marina Porter: WILL BRING TO LABPTT [id number] 08:10:00 Test Item Value Reference Range Interpretation Comments PTT ACTIVATED (test code = APTT) 28.8 SECONDS 22.0-33.0 N Comments to Marina Porter: WILL BRING TO LABBASIC METABOLIC [id number] 08:08:00 Test Item Value Reference Range Interpretation [...] 0-189 mg/dL VERY HIGH...... ...>/= 190 mg/dL [id number] 08:08:00 Test Item Value Reference Range Interpretation Comments MAGNESIUM (test code = MAG) 1.9 MG/DL 1.6-2.3 N BASIC METABOLIC [id number] 07:58:00 Test Item Value Reference Range Interpretation [...] LDL (test MG/DL 0-99 code = LDL) [id number] 07:58:00 Test Item Value Reference Range Interpretation Comments MAGNESIUM (test code = MAG) 1.9 MG/DL 1.6-2.3 N CBC W/AUTO [id number] 07:43:00 Test Item Value Reference Range Interpretation [...]
[2021-02-02] MEDS ORDERED: ONDANSETRON 4 MG/2 ML VIAL ONE (06:07)
[2021-02-02] MEDS ORDERED: MORPHINE 2 MG/ML SYR ONE (06:07)
[2021-02-02] MEDS ORDERED: FAMOTIDINE 20 MG/2 ML VIAL IV ONE (06:07)
[2021-02-02] MEDS ORDERED: NA CHLORIDE 0.9% 1,000 ML ONE (06:08)
[2021-02-02 06:10] LABS: Absolute Lymphocytes (CBC) 1.4 K/uL (0.7-4.9); Basophils % 0.7 % (0-1.3); Hematocrit 37.7 % (36.0-45.0); Lymphocytes % 17.6 % (15.3-44.8); MPV 8.8 fL (7.6-11.3); RBC Red Blood Cell Count 4.65 M/uL (3.86-4.86)
[2021-02-02 06:12] LABS: Protime INR 0.92
[2021-02-02] MEDS ORDERED: ASPIRIN 81 MG CHEWABLE TABLET ONE (06:13)
[2021-02-02 06:36] LABS: ALT/SGPT 16 U/L (12-78); AST/SGOT 20 U/L (15-37); Alkaline Phosphatase 92 U/L (45-117); BUN Blood Urea Nitrogen 9 mg/dL (7-18); Bicarbonate 23 mmol/L (21-32); Bilirubin Direct 0.2 mg/dL (0-0.2); Bilirubin Total 0.9 mg/dL (0.2-1.0); Glucose Level 135 mg/dL (74-106); Lipase 243 U/L (73-393); Magnesium 1.7 mg/dL (1.8-2.4); NT PRO-BNP 1674 pg/mL (<450); Protein, Total 7.4 g/dL (6.4-8.2); Sodium Level 131 mmol/L (136-145); Troponin (Emerg Dept Use Only) < 0.02 ng/mL (0.0-0.045)
[2021-02-02 07:31] LABS: Urine Blood TRACE (NEG); Urine Glucose NEGATIVE (NEG); Urine Protein 1+ (NEG); Urine pH 7.5 (5.0-7.0)
--- NOTE | 2021-02-02 07:59 | RAD REPORT ---
EXAM DESCRIPTION: CT - Angio Aorta For Dissection - 02/02/2021 7:07 am CLINICAL HISTORY: . Chest and abd pain COMPARISON: January 26, 2021 TECHNIQUE: Computed tomography angiography of the chest, abdomen pelvis were obtained. 100 cc Isovue 370 was administered intravenously. Coronal and sagittal reconstruction were performed. MIP 3D reconstruction was performed All CT scans are performed using dose optimization technique as appropriate and may include automated exposure control or mA/KV adjustment according to patient size. FINDINGS: An aortic dissection is not seen. An aortic aneurysm is not displayed. 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 Collaterals reconstitute right common femoral artery. 1.5 centimeter nodule medial left lower lobe unchanged. A pericardial effusion is not seen. A pleural effusion is not noted. Stable hepatic lesions. Right nephrectomy. . No evidence diverticulitis. Stable lymphadenopathy. Chronic moderate compression fracture L3 vertebra l body IMPRESSION: Negative for an aortic dissection. 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
--- NOTE | 2021-02-02 08:35 | RAD REPORT ---
EXAM DESCRIPTION: Linda Single View3 6:28 am CLINICAL HISTORY: Chest pain COMPARISON: January 25, 2021 FINDINGS: The lungs appear clear of acute infiltrate. The heart is mildly to moderately enlarged. P ostsurgical changes involve the chest. 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
--- NOTE | 2021-02-02 09:40 | EDPHYS ---
Physician Documentation [facility] Name: Venus Summers Age: 80 yrs Sex: Female : 1940 Arrival Date: 02/02/2021 Time: 05:19 Bed 16 Private MD: ED Physician Bertram Alvarenga HPI: 02/02 05:56 This 80 yrs old Female presents to ER via EMS with complaints of Flank Pain. melly 05:56 The patient complains of pain in the left low back and left mid back. melly Historical: - Allergies: 05:20 Cipro PO; rr5 05:20 PENICILLINS; rr5 - PMHx: 05:20 High Cholesterol; Hypertension; rr5 - Immunization history:: Adult Immunizations up to date. - Social history:: Smoking status: unknown. ROS: 05:56 Constitutional: Negative for fever, chills, and weight loss, Eyes: Negative for injury, melly pain, redness, and discharge, ENT: Negative for injury, pain, and discharge, Neck: Negative for injury, pain, and swelling, Respiratory: Negative for shortness of breath, cough, wheezing, and pleuritic chest pain, Back: Negative for injury and pain, : Negative for injury, bleeding, discharge, and swelling, MS/Extremity: Negative for injury and deformity, Skin: Negative for injury, rash, and discoloration, Neuro: Negative for headache, weakness, numbness, tingling, and seizure. 05:56 Cardiovascular: Positive for chest pain. 05:56 Abdomen/GI: Positive for abdominal pain, of the left upper quadrant. Exam: 05:56 Constitutional: This is a well developed, well nourished patient who is awake, alert, melly and in no acute distress. Head/Face: Normocephalic, atraumatic. Eyes: Pupils equal round and reactive to light, extra-ocular motions intact. Lids and lashes normal. Conjunctiva and sclera are non-icteric and not injected. Cornea within normal limits. Periorbital areas with no swelling, redness, or edema. ENT: Nares patent. No nasal discharge, no septal abnormalities noted. Tympanic membranes are normal and external auditory canals are clear. Oropharynx with no redness, swelling, or masses, exudates, or evidence of obstruction, uvula midline. Mucous membranes moist. Neck: Trachea midline, no thyromegaly or masses palpated, and no cervical lymphadenopathy. Supple, full range of motion without nuchal rigidity, or vertebral point tenderness. No Meningismus. Chest/axilla: Normal chest wall appearance and motion. Nontender with no deformity. No lesions are appreciated. Cardiovascular: Regular rate and rhythm with a normal S1 and S2. No gallops, murmurs, or rubs. Normal PMI, no JVD. No pulse deficits. Back: No spinal tenderness. No costovertebral tenderness. Full range of motion. Female : Normal external genitalia. Skin: Warm, dry with normal turgor. Normal color with no rashes, no lesions, and no evidence of cellulitis. MS/ Extremity: Pulses equal, no cyanosis. Neurovascular intact. Full, normal range of motion. Neuro: Awake and alert, GCS 15, oriented to person, place, time, and situation. Cranial nerves II-XII grossly intact. Motor strength 5/5 in all extremities. Sensory grossly intact. Cerebellar exam normal. Normal gait. Psych: Awake, alert, with orientation to person, place and time. Behavior, mood, and affect are within normal limits. 05:56 Respiratory: the patient does not display signs of respiratory distress, Respirations: labored breathing, that is mild, Breath sounds: decreased breath sounds, rhonchi, that are mild, are scattered, stridor, is not appreciated, + upper airway congestion. Respiratory rate: 22 06:02 ECG was reviewed by the Attending Physician. [facility] Vital Signs: 05:22 BP 130 / 42; Pulse 62; Resp 19; Temp 97.8; Pulse Ox 98% ; Pain 8/10; rr5 07:26 BP 132 / 59; Pulse 61; Resp 17 S; Pulse Ox 97% on R/A; jd3 09:19 BP 152 / 55; Pulse 55; Resp 16 S; Pulse Ox 96% on R/A; jd3 MDM: 05:28 Patient medically screened. melly 05:58 Differential diagnosis: abnormal EKG, acute myocardial infarction, anxiety, coronary melly artery disease chest wall pain, congestive heart failure pyelonephritis, UTI, pancreatitis, ruptured AAA, dissecting AAA, esophagitis, gastritis, hiatal hernia. HEART Score: History: Slightly Suspicious (0), ECG: Age: > or = 65 years (2), Risk Factors: > or = 3 Risk factors for atherosclerotic disease (2), [Hypercholesterolemia] [Hypertension] [Active Smoker] [+ Family HX] Troponin: < or = 1 x Normal Limit (0). The patient was given aspirin in the Emergency Department. The patient's deep vein thrombosis risk score was calculated as follows: Total Score: 0. This patient was found to be at low risk for a deep vein thrombosis by using the Well's assessment criteria. The patient's pulmonary embolism risk score was calculated as follows: Total Score: 0-2 points. This patient was found to be at low risk for a pulmonary embolism by using the Well's assessment criteria. KAMALJIT Risk Score: 1 - patient's age is greater or equal to 65 years, 1 - Three or more CAD risk factors, 1- Known CAD, TOTAL SCORE = 3. Data reviewed: vital signs, nurses notes, lab test result(s), EKG, radiologic studies, CT scan, plain films. 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 Test interpretation: by ED physician or midlevel provider: ECG, plain radiologic studies. Counseling: I had a detailed discussion with the patient and/or guardian regarding: the historical points, exam findings, and any diagnostic results supporting the discharge/admit diagnosis, lab results, radiology results, the need for outpatient follow up. 02/02 05:44 Order name: Basic Metabolic Panel 02/02 05:44 Order name: CBC with Diff 02/02 05:44 Order name: LFT's; Complete Time: 07:06 melly 02/02 05:44 Order name: Magnesium; Complete Time: 07:06 melly 02/02 05:44 Order name: NT PRO-BNP; Complete Time: 07:06 melly 02/02 05:44 Order name: PT-INR; Complete Time: 07:06 melly 02/02 05:44 Order name: Troponin (emerg Dept Use Only); Complete Time: 07:06 melly 02/02 05:44 Order name: XRAY Chest (1 view); Complete Time: 09:12 melly 02/02 05:44 Order name: Lipase; Complete Time: 07:06 melly 02/02 05:44 Order name: Urine Culture [facility] 02/02 05:44 Order name: Basic Metabolic Panel; Complete Time: 07:06 [facility] 02/02 05:44 Order name: CBC with Automated Diff; Complete Time: 07:06 [facility] 02/02 07:24 Order name: Urine Dipstick--Ancillary (enter results) em1 02/02 07:25 Order name: Urine Dipstick-Ancillary; Complete Time: 08:13 [facility] 02/02 05:44 Order name: EKG; Complete Time: 05:45 [facility] 02/02 05:44 Order name: Cardiac monitoring; Complete Time: 05:52 [facility] 02/02 05:44 Order name: EKG - Nurse/Tech; Complete Time: 05:52 [facility] 02/02 05:44 Order name: IV Saline Lock; Complete Time: 05:52 [facility] 02/02 05:44 Order name: Labs collected and sent; Complete Time: 05:53 [facility] 02/02 05:44 Order name: O2 Per Protocol; Complete Time: 05:53 [facility] 02/02 05:44 Order name: O2 Sat Monitoring; Complete Time: 05:53 [facility] 02/02 05:44 Order name: Urine Dipstick-Ancillary (obtain specimen); Complete Time: 07:24 [facility] 02/02 05:44 Order name: CT Aorta for Dissection; Complete Time: 08:13 [facility] EC:02 Rate is 58 beats/min. Rhythm is regular. QRS [place] is Normal. MS interval is normal. QRS melly interval is normal. QT interval is normal. No Q waves. T waves are Normal. No ST changes noted. Clinical impression: NSR w/ Non-specific ST/T Changes, Sinus bradycardia, and No evidence of ischemia. Interpreted by me. Reviewed by me. Administered Medications: 06:04 Drug: morphine 2 mg {Note: rass 0.} Route: IVP; Site: left forearm; rr5 07:00 Follow up: Response: No adverse reaction; RASS: Alert and Calm (0) jd3 06:04 Drug: Zofran (Ondansetron) 4 mg Route: IVP; Site: left forearm; rr5 07:05 Follow up: Response: No adverse reaction rr5 06:06 Drug: NS 0.9% 1000 ml Route: IV; Rate: 125 ml/hr; Site: left forearm; rr5 10:17 Follow up: Response: No adverse reaction; IV Status: Order to discontinue infusion jd3 06:07 Drug: Pepcid 20 mg Route: IVP; Site: left forearm; rr5 07:05 Follow up: Response: No adverse reaction rr5 07:44 Drug: Aspirin 162 mg Route: PO; jd3 08:40 Follow up: Response: No adverse reaction jd3 Disposition: 02/02/21 09:40 Discharged to Home. Impression: Epigastric, left flank and back pain. - Condition is Stable. - Discharge Instructions: Abdominal Pain, Adult, [id number], Flank Pain, [id number]. - Prescriptions for Pepcid 20 mg Oral Tablet - take 1 tablet by ORAL route every 12 hours for 5 days; 20 tablet. Tramadol 50 mg Oral Tablet - take 1 tablet by ORAL route every 8 hours as needed; 12 tablet. - Medication Reconciliation Form, Thank You Letter, Prescription Opioid Use form. - Follow up: Private Physician; When: 2 - 3 days; Reason: If symptoms return, Further diagnostic work-up, Recheck today's complaints, Continuance of care, Re-evaluation by your physician. - Problem is new. - Symptoms have improved. Signatures: Dispatcher [employer] EDSteve Clarke MD MD cha Rittger, Kevin, MD MD kdr Davies, Jonathon, RN RN jd3 Sly Goff RN RN rr5 Corrections: (The following items were deleted from the chart) 10:18 09:40 02/02/2021 09:40 Discharged to Home. Impression: Epigastric, left flank and back jd3 pain. Condition is Stable. Forms are Medication Reconciliation Form, Thank You Letter, Antibiotic Education, Prescription Opioid Use. Follow up: Private Physician; When: 2 - 3 days; Reason: If symptoms return, Further diagnostic work-up, Recheck today's complaints, Continuance of care, Re-evaluation by your physician. Problem is new. Symptoms have improved. kdr
--- NOTE | 2021-02-02 09:40 | ER ---
Nurse's Notes [facility] Name: Venus Summers Age: 80 yrs Sex: Female : 1940 Arrival Date: 02/02/2021 Time: 05:19 Bed 16 Private MD: Diagnosis: Epigastric, left flank and back pain Presentation: 02/02 05:22 Chief complaint: Patient states: Reports she started having left flank pain, was ea diagnosed with a UTI recently and was being treated for it. Coronavirus screen: At this time, the client does not indicate any symptoms associated with coronavirus-19. Ebola Screen: No symptoms or risks identified at this time. Initial Sepsis Screen: Does the patient meet any 2 criteria?. Risk Assessment: Do you want to hurt yourself or someone else? Patient reports no desire to harm self or others. Onset of symptoms was February 02, 2021. 05:22 Method Of Arrival: EMS: [facility] ea 05:22 Acuity: [place] 3 ea 05:22 Initial Sepsis Screen: Does the patient have a suspected source of infection? Yes: rr5 Dysuria/Frequency/Urgency/UTI. Historical: - Allergies: 05:20 Cipro PO; rr5 05:20 PENICILLINS; rr5 - PMHx: 05:20 High Cholesterol; Hypertension; rr5 - Immunization history:: Adult Immunizations up to date. - Social history:: Smoking status: unknown. Screenin:20 Abuse screen: Denies threats or abuse. Denies injuries from another. Nutritional rr5 screening: No deficits noted. Tuberculosis screening: No symptoms or risk factors identified. Fall Risk IV access (20 points). Total [place] Fall Scale indicates No Risk (0-24 pts). Assessment: 05:30 General: Appears in no apparent distress. uncomfortable, Behavior is calm, cooperative, rr5 appropriate for age. 05:30 Pain: Complains of pain in abdomen and left upper quadrant Pain radiates to back Pain rr5 currently is 8 out of 10 on a pain scale. Quality of pain is described as aching, Pain began gradually, Is intermittent. Neuro: Level of Consciousness is awake, alert, obeys commands, Oriented to person, place, time. Cardiovascular: Capillary refill < 3 seconds Patient's skin is warm and dry. Respiratory: Airway is patent Respiratory effort is even, unlabored, Respiratory pattern is regular, symmetrical. GI: Abdomen is round non-distended, Reports upper abdominal pain, nausea, vomiting. : Reports pain in left flank(s). EENT: No signs and/or symptoms were reported regarding the EENT system. Derm: Skin is fragile, is thin, Skin temperature is warm. Musculoskeletal: Capillary refill < 3 seconds. 06:21 Reassessment: Patient and/or family updated on plan of care and expected duration. Pain ea level reassessed. Patient is alert, oriented x 3, equal unlabored respirations, skin warm/dry/pink. 07:24 Reassessment: pt resting in bed with eyes closed, even and unlabored respirations, call jd3 crespo in reach. General: Appears in no apparent distress. comfortable, Behavior is calm, cooperative, appropriate for age. Pain: Denies pain. Neuro: Level of Consciousness is awake, alert, obeys commands, Oriented to person, place, time, situation. Cardiovascular: Denies chest pain, Capillary refill < 3 seconds Patient's skin is warm and dry. Respiratory: Airway is patent Respiratory effort is even, unlabored, Respiratory pattern is regular, symmetrical, Denies cough, shortness of breath. GI: Abdomen is round non-distended. : No signs and/or symptoms were reported regarding the genitourinary system. EENT: No signs and/or symptoms were reported regarding the EENT system. Derm: Skin is intact, Skin is dry, Skin is normal, Skin temperature is warm. Musculoskeletal: Circulation, motion, and sensation intact. Range of motion: intact in all extremities. 08:21 Reassessment: Patient appears in no apparent distress at this time. Patient and/or jd3 family updated on plan of care and expected duration. Pain level reassessed. Patient is alert, oriented x 3, equal unlabored respirations, skin warm/dry/pink. 09:29 Reassessment: Patient appears in no apparent distress at this time. Patient and/or jd3 family updated on plan of care and expected duration. Pain level reassessed. Patient is alert, oriented x 3, equal unlabored respirations, skin warm/dry/pink. provider at bedside discussing plan of care. 10:09 Reassessment: Patient appears in no apparent distress at this time. Patient and/or jd3 family updated on plan of care and expected duration. Pain level reassessed. Patient is alert, oriented x 3, equal unlabored respirations, skin warm/dry/pink. Patient states feeling better. Patient states symptoms have improved. Vital Signs: 05:22 BP 130 / 42; Pulse 62; Resp 19; Temp 97.8; Pulse Ox 98% ; Pain 8/10; rr5 07:26 BP 132 / 59; Pulse 61; Resp 17 S; Pulse Ox 97% on R/A; jd3 09:19 BP 152 / 55; Pulse 55; Resp 16 S; Pulse Ox 96% on R/A; jd3 ED Course: 05:19 Patient arrived in ED. rr5 05:20 Sly Goff, RN is Primary Nurse. rr5 05:21 Patient has correct armband on for positive identification. Bed in low position. Call ea light in reach. Pulse ox on. NIBP on. 05:23 Triage completed. ea 05:23 Arm band placed on right wrist. Patient placed in an exam room, on a stretcher, on ea pulse oximetry. 05:28 Steve Barros MD is Attending Physician. melly 05:35 Inserted saline lock: 22 gauge in left wrist, using aseptic technique. Blood collected. ds4 06:09 EKG done, by ED staff, reviewed by Steve Barros MD. rr5 06:28 XRAY Chest (1 view) In Process Unspecified. EDMS 06:36 Attending Physician role handed off by Steve Barros MD kdr 06:36 Bertram Alvarenga MD is Attending Physician. kdr 07:07 CT Aorta for Dissection In Process Unspecified. EDMS 07:24 Urine Culture Sent. jd3 10:10 No provider procedures requiring assistance completed. IV discontinued, intact, jd3 bleeding controlled, No redness/swelling at site. Pressure dressing applied. Administered Medications: 06:04 Drug: morphine 2 mg {Note: rass 0.} Route: IVP; Site: left forearm; rr5 07:00 Follow up: Response: No adverse reaction; RASS: Alert and Calm (0) jd3 06:04 Drug: Zofran (Ondansetron) 4 mg Route: IVP; Site: left forearm; rr5 07:05 Follow up: Response: No adverse reaction rr5 06:06 Drug: NS 0.9% 1000 ml Route: IV; Rate: 125 ml/hr; Site: left forearm; rr5 10:17 Follow up: Response: No adverse reaction; IV Status: Order to discontinue infusion jd3 06:07 Drug: Pepcid 20 mg Route: IVP; Site: left forearm; rr5 07:05 Follow up: Response: No adverse reaction rr5 07:44 Drug: Aspirin 162 mg Route: PO; jd3 08:40 Follow up: Response: No adverse reaction jd3 Outcome: 09:40 Discharge ordered by . kdr 10:10 Condition: stable jd3 10:17 Discharged to home via wheelchair, with friend. jd3 10:17 Discharge instructions given to patient, Instructed on discharge instructions, follow up and referral plans. medication usage, Demonstrated understanding of instructions, follow-up care, medications, Prescriptions given X 2. 10:18 Patient left the ED. jd3 Signatures: Dispatcher [employer] EDSteve Clarke MD MD cha Rittger, Kevin, MD MD kdr Swanson, Donovan ds4 Laura Robert RN RN ea Davies, Jonathon, RN RN jd3 Sly Goff RN RN rr5
[2021-02-02 10:25] VITALS: TEMP 97.8
[2021-02-02 10:28] VITALS: BP 152/55; O2SAT 96
--- NOTE | 2021-02-03 06:46 | EKG ---
Test Date: 2021-02-02 Test Time: 05:44:54 Cryptologist: RR MEASUREMENT RESULTS: Intervals: Rate: 58 ND: 130 QRSD: 98 QT: 452 QTc: 443 [place]: P: -69 ND: 130 QRS: 81 T: 48 INTERPRETIVE STATEMENTS: Unusual P axis and short ND, probable junctional rhythm Abnormal ECG Compared to ECG 01/25/2021 18:36:23 Sinus bradycardia no longer present Right-axis deviation no longer present Myocardial infarct finding no longer present Electronically Signed On 02-03-21 06:44:30 CDT by Bertrand Swan
== END 2021-02-02 10:18 | disposition home or self-care (01) ==
LOC: ER 05:11
DX: R10.13 Epigastric pain (principal); M54.9 Dorsalgia, unspecified; I10 Essential (primary) hypertension; Z88.0 Allergy status to penicillin; Z88.1 Allergy status to other antibiotic agents
CPT/HCPCS: 96361; 93005; 87088; 85025; 87086; 80048; 36415; 83735; 85610; 80076; 81003; 84484; 83690; 83880; 71275; 74175; 71045; 96375; 96374; 99284; Q9967; J2270; J7030; J2405

== ENCOUNTER 2021-04-17 10:53 | Day surgery (SDC) | payer OTHER ==
[2021-04-14 11:00] VITALS: BMI 18.3
[2021-04-14 12:04] LABS: Absolute Lymphocytes (CBC) 1.3 K/uL (0.7-4.9); Basophils % 0.7 % (0-1.3); Hematocrit 33.3 % (36.0-45.0); Lymphocytes % 16.3 % (15.3-44.8); MPV 8.8 fL (7.6-11.3); RBC Red Blood Cell Count 4.02 M/uL (3.86-4.86)
[2021-04-14 12:08] LABS: Potassium 4.7 mmol/L (3.5-5.1)
[2021-04-14 12:20] LABS: Protime INR 0.93
[2021-04-17] MEDS ORDERED: NA CHLORIDE 0.9% 500 ML ONE (11:18)
[2021-04-17] MEDS ORDERED: HEPARIN 5000 UNIT/ML 1 ML VIAL ONE (12:13)
[2021-04-17] MEDS ORDERED: MIDAZOLAM HCL 2 MG/2 ML INJ ONE (12:14)
[2021-04-17] MEDS ORDERED: FENTANYL CITR 100 MCG/2 ML ONE (12:14)
[2021-04-17] MEDS ORDERED: VERAPAMIL HCL 10 MG/4 ML VIAL IV ONE (12:14)
[2021-04-17] MEDS ORDERED: NITROGLYCERIN 100 MCG/ML SYR (for cath lab use only) IV ONE (12:15)
[2021-04-17] MEDS ORDERED: NITROGLYCERIN/D5W 0 MG/0 ML BTL IV ONE (12:15)
[2021-04-17] MEDS ORDERED: ATROPINE SULF 1 MG/10 ML SYR IV ONE (12:15)
[2021-04-17] MEDS ORDERED: HEPARIN 10,000 UNIT/10 ML VIAL IV ONE (12:15)
[2021-04-17] MEDS ORDERED: LIDOCAINE 1% 20 ML MDV ONE (12:54)
[2021-04-17] MEDS ORDERED: HEPA 1000U/500MLS 1,000 UNIT/500 ML BAG IV ONE (14:17)
[2021-04-17 14:39] VITALS: TEMP 96.9
[2021-04-17 16:55] VITALS: O2SAT 95
[2021-04-17 18:10] VITALS: BP 113/61
--- NOTE | 2021-04-17 18:43 | OP ---
Date of Procedure: 04/17/2021 Surgeon: PEMA PRIETO Procedures Performed: 1.Selective coronary angiogram with bypass graft study. 2.Distal aortogram with bilateral peripheral angiogram with runoff. Access: Left femoral artery 4-Syrian closed with manual pressure. Complications: None. Bleeding: Less than 10 mL. Procedure In Detail: After risks, benefits, and alternatives were explained, the patient agreed to t he procedure and signed informed consent. We used ultrasound and fluoroscopy, accessed left femoral artery and placed a 4-Syrian [place] sheath. Then, we took a 4-Syrian JL4 catheter into the aortic root, engaged left main, took standard views and then JR4 catheter into the aortic root and took vernon dard views of the RCA and SVGs and DAVIS, and then we exchanged for a pigtail and was placed in distal aorta and performed a distal aortogram with runoff and then the pigtail was removed. Sheath was rem gerardo. Manual pressure was applied with good hemostasis. Findings: Left heart catheterization: 1.Left main has diffuse 50% stenosis. 2.LAD, ostial 80% to 90% and proximal 80% focal stenosis with patent DAVIS to distal LAD. 3.Left circumflex, proximal, 90% long, heavily calcified stenosis in the OM and QC MANAGER proximally with occluded SVG to OM. 4.RCA is totally occluded with occluded SVG graft to the RCA; however, there are good collaterals fr om the left circumflex filling the distal RCA. Grafts: 1.Patent DAVIS to LAD. 2.Occluded SVG to RCA and occluded SVG to OM. 3.Peripheral angiogram, distal aorta with significant atherosclerosis; however, is patent. On the r ight side, there is a QC MANAGER of the right common iliac right after the takeoff of the aorta; however, th ere is a flow in the right femoral artery, which is likely coming from the collaterals, but there is no filling down the artery through the aortogram all the way in the leg likely collateral that is com ing up from distal aorta. 4.On the left side, left common and left femoral artery with diffuse disease, heavily calcified with multiple areas of focal stenosis of 80% and then the profunda is patent and then the left SFA is pat ent with diffuse 10% to 20% stenosis and then [id number] circulation on the left is patent all th e way to the foot. Conclusions: 1.Severe [place] coronary artery disease with occluded SVG graft to RCA and OM as above. 2.Severe peripheral vascular disease, especially of the right lower extremity. Recommendations: 1.Staged PCI of the left circumflex with atherectomy in [place]. 2.Vascular Surgery evaluation for possible bypass surgery on the right lower extremity. SR/MODL Voice ID: [id number] Report ID: [id number]
== END 2021-04-17 18:10 | disposition home or self-care (01) ==
LOC: CCL 10:53
PROVIDERS: ATTEND Internal Medicine
DX: I25.10 Atherosclerotic heart disease of native coronary artery without angina pectoris (principal); I25.82 Chronic total occlusion of coronary artery; I70.203 Unspecified atherosclerosis of native arteries of extremities, bilateral legs; I70.92 Chronic total occlusion of artery of the extremities; E78.5 Hyperlipidemia, unspecified; F17.210 Nicotine dependence, cigarettes, uncomplicated; Z20.822 Contact with and (suspected) exposure to COVID-19; Z88.0 Allergy status to penicillin; Z88.3 Allergy status to other anti-infective agents; Z82.49 Family history of ischemic heart disease and other diseases of the circulatory system
CPT/HCPCS: 85025; 80048; 36415; 85610; 85730; 36200; 75630; 93455; U0003; C1893; J1644 ×2; J2250; J3010; J7040

== ENCOUNTER 2021-04-27 09:36 | Inpatient (IN) | payer OTHER ==
--- OUTSIDE RECORDS SUMMARY | 2021-04-27 09:44 | XMS REPORT | Continuity of Care Document ---
:1940 Author Organization [facility] t Address [address] [place] [address] Care Team Providers Name Role Phone Asked, Pcp Primary Care Physician Unavailable Payers Payer Name Policy Type Policy Number Effective Date Expiration Date S ource Problems This patient has no known problems. Allergies, Adverse Reactions, Alerts Allergy Allergy Status Severity Reaction(s) Onset Inactive Treating Comm ents Source Name Type Date Date Clinician ciproflo DA Active U [facility] xacin 5-28 Clear 00:00: [address] [place] Active [place] 2018-11 [facility] ins 0-04 Clear 00:00: [address] codeine [place] Active [place] 2018-11 [facility] 0-04 Clear 00:00: [address] [place] 2018-11 [facility] ins 0-03 [place] 00:00: [address] [place]ine [place] 2018- [facility] 0-03 [place] 00:00: [address] [place] [facility] ins 08-09 [place] 00:00: [address] codeine DA Active [place] 2018- [facility] 9- [place] 00:00: [address] [place] [facility] ins 03-07 [place] 00:00: [address] elton NELSON Active [place] 2009- [facility] 4-27 [place] 00:00: [address] Social History Social Habit Start Date Stop Date Quantity Comments Source Sex Assigned At [birth year] Jamie Wesley ethodist 00:00:00 00:00:00 Medications This patient has no known medications. Procedures This patient has no known procedures. Plan of Care Planned Activity Planned Date Details Comments Source Future Scheduled 2021-06-11 INFLUENZA VACCINE [place] [facility] 00:00:00 [code = INFLUENZA VACCINE] Future Scheduled 1990 SHINGLES VACCINES (#1) [place] [facility] 00:00:00 [code = SHINGLES VACCINES (#1)] Future Scheduled 1952 COVID-19 VACCINE (1) [facility] Test 00:00:00 [code = COVID-19 VACCINE (1)] Future Scheduled 1946 65+ PNEUMOCOCCAL [place] [facility] Test 00:00:00 VACCINE (1 of 2 - PPSV23) [code = 65+ PNEUMOCOCCAL VACCINE (1 of 2 - PPSV23)] Results Test Description Test Time Test Comments Results Result Comments Source SURG 2020-04-12 14:43:00 RUN DATE: 04/12/20 [facility] - LAB PAGE 1 RUN TIME: 1443 Specimen Inquiry RUN USER: INTERFACE PATIENT: RUTH LOCK ACCHaley #: [id number] LOC: Sterling Zelaya #: [id number] AGE/SX: 79/F [facility] DR: Harry Johns MD : 40 BED: 1 DIS: 04/09/20 STATUS: DIS IN TLOC: SPEC #: [id number] RECD: 04/08/20 STATUS: REESE REEdenilson #: [id number] TRANG: 04/08/[address]: Harry Johns MD ENTERED: 04/08/20 SP TYPE: SURG OTHR DR: DOES_NOT KNOW Self Referred Shane Palacio Jr, MD, Nizam Mohammad MDORDERED: SURG PATH LVL 02/10 COPIES TO: DOES_NOT KNOW Self Referred Shane Palacio Jr, MD [address] [facility] [address] [facility] [address] [place] [address] [place] [address] [email or web address] Rosario Nuñez MD [address] [address] HISTOLOGY: TISSUE ID BLK PCS RASHAWN LEV PROCEDURE DISPOSITION ____ ___ ___ ___ STOMACH, NOS A 1 2 STOMACH, NOS B 1 2 PROCEDURES: SURG PATH LVL 4 (04/08/20-1000) TISSUES: A. STOMACH, NOS - GASTRIC ULCER BIOPSY B. STOMACH, NOS - ANTRUM AND BODY BIOPSY CLINICAL HISTORY HTN/DM CONTINUED ON NEXT PAGE RUN DATE: 04/12/20 [facility] PAGE 2 RUN TIME: 1443 Specimen Inquiry RUN USER: INTERFACE SPEC #: [id number] PATIENT: RUTH LOCK #[id number] (Continued)--------- --- CPT CODES CPT CODE(S): 45257M6 , , , , , , FINAL [...] all as B. judi/nr Grossing performed at [facility] Pathology, [address] [place] [address], [address], [place] [address]. Closing Machine Operator: Julian Phan M.D. MICROSCOPIC DESCRIPTION A. Gastric [...] HCT) 29.2 % 31.5-44.1 L GLUCOSE BEDSIDE [id number] 12:16:00 Test Item Value Reference Range Interpretation Comments GLUCOSE BEDSIDE TESTING (test code 132 mg/dL 70-110 H = GLUBED) GLUCOSE BEDSIDE [id number] 07:57:00 Test Item Value Reference Range Interpretation Comments GLUCOSE BEDSIDE TESTING (test code = 85 mg/dL 70-110 N GLUBED) BASIC METABOLIC [id number] 06:28:00 Test Item Value Reference Range Interpretation [...] CA) 8.3 MG/DL 8.5-10.1 L CBC W/AUTO [id number] 06:22:00 Test Item Value Reference Range Interpretation [...] - XR KNEE 1 OR 2 V [id number] 23:00:00 Name: RUTH LOCK [place] : 1940 Age/S: 79 / F [address] [address] Unit #: [id number] Loc: [place] [address] Phys: Amy Pena MD Acct: [id number] Dis Date: Status: ADM IN PHONE #: [phone] Exam Date: 04/08/2020 2253 FAX #: Reason: right knee pain, s/p fall EXAMS: CPT: [id number] XR KNEE 1 OR 2 [place] [address] Fluoro Time: DAP (Gy m2): Air Kerma [...] PAGE 1 Signed Report Name: RUTH LOCK [place] : 1940 Age/S: 79 / F [address] [address] Unit #: [id number] Loc: [place] [address] Phys:Amy Pena MD Acct: [id number] Dis Date: Status: ADM IN PHONE #: [phone] Exam Date: 04/08/20202252 FAX #: Reason: right knee pain, s/p fall EXAMS: CPT: [id number] XR KNEE 1 OR 2 [place] RT [address]147 Fluoro Time: DAP (Gy m2): Air Kerma (mGy): <Continued> Technologist: Louann Ascencio, RT(R)(CT) Trnscb Date/Time: 04/08/2020 (2299) t.SDR.DRB1 Orig Print D/T: S: 04/08/2020 (2302) PAGE 2 Signed ReportGLUCOSE BEDSIDE TESTING 2020-04-08 20:40:00 Test Item Value Reference Range Interpretation Comments GLUCOSE BEDSIDE TESTING (test code 131 mg/dL 70-110 H = GLUBED) HGB [id number] 17:56:00 Test Item Value Reference Range Interpretation Comments HEMOGLOBIN (test code = HGB) 8.9 G/DL 10.4-14.9 L HEMATOCRIT (test code = HCT) 27.0 % 31.5-44.1 L GLUCOSE BEDSIDE [id number] 16:53:00 Test Item Value Reference Range Interpretation Comments GLUCOSE BEDSIDE TESTING (test code = 90 mg/dL 70-110 N GLUBED) GLUCOSE BEDSIDE [id number] 12:20:00 Test Item Value Reference Range Interpretation Comments GLUCOSE BEDSIDE TESTING (test code = 90 mg/dL 70-110 N GLUBED) HGB [id number] 09:51:00 Test Item Value Reference Range Interpretation Comments HEMOGLOBIN (test code = HGB) 10.0 G/DL 10.4-14.9 L HEMATOCRIT (test code = HCT) 31.2 % 31.5-44.1 L GLUCOSE BEDSIDE [id number] 09:42:00 Test Item Value Reference Range Interpretation Comments GLUCOSE BEDSIDE TESTING (test code = 91 mg/dL 70-110 N GLUBED) HGB [id number] 01:53:00 Test Item Value Reference Range Interpretation Comments HEMOGLOBIN (test code = HGB) 6.8 G/DL 10.4-14.9 L HEMATOCRIT (test code = HCT) 22.1 % 31.5-44.1 L GLUCOSE BEDSIDE [id number] 21:24:00 Test Item Value Reference Range Interpretation Comments GLUCOSE BEDSIDE TESTING (test code 106 mg/dL 70-110 N = GLUBED) HGB [id number] 17:29:00 Test Item Value Reference Range Interpretation Comments HEMOGLOBIN (test code = HGB) 7.2 G/DL 10.4-14.9 L HEMATOCRIT (test code = HCT) 22.5 % 31.5-44.1 L GLUCOSE BEDSIDE [id number] 17:06:00 Test Item Value Reference Range Interpretation Comments GLUCOSE BEDSIDE TESTING (test code 102 mg/dL 70-110 N = GLUBED) Coronavirus 2018 nCoV [id number] 13:34:00 Test Item Value Reference Range Interpretation Comments Coronavirus 2019 nCoV Bedside (test Negative code = COVNONPUIBED) GLUCOSE BEDSIDE [id number] 12:01:00 Test Item Value Reference Range Interpretation Comments GLUCOSE BEDSIDE TESTING (test code = 96 mg/dL 70-110 N GLUBED) HGB [id number] 08:55:00 Test Item Value Reference Range Interpretation Comments HEMOGLOBIN (test code = HGB) 7.1 G/DL 10.4-14.9 L HEMATOCRIT (test code = HCT) 22.6 % 31.5-44.1 L GLUCOSE BEDSIDE [id number] 08:02:00 Test Item Value Reference Range Interpretation Comments GLUCOSE BEDSIDE TESTING (test code = 95 mg/dL 70-110 N GLUBED) [id number] 03:21:00 Test Item Value Reference Range Interpretation Comments GLYCOSYLATED HEMOGLOBIN (HA1C) 5.8 % A1C 0.0-5.7 H (test code = GLYHGB) ESTIMATED AVERAGE GLUCOSE (test 120 MG/DLest code = EAG) CBC W/AUTO [id number] 03:03:00 Test Item Value Reference Range Interpretation [...] = NO DIFF/SCN CRITERIA MDIFF) COMPREHENSIVE METABOLIC [id number] 02:44:00 Test Item Value Reference Range Interpretation [...] TOTAL (test code = ALKP) COMPREHENSIVE METABOLIC [id number] 06:20:00 Test Item Value Reference Range Interpretation [...] N (test code = ALKP) COMPREHENSIVE METABOLIC [id number] 06:19:00 Test Item Value Reference Range Interpretation [...] N (test code = ALKP) COMPREHENSIVE METABOLIC [id number] 06:18:00 Test Item Value Reference Range Interpretation [...] 38-126 (test code = ALKP) COMPREHENSIVE METABOLIC [id number] 06:16:00 Test Item Value Reference Range Interpretation [...] = UNITS/L 38-126 ALKP) - XR CHEST [id number] 07:39:00 Patient Name: RUTH LOCK Unit No: [id number] EXAMS: CPT CODE: [id number] XR CHEST 1V 63110 EXAM: Portable chest x-ray Dictation location: [id number]: Chest x-ray performed one day prior INDICATION: [...] Palacio MD; Erica Burgess MD; Kristan Trejo PIPELINE INSPECTOR Technologist: Lary Lewis (RT)(R) Transcrpt Date/Tm/Trnsp: 08/21/2019(0739) t.SDR.BC0 [facility] NAME: RUTH LOCK [address] PHYS: KRIST[place] [address] : 1940 AGE: 79 SEX: F LOC: ZNini A PHONE #: [phone] EXAM DATE: 08/21/2019 STATUS:ADM IN FAX #: [phone] RADIOLOGY NO: PAGE 1 Signed ReportBASIC METABOLIC [id number] 06:44:00 Test Item Value Reference Range Interpretation [...] 8.7 MG/DL 8.4-10.2 N CA) BASIC METABOLIC [id number] 06:43:00 Test Item Value Reference Range Interpretation [...] code = MG/DL 8.7-9.7 CA) BASIC METABOLIC [id number] 06:41:00 Test Item Value Reference Range Interpretation [...] code = CA) MG/DL 8.7-9.7 BASIC METABOLIC [id number] 06:39:00 Test Item Value Reference Range Interpretation [...] = CA) MG/DL 8.7-9.7 - XR CHEST [id number] 07:45:00 Patient Name: RUTH LOCK Unit No: [id number] EXAMS: CPT CODE: [id number] XR CHEST 1V 65513 EXAM: Chest x-ray Dictation location: B2 COMPARISON: [...] t.SDR.BC0 Orig Print D/T: S: 08/20/2019 (0748) [facility] NAME: RUTH LOCK [address] PHYS: [place] [address] : 1940 AGE: 79 SEX: F LOC: ZEsmer361 A PHONE #: [phone] EXAM DATE: 08/20/2019 STATUS: ADM IN FAX #: [phone] RADIOLOGY NO: PAGE 1 Signed ReportBASIC METABOLIC [id number] 06:44:00 Test Item Value Reference Range Interpretation [...] 8.5 MG/DL 8.4-10.2 N CA) BASIC METABOLIC [id number] 06:43:00 Test Item Value Reference Range Interpretation [...] code = MG/DL 8.7-9.7 CA) BASIC METABOLIC [id number] 06:40:00 Test Item Value Reference Range Interpretation [...] = CA) MG/DL 8.7-9.7 - XR CHEST [id number] 09:35:00 Patient Name: RUTH LOCK Unit No: [id number] EXAMS: CPT CODE: [id number] XR CHEST 1V 61450 LOCATION: T18 EXAM: CHEST 1 VIEW INDICATION: [...] Palacio MD; Erica Burgess MD; Kristan Trejo PIPELINE INSPECTOR Technologist: [facility] STUDENT ; Cr Barton (RT) (R) Transcrpt Date/Tm/Trnsp: 08/19/2019 (0935) t.SDR.JP19 Orig Print D/T: S: 08/19/2019 (0938) [facility] NAME: RUTH LOCK [address] [address] PHYS: KRIST[place] [address] : 1940 AGE: 79 SEX: F LOC: Z.361 A PHONE #: [phone] EXAM DATE: 08/19/2019 STATUS: ADM IN FAX #: [phone] RADIOLOGY NO: PAGE 1 Signed Report- XR CHEST [id number] 07:42:00 Patient Name: RUTH LOCK Unit No: [id number] EXAMS: CPT CODE: [id number] XR CHEST 1V 65077 Chest Radiograph History: post CT Comparison: August [...] t.SDR.PMT Orig Print D/T: S: 08/19/2019 (0745) [facility] NAME: RUTH LOCK[address] PHYS: [place] [address] : 1940 AGE: 79 SEX: F LOC: Z.361 A PHONE #: [phone] EXAM DATE: 08/19/2019 STATUS: ADM IN FAX #: [phone] RADIOLOGY NO: PAGE 1 Signed ReportCOMPREHENSIVE METABOLIC [id number] 07:17:00 Test Item Value Reference Range Interpretation [...] N (test code = ALKP) COMPREHENSIVE METABOLIC [id number] 07:16:00 Test Item Value Reference Range Interpretation [...] N (test code = ALKP) COMPREHENSIVE METABOLIC [id number] 07:15:00 Test Item Value Reference Range Interpretation [...] 38-126 (test code = ALKP) COMPREHENSIVE METABOLIC [id number] 07:13:00 Test Item Value Reference Range Interpretation [...] code = UNITS/L 38-126 ALKP) COMPREHENSIVE METABOLIC [id number] 07:13:00 Test Item Value Reference Range Interpretation [...] code = UNITS/L 38-126 ALKP) CBC W/AUTO [id number] 06:51:00 Test Item Value Reference Range Interpretation [...] 0.00 K/mm3 0.0-0.1 N NRBC#) CBC W/AUTO [id number] 13:00:00 Test Item Value Reference Range Interpretation [...] 08/18/19 AT 1247 BY Ana Loomis METABOLIC [id number] 05:14:00 Test Item Value Reference Range Interpretation [...] N (test code = ALKP) COMPREHENSIVE METABOLIC [id number] 05:11:00 Test Item Value Reference Range Interpretation [...] code = UNITS/L 38-126 ALKP) COMPREHENSIVE METABOLIC [id number] 04:44:00 Test Item Value Reference Range Interpretation [...] 38-126 (test code = ALKP) COMPREHENSIVE METABOLIC [id number] 04:21:00 Test Item Value Reference Range Interpretation [...] = UNITS/L 38-126 ALKP) - XR CHEST [id number] 09:06:00 Patient Name: RUTH LOCK Unit No: [id number] EXAMS: CPT CODE: [id number] XR CHEST 1V 00722 Location: T 18 Chest x-ray exam, portable [...] Lewis (RT)(R) Transcrpt Date/Tm/Trnsp: 08/16/2019 (0906) GuidoDAS6 [facility] NAME: RUTH LOCK [address] [address] PHYS: [place] [address] : 1940 AGE: 79 SEX: F LOC: Z.SI06 A PHONE #: [phone] EXAM DATE: 08/16/2019 STATUS: ADM IN FAX #: [phone] RADIOLOGY NO: PAGE 1 Signed ReportCOMPREHENSIVE METABOLIC [...] N (test code = ALKP) COMPREHENSIVE METABOLIC [id number] 05:16:00 Test Item Value Reference Range Interpretation [...] 38-126 (test code = ALKP) COMPREHENSIVE METABOLIC [id number] 05:15:00 Test Item Value Reference Range Interpretation [...] code = UNITS/L 38-126 ALKP) COMPREHENSIVE METABOLIC [id number] 05:14:00 Test Item Value Reference Range Interpretation [...] = UNITS/L 38-126 ALKP) - XR CHEST [id number] 07:30:00 Patient Name: RUTH LOCK Unit No: [id number] EXAMS: CPT CODE: [id number] XR CHEST 1V 30949 Portable AP chest, 1 view Location Code: [...] MD CC: Cj Palacio MD; DANIEL GRIFFITH [facility]; Erica Burgess MD Technologist: Flaco Puentes, RT(R) Transcrpt Date/Tm/Trnsp: 08/15/2019 (0730) GuidoRAO1 Orig Print D/T: S: 08/15/2019 (6833) [facility] NAME: RUTH LOCK [address] [address] PHYS: [place] [address] : 1940 AGE: 79 SEX: F LOC: Z.SI06 A PHONE #: [phone] EXAM DATE: 08/15/2019 STATUS: ADM IN FAX #: [phone] RADIOLOGY NO: PAGE 1 Signed ReportCOMPREHENSIVE METABOLIC [...] N (test code = ALKP) COMPREHENSIVE METABOLIC [id number] 06:52:00 Test Item Value Reference Range Interpretation [...] 38-126 (test code = ALKP) COMPREHENSIVE METABOLIC [id number] 06:50:00 Test Item Value Reference Range Interpretation [...] code = UNITS/L 38-126 ALKP) COMPREHENSIVE METABOLIC [id number] 06:49:00 Test Item Value Reference Range Interpretation [...] code = UNITS/L 38-126 ALKP) ARTERIAL BLOOD [id number] 05:52:00 Test Item Value Reference Range Interpretation [...] = COHBGFFIO2) 30 % - XR CHEST [id number] 09:31:00 Patient Name: RUTH LOCK Unit No: [id number] EXAMS: CPT CODE: [id number] XR CHEST 1V 06375 STUDY: Chest radiograph HISTORY: Ventilator COMPAR SAADIA: [...] MD CC: Cj Palacio MD; DANIEL GRIFFITH [facility] JIAN;Erica Burgess MD Technologist: RT Umm(R) Transcrpt Date/Tm/Trnsp: 08/14/2019 (930) t.DARRELLR.RH16 Orig Print D/T: S: 08/14/2019 (0934)[facility] NAME: RUTH LOCK [address] [address] PHYS: JIANTO - EDDIE,[place] [address] : 1940AGE: 79 SEX: F LOC: Z.SI06 A PHONE #: [phone] EXAM DATE: 08/14/2019 STATUS: ADM IN FAX #: [phone] RADIOLOGY NO: PAGE 1 Signed ReportCOMPREHENSIVE METABOLIC [id number] 07:30:00 Test Item Value Reference Range Interpretation [...] N (test code = ALKP) COMPREHENSIVE METABOLIC [id number] 07:25:00 Test Item Value Reference Range Interpretation [...] 38-126 (test code = ALKP) COMPREHENSIVE METABOLIC [id number] 07:23:00 Test Item Value Reference Range Interpretation [...] code = UNITS/L 38-126 ALKP) COMPREHENSIVE METABOLIC [id number] 07:23:00 Test Item Value Reference Range Interpretation [...] code = UNITS/L 38-126 ALKP) COMPREHENSIVE METABOLIC [id number] 07:23:00 Test Item Value Reference Range Interpretation [...] code = UNITS/L 38-126 ALKP) ARTERIAL BLOOD [id number] 03:50:00 Test Item Value Reference Range Interpretation [...] FIO2 (test code = COHBGFFIO2) 35 % [id number] 20:05:00 Test Item Value Reference Range Interpretation Comments SODIUM (test code = NA) 132 MMOL/L 137-145 L UNABLE TO DRAW BLOOD, REASON: CBN NOTIFIED PATIENT CARE STAFF: SANDHYA HADDAD 08/13/19 AT 1933 BY Tolu Virgen METABOLIC [id number] 18:07:00 Test Item Value Reference Range Interpretation [...] 8.0 MG/DL 8.4-10.2 L CA) BASIC METABOLIC [id number] 18:06:00 Test Item Value Reference Range Interpretation [...] code = MG/DL 8.7-9.7 CA) BASIC METABOLIC [id number] 18:04:00 Test Item Value Reference Range Interpretation [...] code = CA) MG/DL 8.7-9.7 BASIC METABOLIC [id number] 18:03:00 Test Item Value Reference Range Interpretation [...] CALCIUM (test code = CA) MG/DL 8.7-9.7 [id number] 17:56:00 Test Item Value Reference Range Interpretation Comments SODIUM (test code = NA) 132 MMOL/L 137-145 L - XR CHEST [id number] 10:44:00 Patient Name: RUTH LOCK Unit No: [id number] EXAMS: CPT CODE: [id number] XR CHEST 1V 64636 Site ID: [id number] Portable AP chest x [...] MD CC: Cj Palacio MD; DANIEL GRIFFITH [facility] CURL; Erica Burgess MD Technologist: Emperatriz Khan, RT(R) Transcrpt Date/Tm/Trnsp: 08/13/2019 (1044) t.DARRELLR.AJP6 OrigPrint D/T: S: 08/13/2019 (1048) [facility] NAME: RUTH LOCK [address] [address] PHYS: CURTO - CURL,[place] [address] : 1940 AGE: 79 SEX: F LOC: Z.SI06 A PHONE #: [phone] EXAM DATE: 08/13/2019 STATUS: ADM IN FAX #: [phone] RADIOLOGY NO: PAGE 1 Signed ReportARTERIAL BLOOD [id number] 10:43:00 Test Item Value Reference Range Interpretation [...] FLOW NC Edited by: FLOR PATIÑO on 08/13/19:608070 9 1042: DELIVE RY previously repo rted [...] code = 60 % COHBGFFIO2) ARTERIAL BLOOD [id number] 06:06:00 Test Item Value Reference Range Interpretation [...] to and readback by Dr. Molina by GRAHAMLMR at 08/13/2019 6:05: 15 AM ABG DELIVERY [...] code = 35 % COHBGFFIO2) COMPREHENSIVE METABOLIC [id number] 04:55:00 Test Item Value Reference Range Interpretation [...] UNITS/L 38-126 N (test code = ALKP) [id number] 04:55:00 Test Item Value Reference Range Interpretation Comments MAGNESIUM (test code = MAG) 1.8 MG/DL 1.6-2.3 N COMPREHENSIVE METABOLIC [id number] 04:54:00 Test Item Value Reference Range Interpretation [...] UNITS/L 38-126 N (test code = ALKP) [id number] 04:54:00 Test Item Value Reference Range Interpretation Comments MAGNESIUM (test code = MAG) MG/DL 1.6-2.3 COMPREHENSIVE METABOLIC [id number] 04:52:00 Test Item Value Reference Range Interpretation [...] PHOSPHATASE (test code = UNITS/L 38-126 ALKP) [id number] 04:52:00 Test Item Value Reference Range Interpretation Comments MAGNESIUM (test code = MAG) MG/DL 1.6-2.3 COMPREHENSIVE METABOLIC [id number] 04:51:00 Test Item Value Reference Range Interpretation [...] PHOSPHATASE (test code = UNITS/L 38-126 ALKP) [id number] 04:51:00 Test Item Value Reference Range Interpretation Comments MAGNESIUM (test code = MAG) MG/DL 1.6-2.3 CBC W/AUTO [id number] 04:41:00 Test Item Value Reference Range Interpretation [...] 0.00 K/mm3 0.0-0.1 N NRBC#) ARTERIAL BLOOD [id number] 14:25:00 Test Item Value Reference Range Interpretation [...] code = 60 % COHBGFFIO2) ARTERIAL BLOOD [id number] 14:17:00 Test Item Value Reference Range Interpretation [...] (test code = 40 % COHBGFFIO2) LACTIC [id number] 11:20:00 Test Item Value Reference Range Interpretation Comments LACTIC ACID (test code = LACT) 1.0 MMOL/L 0.7-2.1 N UNABLE TO DRAW BLOOD, REASON: CBNNOTIFIED PATIENT CARE STAFF: SOLIS MCKEON 08/12/19 AT 1101 BY Tapan EppsnB-TYPE NATRIURETIC [id number] 09:42:00 Test Item Value Reference Range Interpretation Comments B-TYPE NATRIURETIC PEPTIDE (test 1186.0 PG/ML 0-100 H code = BNP) - XR CHEST [id number] 09:18:00 Patient Name: RUTH LOCK Unit No: [id number] EXAMS: CPT CODE: [id number] XR CHEST 1V 76344 STUDY: Chest radiograph HISTORY: Intubated ELAINAI SON: [...] MD CC: Cj Palacio MD; [facility]; Erica Burgess MD Technologist: Cr Barton (RT) (R) Transcrpt Date/Tm/Trnsp: 08/12/2019 (0918) t.SDR.RH16 Orig Print D/T: S: 08/12/2019 (920) [facility] NAME: RUTH LOCK [address] [address] PHYS: DANIEL LEWIS [employer] [place] [address] : 1940 AGE: 79 SEX: F LOC: Z.SI06 A PHONE #: [phone] EXAM DATE: 08/12/2019 STATUS: ADM INFAX #: [phone] RADIOLOGY NO: PAGE 1 Signed ReportARTERIAL BLOOD [id number] 08:46:00 Test Item Value Reference Range Interpretation [...] = 60 % COHBGFFIO2) - XR CHEST [id number] 08:38:00 Patient Name: RUTH LOCK Unit No: [id number] EXAMS: CPT CODE: [id number] XR CHEST 1V 12403 Single View Chest. Location: B2 Clinical Indication: [...] Burgess MD Technologist: Lauren Cardona, RT (R); [facility] STUDENT Transcrpt Date/Tm/Trnsp: 08/12/2019 (0838) GuidoRB24 Orig Print D/T: S: 08/12/2019 (0842) [facility] NAME: RUTH LOCK [address] [address] PHYS: [place] [address] : 1940 AGE: 79 SEX: F LOC: Z.SI06 A PHONE #: [phone] EXAM DATE: 08/12/2019 STATUS: ADM IN FAX #: [phone] RADIOLOGY NO: PAGE 1 Signed ReportBASIC METABOLIC [id number] 06:55:00 Test Item Value Reference Range Interpretation [...] code = 8.6 MG/DL 8.4-10.2 N CA) [id number] 06:55:00 Test Item Value Reference Range Interpretation Comments MAGNESIUM (test code = MAG) 1.8 MG/DL 1.6-2.3 N BASIC METABOLIC [id number] 06:54:00 Test Item Value Reference Range Interpretation [...] CALCIUM (test code = MG/DL 8.7-9.7 CA) [id number] 06:54:00 Test Item Value Reference Range Interpretation Comments MAGNESIUM (test code = MAG) MG/DL 1.6-2.3 BASIC METABOLIC [id number] 06:51:00 Test Item Value Reference Range Interpretation [...] CALCIUM (test code = CA) MG/DL 8.7-9.7 [id number] 06:51:00 Test Item Value Reference Range Interpretation Comments MAGNESIUM (test code = MAG) MG/DL 1.6-2.3 CBC W/AUTO [id number] 06:49:00 Test Item Value Reference Range Interpretation [...] 0.00 K/mm3 0.0-0.1 N NRBC#) ARTERIAL BLOOD [id number] 03:48:00 Test Item Value Reference Range Interpretation [...] code = 30 % COHBGFFIO2) ARTERIAL BLOOD [id number] 19:46:00 Test Item Value Reference Range Interpretation [...] TEMPA) ABG SITE (test code = SITEA) DAREN RUIZ TEST (test code = ALLENS) NA CHECK FIO2 (test code = COHBGFFIO2) 28 % ARTERY,[id number] 15:32:00 RUN DATE: 08/11/19 [facility] PAGE 1 RUN TIME: 1533 Specimen Inquiry RUN USER: INTERFACE PATIENT: RUTH LOCK LOC: MONY U #: [id number] AGE/SX: 79/F ROOM: DARON RE08/07/19REG DR: Ankit Love MD : 40 BED: A DIS: STATUS: ADM IN TLOC: SPEC #: [id number]:[id number] RECD: 08/10/19 STATUS: REESE REQ #: [id number] TRANG: 08/10/19-[address]: Ankit Love MD ENTERED: 08/10/19-1601 SP TYPE: ARTERY, PL OTHR DR: April Escamilla MD, David E MD Dabaghi, Salim F MD Karim, Nioti R MD Patel, Rupert MDORDERED: DECAL, SURG PATH LVL 3, SURG PATH LVL 4 CODES: [id number] - PLAQUE, NOS [id number] - ARTERY, NOS [id number] - CAROTID ARTERY ATHEROSCLEROSIS [id number] - CERVIX EXCISIONAL BIOP [id number] - LY MPH NODE, NOS COPIES [place]: [place] [address] [place] [address] [email or web address] [facility] [facility] [address] [place] [id number] Erica Burgess MD [address] [place] [address] [address] [place] [id number] [email or web address] [address] [place] [address] [place] [address] [facility] [address] [place] [address] Eric Lamas MD [address] [place] [id number] CONTINUED ON NEXT PAGE RUN DATE: 08/11/19 [facility] PAGE 2 RUN TIME: 1533 Specimen Inquiry RUN USER: INTERFACE SPEC #: [id number]:[id number] PATIENT: RUTH LOCK #[id number] (Continued) ICD CODES: 440 - PROCEDURES: DECAL (08/10/19-1601) SURG PATH LVL 3 (08/10/19) SURG PATH LVL 4 (08/10/191601) TISSUES: A. ARTERY, NOS - LEFT CAROTID PLAQUE B. LYMPH NODE, NOS - LEFT CERVICAL LYMPH NODE CLINICAL HISTORY LEFT INTERNAL CAROTID ENDARTECTOMY CPT CODES CPT CODE(S): 26660 , 27400 , 96464 , , , , FINAL DIAGNOSIS A. Plaque, left carotid artery, endarterectomy: SEVERE ATHEROSCLEROSIS B. Lymph node, left cervical, excisional biopsy: MILD, NONSPECIFIC, REACTIVE CHANGE GROSS DESCRIPTION A. Left carotid plaque. Received in formalin is a Y-shaped yellow-cohen material, grossly consistent with plaque, 3.0 x 1.2 x 0.5 cm. The cut surface is yellow-cohen and solid with focal gritty areas. Molding Engineer sections submitted following decalcification labeled A. B. [...] 08/11/19 1532 END OF REPORT ARTERIAL BLOOD [id number] 13:58:00 Test Item Value Reference Range Interpretation [...] = COHBGFFIO2) 60 % - XR CHEST [id number] 13:01:00 Patient Name: RUTH LOCK Unit No: [id number] EXAMS: CPT CODE: [id number] XR CHEST 1V 70445 STUDY: Chest radiograph HISTORY: Extubation. GEORGES RISON: [...] (1301) t.SDR.RH16 Orig Print D/T: S: 08/11/2019 (1234) [facility] NAME: RUTH LOCK [address] PHYS: [place] [address] : 1940 AGE: 79 SEX: F LOC: Z.SI06 A PHONE #: [phone] EXAM DATE: 08/11/2019 STATUS: ADM IN FAX #: [phone] RADIOLOGY NO: PAGE 1 Signed ReportARTERIAL BLOOD [id number] 12:05:00 Test Item Value Reference Range Interpretation [...] = 30 % COHBGFFIO2) - XR CHEST [id number] 08:16:00 Patient Name: RUTH LOCK Unit No: [id number] EXAMS: CPT CODE: [id number] XR CHEST 1V 62948 REASON FOR EXAM: Respiratory distress, ventilator. COMPARISON: [facility] 2018. Chest, portable single frontal view. The [...] Fowler MD CC: Cj Dodson; DANIEL GRIFFITH [facility] CURL; Erica Burgess MD Technologist: Emperatriz Khan, RT(R) Transcrpt Date/Tm/Trnsp: 08/11/2019 (0816) Jennifer Orig Print D/T: S: 08/11/2019 (08) [facility] NAME: RUTH LOCK[address] PHYS: CURTO - CURL,DANIELKul[place] [address] : 1940 AGE: 79 SEX: F LOC: Z.SI06 A PHONE #: [phone] EXAM DATE: 08/11/2019 STATUS: ADM IN FAX #: [phone] RADIOLOGY NO: PAGE 1 Signed ReportARTERIAL BLOOD [id number] 05:35:00 Test Item Value Reference Range Interpretation [...] code = COHBGFFIO2) 30 % COMPREHENSIVE METABOLIC [id number] 04:57:00 Test Item Value Reference Range Interpretation [...] 70 UNITS/L 38-126 (test code = ALKP) [id number] 04:57:00 Test Item Value Reference Range Interpretation Comments MAGNESIUM (test code = MAG) 2.0 MG/DL 1.6-2.3 N COMPREHENSIVE METABOLIC [id number] 04:49:00 Test Item Value Reference Range Interpretation [...] PHOSPHATASE (test code = UNITS/L 38-126 ALKP) [id number] 04:49:00 Test Item Value Reference Range Interpretation Comments MAGNESIUM (test code = MAG) MG/DL 1.6-2.3 COMPREHENSIVE METABOLIC [id number] 04:48:00 Test Item Value Reference Range Interpretation [...] PHOSPHATASE (test code = UNITS/L 38-126 ALKP) [id number] 04:48:00 Test Item Value Reference Range Interpretation Comments MAGNESIUM (test code = MAG) MG/DL 1.6-2.3 CBC W/AUTO [id number] 04:37:00 Test Item Value Reference Range Interpretation [...] code = 0.00 K/mm3 0.0-0.1 N NRBC#) [id number] 00:36:00 Test Item Value Reference Range Interpretation Comments POTASSIUM (test code = K) 3.9 MMOL/L 3.5-5.1 N [id number] 00:36:00 Test Item Value Reference Range Interpretation Comments CALCIUM (test code = CA) MG/DL 8.7-9.7 [id number] 00:36:00 Test Item Value Reference Range Interpretation Comments MAGNESIUM (test code = MAG) 2.1 MG/DL 1.6-2.3 N [id number] 00:36:00 Test Item Value Reference Range Interpretation Comments POTASSIUM (test code = K) 3.9 MMOL/L 3.5-5.1 N [id number] 00:36:00 Test Item Value Reference Range Interpretation Comments CALCIUM (test code = CA) 8.5 MG/DL 8.4-10.2 N [id number] 00:36:00 Test Item Value Reference Range Interpretation Comments MAGNESIUM (test code = MAG) 2.1 MG/DL 1.6-2.3 N [id number] 00:33:00 Test Item Value Reference Range Interpretation Comments POTASSIUM (test code = K) 3.9 MMOL/L 3.5-5.1 N [id number] 00:33:00 Test Item Value Reference Range Interpretation Comments CALCIUM (test code = CA) MG/DL 8.7-9.7 [id number] 00:33:00 Test Item Value Reference Range Interpretation Comments MAGNESIUM (test code = MAG) MG/DL 1.6-2.3 ARTERIAL BLOOD [id number] 20:54:00 Test Item Value Reference Range Interpretation [...] code = COHBGFFIO2) 21 % ARTERIAL BLOOD [id number] 17:23:00 Test Item Value Reference Range Interpretation [...] = COHBGFFIO2) 45 % POC ARTERIAL BLOOD [id number] 17:09:00 Test Item Value Reference Range Interpretation Comments POC ARTERIAL BLOOD GAS PH (test 7.417 7.35-7.45 N code = POCPHA) POC ARTERIAL BLOOD GAS PCO2 (test 36.3 mmHg 35.0-45.0 N code = UFUBKB8U) POC ARTERIAL BLOOD GAS PO2 (test 472 75.0-100.0 HH code = RMIJK0U) POC HCO3 ARTERIAL (test code = 23.4 MMOL/L 20.0-26.0 N FDRMZH1Q) POC BASE EXCESS (test code = -1.0 [...] 0.87 MMOL/L 0.4-2.0 N POCLAC) B-TYPE NATRIURETIC [id number] 17:05:00 Test Item Value Reference Range Interpretation Comments B-TYPE NATRIURETIC PEPTIDE (test 1101.0 PG/ML 0-100 H code = BNP) - XR CHEST [id number] 16:55:00 Patient Name: RUTH LOCK Unit No: [id number] EXAMS: CPT CODE: [id number] XR CHEST 1V 12271 STUDY: Chest radiograph HISTORY: Intubation. GEORGES RISON: [...] No additional significant interval anibal valladares at 1654 Reported and signed by: Ankit Carroll MD CC: Cj Palacio MD; Erica Burgess MD; Yun Brothers MD Technologist: CHIDI Schwartz, RT(R) Transcrpt Date/Tm/Trnsp: 08/10/2019 (9923) Jermain.RH16 Orig Print D/T: S: 08/10/2019 (8314) [facility] NAME: RUTH LOCK [address] PHYS: [place] [address] : 1940 AGE: 79 SEX: F LOC: ZEsmerSI06 A PHONE #: [phone] EXAM DATE: 08/10/2019 STATUS: ADM IN FAX #: [phone] RADIOLOGY NO: PAGE 1 Signed ReportCOMPREHENSIVE METABOLIC [id number] 16:54:00 Test Item Value Reference Range Interpretation [...] UNITS/L 38-126 N (test code = ALKP) [id number] 16:54:00 Test Item Value Reference Range Interpretation Comments PHOSPHOROUS (test code = PHOS) 3.2 MG/DL 2.5-4.5 N [id number] 16:54:00 Test Item Value Reference Range Interpretation [...] 2 ng/mL are obtai richie. COMPREHENSIVE METABOLIC [id number] 16:42:00 Test Item Value Reference Range Interpretation [...] UNITS/L 38-126 N (test code = ALKP) [id number] 16:42:00 Test Item Value Reference Range Interpretation Comments PHOSPHOROUS (test code = PHOS) 3.2 MG/DL 2.5-4.5 N [id number] 16:42:00 Test Item Value Reference Range Interpretation Comments MAGNESIUM (test code = MAG) 1.9 MG/DL 1.6-2.3 N PROCALCITONIN (PCT)2019-08-10 16:42:00 Test Item Value Reference Range Interpretation Comments PROCALCITONIN (PCT) (test code = NG/ML PROCAL) LACTIC [id number] 16:38:00 Test Item Value Reference Range Interpretation Comments LACTIC ACID (test code = LACT) 1.1 MMOL/L 0.7-2.1 N COMPREHENSIVE METABOLIC [id number] 16:37:00 Test Item Value Reference Range Interpretation [...] PHOSPHATASE (test code = UNITS/L 38-126 ALKP) [id number] 16:37:00 Test Item Value Reference Range Interpretation Comments PHOSPHOROUS (test code = PHOS) MG/DL 2.5-4.5 [id number] 16:37:00 Test Item Value Reference Range Interpretation Comments MAGNESIUM (test code = MAG) MG/DL 1.6-2.3 PROCALCITONIN (PCT)2019-08-10 16:37:00 Test Item Value Reference Range Interpretation Comments PROCALCITONIN (PCT) (test code = NG/ML PROCAL) BASIC METABOLIC [id number] 15:45:00 Test Item Value Reference Range Interpretation [...] code = 8.4 MG/DL 8.4-10.2 N CA) [id number] 15:45:00 Test Item Value Reference Range Interpretation Comments MAGNESIUM (test code = MAG) 1.9 MG/DL 1.6-2.3 N BASIC METABOLIC [id number] 15:38:00 Test Item Value Reference Range Interpretation [...] CALCIUM (test code = CA) MG/DL 8.7-9.7 [id number] 15:38:00 Test Item Value Reference Range Interpretation Comments MAGNESIUM (test code = MAG) MG/DL 1.6-2.3 CBC W/AUTO [id number] 15:37:00 Test Item Value Reference Range Interpretation [...] K/mm3 0.0-0.1 N NRBC#) - XR CHEST [id number] 15:32:00 Patient Name: RUTH LOCK Unit No: [id number] EXAMS: CPT CODE: [id number] XR CHEST 1V 99350 STUDY: Chest radiograph HISTORY: Postop. COMPARISON: 08/10/2019 [...] (1532) t.SDR.RH16 Orig Print D/T: S: 08/10/2019 (5870) [facility] NAME: RUTH LOCK [address] PHYS: [place] [address] : 1940 AGE: 79 SEX: F LOC: ZEsmerSI06 Aj PHONE #: [phone] EXAMDATE: 08/10/2019 STATUS: ADM IN FAX #: [phone] RADIOLOGY NO: PAGE1 Signed ReportARTERIAL BLOOD [id number] 15:24:00 Test Item Value Reference Range Interpretation [...] code = COHBGFFIO2) 98 % CHEMISTRY 8 [id number] 13:29:00 Test Item Value Reference Range Interpretation [...] = 6 0 ml/min/1.73 m2 CHEMISTRY 8 [id number] 13:29:00 Test Item Value Reference Range Interpretation [...] 6 0 ml/min/1.73 m2 - XR CHEST [id number] 08:13:00 Patient Name: RUTH LOCK Unit No: [id number] EXAMS: CPT CODE: [id number] XR CHEST 1V 87003 REASON FOR EXAM: Cardiorespiratory clearance for surgery. [...] t.SDR.RCM Orig Print D/T: S: 08/10/2019 (08) [facility] NAME: RUTH LOCK [id number] PHYS: [place] [address] : 1940 AGE: 79 SEX: F LOC: Z.355 A PHONE #: [phone] EXAM DATE: 08/10/2019 STATUS: ADM IN FAX #:[phone] RADIOLOGY NO: PAGE 1 Signed Report COMPREHENSIVE METABOLIC [id number] 07:04:00 Test Item Value Reference Range Interpretation [...] N (test code = ALKP) COMPREHENSIVE METABOLIC [id number] 07:02:00 Test Item Value Reference Range Interpretation [...] 38-126 (test code = ALKP) COMPREHENSIVE METABOLIC [id number] 07:00:00 Test Item Value Reference Range Interpretation [...] code = UNITS/L 38-126 ALKP) CBC W/AUTO [id number] 06:23:00 Test Item Value Reference Range Interpretation [...] 0.00 K/mm3 0.0-0.1 N NRBC#) BASIC METABOLIC [id number] 20:19:00 Test Item Value Reference Range Interpretation [...] 9.1 MG/DL 8.4-10.2 N CA) BASIC METABOLIC [id number] 20:05:00 Test Item Value Reference Range Interpretation [...] (test code = MG/DL 8.7-9.7 CA) PROTHROMBIN [id number] 20:04:00 Test Item Value Reference Range Interpretation [...] syste nidia embolism. 3.0 - 4.5 PTT [id number] 20:04:00 Test Item Value Reference Range Interpretation Comments PTT ACTIVATED (test code = APTT) 25.2 SECONDS 22.0-33.0 N BASIC METABOLIC [id number] 20:03:00 Test Item Value Reference Range Interpretation [...] code = CA) MG/DL 8.7-9.7 GLUCOSE BEDSIDE [id number] 17:16:00 Test Item Value Reference Range Interpretation Comments GLUCOSE BEDSIDE TESTING (test code 172 MG/DL 60-99 H = GLUBED) HCG SERUM [id number] 14:15:00 Test Item Value Reference Range Interpretation Comments HCG SERUM QUAL (test code = HCGQL) NEGATIVE NEGATIVE A ADD ONURINALYSIS [id number] 12:40:00 Test Item Value Reference Range Interpretation [...] UACULT) Criteria SOURCE OF URINE: CLEAN CATCHUA [id number] 12:40:00 Test Item Value Reference Range Interpretation Comments UA RBC (test code = RBCU) 5-10 RBC/HPF 0-3 A UA WBC (test code = XWBCU) >100 WBC/HPF 0-5 A UA EPITHELIAL CELLS (test code = FEW EPI/HPF FEW EPIU) UA BACTERIA (test code = XBACU) MANY NONE A UA MUCUS (test code = MUCU) SLIGHT #/LPF NONE SOURCE OF URINE: CLEAN CATCHURINALYSIS [id number] 12:33:00 Test Item Value Reference Range Interpretation [...] = UACULT) SOURCE OF URINE: CLEAN CATCHUA [id number] 12:33:00 Test Item Value Reference Range Interpretation Comments UA RBC (test code = RBCU) RBC/HPF 0-3 UA WBC (test code = XWBCU) WBC/HPF 0-5 UA EPITHELIAL CELLS (test code = EPI/HPF FEW EPIU) UA BACTERIA (test code = XBACU) NONE SOURCE OF URINE: CLEAN CATCHURINALYSIS [id number] 12:33:00 Test Item Value Reference Range Interpretation [...] = UACULT) SOURCE OF URINE: CLEAN CATCHUA [id number] 12:33:00 Test Item Value Reference Range Interpretation Comments UA RBC (test code = RBCU) RBC/HPF 0-3 UA WBC (test code = XWBCU) WBC/HPF 0-5 UA EPITHELIAL CELLS (test code = EPI/HPF FEW EPIU) UA BACTERIA (test code = XBACU) NONE SOURCE OF URINE: CLEAN CATCHCOMPREHENSIVE METABOLIC [id number] 06:13:00 Test Item Value Reference Range Interpretation [...] 38-126 (test code = ALKP) COMPREHENSIVE METABOLIC [id number] 06:04:00 Test Item Value Reference Range Interpretation [...] 38-126 (test code = ALKP) COMPREHENSIVE METABOLIC [id number] 06:03:00 Test Item Value Reference Range Interpretation [...] code = UNITS/L 38-126 ALKP) COMPREHENSIVE METABOLIC [id number] 06:02:00 Test Item Value Reference Range Interpretation [...] code = UNITS/L 38-126 ALKP) CBC W/AUTO [id number] 05:31:00 Test Item Value Reference Range Interpretation [...] 0.00 K/mm3 0.0-0.1 N NRBC#) BASIC METABOLIC [id number] 21:20:00 Test Item Value Reference Range Interpretation [...] 8.9 MG/DL 8.4-10.2 N CA) BASIC METABOLIC [id number] 21:12:00 Test Item Value Reference Range Interpretation [...] MG/DL 8.7-9.7 - CT HD/BR W W/O [id number] 20:23:00 Patient Name: RUTH LOCK Unit No: [id number] EXAMS: CPT CODE: [id number] CT HD/BR W W/O CONT [address] HEAD WITHOUT and with CONTRAST [...] Erica Burgess MD; Eric Lamas M.D. Technologist: [facility] STUDENT ; Judd SÁNCHEZ CTDI: DLP: Trnscrpt: 08/08/2019 (2022) t.SDR.VB7 [facility] NAME: RUTH LOCK [address] PHYS: [place] [address] : 1940 AGE: 79 SEX: F LOC: Z.355 A PHONE #: [phone] EXAM DATE: 08/08/2019 STATUS: ADM IN FAX #: [phone] RAD #: D/C DT PAGE 1 Signed Report Patient Name: RUTH LOCK Unit No: [id number] EXAMS: CPT CODE: [id number] CT HD/BR W W/O CONT 44921 <Continued> Orig Print D/T: S: 08/08/2019 (2025) [facility] NAME: RUTH LOCK [address] PHYS: Eric Duke MD [place] [id number] : 1940 AGE: 79 SEX: F LOC: Z.355 A PHONE #: [phone] EXAM DATE: 08/08/2019 STATUS: ADM IN FAX #: [phone] RAD #: D/C DT PAGE 2 Signed Report- CT CHEST W/[id number] 16:24:00 Patient Name: RUTH LOCK Unit No: [id number] EXAMS: CPT CODE: [id number] CT CHEST W/CONTRAST 592[address] CT chest History: HYPONATREMIA Comparison: None at [...] BILIARY SYSTEM: There is no biliary dilatation. [facility] NAME: RUTH LOCK [address] PHYS: [place] [address] : 1940 AGE: 79 SEX: F LOC: Z.355 A PHONE #: [phone] EXAM DATE: 08/08/2019 STATUS: ADM IN FAX #: [phone] RAD #: D/C DT PAGE 1 Signed Report (CONTINUED) Patient Name: RUTH LOCK Unit No: [id number] EXAMS: CPT CODE: [id number] CT CHEST W/CONTRAST 11993 <Continued> SPLEEN: The spleen is unremarkable. PANCREAS: [...] Cj Palacio MD; Erica Burgess MD Technologist: [facility] STUDENT ; Judd SÁNCHEZ CTDI: DLP: Trnscrpt: 08/08/2019 (4507)t.SDR.PMT [facility] NAME: RUTH LOCK [id number] [address] PHYS: Ankit Pinzon MD [place] [id number] : 1940 AGE: 79 SEX: F LOC: Z.355 A PHONE #: [phone] EXAM DATE: 08/08/2019 STATUS: ADM IN FAX #: [phone] RAD #: D/C DT PAGE 2 Signed Report Patient Name: RUTH LOCK Unit No: [id number] EXAMS: CPT CODE: [id number] CT CHEST W/CONTRAST 45654 <Continued> Orig Print D/T: S: 08/08/2019 (0968) [facility] NAME: RUTH LOCK [address] [address] PHYS: [place] [address] : 1940 AGE: 79 SEX: F LOC: Z.355 A PHONE #: [phone] EXAM DATE: 08/08/2019 STATUS: ADM IN FAX #: [phone] RAD #: D/C DT PAGE 3 Signed Report- CT ABD PELVIS W/[id number] 16:24:00 Patient Name: RUTH LOCK Unit No: [id number] EXAMS: CPT CODE: [id number] CT ABD PELVIS W/CONT 56129 CT chest History: HYPONATREMIA Comparison: None at [...] BILIARY SYSTEM: There is no biliary dilatation. [facility] NAME: RUTH LOCK [address] PHYS: ANAYELI [place] [address] : 1940 AGE: 79 SEX: F LOC: Z.355 A PHONE #: [phone] EXAM DATE: 08/08/2019 STATUS: ADM IN FAX #: [phone] RAD #: D/C DT PAGE 1 Signed Report (CONTINUED) Patient Name: RUTH LOCK Unit No: [id number] EXAMS: CPT CODE: [id number] CT ABD PELVIS W/CONT 65495 <Continued> SPLEEN: The spleen is unremarkable. PANCREAS: [...] Erica Burgess MD; Eric Lamas M.D. Technologist: [facility] STUDENT ; Judd SÁNCHEZ CTDI: DLP: Trnscrpt: 08/08/2019 (7845)t.SDR.PMT [facility] NAME: RUTH LOCK [address] [address] PHYS: [place] [address] : 1940 AGE: 79 SEX: F LOC: Z.355 A PHONE #: [phone] EXAM DATE: 08/08/2019 STATUS: ADM IN FAX #: [phone] RAD #: D/C DT PAGE 2 Signed Report Patient Name: RUTH LOCK Unit No: [id number] EXAMS: CPT CODE: [id number] CT ABD PELVIS W/CONT 29238 <Continued> Orig Print D/T: S: 08/08/2019 (9253) [facility] NAME: RUTH LOCK [address] [address] PHYS: [place] [address] : 1940 AGE: 79 SEX: F LOC: Z.355 A PHONE #: [phone] EXAM DATE: 08/08/2019 STATUS: ADM IN FAX #: [phone] RAD #: D/C DT PAGE 3 Signed ReportUR OSMOLALITY [id number] 12:16:00 Test Item Value Reference Range Interpretation Comments UR OSMOLALITY RANDOM (test code = 384 MOS/KG 300-1200 OSMOU) BASIC METABOLIC [id number] 10:30:00 Test Item Value Reference Range Interpretation [...] 9.0 MG/DL 8.4-10.2 N CA) BASIC METABOLIC [id number] 10:08:00 Test Item Value Reference Range Interpretation [...] code = MG/DL 8.7-9.7 CA) BASIC METABOLIC [id number] 10:05:00 Test Item Value Reference Range Interpretation [...] code = CA) MG/DL 8.7-9.7 THYROID STIMULATING [id number] 07:25:00 Test Item Value Reference Range Interpretation Comments THYROID STIMULATING 3.680 MIU/L 0.465-4.68 N Please b e aware that HORMONE (test code = bias re sults for TSH TSH) may occur forpa tient who are taking Biotin suppleme nts. COMPREHENSIVE METABOLIC [id number] 07:24:00 Test Item Value Reference Range Interpretation [...] 38-126 (test code = ALKP) COMPREHENSIVE METABOLIC [id number] 06:54:00 Test Item Value Reference Range Interpretation [...] code = UNITS/L 38-126 ALKP) CBC W/AUTO [id number] 06:40:00 Test Item Value Reference Range Interpretation [...] 0.00 K/mm3 0.0-0.1 N NRBC#) UR OSMOLALITY [id number] 20:44:00 Test Item Value Reference Range Interpretation Comments UR OSMOLALITY RANDOM (test code = 335 MOS/KG 300-1200 N OSMOU) - XR CHEST 2 [id number] 19:29:00 Patient Name: RUTH LOCK Unit No: [id number] EXAMS: CPT CODE: [id number] XR CHEST 2 V 51242 EXAM: - XR CHEST 2 V LOCATION: [...] GuidoHV2 Orig Print D/T: S: 08/07/2019 (1931) [facility] NAME: RUTH LOCK [address] PHYS: [place] [address] : 1940 AGE: 79 SEX: F LOC: Z.355 A PHONE #: [phone] EXAM DATE: 08/07/2019 STATUS: ADM IN FAX #: [phone] RADIOLOGY NO:PAGE 1 Signed ReportBASIC METABOLIC [id number] 14:21:00 Test Item Value Reference Range Interpretation [...] 9.4 MG/DL 8.4-10.2 N CA) BASIC METABOLIC [id number] 14:18:00 Test Item Value Reference Range Interpretation [...] = CA) MG/DL 8.7-9.7 HIV 12 AB [id number] 13:07:00 Test Item Value Reference Range Interpretation Comments HIV 1 2 COMBO AG/AB SCREEN AB/AG NON REACTIVE NONREACTIVE (test code = [id number]) PLT RESPONSE TO [id number] 12:49:00 Test Item Value Reference Range Interpretation [...] ON ANTICOAGULANTS: IRVIN ANTICOAGULANTS: Aspirin- XR CHEST [id number] 12:42:00 Patient Name: RUTH LOCK Unit No: [id number] EXAMS: CPT CODE: [id number] XR CHEST 1V 88676 Single View Chest. Location: B2 Clinical Indication: [...] Technologist: Lary Lewis (RT)(R) Transcrpt Date/Tm/Trnsp: 08/07/2019 (1795) NoemiR.RB24 Orig Print D/T: S: 08/07/2019 (0844) [facility] NAME: RUTH LOCK [address] PHYS: [place] [address] : 1940 AGE: 79 SEX: F LOC: Z.SRG PHONE #: [phone] EXAM DATE: 08/07/2019 STATUS: REG SDC FAX #: [phone] RADIOLOGY NO: PAGE 1 Signed ReportGLYCOSYLATED HEMOGLOBIN [id number] 12:09:00 Test Item Value Reference Range Interpretation [...] H (test code = MBG) COMPREHENSIVE METABOLIC [id number] 12:07:00 Test Item Value Reference Range Interpretation [...] N (test code = ALKP) COMPREHENSIVE METABOLIC [id number] 12:06:00 Test Item Value Reference Range Interpretation [...] 38-126 (test code = ALKP) COMPREHENSIVE METABOLIC [id number] 12:04:00 Test Item Value Reference Range Interpretation [...] code = UNITS/L 38-126 ALKP) CBC W/AUTO [id number] 11:39:00 Test Item Value Reference Range Interpretation [...] = 0.00 K/mm3 0.0-0.1 N NRBC#) PROTHROMBIN [id number] 08:10:00 Test Item Value Reference Range Interpretation [...] nidia embolism. 3.0 - 4.5 Comments to Shells Inspector: WILL BRING TO LABPTT [id number] 08:10:00 Test Item Value Reference Range Interpretation Comments PTT ACTIVATED (test code = APTT) 28.8 SECONDS 22.0-33.0 N Comments to Shells Inspector: WILL BRING TO LABBASIC METABOLIC [id number] 08:08:00 Test Item Value Reference Range Interpretation [...] 0-189 mg/dL VERY HIGH...... ...>/= 190 mg/dL [id number] 08:08:00 Test Item Value Reference Range Interpretation Comments MAGNESIUM (test code = MAG) 1.9 MG/DL 1.6-2.3 N BASIC METABOLIC [id number] 07:58:00 Test Item Value Reference Range Interpretation [...] LDL (test MG/DL 0-99 code = LDL) [id number] 07:58:00 Test Item Value Reference Range Interpretation Comments MAGNESIUM (test code = MAG) 1.9 MG/DL 1.6-2.3 N CBC W/AUTO [id number] 07:43:00 Test Item Value Reference Range Interpretation [...]
[2021-04-27 10:37] LABS: Absolute Lymphocytes (CBC) 0.6 K/uL (0.7-4.9); Hematocrit 31.7 % (36.0-45.0); Lymphocytes % 10.3 % (15.3-44.8); MPV 8.4 fL (7.6-11.3); Protime INR 0.98; RBC Red Blood Cell Count 3.91 M/uL (3.86-4.86)
[2021-04-27 10:48] LABS: ALT/SGPT 28 U/L (12-78); AST/SGOT 23 U/L (15-37); Albumin 3.7 g/dL (3.4-5.0); Alkaline Phosphatase 84 U/L (45-117); BUN Blood Urea Nitrogen 11 mg/dL (7-18); Bicarbonate 20 mmol/L (21-32); Bilirubin Direct 0.2 mg/dL (0-0.2); Bilirubin Total 0.9 mg/dL (0.2-1.0); Glucose Level 105 mg/dL (74-106); Magnesium 1.9 mg/dL (1.8-2.4); NT PRO-BNP 3056 pg/mL (<450); Potassium 4.1 mmol/L (3.5-5.1); Protein, Total 6.8 g/dL (6.4-8.2); Sodium Level 137 mmol/L (136-145); Troponin (Emerg Dept Use Only) < 0.02 ng/mL (0.0-0.045)
[2021-04-27] MEDS ORDERED: ENOXAPARIN 40 MG/0.4 ML SQ ONE (11:08)
[2021-04-27] MEDS ORDERED: AMIODARONE HCL 150 MG/3 ML INJ IV ONE (11:08)
[2021-04-27] MEDS ORDERED: FUROSEMIDE 20 MG/ 2ML VIAL ONE (11:08)
--- NOTE | 2021-04-27 11:54 | RAD REPORT ---
EXAM DESCRIPTION: RAD - Chest Single View - 04/27/2021 11:20 am CLINICAL HISTORY: CHEST PAIN, shortness of breath COMPARISON: Portable February 02 TECHNIQUE: AP portable chest image was obtained 04/27/2021 11:20 am . FINDINGS: Prominent baseline interstitial opacification noted. Heart size and upper lobe vasculature within normal limits. 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 Bilateral pleural effusions are present with lung base atelectasis. No pneumothorax. Degenerative and postsurgical changes are present at each rober ulder joint. No acute aortic findings suspected. IMPRESSION: Small bilateral pleural effusions with bilateral lung base atelectasis.
[2021-04-27 12:33] LABS: Urine Blood Trace-lysed (Negative); Urine Glucose Negative (Negative); Urine Protein Negative (Negative); Urine pH 5.5 (5.0-7.0)
[2021-04-27 13:20] LABS: Urine RBC <5 /HPF (NONE SEEN)
[2021-04-27 13:21] LABS: Urine Bacteria >50 /HPF (<20)
--- NOTE | 2021-04-27 13:28 | ER ---
Nurse's Notes [facility] Name: Venus Summers Age: 80 yrs Sex: Female : 1940 Arrival Date: 04/27/2021 Time: 09:40 Bed 4 Private MD: Anton Preston; Shane Palacio E Diagnosis: Atrial fibrillation and flutter Presentation: 04/27 09:51 Chief complaint: Patient's son or daughter states: had heart cath done last week, is iw due to have a procedure done, has 100% blockage in left leg and blockage in her heart, had her f/u with Kary today, c/o SOB all week, EKG in office showed new onset Afib , was sent to ER for admission. Coronavirus screen: At this time, the client does not indicate any symptoms associated with coronavirus-19. Ebola Screen: Patient negative for fever greater than or equal to 101.5 degrees Fahrenheit, and additional compatible Ebola Virus Disease symptoms Patient denies exposure to infectious person. Patient denies travel to an Ebola-affected area in the 21 days before illness onset. No symptoms or risks identified at this time. Initial Sepsis Screen: Does the patient meet any 2 criteria? No. Patient's initial sepsis screen is negative. Does the patient have a suspected source of infection? No. Patient's initial sepsis screen is negative. Risk Assessment: Do you want to hurt yourself or someone else? Patient reports no desire to harm self or others. Onset of symptoms was April 24, 2021. 09:51 Method Of Arrival: Wheelchair iw 09:51 Acuity: [place] 2 iw Triage Assessment: 10:00 General: Appears distressed, uncomfortable, Behavior is cooperative, appropriate for bp age, anxious. Pain: Complains of pain in groin. EENT: No deficits noted. Neuro: Level of Consciousness is awake, alert, obeys commands, Oriented to Appropriate for age. Neuro: Gait is steady. Cardiovascular: Rhythm is atrial fibrillation. Respiratory: Reports shortness of breath. GI: No signs and/or symptoms were reported involving the gastrointestinal system. : No signs and/or symptoms were reported regarding the genitourinary system. Derm: No deficits noted. Musculoskeletal: Circulation, motion, and sensation intact. Range of motion: intact in all extremities. Historical: - Allergies: 10:02 Cipro PO; iw 10:02 PENICILLINS; iw - Home Meds: 10:04 amlodipine 10 mg tab 1 tab once daily [Active]; clopidogrel 75 mg oral tab 1 tab once iw daily [Active]; rosuvastatin 10 mg oral tab 1 tab once daily [Active]; aspirin 81 mg Oral TbEC 1 tab once daily [Active]; isosorbide mononitrate 20 mg oral tab daily [Active]; nitroglycerin 0.4 mg SL subl 1 tab every 5 minutes [Active]; - PMHx: 10:02 High Cholesterol; Hypertension; iw - PSHx: 10:06 Carotid surgery; Hysterectomy; bowel resection; right kidney removed; Heart stents; iw bypass; - Immunization history:: Adult Immunizations not up to date, Client reports having NOT received the Covid vaccine. - Social history:: Smoking status: Patient reports the use of cigarette tobacco products, smokes one-half pack cigarettes per day. Screenin:11 Abuse screen: Denies threats or abuse. Denies injuries from another. Nutritional bp screening: No deficits noted. Tuberculosis screening: No symptoms or risk factors identified. Fall Risk None identified. Assessment: 10:00 General: SEE TRIAGE NOTE. bp 11:00 Reassessment: PT NEAR-SYNCOPAL, PLACED IN TRENDELENBERG WHEN NOTED HYPOTENSVIVE. bp INFORMEED. 12:00 Reassessment: No changes from previously documented assessment. Patient and/or family bp updated on plan of care and expected duration. Pain level reassessed. PT AMBULATING TO BATHROOM WITHOUT DIFFICULTY. 14:00 Reassessment: No changes from previously documented assessment. Patient and/or family bp updated on plan of care and expected duration. Pain level reassessed. ADMIT INITATED Patient states feeling better. Patient states symptoms have improved. 15:20 Reassessment: No changes from previously documented assessment. Patient and/or family bp updated on plan of care and expected duration. Pain level reassessed. Patient is alert, oriented x 3, equal unlabored respirations, skin warm/dry/pink. ADMIT IN PROCESS. 17:17 Reassessment: ICU BED ASSIGNED. bp Vital Signs: 10:10 BP 123 / 80; Pulse 112; Resp 18 S; Temp 98.5; Pulse Ox 100% on R/A; Weight 48.53 kg; bp Height 5 ft. 2 in. (157.48 cm); 11:00 BP 103 / 61; Pulse 88; Resp 22; Pulse Ox 92% on R/A; bp 12:00 BP 108 / 72; Pulse 96; Resp 22; Pulse Ox 94% ; bp 13:00 BP 113 / 74; Pulse 96; Resp 23; Pulse Ox 97% ; bp 14:00 BP 114 / 76; Pulse 98; Resp 20; Pulse Ox 97% ; bp 15:00 BP 118 / 67; Pulse 94; Resp 21; Pulse Ox 95% ; bp 16:00 BP 116 / 72; Pulse 93; Resp 16; Pulse Ox 96% ; bp 17:00 BP 126 / 87; Pulse 94; Resp 17; Pulse Ox 95% ; bp 10:10 Body Mass Index 19.57 (48.53 kg, 157.48 cm) bp ED Course: 09:40 Patient arrived in ED. as 09:41 Shane Palacio MD is Private Physician. as 09:41 Anton Preston MD is Private Physician. as 09:47 Bertram Alvarenga MD is Attending Physician. kdr 09:54 Triage completed. iw 10:05 Arm band placed on. iw 10:05 Initial lab(s) drawn, by me, sent to lab. Inserted saline lock: 20 gauge in right kj1 antecubital area, using aseptic technique. Blood collected. 10:12 Gloria Bowers, RN is Primary Nurse. ca1 10:45 Mynor Grubbs, RN is Primary Nurse. bp 11:05 Basic Metabolic Panel Sent. bp 11:12 Patient has correct armband on for positive identification. Placed in gown. Bed in low bp position. Call light in reach. Side rails up X2. Adult w/ patient. 11:20 XRAY Chest (1 view) In Process Unspecified. EDMS 13:25 Nathaniel Vicente is Hospitalizing Provider. kdr 17:17 No provider procedures requiring assistance completed. Patient admitted, IV remains in bp place. Administered Medications: 10:55 Drug: Lovenox (enoxaparin) 1 mg/kg Route: Sub-Q; Site: left lower abdomen; bp 12:58 Follow up: Response: No adverse reaction bp 10:55 Drug: Lasix (furosemide) 20 mg Route: IVP; Site: right antecubital; bp 12:58 Follow up: Response: No adverse reaction bp 10:55 Drug: amiodarone 300 mg Route: IVP; Site: right antecubital; bp 12:58 Follow up: Response: No adverse reaction bp 12:25 Not Given (HELD 2/2 BP): amiodarone 900 mg, D5W 500 ml IVPB at 1 mg/min continuous; for bp 6 hrs, then change to 0.5 mg/min 14:00 Drug: amiodarone 900 mg, D5W 500 ml Route: IVPB; Rate: 1 mg/min; Site: right bp antecubital; 17:20 Follow up: IV Status: Infusion continued upon admission bp Outcome: 13:26 Decision to Hospitalize by Provider. kdr 17:34 Admitted to ICU accompanied by tech, family with patient, via wheelchair, room ER-10, bp with chart, Report called to CAROLIN ARTHUR 17:34 Condition: stable 17:34 Instructed on the need for admit. 17:54 Patient left the ED. bp Signatures: Dispatcher [employer] EDMS Bertram Alvarenga MD MD kdr Martinez, Amelia as Tavia Ferguson RN RN iw Mynor Grubbs RN RN bp Gloria Bowers RN RN ca1 Mora Zhong kj1 Corrections: (The following items were deleted from the chart) 17:37 10:10 BP 123 / 80; Pulse 112bpm; Resp 18bpm; Spontaneous; Pulse Ox 100% RA; 48.53 kg; bp Height 5 ft. 2 in.; BMI: 19.5; iw
--- NOTE | 2021-04-27 13:28 | EDPHYS ---
Physician Documentation [facility] Name: Venus Summers Age: 80 yrs Sex: Female : 1940 Arrival Date: 04/27/2021 Time: 09:40 Bed 4 Private MD: Anton Preston; Shane Palacio E ED Physician Bertram Alvarenga HPI: 04/27 18:41 This 80 yrs old Female presents to ER via Wheelchair with complaints of kdr cardiac workup. 18:41 The patient presents with a history of irregular heart beat. Context: The symptoms kdr occur at rest. Onset: The symptoms/episode began/occurred at an unknown time. The patient has been feeling poorly for the last few days. Duration: The patient or guardian reports multiple episodes. Modifying factors: The symptoms are aggravated by nothing. The symptoms are alleviated by nothing. Associated signs and symptoms: Pertinent positives:. Severity of symptoms: At their worst the symptoms were mild in the emergency department the symptoms are unchanged. The patient has not experienced similar symptoms in the past. The patient has been recently seen by a physician: Dr. Preston. Historical: - Allergies: 10:02 Cipro PO; iw 10:02 PENICILLINS; iw - Home Meds: 10:04 amlodipine 10 mg tab 1 tab once daily [Active]; clopidogrel 75 mg oral tab 1 tab once iw daily [Active]; rosuvastatin 10 mg oral tab 1 tab once daily [Active]; aspirin 81 mg Oral TbEC 1 tab once daily [Active]; isosorbide mononitrate 20 mg oral tab daily [Active]; nitroglycerin 0.4 mg SL subl 1 tab every 5 minutes [Active]; - PMHx: 10:02 High Cholesterol; Hypertension; iw - PSHx: 10:06 Carotid surgery; Hysterectomy; bowel resection; right kidney removed; Heart stents; iw bypass; - Immunization history:: Adult Immunizations not up to date, Client reports having NOT received the Covid vaccine. - Social history:: Smoking status: Patient reports the use of cigarette tobacco products, smokes one-half pack cigarettes per day. ROS: 18:41 Constitutional: Negative for fever, chills, and weight loss, Eyes: Negative for injury, kdr pain, redness, and discharge, ENT: Negative for injury, pain, and discharge, Neck: Negative for injury, pain, and swelling, Cardiovascular: Negative for chest pain, palpitations, and edema, Respiratory: Negative for shortness of breath, cough, wheezing, and pleuritic chest pain, Abdomen/GI: Negative for abdominal pain, nausea, vomiting, diarrhea, and constipation, Back: Negative for injury and pain, : Negative for injury, bleeding, discharge, and swelling, MS/Extremity: Negative for injury and deformity, Skin: Negative for injury, rash, and discoloration, Psych: Negative for depression, anxiety, suicide ideation, homicidal ideation, and hallucinations, Allergy/Immunology: Negative for hives, rash, and allergies, Endocrine: Negative for neck swelling, polydipsia, polyuria, polyphagia, and marked weight changes, Hematologic/Lymphatic: Negative for swollen nodes, abnormal bleeding, and unusual bruising. 18:41 Neuro: Positive for weakness. Exam: 18:41 Constitutional: This is a well developed, well nourished patient who is awake, alert, kdr and in no acute distress. Head/Face: Normocephalic, atraumatic. Eyes: Pupils equal round and reactive to light, extra-ocular motions intact. Lids and lashes normal. Conjunctiva and sclera are non-icteric and not injected. Cornea within normal limits. Periorbital areas with no swelling, redness, or edema. Neck: Trachea midline, no thyromegaly or masses palpated, and no cervical lymphadenopathy. Supple, full range of motion without nuchal rigidity, or vertebral point tenderness. No Meningismus. Chest/axilla: Normal chest wall appearance and motion. Nontender with no deformity. No lesions are appreciated. Respiratory: Lungs have equal breath sounds bilaterally, clear to auscultation and percussion. No rales, rhonchi or wheezes noted. No increased work of breathing, no retractions or nasal flaring. Abdomen/GI: Soft, non-tender, with normal bowel sounds. No distension or tympany. No guarding or rebound. No evidence of tenderness throughout. Back: No spinal tenderness. No costovertebral tenderness. Full range of motion. Skin: Warm, dry with normal turgor. Normal color with no rashes, no lesions, and no evidence of cellulitis. MS/ Extremity: Pulses equal, no cyanosis. Neurovascular intact. Full, normal range of motion. Neuro: Awake and alert, GCS 15, oriented to person, place, time, and situation. Cranial nerves II-XII grossly intact. Motor strength 5/5 in all extremities. Sensory grossly intact. Cerebellar exam normal. Normal gait. Psych: Awake, alert, with orientation to person, place and time. Behavior, mood, and affect are within normal limits. 18:41 Cardiovascular: Rate: normal, Rhythm: irregularly irregular, Pulses: no pulse deficits are appreciated, Heart sounds: normal, Edema: is not appreciated. Vital Signs: 10:10 BP 123 / 80; Pulse 112; Resp 18 S; Temp 98.5; Pulse Ox 100% on R/A; Weight 48.53 kg; bp Height 5 ft. 2 in. (157.48 cm); 11:00 BP 103 / 61; Pulse 88; Resp 22; Pulse Ox 92% on R/A; bp 12:00 BP 108 / 72; Pulse 96; Resp 22; Pulse Ox 94% ; bp 13:00 BP 113 / 74; Pulse 96; Resp 23; Pulse Ox 97% ; bp 14:00 BP 114 / 76; Pulse 98; Resp 20; Pulse Ox 97% ; bp 15:00 BP 118 / 67; Pulse 94; Resp 21; Pulse Ox 95% ; bp 16:00 BP 116 / 72; Pulse 93; Resp 16; Pulse Ox 96% ; bp 17:00 BP 126 / 87; Pulse 94; Resp 17; Pulse Ox 95% ; bp 10:10 Body Mass Index 19.57 (48.53 kg, 157.48 cm) bp MDM: 13:26 Patient medically screened. kdr 18:41 Data reviewed: vital signs, nurses notes, lab test result(s), radiologic studies. kdr Counseling: I had a detailed discussion with the patient and/or guardian regarding: the historical points, exam findings, and any diagnostic results supporting the discharge/admit diagnosis, lab results, radiology results, the need for further work-up and treatment in the hospital. 04/27 10:05 Order name: Basic Metabolic Panel 04/27 10:05 Order name: CBC with Diff; Complete Time: 13:39 04/27 10:05 Order name: LFT's; Complete Time: 13:39 04/27 10:05 Order name: Magnesium; Complete Time: 13:39 04/27 10:05 Order name: NT PRO-BNP; Complete Time: 13:39 04/27 10:05 Order name: PT-INR; Complete Time: 13:39 04/27 10:05 Order name: Troponin (emerg Dept Use Only); Complete Time: 13:39 iw 04/27 10:05 Order name: EKG; Complete Time: 10:06 04/27 10:05 Order name: XRAY Chest (1 view); Complete Time: 13:39 [facility] 04/27 10:05 Order name: EKG; Complete Time: 10:06 [facility] 04/27 10:05 Order name: Basic Metabolic Panel; Complete Time: 13:39 EDMS 04/27 12:33 Order name: Urine Dipstick-Ancillary; Complete Time: 13:39 EDMS 04/27 12:34 Order name: Urine Culture bp 04/27 12:34 Order name: Urine Microscopic Only; Complete Time: 13:39 bp 04/27 12:35 Order name: EKG; Complete Time: 12:36 bp 04/27 14:03 Order name: COVID-19 : Document "Date of Symptom Onset" if Symptomatic. ca1 04/27 15:31 Order name: SARS-COV-2 RT PCR EDNE 04/27 10:05 Order name: Cardiac monitoring; Complete Time: 10:13 04/27 10:05 Order name: EKG - Nurse/Tech; Complete Time: 10:13 04/27 10:05 Order name: IV Saline Lock; Complete Time: 10:13 04/27 10:05 Order name: Labs collected and sent; Complete Time: 10:13 04/27 10:05 Order name: O2 Per Protocol; Complete Time: 10:13 04/27 10:05 Order name: O2 Sat Monitoring; Complete Time: 10:13 04/27 10:05 Order name: Cardiac monitoring; Complete Time: 10:12 [facility] 04/27 10:05 Order name: EKG - Nurse/Tech; Complete Time: 10:14 [facility] 04/27 10:05 Order name: IV Saline Lock; Complete Time: 10:12 [facility] 04/27 10:05 Order name: Labs collected and sent; Complete Time: 10:12 [facility] 04/27 10:05 Order name: O2 Per Protocol; Complete Time: 10:13 [facility] 04/27 10:05 Order name: O2 Sat Monitoring; Complete Time: 10:36 [facility] 04/27 12:35 Order name: EKG - Nurse/Tech; Complete Time: 12:58 bp Administered Medications: 10:55 Drug: Lovenox (enoxaparin) 1 mg/kg Route: Sub-Q; Site: left lower abdomen; bp 12:58 Follow up: Response: No adverse reaction bp 10:55 Drug: Lasix (furosemide) 20 mg Route: IVP; Site: right antecubital; bp 12:58 Follow up: Response: No adverse reaction bp 10:55 Drug: amiodarone 300 mg Route: IVP; Site: right antecubital; bp 12:58 Follow up: Response: No adverse reaction bp 12:25 Not Given (HELD 2 BP): amiodarone 900 mg, D5W 500 ml IVPB at 1 mg/min continuous; for bp 6 hrs, then change to 0.5 mg/min 14:00 Drug: amiodarone 900 mg, D5W 500 ml Route: IVPB; Rate: 1 mg/min; Site: right bp antecubital; 17:20 Follow up: IV Status: Infusion continued upon admission bp Disposition: 04/27/21 13:26 Hospitalization ordered by Nathaniel Vicente for Inpatient Admission. Preliminary diagnosis is Atrial fibrillation and flutter. - Bed requested for Intensive Care Unit. - Status is Inpatient Admission. bp - Condition is Fair. - Problem is new. - Symptoms have improved. Signatures: Dispatcher [employer] EDMS Lolis Blair RN RN dw Rittger, Kevin, MD MD kdr Williams, Irene, RN RN iw Peltier, Brian, RN RN bp Corrections: (The following items were deleted from the chart) 10:06 10:06 BASIC METABOLIC PANEL+C.LAB.BRZ ordered. EDMS EDMS 10:06 10:06 CBC+H.LAB.BRZ ordered. EDMS EDMS 10:06 10:06 HEPATIC FUNCTION+C.LAB.BRZ ordered. EDMS EDMS 10:06 10:06 MAGNESIUM+C.LAB.BRZ ordered. EDMS EDMS 10:07 10:06 PROBNP+C.LAB.BRZ ordered. EDMS EDMS 10:07 10:06 PROTIME (+INR)+COAG.LAB.BRZ ordered. EDMS EDMS 10:07 10:06 TROPONIN (EMERG DEPT USE ONLY)+C.LAB.BRZ ordered. EDNE EDMS 10:29 10:06 Chest Single View+RAD.RAD.BRZ ordered. EDNE EDMS 13:41 13:26 Hospitalization Ordered by Nathaniel Vicente for Inpatient Admission. Preliminary kdr diagnosis is Atrial fibrillation and flutter. Bed requested for Telemetry/MedSurg (Inpatient). Status is Inpatient Admission. Condition is Fair. Problem is new. Symptoms have improved. kdr 17:05 13:41 04/27/2021 13:26 Hospitalization Ordered by Nathaniel Vicente for Inpatient dw Admission. Preliminary diagnosis is Atrial fibrillation and flutter. Bed requested for Intensive Care Unit. Status is Inpatient Admission. Condition is Fair. Problem is new. Symptoms have improved. kdr 17:54 17:05 04/27/2021 13:26 Hospitalization Ordered by Nathaniel Vicente for Inpatient bp Admission. Preliminary diagnosis is Atrial fibrillation and flutter. Bed requested for Intensive Care Unit. Status is Inpatient Admission. Condition is Fair. Problem is new. Symptoms have improved. dw
--- NOTE | 2021-04-27 13:51 | P.HP ---
Certification for Inpatient Patient admitted to: Inpatient With expected LOS: >2 Midnights Practitioner: I am a practitioner with admitting privileges, knowledge of patient current condition, hospital course, and medical plan of care. Services: Services provided to patient in accordance with Admission requirements found in Title 42 Section 412.3 of the Code of Federal Regulations Patient History Date of Service: 04/27/21 Reason for admission: Shortness of breath History of Present Illness: 80-year-old woman with a history of coronary artery disease status post CABG, status post multiple cardiac stent, history of peripheral vascular disease, follows with Dr. Preston who is planning another cardiac catheterization and peripheral vascular angioplasty. Patient presented to Dr. Preston's office complaining of shortness of breath. Patient noted to be in rapid atrial fibrillation. Dr. Preston directed patient to the emergency department for further evaluation and management. Allergies ciprofloxacin Adverse Reaction (Verified 01/26/21 03:56) tendonitis Penicillins Adverse Reaction (Verified 01/26/21 03:56) Anaphylaxis Home Medications: Amlodipine [Norvasc*] 10 mg PO DAILY 01/26/21 Aspirin [Aspirin EC 81 MG] 81 mg PO DAILY 01/26/21 Cefpodoxime Proxetil [Vantin] 200 mg PO BID 7 Days #14 tablet 01/26/21 Clopidogrel Bisulfate [Plavix*] 75 mg PO DAILY 01/26/21 Isosorbide Mononitrate [Isosorbide Mononitrate ER] 60 mg PO BID 01/26/21 Losartan Potassium [Cozaar] 100 mg PO DAILY 01/26/21 Nebivolol HCl [Bystolic*] 20 mg PO DAILY 01/26/21 Phenazopyridine HCl [Pyridium] 100 mg PO TID PRN 1 Days #6 tablet 01/26/21 Rosuvastatin [Crestor*] 10 mg PO BEDTIME 01/26/21 - Past Medical/Surgical History Diabetic: No -: CAD S/P CABG -: Hypertension -: Hyperlipidemia -: CAD/PVD -: History of renal cancer with nephrectomy -: Nephrectomy -: Hysterectomy -: CABG -: Carotid stent -: Bowel surgery Psychosocial/ Personal History: Patient retired, lives alone in a elderly community. - Family History Father -: Heart disease Mother -: Heart disease - Social History Alcohol use: No CD- Drugs: No Caffeine use: No Review of Systems Other: Patient denies cough, denies abdominal pain, denies palpitation or chest. Except as documented, all other systems reviewed and negative. Physical Examination - Physical Exam General: Alert, In no apparent distress, Oriented x3 HEENT: Normocephalic, Mucous membr. moist/pink Neck: Supple, JVD not distended Respiratory: Clear to auscultation bilaterally, Normal air movement Cardiovascular: No edema, Normal S1 S2, Irregular heart rate/rhythm Gastrointestinal: Normal bowel sounds, Soft and benign, Non-distended, No tenderness Musculoskeletal: No swelling, No tenderness Integumentary: No rashes, No erythema Neurological: Normal speech, Normal strength at 5/5 x4 extr, Cranial nerves 3-12 intact Lymphatics: No axilla or inguinal lymphadenopathy - Studies Laboratory Data (last 24 hrs) 04/27/21 10:08: PT 11.3, INR 0.98 04/27/21 10:08: WBC 6.20 D, Hgb 10.1 L, Hct 31.7 L, Plt Count 241 04/27/21 10:08: Sodium 137, Potassium 4.1, BUN 11, Creatinine 0.74, Glucose 105, Magnesium 1.9, Total Bilirubin 0.9, AST 23, ALT 28, Alkaline Phosphatase 84 Assessment and Plan - Problems (Diagnosis) (1) Rapid atrial fibrillation Current Visit: Yes Status: Acute (2) Coronary artery disease Current Visit: Yes Status: Acute (3) Peripheral vascular disease Current Visit: Yes Status: Acute (4) Essential hypertension Current Visit: Yes Status: Acute - Plan Admit to the medical floor. Patient given a bolus of IV amiodarone and started on amiodarone drip in the ED. Will continue amiodarone drip per cardiology recommendation. Patient also given a shot of full-dose Lovenox in the ED. Will start Lovenox full-dose q.12 hrs. Will transition to Eliquis. Consult to cardiology Monitor and optimize electrolytes. Continue aspirin for CAD. Colyte, validate and reconcile home medications. - Advance Directives Does patient have a Living Will: No Does patient have a Durable POA for Healthcare: No
[2021-04-27] MEDS ORDERED: ACETAMINOPHEN 500 MG TAB PO PRN (17:40)
[2021-04-27] MEDS ORDERED: AMIODARONE HCL 900 MG in Dextrose 5%-Water 482 ML IV SCH (17:40)
[2021-04-27 19:07] LABS: Troponin I < 0.02 ng/mL (0.0-0.045)
[2021-04-27 21:15] VITALS: BMI 19.5
[2021-04-27] MEDS: CEFTRIAXONE/SWI 1gm 1 GM/10 ML SYR IV SCH (22:18)
[2021-04-27] MEDS ORDERED: CEFTRIAXONE/SWI 1gm 1 GM/10 ML SYR ONE (22:38)
[2021-04-28] MEDS: ENOXAPARIN 60 MG/0.6 ML SQ SCH ×3 (05:45→20:54)
[2021-04-28] MEDS ORDERED: ENOXAPARIN 60 MG/0.6 ML SQ ONE ×2 (05:58→20:25)
[2021-04-28 06:07] LABS: Basophils % 0.8 % (0-1.3); Hematocrit 27.3 % (36.0-45.0); Lymphocytes % 14.9 % (15.3-44.8); MPV 8.5 fL (7.6-11.3); RBC Red Blood Cell Count 3.41 M/uL (3.86-4.86)
[2021-04-28 06:24] LABS: BUN Blood Urea Nitrogen 10 mg/dL (7-18); Bicarbonate 22 mmol/L (21-32); Glucose Level 87 mg/dL (74-106); Phosphorus 3.2 mg/dL (2.5-4.9); Potassium 3.4 mmol/L (3.5-5.1); Sodium Level 138 mmol/L (136-145)
[2021-04-28] MEDS ORDERED: POTASSIUM 25 MEQ EFFERV TAB PO ONE (07:08)
[2021-04-28] MEDS ORDERED: POTASSIUM 25 MEQ EFFERV TAB ONE (07:38)
--- NOTE | 2021-04-28 16:59 | P.PN ---
Subjective Date of Service: 04/28/21 Chief Complaint: Shortness of breath No new complain today. She remained atrial fibrillation rate controlled. Physical Examination - Vital Signs Temperature: 97.2 F Blood Pressure: 112/52 Pulse: 49 Respirations: 16 Pulse Ox (%): 97 - Physical Exam General: Alert, In no apparent distress, Oriented x3 HEENT: Mucous membr. moist/pink Neck: JVD not distended Respiratory: Clear to auscultation bilaterally, Normal air movement Cardiovascular: No edema, Normal S1 S2, Irregular heart rate/rhythm Gastrointestinal: Normal bowel sounds, Soft and benign, Non-distended, No tenderness Musculoskeletal: No swelling Integumentary: No rashes Neurological: Normal speech, Normal strength at 5/5 x4 extr Assessment And Plan - Current Problems (Diagnosis) (1) Rapid atrial fibrillation Current Visit: Yes Status: Acute (2) Coronary artery disease Current Visit: Yes Status: Acute (3) Peripheral vascular disease Current Visit: Yes Status: Acute (4) Essential hypertension Current Visit: Yes Status: Acute (5) Anemia Current Visit: Yes Status: Acute - Plan Troponin trended negative. Continue amiodarone drip Continue full-dose Lovenox Cardiology input appreciated. Dr. Swan is following. Monitor and optimize electrolytes. Continue aspirin for CAD. Anemia is chronic. Monitor for active bleeding.
[2021-04-28 17:29] LABS: Magnesium 1.9 mg/dL (1.8-2.4); Phosphorus 2.6 mg/dL (2.5-4.9)
[2021-04-28] MEDS ORDERED: CEFTRIAXONE/SWI 1gm 0 GM/0 ML SYR ONE (20:24)
[2021-04-28] MEDS ORDERED: ISOSORBIDE MONO SR 60 MG TAB PO ONE (20:34)
[2021-04-28] MEDS ORDERED: ROSUVASTATIN 10 MG TAB ONE (20:36)
[2021-04-28] MEDS ORDERED: CEFTRIAXONE 1 GM/NS 50 ML 1 GM/50 ML BAG IV SCH (20:45)
[2021-04-28] MEDS: ISOSORBIDE MONO SR 60 MG TAB PO SCH (20:53)
[2021-04-28] MEDS: ROSUVASTATIN 10 MG TAB PO SCH (20:53)
[2021-04-28] MEDS: CEFTRIAXONE/SWI 1gm 1 GM/10 ML SYR IV SCH ×2 (21:54→22:00)
[2021-04-28] MEDS: AMIODARONE HCL 200 MG TAB PO SCH (23:00)
[2021-04-28] MEDS ORDERED: AMIODARONE HCL 200 MG TAB ONE (23:22)
[2021-04-28] MEDS: SMZ./TMP. 800/160 MG TABLET PO SCH (23:39)
[2021-04-28] MEDS ORDERED: SMZ./TMP. 800/160 MG TABLET ONE (23:59)
[2021-04-29 04:59] LABS: Absolute Lymphocytes (CBC) 1.7 K/uL (0.7-4.9); Basophils % 0.7 % (0-1.3); Hematocrit 30.3 % (36.0-45.0); Lymphocytes % 16.6 % (15.3-44.8); MPV 8.3 fL (7.6-11.3)
[2021-04-29 05:16] LABS: Potassium 4.1 mmol/L (3.5-5.1)
[2021-04-29] MEDS ORDERED: AMIODARONE HCL 200 MG TAB PO SCH (09:00)
[2021-04-29] MEDS: ENOXAPARIN 60 MG/0.6 ML SQ SCH (09:00)
[2021-04-29] MEDS: ISOSORBIDE MONO SR 60 MG TAB PO SCH ×2 (09:00→22:44)
[2021-04-29] MEDS: ASPIRIN EC 81 MG TAB PO SCH (09:29)
[2021-04-29] MEDS: AMIODARONE HCL 200 MG TAB PO SCH ×2 (09:30→20:48)
[2021-04-29] MEDS: SMZ./TMP. 800/160 MG TABLET PO SCH (09:30)
[2021-04-29] MEDS ORDERED: ASPIRIN EC 81 MG TAB PO ONE (09:45)
[2021-04-29] MEDS ORDERED: AMIODARONE HCL 200 MG TAB ONE (09:45)
[2021-04-29] MEDS ORDERED: SMZ./TMP. 800/160 MG TABLET ONE (09:45)
--- NOTE | 2021-04-29 09:45 | EKG ---
Test Date: 2021-04-28 Test Time: 16:13:31 [place] Wet Process: JOSE MEASUREMENT RESULTS: Intervals: Rate: 46 ND: 140 QRSD: 72 QT: 508 QTc: 444 [place]: P: ND: 140 QRS: 83 T: 103 INTERPRETIVE STATEMENTS: Sinus bradycardia Low voltage QRS Septal infarct, age undetermined Abnormal ECG Compared to ECG 04/27/2021 12:36:55 Atrial fibrillation no longer present Prolonged QT interval no longer present Myocardial infarct finding still present Electronically Signed On 04-29-21 09:43:37 CDT by Bertrand Swan
--- NOTE | 2021-04-29 09:47 | EKG ---
Test Date: 2021-04-27 Test Time: 12:36:55 [employer] Supervisor: KARLIE MEASUREMENT RESULTS: Intervals: Rate: 95 TN: QRSD: 96 QT: 406 QTc: 510 [place]: P: TN: QRS: 67 T: 93 INTERPRETIVE STATEMENTS: Poor data quality, interpretation may be adversely affected Atrial fibrillation Low voltage QRS Septal infarct, age undetermined Prolonged QT Abnormal ECG Compared to ECG 04/27/2021 09:53:14 Prolonged QT interval now present Ventricular premature complex(es) no longer present Right-axis deviation no longer present Myocardial infarct finding still present Electronically Signed On 04-29-21 09:44:00 CDT by Bertrand Swan
--- NOTE | 2021-04-29 09:48 | EKG ---
Test Date: 2021-04-27 Test Time: 09:53:14 Hris Manager: KARLIE MEASUREMENT RESULTS: Intervals: Rate: 122 MI: QRSD: 90 QT: 378 QTc: 538 [place]: P: MI: QRS: 102 T: 62 INTERPRETIVE STATEMENTS: Atrial fibrillation with rapid ventricular response with premature ventricular or aberrantly conducted complexes Rightward axis Low voltage QRS Cannot rule out Anterior infarct, age undetermined Abnormal ECG Compared to ECG 02/02/2021 05:44:54 Ventricular premature complex(es) now present Right-axis deviation now present Low QRS voltage now present Myocardial infarct finding now present Electronically Signed On 04-29-21 09:44:08 CDT by Bertrand Swan
[2021-04-29] MEDS ORDERED: FUROSEMIDE 40 MG TABLET PO ONE (11:36)
[2021-04-29] MEDS ORDERED: FUROSEMIDE 40 MG TABLET ONE (12:08)
--- NOTE | 2021-04-29 12:43 | CON ---
Reason For Consultation: She was admitted to Dr. Vicente on 04/27/2021 for new onset atrial fibrillat ion and congestive heart failure. History Of Present Illness: Ms. Summers is an 80-year-old woman, who actually came to see Dr. Girish zamora in the office on 04/27/2021. Has a history of hypertension, dyslipidemia, carotid surgery, bowel resection, coronary artery disease status post CABG and stent. Has had a right nephrectomy in the [facility] and hysterectomy. She was found in the office to be in an atrial fibrillation, rapid ventricular response, shortness of breath and was sent to the emergency room where she was admitted by Dr. Vicente and seen by Dr. Alvarenga. She sees Dr. Palacio as a primary care physician. She was found to have a p ulse in the 100. Her blood pressure was 108/72 with an O2 saturation 92% on room air. She was sent to the ICU and placed on IV amiodarone as per Dr. Preston's orders. Past Medical History: As stated above. Allergies: INCLUDE PENICILLIN AND CIPRO. Review of Systems: Negative. Social History: Negative. Family History: Negative. Medications: At home include Plavix, amlodipine, Crestor, aspirin, Imdur, nitroglycerin as needed. Physical Examination: Vital Signs: Her heart rate was 110, AFib. Rest of the vital signs were stable. She was afebrile. HEENT: Negative. Neck: Supple with no bruit. Chest: Revealed rales both bases. Cardiac: Revealed atrial fibrillation. Abdomen: Benign. Extremities: Revealed no clubbing, cyanosis, or edema. Diagnostic Data: Chest x-ray showed small bilateral pleural effusions. EKG showed atrial fibrillati on with rapid ventricular response. Her creatinine was 0.62. Her hemoglobin was 10.1. Her BNP was 3056. TSH was 3.820. Her urinalysis showed possible UTI. Impression And Plan: 1.Atrial fibrillation, on IV amiodarone now. She is on aspirin and Lovenox. 2.Coronary artery disease. She is on isosorbide. 3.Dyslipidemia, on Crestor. 4.Urinary tract infection. She is on Rocephin and Bactrim. 5.Possible diastolic congestive heart failure. A low-dose Lasix may be indicated. Ms. Summers wi ll eventually need an outpatient echocardiogram and a Lexiscan to rule out worsening coronary artery disease. We will continue to follow her for now. SHERRON/HOMERO Voice ID: [id number] Report ID: [id number]
--- NOTE | 2021-04-29 14:13 | PN ---
Date of Progress Note: 04/28/2021 Ms. Summers was admitted from Dr. Preston's office with rapid atrial fibrillation, was placed on IV amiodarone. She has a history of CAD, has a history of hypertension, dyslipidemia, coronary artery d isease status post CABG. I think a low dose Lasix is recommended. She converted to sinus rhythm on amiodarone. We need to put her on 400 b.i.d. of amiodarone for 7 days and then go to 200 mg daily. She needs to be on anticoagulation either Xarelto or Eliquis. We will need to see her in the office as soon as possible. I think she needs to have a Lexiscan, echocardiogram, and close followup. SHERRON/HOMERO Voice ID: [id number] Report ID: [id number]
--- NOTE | 2021-04-29 15:15 | P.PN ---
Subjective Date of Service: 04/29/21 Chief Complaint: Shortness of breath Patient complaining of dizziness with standing. She also reports shortness of breath. No wheeze. Patient converted to sinus rhythm yesterday afternoon and has been in sinus rhythm since. Amiodarone drip transitioned to oral amiodarone. Physical Examination - Vital Signs Temperature: 97.8 F Blood Pressure: 117/48 Pulse: 52 Respirations: 19 Pulse Ox (%): 95 - Physical Exam General: Alert, In no apparent distress, Oriented x3 HEENT: Mucous membr. moist/pink Neck: Supple, JVD not distended Respiratory: Clear to auscultation bilaterally, Normal air movement Cardiovascular: No edema, Regular rate/rhythm, Normal S1 S2 Gastrointestinal: Normal bowel sounds, Soft and benign, Non-distended, No tenderness Musculoskeletal: No swelling Integumentary: No rashes Neurological: Normal strength at 5/5 x4 extr - Studies Microbiology Data (last 24 hrs): 04/27/21 12:30 Clean Catch Urine [place] Count - Final >100,000 CFU/ML. 04/27/21 12:30 Clean Catch Urine - Final Escherichia Coli Assessment And Plan - Current Problems (Diagnosis) (1) Rapid atrial fibrillation Current Visit: Yes Status: Acute (2) Coronary artery disease Current Visit: Yes Status: Acute (3) Peripheral vascular disease Current Visit: Yes Status: Acute (4) Essential hypertension Current Visit: Yes Status: Acute (5) Anemia Current Visit: Yes Status: Acute - Plan Continue oral amiodarone Lovenox changed to Eliquis Dr. Swan is following. Monitor and optimize electrolytes. Continue aspirin for CAD. Anemia is stable. Trial of Lasix for shortness of breath. Increase activity as tolerated.
[2021-04-29] MEDS ORDERED: PROMETHAZINE INJ 25 MG/ML AMP IM PRN (15:49)
--- NOTE | 2021-04-29 18:52 | RAD REPORT ---
EXAM DESCRIPTION: CT - Head Brain Wo Cont - 04/29/2021 6:31 pm CLINICAL HISTORY: Alteration of awareness/confusion COMPARISON: None TECHNIQUE: Computed axial tomography of the head was obtained. IV contrast was not requested. All CT scans are performed using dose optimization technique as appropriate and may include automated exposure control or mA/KV adjustment according to patient size. FINDINGS: An intracranial bleed is not seen . The ventricles are normal in caliber. No extra-axial fluid collection is noted. Mild to moderate low-density areas within periventricular, deep and subcortical white matter likely r epresent ischemic changes secondary to small vessel disease. Fluid within the sinuses/ mastoids is not seen. IMPRESSION: No acute intracranial abnormality is seen. If patient's symptoms persist MRI of the bra in would be recommended.
[2021-04-29] MEDS: APIXABAN 5 MG TABLET PO SCH (20:48)
[2021-04-29] MEDS: ROSUVASTATIN 10 MG TAB PO SCH (20:48)
[2021-04-29] MEDS: CEFTRIAXONE/SWI 1gm 1 GM/10 ML SYR IV SCH (22:44)
[2021-04-30] MEDS: ASPIRIN EC 81 MG TAB PO SCH (08:13)
[2021-04-30] MEDS: APIXABAN 5 MG TABLET PO SCH (08:15)
[2021-04-30] MEDS: AMIODARONE HCL 200 MG TAB PO SCH (08:15)
[2021-04-30 09:41] VITALS: O2SAT 95
[2021-04-30] MEDS: ISOSORBIDE MONO SR 60 MG TAB PO SCH (11:09)
--- NOTE | 2021-04-30 11:48 | P.DS ---
Admission Date: 04/27/21 Discharge Date: 04/30/21 Disposition: DC HOME/HOME HEALTH CARE Discharge Condition: FAIR Reason for Admission: Shortness of breath - Problems (1) Rapid atrial fibrillation Current Visit: Yes Status: Acute (2) Coronary artery disease Current Visit: Yes Status: Acute (3) Peripheral vascular disease Current Visit: Yes Status: Acute (4) Essential hypertension Current Visit: Yes Status: Acute (5) Anemia Current Visit: Yes Status: Acute (6) Acute diastolic heart failure Current Visit: Yes Status: Acute Brief History of Present Illness: 80-year-old woman with a history of coronary artery disease status post CABG, status post multiple cardiac stent, history of peripheral vascular disease, follows with Dr. Preston who is planning another cardiac catheterization and peripheral vascular angioplasty. Patient presented to Dr. Preston's office complaining of shortness of breath. Patient noted to be in rapid atrial fibrillation. Dr. Preston directed patient to the emergency department for further evaluation and management. Hospital Course: Patient admitted to the medical floor and continued on amiodarone drip. She was also started on Eliquis for atrial fibrillation anticoagulation. Troponin trended negative. Patient converted to sinus rhythm within 48 hrs. Air amiodarone drip was transitioned to oral amiodarone. Patient had minor symptoms of dizziness and vomiting but symptoms got better. She developed an episode of delirium with Phenergan given for nausea. She was also treated for acute CHF with IV Lasix. Patient has clinically improved. She is ambulatory but feels weak history benefit from PT at home. Patient prescribed amiodarone 400 mg b.i.d. x7 days followed by 200 mg b.i.d. she is also prescribed with Eliquis and low-dose Lasix. She will follow with Dr. Swan as an outpatient for further evaluation which may include stress test and echocardiogram.. Vital Signs/Physical Exam: Temp Pulse Resp BP Pulse Ox 97.9 F 55 16 128/58 L 92 04/30/21 08:00 04/30/21 08:00 04/30/21 08:00 04/30/21 08:00 04/30/21 08:00 General: Alert, In no apparent distress HEENT: Mucous membr. moist/pink Neck: Supple, JVD not distended Respiratory: Normal air movement, Crackles/rales (Bibasilar crackles) Cardiovascular: No edema, Normal S1 S2, Irregular heart rate/rhythm Gastrointestinal: Normal bowel sounds, Soft and benign, Non-distended, No te nderness Musculoskeletal: No swelling, No tenderness Integumentary: No rashes Neurological: Normal strength at 5/5 x4 extr Laboratory Data at Discharge: WBC 10.00 K/uL (4.3-10.9) D 04/29/21 04:45 Hgb 9.8 g/dL (12.0-15.0) L 04/29/21 04:45 Hct 30.3 % (36.0-45.0) L 04/29/21 04:45 Plt Count 221 K/uL (152-406) 04/29/21 04:45 PT 11.3 SECONDS (9.5-12.5) 04/27/21 10:08 INR 0.98 04/27/21 10:08 Sodium 134 mmol/L (136-145) L 04/29/21 04:45 Potassium 4.1 mmol/L (3.5-5.1) 04/29/21 04:45 BUN 8 mg/dL (7-18) 04/29/21 04:45 Creatinine 0.72 mg/dL (0.55-1.3) 04/29/21 04:45 Glucose 99 mg/dL (74-106) 04/29/21 04:45 Phosphorus 2.6 mg/dL (2.5-4.9) 04/28/21 13:56 Magnesium 1.9 mg/dL (1.8-2.4) 04/28/21 13:56 Total Bilirubin 0.9 mg/dL (0.2-1.0) 04/27/21 10:08 AST 23 U/L (15-37) 04/27/21 10:08 ALT 28 U/L (12-78) 04/27/21 10:08 Alkaline Phosphatase 84 U/L (45-117) 04/27/21 10:08 Troponin I < 0.02 ng/mL (0.0-0.045) 04/27/21 21:38 Home Medications: Aspirin [Aspirin EC 81 MG] 81 mg PO DAILY 01/26/21 Isosorbide Mononitrate [Isosorbide Mononitrate ER] 60 mg PO BID 01/26/21 Rosuvastatin [Crestor*] 10 mg PO BEDTIME 01/26/21 Amiodarone HCl [Cordarone*] 400 mg PO BID #84 tab 04/30/21 Apixaban [Eliquis] 5 mg PO BID #60 tablet 04/30/21 Furosemide [Lasix] 20 mg PO DAILY #30 tab 04/30/21 levoFLOXacin [Levaquin] 500 mg PO DAILY #5 tab 04/30/21 New Medications: Amiodarone HCl [Cordarone*] 400 mg PO BID #84 tab Apixaban [Eliquis] 5 mg PO BID #60 tablet Furosemide [Lasix] 20 mg PO DAILY #30 tab levoFLOXacin [Levaquin] 500 mg PO DAILY #5 tab Followup: Bertrand Swan MD [ACTIVE - CAN ADMIT] - 1-2 Weeks Shane Palacio MD [Primary Care Provider] - Time spent managing pt's care (in minutes): 36
[2021-04-30 16:21] VITALS: BP 126/60; TEMP 97.9
== END 2021-04-30 16:29 | disposition home health service (06) | DRG 308 ==
LOC: ER 09:36 → ERHOLD 13:40 → 4TH 04-29 13:15
PROVIDERS: ADMIT Internal Medicine; ATTEND Internal Medicine
DX: I48.91 Unspecified atrial fibrillation (principal); I50.31 Acute diastolic (congestive) heart failure; N39.0 Urinary tract infection, site not specified; I11.0 Hypertensive heart disease with heart failure; I73.9 Peripheral vascular disease, unspecified; I25.10 Atherosclerotic heart disease of native coronary artery without angina pectoris; E78.5 Hyperlipidemia, unspecified; D64.9 Anemia, unspecified; F17.210 Nicotine dependence, cigarettes, uncomplicated; R41.0 Disorientation, unspecified; T42.6X5A Adverse effect of other antiepileptic and sedative-hypnotic drugs, initial encounter; Z88.1 Allergy status to other antibiotic agents; Z88.0 Allergy status to penicillin; Z79.02 Long term (current) use of antithrombotics/antiplatelets; Z79.82 Long term (current) use of aspirin; Z79.899 Other long term (current) drug therapy; Z90.710 Acquired absence of both cervix and uterus; Z95.1 Presence of aortocoronary bypass graft; Z95.5 Presence of coronary angioplasty implant and graft; Z85.528 Personal history of other malignant neoplasm of kidney; Z90.49 Acquired absence of other specified parts of digestive tract; Z60.2 Problems related to living alone; Z20.822 Contact with and (suspected) exposure to COVID-19
CPT/HCPCS: 36415; 70450; 71045; 80048; 80076; 81003; 81015; 83735; 83880; 84100; 84132; 84439; 84443; 84484; 85025; 85610; 87077; 87086; 87088; 87186; 93005; 96365; 96366; 96372; 96375; 99285; J0282; J0696; J1650; J1940; J2550; J7060; U0003

== ENCOUNTER 2021-06-15 08:58 | Inpatient (IN) | payer OTHER ==
--- OUTSIDE RECORDS SUMMARY | 2021-06-15 09:06 | XMS REPORT | Continuity of Care Document ---
:1940 Author Organization [facility] t Address [address] [place] [address] Care Team Providers Name Role Phone Asked, Pcp Primary Care Physician Unavailable Raslan Attending Clinician Unavailable Palacio, E Admitting Clinician Unavailable Raslan Admitting Clinician Unavailable Payers Payer Name Policy Type Policy Number Effective Date Expiration Date S ource Problems This patient has no known problems. Allergies, Adverse Reactions, Alerts Allergy Allergy Status Severity Reaction(s) Onset Inactive Treating Comm ents Source Name Type Date Date Clinician [place] Active [place] [facility] ins 7-21 Clear 00:00: Rivera [facility] codeine DA Active [place] [facility] 7-21 Clear 00:00: Rivera [address] [facility] ciproflo DA Active U 0 [facility] xacin 7-21 Clear 00:00: Rivera [facility] ciproflo DA Active U [facility] xacin 5-28 Clear 00:00: Rivera [facility] [place] DA Active [place] 2018-11 [facility] ins 0-04 Clear 00:00: Rivera [facility] codeine DA Active [place] 2018-11 [facility] 0-04 Clear 00:00: Rivera [facility] [place] Active [place] 2018-11 [facility] ins 0-03 [place] 00:00: Drayton [facility] codeine DA Active [place] 2018-11 [facility] 0-03 West 00:00: [address] [place] [facility] ins 08-09 [place] 00:00: [address] codeine DA Active [place] 2018- [facility] 08-09 [place] 00:00: [address] [place] [facility] ins 4 [place] 00:00: [address] [place] Active [place] [facility] 03-07 00:00: [address] Social History Social Habit Start Date Stop Date Quantity Comments Source Sex Assigned At [birth year] [facility] 00:00:00 00:00:00 Smoking Status Start Date Stop Date Source Unknown if ever smoked [facility] Medications This patient has no known medications. Procedures This patient has no known procedures. Plan of Care Planned Activity Planned Date Details Comments Source Future Scheduled Test 65+ PNEUMOCOCCAL [facility] VACCINE (1 of 2 - PPSV23) [code = 65+ PNEUMOCOCCAL VACCINE (1 of 2 - PPSV23)] Future Scheduled Test COVID-19 VACCINE (1) [facility] [code = COVID-19 VACCINE (1)] Future Scheduled Test SHINGLES VACCINES (#1) [facility] [code = SHINGLES VACCINES (#1)] Future Scheduled Test INFLUENZA VACCINE [code [facility] = INFLUENZA VACCINE] Encounters Start End Encounter Admission Attending Care Care Encounter Source Date/Time Date/Time Type Type Clinicians Facility Department ID 2021-05-30 Inpatient CECILIA Vargas OUTD [id number] [facility] 15:00:00 Anton [id number] [facility] 2021-05-31 2021-06-01 Inpatient CECILIA Vargas INTE [id number] [facility] 19:24:00 13:26:00 Anton [id number] [facility] Results Test Description Test Time Test Comments Results Result Comments Source BASIC METABOLIC PANEL 2021-06-01 04:41:00 Test Item Value Reference Range Interpretation Comme nts SODIUM (test code = NA) 136 mEq/L 134-147 N POTASSIUM (test code = K) 4.0 mEq/L 3.4-5.0 CHLORIDE (test code = CL) 105 mEq/L 100-108 CARBON DIOXIDE (test code = CO2) 23 mEq/l 21-33 N ANION GAP (test code = GAP) 12 0-20 N GLUCOSE (test code = GLU) 69 mg/dL 70-110 L BLOOD UREA NITROGEN (test code = 16 mg/dL 7-18 N BUN) GLOMERULAR FILTRATION RATE (test 69.0 70-80 L Units of measure = ml/min/1.73 code = GFR) m2 CREATININE (test code = CREAT) 0.8 mg/dL 0.6-1.3 N CALCIUM (test code = CA) 8.6 mg/dL 8.0-10.5 N CBC W/AUTO [id number] 04:30:00 Test Item Value Reference Range Interpretation Comments WHITE BLOOD CELL (test code = 8.4 x10 3/uL 4.5-11.0 N WBC) RED BLOOD CELL (test code = 3.98 x10 6/uL 3.54-5.02 N RBC) HEMOGLOBIN (test code = HGB) 9.7 g/dL 11.0-15.0 L HEMATOCRIT (test code = HCT) 31.5 % 33.0-45.0 L MEAN CELL VOLUME (test code = 79.1 fL 81.0-99.0 L MCV) MEAN CELL HGB (test code = MCH) 24.4 pg 27.0-33.0 L MEAN CELL HGB CONCETRATION 30.8 g/dL 33.0-37.0 L (test code = MCHC) RED CELL DISTRIBUTION WIDTH CV 15.4 % 11.5-14.5 H (test code = RDW) RED CELL DISTRIBUTION WIDTH SD 44.4 fL 37.0-54.0 N (test code = RDW-SD) PLATELET COUNT (test code = 198 x10 3/uL 150-400 N PLT) MEAN PLATELET VOLUME (test code 10.4 fL 7.0-9.0 H = MPV) NEUTROPHIL % (test code = NT%) 74.3 % 56.0-77.0 N IMMATURE GRANULOCYTE % (test 0.4 % 0.0-2.0 N code = IG%) LYMPHOCYTE % (test code = LY%) 17.0 % 14.0-32.0 N MONOCYTE % (test code = MO%) 6.7 % 4.8-9.0 N EOSINOPHIL % (test code = EO%) 1.0 % 0.3-3.7 N BASOPHIL % (test code = BA%) 0.6 % 0.0-2.0 N NUCLEATED RBC % (test code = 0.0 % 0-0 N NRBC%) NEUTROPHIL # (test code = NT#) 6.26 x10 3/uL 2.0-7.6 N IMMATURE GRANULOCYTE # (test 0.03 x10 3/uL 0.00-0.03 N code = IG#) LYMPHOCYTE # (test code = LY#) 1.43 x10 3/uL 1.0-3.8 N MONOCYTE # (test code = MO#) 0.56 x10 3/uL 0.1-0.8 N EOSINOPHIL # (test code = EO#) 0.08 x10 3/uL 0.0-0.2 N BASOPHIL # (test code = BA#) 0.05 x10 3/uL 0.0-0.2 N NUCLEATED RBC # (test code = 0.00 x10 3/uL 0.0-0.1 N NRBC#) MANUAL DIFF REQUIRED (test code NO = MDIFF) COAGULATION TIME [id number] 18:28:00 Test Item Value Reference Range Interpretation Comments COAGULATION TIME 334 SECONDS Performed b y 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 (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) at [facility] BASIC METABOLIC [id number] 18:09:00 Test Item Value Reference Range Interpretation Comments SODIUM (test code = NA) 133 mEq/L 134-147 L POTASSIUM (test code = 3.3 mEq/L 3.4-5.0 L K) CHLORIDE (test code = 99 mEq/L 100-108 L CL) CARBON DIOXIDE (test 28 mEq/l 21-33 N code = CO2) ANION GAP (test code = 9 0-20 N GAP) GLUCOSE (test code = 93 mg/dL 70-110 N GLU) BLOOD UREA NITROGEN 13 mg/dL 7-18 N (test code = BUN) GLOMERULAR FILTRATION 60.2 70-80 L Units of measure = RATE (test code = GFR) ml/mi n/1.73 m2 CREATININE (test code = 0.9 mg/dL 0.6-1.3 N CREAT) CALCIUM (test code = 9.2 mg/dL 8.0-10.5 N CA) PROTHROMBIN [id number] 18:06:00 Test Item Value Reference Range Interpretation Comments PROTHROMBIN TIME 21.7 SECONDS 9.3-12.9 H PATIENT (test code = PTP) INTERNATIONAL NORMAL 2.0 0.8-1.2 H TARGET RATIO (test code = INR BY IN DICATION INR) Indication INR1. Prophyl axis of venous thrombos is 2.0 - 3. 0 (orthopedic selvin patricia), Prophylaxis of venous thrombos is (other than hig h-risk surgery), Gisselle tment of Deep Vein Thrombosis/Pulm onary Embolism, Preve ntion of systemic emb olism - Tissue heart va lves, Acute Myocardia l Infarction (to prevent systemic embo lism), Valvular heart disease, Atri al Fibrillation, Bileaflet mecha nical valve in aortic position.2. Mec hanical prosthetic valv es (high risk), 2.5 - 3.5 Presence of Lupus Anticoagu lant or Antiphospholi pid Antibodies, Pre vention of systemic e mbolism - Acute Myocard ial Infarction (t o prevent recurre nt infarct). CBC W/AUTO [id number] 17:59:00 Test Item Value Reference Range Interpretation Comments WHITE BLOOD CELL (test code = 8.8 x10 3/uL 4.5-11.0 N WBC) RED BLOOD CELL (test code = 4.43 x10 6/uL 3.54-5.02 N RBC) HEMOGLOBIN (test code = HGB) 10.5 g/dL 11.0-15.0 L HEMATOCRIT (test code = HCT) 35.1 % 33.0-45.0 N MEAN CELL VOLUME (test code = 79.2 fL 81.0-99.0 L MCV) MEAN CELL HGB (test code = MCH) 23.7 pg 27.0-33.0 L MEAN CELL HGB CONCETRATION 29.9 g/dL 33.0-37.0 L (test code = MCHC) RED CELL DISTRIBUTION WIDTH CV 15.4 % 11.5-14.5 H (test code = RDW) RED CELL DISTRIBUTION WIDTH SD 44.4 fL 37.0-54.0 N (test code = RDW-SD) PLATELET COUNT (test code = 229 x10 3/uL 150-400 N PLT) MEAN PLATELET VOLUME (test code 10.7 fL 7.0-9.0 H = MPV) NEUTROPHIL % (test code = NT%) 75.8 % 56.0-77.0 N IMMATURE GRANULOCYTE % (test 0.3 % 0.0-2.0 N code = IG%) LYMPHOCYTE % (test code = LY%) 15.5 % 14.0-32.0 N MONOCYTE % (test code = MO%) 7.4 % 4.8-9.0 N EOSINOPHIL % (test code = EO%) 0.5 % 0.3-3.7 N BASOPHIL % (test code = BA%) 0.5 % 0.0-2.0 N NUCLEATED RBC % (test code = 0.0 % 0-0 N NRBC%) NEUTROPHIL # (test code = NT#) 6.69 x10 3/uL 2.0-7.6 N IMMATURE GRANULOCYTE # (test 0.03 x10 3/uL 0.00-0.03 N code = IG#) LYMPHOCYTE # (test code = LY#) 1.37 x10 3/uL 1.0-3.8 N MONOCYTE # (test code = MO#) 0.65 x10 3/uL 0.1-0.8 N EOSINOPHIL # (test code = EO#) 0.04 x10 3/uL 0.0-0.2 N BASOPHIL # (test code = BA#) 0.04 x10 3/uL 0.0-0.2 N NUCLEATED RBC # (test code = 0.00 x10 3/uL 0.0-0.1 N NRBC#) MANUAL DIFF REQUIRED (test code NO = MDIFF) CBC W/AUTO [id number] 17:57:00 Test Item Value Reference Range Interpretation Comments WHITE BLOOD CELL (test code = x10 3/uL 4.5-11.0 WBC) RED BLOOD CELL (test code = RBC) x10 6/uL 3.54-5.02 HEMOGLOBIN (test code = HGB) g/dL 11.0-15.0 HEMATOCRIT (test code = HCT) 35.1 % 33.0-45.0 N MEAN CELL VOLUME (test code = fL 81.0-99.0 MCV) MEAN CELL HGB (test code = MCH) pg 27.0-33.0 MEAN CELL HGB CONCETRATION (test g/dL 33.0-37.0 code = MCHC) RED CELL DISTRIBUTION WIDTH CV % 11.5-14.5 (test code = RDW) PLATELET COUNT (test code = PLT) 229 x10 3/uL 150-400 N NEUTROPHIL % (test code = NT%) % 56.0-77.0 LYMPHOCYTE % (test code = LY%) % 14.0-32.0 NEUTROPHIL # (test code = NT#) x10 3/uL 2.0-7.6 LYMPHOCYTE # (test code = LY#) x10 3/uL 1.0-3.8 MANUAL DIFF REQUIRED (test code = MDIFF) - XR CHEST 2 [id number] 00:00:00 [facility] 1940 Sex: F FAX: Shane Em Jr [phone] [place]: St: PRE FAX: Anton Meza MD [phone] Name: ASHVINRUTH [facility] : 1940 Age/S: 80/F [address] [place] [address] Unit #: [id number] Loc: [place] [address] Phys: Anton Preston MD Acct: [id number] Dis Date: Status: PRE [facility] PHONE #: [phone] Exam Date: 05/30/2021 171 FAX #: [phone] Reason: [facility] EXAMS: CPT CODE: [id number] XR CHEST 2 V 88397 PROCEDURE INFORMATION: Exam: XR Chest Exam date and time: 05/30/2021 4:30 PM Age: 80 years old Clinical indication: Screening exam; Pre- operative exam; Cardiovascular screening; Additional info: [facility] TECHNIQUE: Imaging protocol: XR of the chest. Views: 2 views. PA and Lateral COMPARISON: CR XR CHEST 1V 08/21/2019 6:58 AM FINDINGS: Lungs: Lucent, hyperinflated lungs with no edema or consolidation. Pleural spaces: No pleural effusion. No pneumothorax. Heart/Mediastinum: Enlarged cardiac silhouette with prior median sternotomy. Vasculature: Severe aortic arch calcification. Bones/joints: Diffuse osteopenia with severe thoracic spondylosis and prior screw fixation of the right humeral neck. Intraperitoneal space: Postsurgical clips are seen in the right upper quadrant. IMPRESSION: 1. Lucent, hyperinflated lungs with no edema or consolidation. 2. 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 3. Severe atherosclerosis. at 0763 Reported and signed by: Dwayne Gordillo M.D. CC: Shane Palacio Jr, MD; Anton Preston MD Technologist: BENITEZ Tabares) Trnscrd Date/Time/By: 05/30/2021 (7895) : By: [email or web address] Orig Print D/T: S: 05/30/2021 (4859) PAGE 1 Signed [id number] 14:43:00 RUN DATE: 04/12/20 [facility] PAGE 1 RUN TIME: 5023 Specimen Inquiry RUN USER: INTERFACE PATIENT: RUTH LOCK LOC: [place] U #: [id number] AGE/SX: 79/F [facility]: Harry Johns MD : 40 BED: 1 DIS: 04/09/20 STATUS: DIS IN TLOC: SPEC #: [id number] RECD: 04/08/20 STATUS: REESE REQ #: [id number] TRANG: 04/08/[address]: Harry Johns MD ENTERED: 04/08/20-100 SP TYPE: SURG OTHR DR: DOES_NOT KNOW Self Referred PalacioShane Jr, MD, Nizam Mohammad MDORDERED: SURG PATH L 02/10 COPIES TO: DOES_NOT KNOW Self Referred Shane Palacio Jr, MD [address] [place] [address] [address] [facility] [address] [place] [address] [facility] [place] [address] [email or web address] Rosario Nuñez MD [address] [place] [address] HISTOLOGY: TISSUE ID BLK PCS RASHAWN LEV PROCEDURE DISPOSITION ____ ___ ___ ___ STOMACH, NOS A 1 2 STOMACH, NOS B 1 2 PROCEDURES: SURG PATH LVL 4 (04/08/20-1001) TISSUES: A. STOMACH, NOS - GASTRIC ULCER BIOPSY B. STOMACH, NOS - ANTRUM AND BODY BIOPSY CLINICAL HISTORY HTN/DM CONTINUEDON NEXT PAGE RUN DATE: 04/12/20 [facility] - LAB PAGE 2 RUN TIME: 1443 Specimen Inquiry RUN USER: INTERFACE SPEC #: [facility]:[id number] PATIENT: RUTH LOCK #[id number] (Continued) CPT CODES CPT CODE(S): [id number] , ,, , , , FINAL DIAGNOSIS A. Stomach, biopsy: ACUTE AND CHRONIC GASTRITIS WITH INTESTINAL METAPLASIA NEGATIVE FOR DYSPLASIA OR MALIGNANCY NEGATIVE FORHELICOBACTER PYLORI ORGANISMS B. Stomach, antrum and body, biopsy: MILD CHRONIC GASTRITIS NEGATIVE FOR INTESTINAL METAPLASIA, DYSPLASIA, OR MALIGNANCY NEGATIVE FOR HELICOBACTER PYLORI ORGANISMS GROSS DESCRIPTION A. Gastric ulcer biopsy. Received in formalin are two cohen tissue fragments, 0.2 - 0.6 cm, all as A. B. Antrum and body biopsy. Received in formalin aretwo cohen tissue fragments, 0.2 cm each, all as B. judi/nr Grossing performed at [facility] Pathology,[address] [place] [address], [address], [place] [address]. Internal Controls Analyst: Julian Phan M.D. MICROSCOPIC DESCRIPTION A. Gastric ulcer biopsy. Sections demonstrate gastric mucosa with chronic inflammation and intestinal metaplasia. Mucosa demonstrates a reactive appearance. Noevidence of dysplasia or malignancy is seen. No evidence of Helicobacter pylori organisms is identified. B. Antrum and body biopsy. Sections demonstrate gastric mucosa with mild chronic inflammation. No dysplasia or malignancy is identified. No evidence of Helicobacter pylori organismsor intestinal metaplasia is seen. Signed SIGNATURE ON FILE Augusto Crum 04/12/20 1443 END OF REPORT HGB HCT 2020-04-09 13:42:00 Test Item Value Reference Range Interpretation Comments HEMOGLOBIN (test code = HGB) 9.4 G/DL 10.4-14.9 L HEMATOCRIT (test code = HCT) 29.2 % 31.5-44.1 L GLUCOSE BEDSIDE [id number] 12:16:00 Test Item Value Reference Range Interpretation Comments GLUCOSE BEDSIDE TESTING (test code 132 mg/dL 70-110 H = GLUBED) GLUCOSE BEDSIDE [id number] 07:57:00 Test Item Value Reference Range Interpretation Comments GLUCOSE BEDSIDE TESTING (test code = 85 mg/dL 70-110 N GLUBED) BASIC METABOLIC [id number] 06:28:00 Test Item Value Reference Range Interpretation [...] CA) 8.3 MG/DL 8.5-10.1 L CBC W/AUTO [id number] 06:22:00 Test Item Value Reference Range Interpretation [...] - XR KNEE 1 OR 2 V [id number] 23:00:00 Name: RUTH LOCK [place] : 1940 Age/S: 79 / F [address] Unit #: [id number] Loc: [place] [address] Phys: Amy Pena MD Acct: [id number] Dis Date: Status: ADM IN PHONE #: [phone] Exam Date: 04/08/2020 6378 FAX #: Reason: right knee pain, s/p fall EXAMS: CPT: [id number] XR KNEE 1 OR 2 [place] [address] Fluoro Time: DAP (Gy m2): Air Kerma (mGy): Location code: H5 Right knee 2 views: Indication: right knee pain, s/p fall Comparison: none. Findings: No evidence of fracture, subluxation, or dislocation. Jointspace is preserved. Articular surfaces are smooth. No evidence of joint effusion. Soft tissues are unremarkable. Vascular calcification. Impression: 1. Normal exam. at 2300 Reportedand signed by: Austni Baca M.D. CC: Shane Palacio Jr, MD; Amy Pena MD; Harry Johns MD PAGE 1 Signed Report Name: RUTH LOCK : 1940 Age/S: 79 / F [address] Unit #: [id number] Loc: [place] [address] Phys:Amy Pena MD Acct: [id number] Dis Date: Status: ADM IN PHONE #: [phone] Exam Date: 04/08/20202252 FAX #: Reason: right knee pain, s/p fall EXAMS: CPT: [id number] XR KNEE 1 OR 2 [place] [address]24 Fluoro Time: DAP (Gy m2): Air Kerma (mGy): <Continued> Technologist: Louann Ascencio, RT(R)(CT) Trnscb Date/Time: 04/08/2020 (2299) t.SDR.DRB1 Orig Print D/T: S: 04/08/2020 (2302) PAGE 2 Signed ReportGLUCOSE BEDSIDE TESTING 2020-04-08 20:40:00 Test Item Value Reference Range Interpretation Comments GLUCOSE BEDSIDE TESTING (test code 131 mg/dL 70-110 H = GLUBED) HGB [id number] 17:56:00 Test Item Value Reference Range Interpretation Comments HEMOGLOBIN (test code = HGB) 8.9 G/DL 10.4-14.9 L HEMATOCRIT (test code = HCT) 27.0 % 31.5-44.1 L GLUCOSE BEDSIDE [id number] 16:53:00 Test Item Value Reference Range Interpretation Comments GLUCOSE BEDSIDE TESTING (test code = 90 mg/dL 70-110 N GLUBED) GLUCOSE BEDSIDE [id number] 12:20:00 Test Item Value Reference Range Interpretation Comments GLUCOSE BEDSIDE TESTING (test code = 90 mg/dL 70-110 N GLUBED) HGB [id number] 09:51:00 Test Item Value Reference Range Interpretation Comments HEMOGLOBIN (test code = HGB) 10.0 G/DL 10.4-14.9 L HEMATOCRIT (test code = HCT) 31.2 % 31.5-44.1 L GLUCOSE BEDSIDE [id number] 09:42:00 Test Item Value Reference Range Interpretation Comments GLUCOSE BEDSIDE TESTING (test code = 91 mg/dL 70-110 N GLUBED) HGB [id number] 01:53:00 Test Item Value Reference Range Interpretation Comments HEMOGLOBIN (test code = HGB) 6.8 G/DL 10.4-14.9 L HEMATOCRIT (test code = HCT) 22.1 % 31.5-44.1 L GLUCOSE BEDSIDE [id number] 21:24:00 Test Item Value Reference Range Interpretation Comments GLUCOSE BEDSIDE TESTING (test code 106 mg/dL 70-110 N = GLUBED) HGB [id number] 17:29:00 Test Item Value Reference Range Interpretation Comments HEMOGLOBIN (test code = HGB) 7.2 G/DL 10.4-14.9 L HEMATOCRIT (test code = HCT) 22.5 % 31.5-44.1 L GLUCOSE BEDSIDE [id number] 17:06:00 Test Item Value Reference Range Interpretation Comments GLUCOSE BEDSIDE TESTING (test code 102 mg/dL 70-110 N = GLUBED) Coronavirus 2019 nCoV [id number] 13:34:00 Test Item Value Reference Range Interpretation Comments Coronavirus 2019 nCoV Bedside (test Negative code = COVNONPUIBED) GLUCOSE BEDSIDE [id number] 12:01:00 Test Item Value Reference Range Interpretation Comments GLUCOSE BEDSIDE TESTING (test code = 96 mg/dL 70-110 N GLUBED) HGB [id number] 08:55:00 Test Item Value Reference Range Interpretation Comments HEMOGLOBIN (test code = HGB) 7.1 G/DL 10.4-14.9 L HEMATOCRIT (test code = HCT) 22.6 % 31.5-44.1 L GLUCOSE BEDSIDE [id number] 08:02:00 Test Item Value Reference Range Interpretation Comments GLUCOSE BEDSIDE TESTING (test code = 95 mg/dL 70-110 N GLUBED) [id number] 03:21:00 Test Item Value Reference Range Interpretation Comments GLYCOSYLATED HEMOGLOBIN (HA1C) 5.8 % A1C 0.0-5.7 H (test code = GLYHGB) ESTIMATED AVERAGE GLUCOSE (test 120 MG/DLest code = EAG) CBC W/AUTO [id number] 03:03:00 Test Item Value Reference Range Interpretation [...] = NO DIFF/SCN CRITERIA MDIFF) COMPREHENSIVE METABOLIC [id number] 02:44:00 Test Item Value Reference Range Interpretation [...] TOTAL (test code = ALKP) COMPREHENSIVE METABOLIC [id number] 06:20:00 Test Item Value Reference Range Interpretation [...] N (test code = ALKP) COMPREHENSIVE METABOLIC [id number] 06:19:00 Test Item Value Reference Range Interpretation [...] N (test code = ALKP) COMPREHENSIVE METABOLIC [id number] 06:18:00 Test Item Value Reference Range Interpretation [...] 38-126 (test code = ALKP) COMPREHENSIVE METABOLIC [id number] 06:16:00 Test Item Value Reference Range Interpretation [...] = UNITS/L 38-126 ALKP) - XR CHEST [id number] 07:39:00 Patient Name: RUTH LOCK Unit No: [id number] EXAMS: CPT CODE: [id number] XR CHEST 1V 77316 EXAM: Portable chest x-ray Dictation location: [id number]: Chest x-ray performed one day prior INDICATION: [...] Erica Burgess MD; Kristan Trejo NP Technologist: Lary Lewis (RT)(R) Transcrpt Date/Tm/Trnsp: 08/21/2019(0739) t.SDR.BC0 [facility] NAME: RUTH LOCK [address] PHYS: KRISTIE.[place] [address] : 1940 AGE: 79 SEX: F LOC: Z.361 A PHONE #: [phone] EXAM DATE: 08/21/2019 STATUS:ADM IN FAX #: [phone] RADIOLOGY NO: PAGE 1 Signed ReportBASIC METABOLIC [id number] 06:44:00 Test Item Value Reference Range Interpretation [...] 8.7 MG/DL 8.4-10.2 N CA) BASIC METABOLIC [id number] 06:43:00 Test Item Value Reference Range Interpretation [...] code = MG/DL 8.7-9.7 CA) BASIC METABOLIC [id number] 06:41:00 Test Item Value Reference Range Interpretation [...] code = CA) MG/DL 8.7-9.7 BASIC METABOLIC [id number] 06:39:00 Test Item Value Reference Range Interpretation [...] = CA) MG/DL 8.7-9.7 - XR CHEST [id number] 07:45:00 Patient Name: RUTH LOCK Unit No: [id number] EXAMS: CPT CODE: [id number] XR CHEST 1V 12975 EXAM: Chest x-ray Dictation location: B2 COMPARISON: [...] Palacio MD; Erica Burgess MD; Kristan Trejo GERIATRICS PHYSICIAN Technologist: Michelle Wei RT(R) Transcrpt Date/Tm/Trnsp: 08/20/2019 (0745) GuidoBC0 Orig Print D/T: S: 08/20/2019 (0748) [facility] NAME: RUTH LOCK [address] PHYS: KRISTIE.[place] [address] : 1940 AGE: 79 SEX: F LOC: ZNini Rocha PHONE #: [phone] EXAM DATE: 08/20/2019 STATUS: ADM IN FAX #: [phone] RADIOLOGY NO: PAGE 1 Signed ReportBASIC METABOLIC [id number] 06:44:00 Test Item Value Reference Range Interpretation [...] 8.5 MG/DL 8.4-10.2 N CA) BASIC METABOLIC [id number] 06:43:00 Test Item Value Reference Range Interpretation [...] code = MG/DL 8.7-9.7 CA) BASIC METABOLIC [id number] 06:40:00 Test Item Value Reference Range Interpretation [...] = CA) MG/DL 8.7-9.7 - XR CHEST [id number] 09:35:00 Patient Name: RUTH LOCK Unit No: [id number] EXAMS: CPT CODE: [id number] XR CHEST 1V 58715 LOCATION: T18 EXAM: CHEST 1 VIEW INDICATION: [...] Palacio MD; Erica Burgess MD; Kristan Trejo GERIATRICS PHYSICIAN Technologist: [facility] STUDENT ; Cr Barton (RT) (R) Transcrpt Date/Tm/Trnsp: 08/19/2019 (0935) t.SDR.JP19 Orig Print D/T: S: 08/19/2019 (0938) [facility] NAME: RUTH LOCK [address] PHYS: [place] [address] : 1940 AGE: 79 SEX: F LOC: ZNini A PHONE #: [phone] EXAM DATE: 08/19/2019 STATUS: ADM IN FAX #: [phone] RADIOLOGY NO: PAGE 1 Signed Report- XR CHEST [id number] 07:42:00 Patient Name: RUTH LOCK Unit No: [id number] EXAMS: CPT CODE: [id number] XR CHEST 1V 05376 Chest Radiograph History: post CT Comparison: August [...] t.SDR.PMT Orig Print D/T: S: 08/19/2019 (0745) [facility] NAME: RUTH LOCK[address] PHYS: [place] [address] : 1940 AGE: 79 SEX: F LOC: Z.361 A PHONE #: [phone] EXAM DATE: 08/19/2019 STATUS: ADM IN FAX #: [phone] RADIOLOGY NO: PAGE 1 Signed ReportCOMPREHENSIVE METABOLIC [id number] 07:17:00 Test Item Value Reference Range Interpretation [...] N (test code = ALKP) COMPREHENSIVE METABOLIC [id number] 07:16:00 Test Item Value Reference Range Interpretation [...] N (test code = ALKP) COMPREHENSIVE METABOLIC [id number] 07:15:00 Test Item Value Reference Range Interpretation [...] 38-126 (test code = ALKP) COMPREHENSIVE METABOLIC [id number] 07:13:00 Test Item Value Reference Range Interpretation [...] code = UNITS/L 38-126 ALKP) COMPREHENSIVE METABOLIC [id number] 07:13:00 Test Item Value Reference Range Interpretation [...] code = UNITS/L 38-126 ALKP) CBC W/AUTO [id number] 06:51:00 Test Item Value Reference Range Interpretation [...] 0.00 K/mm3 0.0-0.1 N NRBC#) CBC W/AUTO [id number] 13:00:00 Test Item Value Reference Range Interpretation [...] 08/18/19 AT 1247 BY Ana Loomis METABOLIC [id number] 05:14:00 Test Item Value Reference Range Interpretation [...] N (test code = ALKP) COMPREHENSIVE METABOLIC [id number] 05:11:00 Test Item Value Reference Range Interpretation [...] code = UNITS/L 38-126 ALKP) COMPREHENSIVE METABOLIC [id number] 04:44:00 Test Item Value Reference Range Interpretation [...] 38-126 (test code = ALKP) COMPREHENSIVE METABOLIC [id number] 04:21:00 Test Item Value Reference Range Interpretation [...] = UNITS/L 38-126 ALKP) - XR CHEST [id number] 09:06:00 Patient Name: RUTH LOCK Unit No: [id number] EXAMS: CPT CODE: [id number] XR CHEST 1V 46378 Location: T 18 Chest x-ray exam, portable [...] Lewis (RT)(R) Transcrpt Date/Tm/Trnsp: 08/16/2019 (0906) GuidoDAS6 [facility] NAME: RUTH LOCK [address] PHYS: [place] [address] : 1940 AGE: 79 SEX: F LOC: ZGUMARO Rocha PHONE #: [phone] EXAM DATE: 08/16/2019 STATUS: ADM IN FAX #: [phone] RADIOLOGY NO: PAGE 1 Signed ReportCOMPREHENSIVE METABOLIC [...] N (test code = ALKP) COMPREHENSIVE METABOLIC [id number] 05:16:00 Test Item Value Reference Range Interpretation [...] 38-126 (test code = ALKP) COMPREHENSIVE METABOLIC [id number] 05:15:00 Test Item Value Reference Range Interpretation [...] code = UNITS/L 38-126 ALKP) COMPREHENSIVE METABOLIC [id number] 05:14:00 Test Item Value Reference Range Interpretation [...] = UNITS/L 38-126 ALKP) - XR CHEST [id number] 07:30:00 Patient Name: RUTH LOCK Unit No: [id number] EXAMS: CPT CODE: [id number] XR CHEST 1V 19123 Portable AP chest, 1 view Location Code: [...] MD CC: Cj Palacio MD; DANIEL GRIFFITH MED[employer] DESK SPECIALIST- CURL; Erica Burgess MD Technologist: Flaco Puentes, RT(R) Transcrpt Date/Tm/Trnsp: 08/15/2019 (0730) t.SDR.RAO1 Orig Print D/T: S: 08/15/2019 (0733) [facility] NAME: RUTH LOCK [address] PHYS: [place] [address] : 1940 AGE: 79 SEX: F LOC: Z.SI06 A PHONE #: [phone] EXAM DATE: 08/15/2019 STATUS: ADM IN FAX #: [phone] RADIOLOGY NO: PAGE 1 Signed ReportCOMPREHENSIVE METABOLIC [...] N (test code = ALKP) COMPREHENSIVE METABOLIC [id number] 06:52:00 Test Item Value Reference Range Interpretation [...] 38-126 (test code = ALKP) COMPREHENSIVE METABOLIC [id number] 06:50:00 Test Item Value Reference Range Interpretation [...] code = UNITS/L 38-126 ALKP) COMPREHENSIVE METABOLIC [id number] 06:49:00 Test Item Value Reference Range Interpretation [...] code = UNITS/L 38-126 ALKP) ARTERIAL BLOOD [id number] 05:52:00 Test Item Value Reference Range Interpretation [...] = COHBGFFIO2) 30 % - XR CHEST [id number] 09:31:00 Patient Name: RUTH LCOK Unit No: [id number] EXAMS: CPT CODE: [id number] XR CHEST 1V 72573 STUDY: Chest radiograph HISTORY: Ventilator COMPAR SAADIA: [...] MD CC: Cj Palacio MD; DANIEL GRIFFITH [facility] JIAN;Erica Burgess MD Technologist: Emperatriz Khan RT(R) Transcrpt Date/Tm/Trnsp: 08/14/2019 (0931) t.DARRELLR.RH16 Orig Print D/T: S: 08/14/2019 (0934)[facility] NAME: RUTH LOCK [address] PHYS: [place] [address] : 1940AGE: 79 SEX: F LOC: Z.SI06 A PHONE #: [phone] EXAM DATE: 08/14/2019 STATUS: ADM IN FAX #: [phone] RADIOLOGY NO: PAGE 1 Signed ReportCOMPREHENSIVE METABOLIC [id number] 07:30:00 Test Item Value Reference Range Interpretation [...] N (test code = ALKP) COMPREHENSIVE METABOLIC [id number] 07:25:00 Test Item Value Reference Range Interpretation [...] 38-126 (test code = ALKP) COMPREHENSIVE METABOLIC [id number] 07:23:00 Test Item Value Reference Range Interpretation [...] code = UNITS/L 38-126 ALKP) COMPREHENSIVE METABOLIC [id number] 07:23:00 Test Item Value Reference Range Interpretation [...] code = UNITS/L 38-126 ALKP) COMPREHENSIVE METABOLIC [id number] 07:23:00 Test Item Value Reference Range Interpretation [...] code = UNITS/L 38-126 ALKP) ARTERIAL BLOOD [id number] 03:50:00 Test Item Value Reference Range Interpretation [...] FIO2 (test code = COHBGFFIO2) 35 % [id number] 20:05:00 Test Item Value Reference Range Interpretation Comments SODIUM (test code = NA) 132 MMOL/L 137-145 L UNABLE TO DRAW BLOOD, REASON: CBN NOTIFIED PATIENT CARE STAFF: SANDHYA HADDAD 08/13/19 AT 1933 BY Tolu Virgen METABOLIC [id number] 18:07:00 Test Item Value Reference Range Interpretation [...] 8.0 MG/DL 8.4-10.2 L CA) BASIC METABOLIC [id number] 18:06:00 Test Item Value Reference Range Interpretation [...] code = MG/DL 8.7-9.7 CA) BASIC METABOLIC [id number] 18:04:00 Test Item Value Reference Range Interpretation [...] code = CA) MG/DL 8.7-9.7 BASIC METABOLIC [id number] 18:03:00 Test Item Value Reference Range Interpretation [...] CALCIUM (test code = CA) MG/DL 8.7-9.7 [id number] 17:56:00 Test Item Value Reference Range Interpretation Comments SODIUM (test code = NA) 132 MMOL/L 137-145 L - XR CHEST [id number] 10:44:00 Patient Name: RUTH LOCK Unit No: [id number] EXAMS: CPT CODE: [id number] XR CHEST 1V 40529 Site ID: [id number] Portable AP chest x [...] MD CC: Cj Palacio MD; DANIEL GRIFFITH [facility]- JIAN; Erica Burgess MD Technologist: Emperatriz Khan RT(R) Transcrpt Date/Tm/Trnsp: 08/13/2019 (1044) GuidoAJP6 OrigPrint D/T: S: 08/13/2019 (5067) [facility] NAME: RUTH LOCK [address] PHYS: PASQUALE MORGAN,[place] [address] : 1940 AGE: 79 SEX: F LOC: Z.SI06 A PHONE #: [phone] EXAM DATE: 08/13/2019 STATUS: ADM IN FAX #: [phone] RADIOLOGY NO: PAGE 1 Signed ReportARTERIAL BLOOD [id number] 10:43:00 Test Item Value Reference Range Interpretation [...] SATA) report to and readback by by ROSE MARIEA at 08/12/2019 9:40: 05 AM ABG L/M (test code = 40 L/MIN L/M) ABG DELIVERY (test VENT Previousl y reported code = THOMAS) result: HI FLOW NC Edited by: FLOR PATIÑO on 08/13/19:150727 /01/09 9 1042: DELIVE RY previously repo rted [...] code = 60 % COHBGFFIO2) ARTERIAL BLOOD [id number] 06:06:00 Test Item Value Reference Range Interpretation [...] code = 35 % COHBGFFIO2) COMPREHENSIVE METABOLIC [id number] 04:55:00 Test Item Value Reference Range Interpretation [...] UNITS/L 38-126 N (test code = ALKP) [id number] 04:55:00 Test Item Value Reference Range Interpretation Comments MAGNESIUM (test code = MAG) 1.8 MG/DL 1.6-2.3 N COMPREHENSIVE METABOLIC [id number] 04:54:00 Test Item Value Reference Range Interpretation [...] UNITS/L 38-126 N (test code = ALKP) [id number] 04:54:00 Test Item Value Reference Range Interpretation Comments MAGNESIUM (test code = MAG) MG/DL 1.6-2.3 COMPREHENSIVE METABOLIC [id number] 04:52:00 Test Item Value Reference Range Interpretation [...] PHOSPHATASE (test code = UNITS/L 38-126 ALKP) [id number] 04:52:00 Test Item Value Reference Range Interpretation Comments MAGNESIUM (test code = MAG) MG/DL 1.6-2.3 COMPREHENSIVE METABOLIC [id number] 04:51:00 Test Item Value Reference Range Interpretation [...] PHOSPHATASE (test code = UNITS/L 38-126 ALKP) [id number] 04:51:00 Test Item Value Reference Range Interpretation Comments MAGNESIUM (test code = MAG) MG/DL 1.6-2.3 CBC W/AUTO [id number] 04:41:00 Test Item Value Reference Range Interpretation [...] 0.00 K/mm3 0.0-0.1 N NRBC#) ARTERIAL BLOOD [id number] 14:25:00 Test Item Value Reference Range Interpretation [...] SATA) report to and readback by by GRAHAMYLA at 08/12/2019 9:40: 05 AM ABG L/M (test code = 40 L/MIN L/M) ABG DELIVERY (test HI FLOW NC code = THOMAS) ABG TEMPERATURE (test 37.0 C >37 code = TEMPA) ABG SITE (test code = AL SITEA) ALLENS TEST (test code NA CHECK = ALLENS) FIO2 (test code = 60 % COHBGFFIO2) ARTERIAL BLOOD [id number] 14:17:00 Test Item Value Reference Range Interpretation [...] to and readback by DR. DUARTE by GRAHAMYLA at 08/12/2019 1:49: 23 PM ABG DELIVERY [...] (test code = 40 % COHBGFFIO2) LACTIC [id number] 11:20:00 Test Item Value Reference Range Interpretation Comments LACTIC ACID (test code = LACT) 1.0 MMOL/L 0.7-2.1 N UNABLE TO DRAW BLOOD, REASON: CBNNOTIFIED PATIENT CARE STAFF: SOLIS RNON 08/12/19 AT 1101 BY Tapan EppsnB-TYPE NATRIURETIC [id number] 09:42:00 Test Item Value Reference Range Interpretation Comments B-TYPE NATRIURETIC PEPTIDE (test 1186.0 PG/ML 0-100 H code = BNP) - XR CHEST [id number] 09:18:00 Patient Name: RUTH LOCK Unit No: [id number] EXAMS: CPT CODE: [id number] XR CHEST 1V 12649 STUDY: Chest radiograph HISTORY: Intubated COMPARI SON: 08/12/2019 TECHNIQUE: Frontal view of the [...] MD CC: Cj Palacio MD; DANIEL GRIFFITH [facility] EDDIE; Erica Burgess MD Technologist: Cr Barton (RT) (R) Transcrpt Date/Tm/Trnsp: 08/12/2019 (0918) tJESSAR.RH16 Orig Print D/T: S: 08/12/2019 (920) [facility] NAME: RUTH LOCK [address] PHYS: [place] [address] : 1940 AGE: 79 SEX: F LOC: Z.SI06 A PHONE #: [phone] EXAM DATE: 08/12/2019 STATUS: ADM INFAX #: [phone] RADIOLOGY NO: PAGE 1 Signed ReportARTERIAL BLOOD [id number] 08:46:00 Test Item Value Reference Range Interpretation [...] and readback by dr paul by JARED DANIELLE at 08/12/2019 7:40:14 AM ABG DELIVERY (test HI FLOW NC code = THOMAS) ABG TEMPERATURE (test 37.0 C >37 code = TEMPA) ABG SITE (test code = AL SITEA) ALLENS TEST (test code NA CHECK = ALLENS) FIO2 (test code = 60 % COHBGFFIO2) - XR CHEST [id number] 08:38:00 Patient Name: RUTH LOCK Unit No: [id number] EXAMS: CPT CODE: [id number] XR CHEST 1V 12524 Single View Chest. Location: Clinical Indication: 79-year-old with extubation Comparison: August [...] Palacio MD; Erica Burgess MD Technologist: Lauren Cardona RT (R); [facility] STUDENT Transcrpt Date/Tm/Trnsp: 08/12/2019 (0838) GuidoRB24 Orig Print D/T: S: 08/12/2019 (0842) [facility] NAME: RUTH LOCK [address] PHYS: ALBERTO LoveAnkit Amor [facility] [address] : 1940 AGE: 79 SEX: F LOC: Z.SI06 A PHONE #: [phone] EXAM DATE: 08/12/2019 STATUS: ADM IN FAX #: [phone] RADIOLOGY NO: PAGE 1 Signed ReportBASIC METABOLIC [id number] 06:55:00 Test Item Value Reference Range Interpretation [...] code = 8.6 MG/DL 8.4-10.2 N CA) [id number] 06:55:00 Test Item Value Reference Range Interpretation Comments MAGNESIUM (test code = MAG) 1.8 MG/DL 1.6-2.3 N BASIC METABOLIC [id number] 06:54:00 Test Item Value Reference Range Interpretation [...] CALCIUM (test code = MG/DL 8.7-9.7 CA) [id number] 06:54:00 Test Item Value Reference Range Interpretation Comments MAGNESIUM (test code = MAG) MG/DL 1.6-2.3 BASIC METABOLIC [id number] 06:51:00 Test Item Value Reference Range Interpretation [...] CALCIUM (test code = CA) MG/DL 8.7-9.7 [id number] 06:51:00 Test Item Value Reference Range Interpretation Comments MAGNESIUM (test code = MAG) MG/DL 1.6-2.3 CBC W/AUTO [id number] 06:49:00 Test Item Value Reference Range Interpretation [...] 0.00 K/mm3 0.0-0.1 N NRBC#) ARTERIAL BLOOD [id number] 03:48:00 Test Item Value Reference Range Interpretation [...] code = 30 % COHBGFFIO2) ARTERIAL BLOOD [id number] 19:46:00 Test Item Value Reference Range Interpretation [...] FIO2 (test code = COHBGFFIO2) 28 % ARTERY,[id number] 15:32:00 RUN DATE: 08/11/19 West - LAB PAGE 1 RUN TIME: 1533 Specimen Inquiry RUN USER: INTERFACE PATIENT: RUTH LOCK LOC: MONY U #: [id number] AGE/SX: 79/F ROOM: DARON RE08/07/19REG DR: Ankit Love MD : [birth year] BED: A DIS: STATUS: ADM IN TLOC: SPEC #: [id number]:PATEL:[id number] RECD: 08/10/19-1600 STATUS: REESE REQ #: [id number] TRANG: 08/10/19-1530 [facility] [address]: Ankit Love MD ENTERED: 08/10/19-160 SP TYPE: ARTERY, PL OTHR DR: April Escamilla MD, David E MD Dabaghi, Salim F MD Karim, Nioti R MD Patel, Rupert MDORDERED: DECAL, SURG PATH LVL 3, SURG PATH LVL 4 CODES: [id number] - PLAQUE, NOS T31223 - ARTERY, NOS W34256 Z39485 - CAROTID ARTERY ATHEROSCLEROSIS X81540 [id number] - CERVIX EXCISIONAL BIOP [id number] - LY MPH NODE, NOS [place]: [place] [address] [place] [address] [email or web address] Cj Palacio MD [address] [place] [address] Erica Burgess MD [address] [place] [address] [address] [place] [address] [email or web address] [address] [place] [address] [place] [address] [facility] [address] [place] [address] Eric Lamas MD [address] [facility] [address] [place] [id number] CONTINUED ON NEXT PAGE RUN DATE: 08/11/19 [place] - LAB PAGE 2 RUN TIME: 1533 Specimen Inquiry RUN USER: INTERFACE SPEC #: [id number]:PATEL:[id number] PATIENT: ASHVINRUTH RENEE #[id number] (Continued) ICD CODES: 440 - PROCEDURES: DECAL (08/10/19-1601) SURG PATH LVL 3 (08/10/19-1601) SURG PATH LVL 4 (08/10/19- 1601) TISSUES: A. ARTERY, NOS - LEFT CAROTID PLAQUE B. LYMPH NODE, NOS - LEFT CERVICAL LYMPH NODE CLINICAL HISTORY LEFT INTERNAL CAROTID ENDARTECTOMY CPT CODES CPT CODE(S): 89974 , 96467 , 22607 , , , , FINAL DIAGNOSIS A. Plaque, left carotid artery, endarterectomy: SEVERE ATHEROSCLEROSIS B. Lymph node, left cervical, excisional biopsy: MILD, NONSPECIFIC, REACTIVE CHANGE GROSS DESCRIPTION A. Left carotid plaque. Received in formalin is a Y-shaped yellow-cohen material, grossly consistent with plaque, 3.0 x 1.2 x 0.5 cm. The cut surface is yellow-cohen and solid with focal gritty areas. Kinesiologist sections submitted following decalcification labeled A. B. Left cervical lymph node. Received in formalin is an ovoid, rubbery, yellow-choen nodule, grossly consistent with lymph node, 1.3 [...] 08/11/19 1532 END OF REPORT ARTERIAL BLOOD [id number] 13:58:00 Test Item Value Reference Range Interpretation [...] = COHBGFFIO2) 60 % - XR CHEST [id number] 13:01:00 Patient Name: RUTH LOCK Unit No: [id number] EXAMS: CPT CODE: [id number] XR CHEST 1V 38066 STUDY: Chest radiograph HISTORY: Extubation. GEORGES RISON: [...] Burgess MD; Alem Hernandez NP Technologist: Michelle eWi RT(R) Transcrpt Date/Tm/Trnsp: 08/11/2019 (3721) Jermain.RH16 Orig Print D/T: S: 08/11/2019 (8416) [facility] NAME: RUTH LOCK [address] PHYS: Alem Villa [place] [address] : 1940 AGE: 79 SEX: F LOC: JERICA06 Aj PHONE #: [phone] EXAM DATE: 08/11/2019 STATUS: ADM IN FAX #: [phone] RADIOLOGY NO: PAGE 1 Signed ReportARTERIAL BLOOD [id number] 12:05:00 Test Item Value Reference Range Interpretation [...] = 30 % COHBGFFIO2) - XR CHEST [id number] 08:16:00 Patient Name: RUTH LOCK Unit No: [id number] EXAMS: CPT CODE: [id number] XR CHEST 1V 45340 REASON FOR EXAM: Respiratory distress, ventilator. COMPARISON: [facility] 2018. Chest, portable single frontal view. The [...] Fowler MD CC: Cj Dodson; DANIEL GRIFFITH [facility] CUR; Erica Burgess MD Technologist: Emperatriz Khan RT(R) Transcrpt Date/Tm/Trnsp: 08/11/2019 (815) GuidoRCLupillo Orig Print D/T: S: 08/11/2019 (08) [facility] NAME: RUTH LOCK[address] PHYS: PASQUALE - EDDIE,[place] [address] : 1940 AGE: 79 SEX: F LOC: Z.SI06 A PHONE #: [phone] EXAM DATE: 08/11/2019 STATUS: ADM IN FAX #: [phone] RADIOLOGY NO: PAGE 1 Signed ReportARTERIAL BLOOD [id number] 05:35:00 Test Item Value Reference Range Interpretation [...] code = COHBGFFIO2) 30 % COMPREHENSIVE METABOLIC [id number] 04:57:00 Test Item Value Reference Range Interpretation [...] 70 UNITS/L 38-126 (test code = ALKP) [id number] 04:57:00 Test Item Value Reference Range Interpretation Comments MAGNESIUM (test code = MAG) 2.0 MG/DL 1.6-2.3 N COMPREHENSIVE METABOLIC [id number] 04:49:00 Test Item Value Reference Range Interpretation [...] PHOSPHATASE (test code = UNITS/L 38-126 ALKP) [id number] 04:49:00 Test Item Value Reference Range Interpretation Comments MAGNESIUM (test code = MAG) MG/DL 1.6-2.3 COMPREHENSIVE METABOLIC [id number] 04:48:00 Test Item Value Reference Range Interpretation [...] PHOSPHATASE (test code = UNITS/L 38-126 ALKP) [id number] 04:48:00 Test Item Value Reference Range Interpretation Comments MAGNESIUM (test code = MAG) MG/DL 1.6-2.3 CBC W/AUTO [id number] 04:37:00 Test Item Value Reference Range Interpretation [...] code = 0.00 K/mm3 0.0-0.1 N NRBC#) [id number] 00:36:00 Test Item Value Reference Range Interpretation Comments POTASSIUM (test code = K) 3.9 MMOL/L 3.5-5.1 N [id number] 00:36:00 Test Item Value Reference Range Interpretation Comments CALCIUM (test code = CA) MG/DL 8.7-9.7 [id number] 00:36:00 Test Item Value Reference Range Interpretation Comments MAGNESIUM (test code = MAG) 2.1 MG/DL 1.6-2.3 N [id number] 00:36:00 Test Item Value Reference Range Interpretation Comments POTASSIUM (test code = K) 3.9 MMOL/L 3.5-5.1 N [id number] 00:36:00 Test Item Value Reference Range Interpretation Comments CALCIUM (test code = CA) 8.5 MG/DL 8.4-10.2 N [id number] 00:36:00 Test Item Value Reference Range Interpretation Comments MAGNESIUM (test code = MAG) 2.1 MG/DL 1.6-2.3 N [id number] 00:33:00 Test Item Value Reference Range Interpretation Comments POTASSIUM (test code = K) 3.9 MMOL/L 3.5-5.1 N [id number] 00:33:00 Test Item Value Reference Range Interpretation Comments CALCIUM (test code = CA) MG/DL 8.7-9.7 [id number] 00:33:00 Test Item Value Reference Range Interpretation Comments MAGNESIUM (test code = MAG) MG/DL 1.6-2.3 ARTERIAL BLOOD [id number] 20:54:00 Test Item Value Reference Range Interpretation [...] code = COHBGFFIO2) 21 % ARTERIAL BLOOD [id number] 17:23:00 Test Item Value Reference Range Interpretation [...] = COHBGFFIO2) 45 % POC ARTERIAL BLOOD [id number] 17:09:00 Test Item Value Reference Range Interpretation Comments POC ARTERIAL BLOOD GAS PH (test 7.417 7.35-7.45 N code = POCPHA) POC ARTERIAL BLOOD GAS PCO2 (test 36.3 mmHg 35.0-45.0 N code = GRCUGK8Z) POC ARTERIAL BLOOD GAS PO2 (test 472 75.0-100.0 HH code = NDFHP4N) POC HCO3 ARTERIAL (test code = 23.4 MMOL/L 20.0-26.0 N PDETXY3N) POC BASE EXCESS (test code = -1.0 [...] 0.87 MMOL/L 0.4-2.0 N POCLAC) B-TYPE NATRIURETIC [id number] 17:05:00 Test Item Value Reference Range Interpretation Comments B-TYPE NATRIURETIC PEPTIDE (test 1101.0 PG/ML 0-100 H code = BNP) - XR CHEST [id number] 16:55:00 Patient Name: RUTH LOCK Unit No: [id number] EXAMS: CPT CODE: [id number] XR CHEST 1V 73288 STUDY: Chest radiograph HISTORY: Intubation. GEORGES RISON: [...] of 5 cm. No additional significant interval barnett e. at 1651 Reported and signed by: Ankit Carroll MD CC: Cj Palacio MD; Erica Burgess MD; Yun Brothers MD Technologist: CHIDI Schwartz, RT(R) Transcrpt Date/Tm/Trnsp: 08/10/2019 (0508) NoemiR.RH16 Orig Print D/T: S: 08/10/2019 (8168) [facility] NAME: RUTH LOCK [address] PHYS: [place] [address] : 1940 AGE: 79 SEX: F LOC: Z.SI06 A PHONE #: [phone] EXAM DATE: 08/10/2019 STATUS: ADM IN FAX #: [phone] RADIOLOGY NO: PAGE 1 Signed ReportCOMPREHENSIVE METABOLIC [id number] 16:54:00 Test Item Value Reference Range Interpretation [...] UNITS/L 38-126 N (test code = ALKP) [id number] 16:54:00 Test Item Value Reference Range Interpretation Comments PHOSPHOROUS (test code = PHOS) 3.2 MG/DL 2.5-4.5 N [id number] 16:54:00 Test Item Value Reference Range Interpretation [...] 2 ng/mL are obtai richie. COMPREHENSIVE METABOLIC [id number] 16:42:00 Test Item Value Reference Range Interpretation [...] UNITS/L 38-126 N (test code = ALKP) [id number] 16:42:00 Test Item Value Reference Range Interpretation Comments PHOSPHOROUS (test code = PHOS) 3.2 MG/DL 2.5-4.5 N [id number] 16:42:00 Test Item Value Reference Range Interpretation Comments MAGNESIUM (test code = MAG) 1.9 MG/DL 1.6-2.3 N PROCALCITONIN (PCT)2019-08-10 16:42:00 Test Item Value Reference Range Interpretation Comments PROCALCITONIN (PCT) (test code = NG/ML PROCAL) LACTIC [id number] 16:38:00 Test Item Value Reference Range Interpretation Comments LACTIC ACID (test code = LACT) 1.1 MMOL/L 0.7-2.1 N COMPREHENSIVE METABOLIC [id number] 16:37:00 Test Item Value Reference Range Interpretation [...] PHOSPHATASE (test code = UNITS/L 38-126 ALKP) [id number] 16:37:00 Test Item Value Reference Range Interpretation Comments PHOSPHOROUS (test code = PHOS) MG/DL 2.5-4.5 [id number] 16:37:00 Test Item Value Reference Range Interpretation Comments MAGNESIUM (test code = MAG) MG/DL 1.6-2.3 PROCALCITONIN (PCT)2019-08-10 16:37:00 Test Item Value Reference Range Interpretation Comments PROCALCITONIN (PCT) (test code = NG/ML PROCAL) BASIC METABOLIC [id number] 15:45:00 Test Item Value Reference Range Interpretation [...] code = 8.4 MG/DL 8.4-10.2 N CA) [id number] 15:45:00 Test Item Value Reference Range Interpretation Comments MAGNESIUM (test code = MAG) 1.9 MG/DL 1.6-2.3 N BASIC METABOLIC [id number] 15:38:00 Test Item Value Reference Range Interpretation [...] CALCIUM (test code = CA) MG/DL 8.7-9.7 [id number] 15:38:00 Test Item Value Reference Range Interpretation Comments MAGNESIUM (test code = MAG) MG/DL 1.6-2.3 CBC W/AUTO [id number] 15:37:00 Test Item Value Reference Range Interpretation [...] K/mm3 0.0-0.1 N NRBC#) - XR CHEST [id number] 15:32:00 Patient Name: RUTH LOCK Unit No: [id number] EXAMS: CPT CODE: [id number] XR CHEST 1V 95383 STUDY: Chest radiograph HISTORY: Postop. COMPARISON: 08/10/2019 [...] (1532) t.SDR.RH16 Orig Print D/T: S: 08/10/2019 (5471) [facility] NAME: RUTH LOCK [address] PHYS: [place] [address] : 1940 AGE: 79 SEX: F LOC: Z.SI06 A PHONE #: [phone] EXAMDATE: 08/10/2019 STATUS: ADM IN FAX #: [phone] RADIOLOGY NO: PAGE1 Signed ReportARTERIAL BLOOD [id number] 15:24:00 Test Item Value Reference Range Interpretation [...] code = COHBGFFIO2) 98 % CHEMISTRY 8 [id number] 13:29:00 Test Item Value Reference Range Interpretation [...] = 6 0 ml/min/1.73 m2 CHEMISTRY 8 [id number] 13:29:00 Test Item Value Reference Range Interpretation [...] 6 0 ml/min/1.73 m2 - XR CHEST [id number] 08:13:00 Patient Name: RUTH LOCK Unit No: [id number] EXAMS: CPT CODE: [id number] XR CHEST 1V 44090 REASON FOR EXAM: Cardiorespiratory clearance for surgery. [...] (812) t.SDR.RCM Orig Print D/T: S: 08/10/2019 (16) [facility] NAME: RUTH LOCK [address] PHYS: [place] [address] : 1940 AGE: 79 SEX: F LOC: Z.355 A PHONE #: [phone] EXAM DATE: 08/10/2019 STATUS: ADM IN FAX #:[phone] RADIOLOGY NO: PAGE 1 Signed Report COMPREHENSIVE METABOLIC [id number] 07:04:00 Test Item Value Reference Range Interpretation [...] N (test code = ALKP) COMPREHENSIVE METABOLIC [id number] 07:02:00 Test Item Value Reference Range Interpretation [...] 38-126 (test code = ALKP) COMPREHENSIVE METABOLIC [id number] 07:00:00 Test Item Value Reference Range Interpretation [...] code = UNITS/L 38-126 ALKP) CBC W/AUTO [id number] 06:23:00 Test Item Value Reference Range Interpretation [...] 0.00 K/mm3 0.0-0.1 N NRBC#) BASIC METABOLIC [id number] 20:19:00 Test Item Value Reference Range Interpretation [...] 9.1 MG/DL 8.4-10.2 N CA) BASIC METABOLIC [id number] 20:05:00 Test Item Value Reference Range Interpretation [...] (test code = MG/DL 8.7-9.7 CA) PROTHROMBIN [id number] 20:04:00 Test Item Value Reference Range Interpretation [...] syste nidia embolism. 3.0 - 4.5 PTT [id number] 20:04:00 Test Item Value Reference Range Interpretation Comments PTT ACTIVATED (test code = APTT) 25.2 SECONDS 22.0-33.0 N BASIC METABOLIC [id number] 20:03:00 Test Item Value Reference Range Interpretation [...] code = CA) MG/DL 8.7-9.7 GLUCOSE BEDSIDE [id number] 17:16:00 Test Item Value Reference Range Interpretation Comments GLUCOSE BEDSIDE TESTING (test code 172 MG/DL 60-99 H = GLUBED) HCG SERUM [id number] 14:15:00 Test Item Value Reference Range Interpretation Comments HCG SERUM QUAL (test code = HCGQL) NEGATIVE NEGATIVE A ADD ONURINALYSIS [id number] 12:40:00 Test Item Value Reference Range Interpretation [...] (test 25 Rustam/mm3 NEGATIVE A code = ABLE) UA PH DIPSTICK (test code 6.0 5.0-9.0 [...] UACULT) Criteria SOURCE OF URINE: CLEAN CATCHUA [id number] 12:40:00 Test Item Value Reference Range Interpretation Comments UA RBC (test code = RBCU) 5-10 RBC/HPF 0-3 A UA WBC (test code = XWBCU) >100 WBC/HPF 0-5 A UA EPITHELIAL CELLS (test code = FEW EPI/HPF FEW EPIU) UA BACTERIA (test code = XBACU) MANY NONE A UA MUCUS (test code = MUCU) SLIGHT #/LPF NONE SOURCE OF URINE: CLEAN CATCHURINALYSIS [id number] 12:33:00 Test Item Value Reference Range Interpretation [...] = UACULT) SOURCE OF URINE: CLEAN CATCHUA [id number] 12:33:00 Test Item Value Reference Range Interpretation Comments UA RBC (test code = RBCU) RBC/HPF 0-3 UA WBC (test code = XWBCU) WBC/HPF 0-5 UA EPITHELIAL CELLS (test code = EPI/HPF FEW EPIU) UA BACTERIA (test code = XBACU) NONE SOURCE OF URINE: CLEAN CATCHURINALYSIS [id number] 12:33:00 Test Item Value Reference Range Interpretation [...] = UACULT) SOURCE OF URINE: CLEAN CATCHUA [id number] 12:33:00 Test Item Value Reference Range Interpretation Comments UA RBC (test code = RBCU) RBC/HPF 0-3 UA WBC (test code = XWBCU) WBC/HPF 0-5 UA EPITHELIAL CELLS (test code = EPI/HPF FEW EPIU) UA BACTERIA (test code = XBACU) NONE SOURCE OF URINE: CLEAN CATCHCOMPREHENSIVE METABOLIC [id number] 06:13:00 Test Item Value Reference Range Interpretation [...] 38-126 (test code = ALKP) COMPREHENSIVE METABOLIC [id number] 06:04:00 Test Item Value Reference Range Interpretation [...] 38-126 (test code = ALKP) COMPREHENSIVE METABOLIC [id number] 06:03:00 Test Item Value Reference Range Interpretation [...] code = UNITS/L 38-126 ALKP) COMPREHENSIVE METABOLIC [id number] 06:02:00 Test Item Value Reference Range Interpretation [...] code = UNITS/L 38-126 ALKP) CBC W/AUTO [id number] 05:31:00 Test Item Value Reference Range Interpretation [...] 0.00 K/mm3 0.0-0.1 N NRBC#) BASIC METABOLIC [id number] 21:20:00 Test Item Value Reference Range Interpretation [...] 8.9 MG/DL 8.4-10.2 N CA) BASIC METABOLIC [id number] 21:12:00 Test Item Value Reference Range Interpretation [...] MG/DL 8.7-9.7 - CT HD/BR W W/O [id number] 20:23:00 Patient Name: RUTH LOCK Unit No: [id number] EXAMS: CPT CODE: [id number] CT HD/BR W W/O CONT [address] HEAD WITHOUT and with CONTRAST [...] Erica Burgess MD; Eric Lamas M.D. Technologist: [employer] ST[employer] ; Judd SÁNCHEZ CTDI: DLP: Trnscrpt: 08/08/2019 (2022) t.SDR.VB7 [facility] NAME: RUTH LOCK [id number] PHYS: [place] [address] : 1940 AGE: 79 SEX: F LOC: Z.355 A PHONE #: [phone] EXAM DATE: 08/08/2019 STATUS: ADM IN FAX #: [phone] RAD #: D/C DT PAGE 1 Signed Report Patient Name: RUTH LOCK Unit No: [id number] EXAMS: CPT CODE: [id number] CT HD/BR W W/O CONT 57816 <Continued> Orig Print D/T: S: 08/08/2019 (2025) [facility] NAME: RUTH LOCK [id number] PHYS: [place] [address] : 1940 AGE: 79 SEX: F LOC: Z.355 A PHONE #: [phone] EXAM DATE: 08/08/2019 STATUS: ADM IN FAX #: [phone] RAD #: D/C DT PAGE 2 Signed Report- CT CHEST [id number] 16:24:00 Patient Name: RUTH LOCK Unit No: [id number] EXAMS: CPT CODE: [id number] CT CHEST W/CONTRAST 36143 CT chest History: HYPONATREMIA Comparison: None at [...] BILIARY SYSTEM: There is no biliary dilatation. [facility] NAME: RUTH LOCK [address] PHYS: [place] [address] : 1940 AGE: 79 SEX: F LOC: Z.355 A PHONE #: [phone] EXAM DATE: 08/08/2019 STATUS: ADM IN FAX #: [phone] RAD #: D/C DT PAGE 1 Signed Report (CONTINUED) Patient Name: RUTH LOCK Unit No: [id number] EXAMS: CPT CODE: [id number] CT CHEST W/CONTRAST 67168 <Continued> SPLEEN: The spleen is unremarkable. PANCREAS: [...] by Brad Mackey MD on 08/08/2019 at 6771 Reported and signed by: Brad Mackey MD CC: Cj Palacio MD; Erica Burgess MD Technologist: [employer] ; Judd SÁNCHEZ CTDI: DLP: Trnscrpt: 08/08/2019 (2549)t.SDR.PMT [facility] [place] NAME: RUTH LOCK [id number] PHYS: [place] [address] : 1940 AGE: 79 SEX: F LOC: Z.355 A PHONE #: [phone] EXAM DATE: 08/08/2019 STATUS: ADM IN FAX #: [phone] RAD #: D/C DT PAGE 2 Signed Report Patient Name: RUTH LOCK Unit No: [id number] EXAMS: CPT CODE: [id number] CT CHEST W/CONTRAST 05458 <Continued> Orig Print D/T: S: 08/08/2019 (1409) [facility] [place] NAME: RUTH LOCK [id number] PHYS: [place] [address] : 1940 AGE: 79 SEX: F LOC: Z.355 A PHONE #: [phone] EXAM DATE: 08/08/2019 STATUS: ADM IN FAX #: [phone] RAD #: D/C DT PAGE 3 Signed Report- CT ABD PELVIS [id number] 16:24:00 Patient Name: RUTH LOCK Unit No: [id number] EXAMS: CPT CODE: [id number] CT ABD PELVIS W/CONT 84224 CT chest History: HYPONATREMIA Comparison: None at [...] BILIARY SYSTEM: There is no biliary dilatation. [facility] NAME: RUTH LOCK [address] PHYS: [place] [address] : 1940 AGE: 79 SEX: F LOC: ZEsmer355 A PHONE #: [phone] EXAM DATE: 08/08/2019 STATUS: ADM IN FAX #: [phone] RAD #: D/C DT PAGE 1 Signed Report (CONTINUED) Patient Name: RUTH LOCK Unit No: [id number] EXAMS: CPT CODE: [id number] CT ABD PELVIS W/CONT 38369 <Continued> SPLEEN: The spleen is unremarkable. PANCREAS: [...] Erica Burgess MD; Eric Lamas M.D. Technologist: [employer] ; Judd SÁNCHEZ CTDI: DLP: Trnscrpt: 08/08/2019 (7764)t.SDR.PMT [facility] NAME: RUTH LOCK [id number] [address] PHYS: [place] [address] : 1940 AGE: 79 SEX: F LOC: Z.355 A PHONE #: [phone] EXAM DATE: 08/08/2019 STATUS: ADM IN FAX #: [phone] RAD #: D/C DT PAGE 2 Signed Report Patient Name: RUTH LOCK Unit No: [id number] EXAMS: CPT CODE: [id number] CT ABD PELVIS W/CONT 45284 <Continued> Orig Print D/T: S: 08/08/2019 (6082) [facility] NAME: RUTH LOCK [address] PHYS: [place] [address] : 1940 AGE: 79 SEX: F LOC: ZMarkie Rocha PHONE #: [phone] EXAM DATE: 08/08/2019 STATUS: ADM IN FAX #: [phone] RAD #: D/C DT PAGE 3 Signed ReportUR OSMOLALITY [id number] 12:16:00 Test Item Value Reference Range Interpretation Comments UR OSMOLALITY RANDOM (test code = 384 MOS/KG 300-1200 OSMOU) BASIC METABOLIC [id number] 10:30:00 Test Item Value Reference Range Interpretation [...] 9.0 MG/DL 8.4-10.2 N CA) BASIC METABOLIC [id number] 10:08:00 Test Item Value Reference Range Interpretation [...] code = MG/DL 8.7-9.7 CA) BASIC METABOLIC [id number] 10:05:00 Test Item Value Reference Range Interpretation [...] code = CA) MG/DL 8.7-9.7 THYROID STIMULATING [id number] 07:25:00 Test Item Value Reference Range Interpretation Comments THYROID STIMULATING 3.680 MIU/L 0.465-4.68 N Please b e aware that HORMONE (test code = bias re sults for TSH TSH) may occur forpa tient who are taking Biotin suppleme nts. COMPREHENSIVE METABOLIC [id number] 07:24:00 Test Item Value Reference Range Interpretation [...] 38-126 (test code = ALKP) COMPREHENSIVE METABOLIC [id number] 06:54:00 Test Item Value Reference Range Interpretation [...] code = UNITS/L 38-126 ALKP) CBC W/AUTO [id number] 06:40:00 Test Item Value Reference Range Interpretation [...] 0.00 K/mm3 0.0-0.1 N NRBC#) UR OSMOLALITY [id number] 20:44:00 Test Item Value Reference Range Interpretation Comments UR OSMOLALITY RANDOM (test code = 335 MOS/KG 300-1200 N OSMOU) - XR CHEST 2 [id number] 19:29:00 Patient Name: RUTH LOCK Unit No: [id number] EXAMS: CPT CODE: [id number] XR CHEST 2 V 27551 EXAM: - XR CHEST 2 V LOCATION: [...] Burgess MD; Eric Lamas M.D. Technologist: Tavia Bryan, RT(R) Transcrpt Date/Tm/Trnsp: 08/07/2019 (1928) t.SDR.HV2 Orig Print D/T: S: 08/07/2019 (1931) [facility] NAME: RUTH LOCK [address] PHYS: YASEMIN. - [place] [address] : 1940 AGE: 79 SEX: F LOC: Z.355 A PHONE #: [phone] EXAM DATE: 08/07/2019 STATUS: ADM IN FAX #: [phone] RADIOLOGY NO:PAGE 1 Signed ReportBASIC METABOLIC [id number] 14:21:00 Test Item Value Reference Range Interpretation [...] 9.4 MG/DL 8.4-10.2 N CA) BASIC METABOLIC [id number] 14:18:00 Test Item Value Reference Range Interpretation [...] = CA) MG/DL 8.7-9.7 HIV 12 AB [id number] 13:07:00 Test Item Value Reference Range Interpretation Comments HIV 1 2 COMBO AG/AB SCREEN AB/AG NON REACTIVE NONREACTIVE (test code = [id number]) PLT RESPONSE TO [id number] 12:49:00 Test Item Value Reference Range Interpretation [...] CLOTTED; RECOLLECT 1215 SMGIS PATIENT ON ANTICOAGULANTS: YLIST ANTICOAGULANTS: Aspirin- XR CHEST [id number] 12:42:00 Patient Name: RUTH LOCK Unit No: [id number] EXAMS: CPT CODE: [id number] XR CHEST 1V 86008 Single View Chest. Location: B2 Clinical Indication: [...] Technologist: Lary Lewis (RT)(R) Transcrpt Date/Tm/Trnsp: 08/07/2019 (3612) t.SDR.RB24 Orig Print D/T: S: 08/07/2019 (8067) [facility] NAME: RUTH LOCK [address] PHYS: [place] [address] : 1940 AGE: 79 SEX: F LOC: Z.SRG PHONE #: [phone] EXAM DATE: 08/07/2019 STATUS: REG SDC FAX #: [phone] RADIOLOGY NO: PAGE 1 Signed ReportGLYCOSYLATED HEMOGLOBIN [id number] 12:09:00 Test Item Value Reference Range Interpretation [...] H (test code = MBG) COMPREHENSIVE METABOLIC [id number] 12:07:00 Test Item Value Reference Range Interpretation [...] N (test code = ALKP) COMPREHENSIVE METABOLIC [id number] 12:06:00 Test Item Value Reference Range Interpretation [...] 38-126 (test code = ALKP) COMPREHENSIVE METABOLIC [id number] 12:04:00 Test Item Value Reference Range Interpretation [...] code = UNITS/L 38-126 ALKP) CBC W/AUTO [id number] 11:39:00 Test Item Value Reference Range Interpretation [...] = 0.00 K/mm3 0.0-0.1 N NRBC#) PROTHROMBIN [id number] 08:10:00 Test Item Value Reference Range Interpretation [...] nidia embolism. 3.0 - 4.5 Comments to Database Analyst: WILL BRING TO LABPTT [id number] 08:10:00 Test Item Value Reference Range Interpretation Comments PTT ACTIVATED (test code = APTT) 28.8 SECONDS 22.0-33.0 N Comments to Database Analyst: WILL BRING TO LABBASIC METABOLIC [id number] 08:08:00 Test Item Value Reference Range Interpretation [...] 0-189 mg/dL VERY HIGH...... ...>/= 190 mg/dL [id number] 08:08:00 Test Item Value Reference Range Interpretation Comments MAGNESIUM (test code = MAG) 1.9 MG/DL 1.6-2.3 N BASIC METABOLIC [id number] 07:58:00 Test Item Value Reference Range Interpretation [...] LDL (test MG/DL 0-99 code = LDL) [id number] 07:58:00 Test Item Value Reference Range Interpretation Comments MAGNESIUM (test code = MAG) 1.9 MG/DL 1.6-2.3 N CBC W/AUTO [id number] 07:43:00 Test Item Value Reference Range Interpretation [...]
[2021-06-15 10:35] LABS: Absolute Lymphocytes (CBC) 0.8 K/uL (0.7-4.9); Basophils % 0.3 % (0-1.3); Hematocrit 32.1 % (36.0-45.0); Lymphocytes % 5.7 % (15.3-44.8); MPV 7.6 fL (7.6-11.3); RBC Red Blood Cell Count 4.33 M/uL (3.86-4.86)
[2021-06-15] MEDS ORDERED: MORPHINE 2 MG/ML SYR ONE ×2 (10:52→12:18)
[2021-06-15] MEDS ORDERED: ONDANSETRON 4 MG/2 ML VIAL ONE (10:53)
[2021-06-15] MEDS ORDERED: NA CHLORIDE 0.9% 250 ML ONE (10:53)
--- NOTE | 2021-06-15 11:00 | RAD REPORT ---
EXAM DESCRIPTION: CT - Abdomen Pelvis Wo Contrast - 06/15/2021 10:45 am CLINICAL HISTORY: Abdominal pain. ABD PAIN COMPARISON: Angio Aorta For Dissection dated 02/02/2021; Pet Ct Whole Body dated 03/23/2021; Angio A chelly For Dissection dated 01/26/2021; Head Brain Wo Cont dated 04/29/2021 TECHNIQUE: CT imaging of the abdomen and pelvis was performed without contrast. Solid organ, bowel a nd vascular assessment is limited due to lack of IV and oral contrast. All CT scans are performed using dose optimization technique as appropriate and may include automated exposure control or mA/KV adjustment according to patient size. FINDINGS: Mild linear atelectasis is present in the left lung base. Extensive low-density masses have developed throughout the liver parenchyma since prior examinations. The spleen a pancreas are within normal limits. Mild thickening of left adrenal gland is seen. Severa l calculi are present in the left kidney without hydronephrosis evidence of previous right nephrectom y. Gallstones are likely present in the gallbladder. Significant dilatation is seen of multiple small bowel loops in the central abdomen most compatible w ith a partial mechanical small-bowel obstruction. Significant sigmoid colon stool retention and dive rticulosis is present. Full colonic assessment is quite limited. Aortoiliac atherosclerosis. There is a significant chronic appearing compression fracture of L3 with moderate canal stenosis. 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 Moderately severe mechanical small bowel obstruction. A limited non-contrast examination was performed as detailed.
[2021-06-15 11:02] LABS: Albumin 4.3 g/dL (3.4-5.0); Bilirubin Direct 0.2 mg/dL (0-0.2); Bilirubin Total 0.7 mg/dL (0.2-1.0); Potassium 3.9 mmol/L (3.5-5.1); Protein, Total 7.4 g/dL (6.4-8.2)
--- NOTE | 2021-06-15 13:21 | RAD REPORT ---
EXAM DESCRIPTION: RAD - Abdomen 1 View (KUB) - 06/15/2021 1:13 pm CLINICAL HISTORY: NG placement;Pain Pain COMPARISON: No comparisons FINDINGS: Tip of the enteric tube is at the gastroesophageal junction level.
--- NOTE | 2021-06-15 13:37 | EDPHYS ---
Physician Documentation [facility] Name: Venus Summers Age: 80 yrs Sex: Female : 1940 Arrival Date: 06/15/2021 Time: 08:59 Bed 25 Private MD: ED Physician Bertram Alvarenga HPI: 06/15 19:02 This 80 yrs old Female presents to ER via Wheelchair with complaints of kdr Abdominal Pain. 19:02 The patient presents with abdominal pain in the upper abdomen, right lower quadrant. kdr Onset: The symptoms/episode began/occurred suddenly, last night. The symptoms do not radiate. Associated signs and symptoms: Pertinent positives: nausea, Pertinent negatives: anorexia, blood in stools, chest pain, constipation, palpitations, vaginal discharge, vomiting. The symptoms are described as achy, constant, sharp, steady. Severity of pain: At its worst the pain was moderate severe incapacitating just prior to arrival, in the emergency department the pain has improved mildly. The patient has not experienced similar symptoms in the past. The patient has been recently seen by a physician: the patient's primary care provider. Historical: - Allergies: 09:59 Cipro PO; ca1 09:59 PENICILLINS; ca1 - PMHx: 09:59 High Cholesterol; Hypertension; ca1 - Immunization history:: Client reports having NOT received the Covid vaccine. Pneumococcal vaccine is up to date, Flu vaccine is not up to date. - Social history:: Smoking status: Patient reports the use of cigarette tobacco products, smokes one-half pack cigarettes per day. ROS: 19:02 Constitutional: Negative for fever, chills, and weight loss, Eyes: Negative for injury, kdr pain, redness, and discharge, ENT: Negative for injury, pain, and discharge, Neck: Negative for injury, pain, and swelling, Cardiovascular: Negative for chest pain, palpitations, and edema, Respiratory: Negative for shortness of breath, cough, wheezing, and pleuritic chest pain, Back: Negative for injury and pain, : Negative for injury, bleeding, discharge, and swelling, MS/Extremity: Negative for injury and deformity, Skin: Negative for injury, rash, and discoloration, Neuro: Negative for headache, weakness, numbness, tingling, and seizure activity. Psych: Negative for depression, anxiety, suicide ideation, homicidal ideation, and hallucinations, Allergy/Immunology: Negative for hives, rash, and allergies, Endocrine: Negative for neck swelling, polydipsia, polyuria, polyphagia, and marked weight changes, Hematologic/Lymphatic: Negative for swollen nodes, abnormal bleeding, and unusual bruising. 19:02 Abdomen/GI: Positive for abdominal pain, nausea, Negative for black/tarry stool, rectal pain, rectal bleeding, bowel incontinence. Exam: 19:02 Constitutional: This is a well developed, well nourished patient who is awake, alert, kdr and in no acute distress. Head/Face: Normocephalic, atraumatic. Eyes: Pupils equal round and reactive to light, extra-ocular motions intact. Lids and lashes normal. Conjunctiva and sclera are non-icteric and not injected. Cornea within normal limits. Periorbital areas with no swelling, redness, or edema. Neck: Trachea midline, no thyromegaly or masses palpated, and no cervical lymphadenopathy. Supple, full range of motion without nuchal rigidity, or vertebral point tenderness. No Meningismus. Chest/axilla: Normal chest wall appearance and motion. Nontender with no deformity. No lesions are appreciated. Cardiovascular: Regular rate and rhythm with a normal S1 and S2. No gallops, murmurs, or rubs. Normal PMI, no JVD. No pulse deficits. Respiratory: Lungs have equal breath sounds bilaterally, clear to auscultation and percussion. No rales, rhonchi or wheezes noted. No increased work of breathing, no retractions or nasal flaring. Back: No spinal tenderness. No costovertebral tenderness. Full range of motion. Skin: Warm, dry with normal turgor. Normal color with no rashes, no lesions, and no evidence of cellulitis. MS/ Extremity: Pulses equal, no cyanosis. Neurovascular intact. Full, normal range of motion. Neuro: Awake and alert, GCS 15, oriented to person, place, time, and situation. Cranial nerves II-XII grossly intact. Motor strength 5/5 in all extremities. Sensory grossly intact. Cerebellar exam normal. Normal gait. Psych: Awake, alert, with orientation to person, place and time. Behavior, mood, and affect are within normal limits. 19:02 Abdomen/GI: Inspection: abdomen appears normal, Bowel sounds: active, Palpation: moderate abdominal tenderness, mass, is not appreciated, rebound tenderness, is not appreciated. Vital Signs: 09:56 BP 122 / 57; Pulse 66; Resp 18 S; Temp 97.5(TE); Pulse Ox 98% on R/A; Weight 44.91 kg ca1 (R); Height 5 ft. 2 in. (157.48 cm) (R); Pain 10/10; 12:45 BP 161 / 56; Pulse 82; Resp 20; Pulse Ox 97% on R/A; kg 13:30 BP 167 / 58; Pulse 73; Resp 20; Pulse Ox 98% on R/A; kg 14:30 BP 133 / 66; Pulse 78; Resp 18; Pulse Ox 98% on R/A; kg 20:12 BP 154 / 60; Pulse 64; Resp 20; Temp 98.0(O); Pulse Ox 96% ; Pain 6/10; bs2 09:56 Body Mass Index 18.11 (44.91 kg, 157.48 cm) ca1 MDM: 13:37 Patient medically screened. kdr 19:02 Data reviewed: vital signs, nurses notes, lab test result(s). [facility] 06/15 10:02 Order name: Basic Metabolic Panel; Complete Time: 11:28 [facility] 06/15 10:02 Order name: CBC with Diff; Complete Time: 15:31 kdr 06/15 10:02 Order name: Hepatic Function; Complete Time: 11:28 kdr 06/15 10:02 Order name: Lipase; Complete Time: 11:28 [facility] 06/15 10:45 Order name: CREATININE WHOLE BLOOD; Complete Time: 11:28 [facility] 06/15 10:51 Order name: CREATININE WHOLE BLOOD [facility] 06/15 14:22 Order name: CBC Smear Scan; Complete Time: 15:31 [facility] 06/15 15:19 Order name: SARS-COV-2 RT PCR; Complete Time: 15:31 [facility] 06/15 10:02 Order name: IV Saline Lock; Complete Time: 10:34 kdr 06/15 10:02 Order name: Labs collected and sent; Complete Time: 10:34 kdr 06/15 10:03 Order name: IV Saline Lock; Complete Time: 10:34 ca1 06/15 10:03 Order name: Labs collected and sent; Complete Time: 10:34 ca1 06/15 10:41 Order name: Abdomen ; Complete Time: 11:28 [facility] 06/15 12:25 Order name: XRAY Abdomen 1 View (KUB); Complete Time: 14:08 kg 06/15 16:08 Order name: CONS Physician Consult EDMS Administered Medications: 10:32 Drug: Zofran (Ondansetron) 4 mg Route: IVP; Site: left antecubital; ca1 11:51 Follow up: Response: No adverse reaction; Nausea is decreased ss 10:34 Drug: morphine 2 mg Route: IVP; Site: left antecubital; ca1 11:51 Follow up: Response: No adverse reaction ss 12:20 Drug: morphine 2 mg Route: IVP; Site: left antecubital; kg 14:00 Follow up: Response: No adverse reaction; Marked relief of symptoms kg 15:00 Drug: Flagyl (metroNIDAZOLE) 500 mg Volume: 100 ml; Route: IVPB; Rate: 200 ml/hr; kg Infused Over: 30 mins; Site: left antecubital; 19:53 Follow up: IV Status: Completed infusion bs2 20:10 Drug: fentaNYL (PF) 25 mcg Route: IVP; Site: left antecubital; bs2 20:10 Follow up: Response: No adverse reaction bs2 Disposition Summary: 06/15/21 13:37 Hospitalization Ordered Hospitalization Status: Inpatient Admission kdr Provider: Sly Lomas Location: Telemetry/MedSurg (Inpatient) kdr Condition: Fair kdr Problem: new kdr Symptoms: have improved kdr Bed/Room Type: Standard [facility] Room Assignment: 201(06/15/21 17:34) in Diagnosis - Abdominal pain, Generalized - Small bowel obstruction kdr Forms: - Medication Reconciliation Form kdr - SBAR form kdr Signatures: Dispatcher [employer] EDMS Bertram Alvarenga MD MD kdr Juliana Tate RN RN ss Thompson, Moriah in Gloria Bowers RN RN ca1 Jessa Nunez RN RN kg Michelle Rosales RN RN bs2 Corrections: (The following items were deleted from the chart) 10:32 10:03 BASIC METABOLIC PANEL+C.LAB.BRZ ordered. EDMS EDMS 10:32 10:03 HEPATIC FUNCTION+C.LAB.BRZ ordered. EDMS EDMS 10:32 10:03 LIPASE+C.LAB.BRZ ordered. EDMS EDMS 10:33 10:03 CBC+H.LAB.BRNancy ordered. EDMS EDMS 10:40 10:03 Abdomen Pelvis W Con+CT.RAD.CHIKA ordered. EDMS EDMS 14:18 11:30 CORONAVIRUS+MR.LAB.CHIKA ordered. EDMS EDMS 17:34 13:37 kdr mt
--- NOTE | 2021-06-15 13:37 | ER ---
Nurse's Notes [facility] Name: Venus Summers Age: 80 yrs Sex: Female : 1940 Arrival Date: 06/15/2021 Time: 08:59 Bed 25 Private MD: Diagnosis: Abdominal pain, Generalized-Small bowel obstruction Presentation: 06/15 09:56 Chief complaint: Parent and/or Guardian states: Cardiac stents x 2 placed 1.5 weeks ca1 [employer]. C/O abdominal pain upper abdominal, RLQ since last night. Reports nausea. Coronavirus screen: Client denies travel out of the [place] in the last 14 days. nausea, Client presents with at least one sign or symptom that may indicate coronavirus-19. Standard/surgical mask placed on the client. Provider contacted for isolation considerations. Ebola Screen: Patient negative for fever greater than or equal to 101.5 degrees Fahrenheit, and additional compatible Ebola Virus Disease symptoms Patient denies exposure to infectious person. Patient denies travel to an Ebola-affected area in the 21 days before illness onset. No symptoms or risks identified at this time. Initial Sepsis Screen: Does the patient meet any 2 criteria? No. Patient's initial sepsis screen is negative. Does the patient have a suspected source of infection? No. Patient's initial sepsis screen is negative. Risk Assessment: Do you want to hurt yourself or someone else? Patient reports no desire to harm self or others. Onset of symptoms was June 14, 2021. 09:56 Method Of Arrival: Wheelchair ca1 09:56 Acuity: [place] 3 ca1 Historical: - Allergies: 09:59 Cipro PO; ca1 09:59 PENICILLINS; ca1 - PMHx: 09:59 High Cholesterol; Hypertension; ca1 - Immunization history:: Client reports having NOT received the Covid vaccine. Pneumococcal vaccine is up to date, Flu vaccine is not up to date. - Social history:: Smoking status: Patient reports the use of cigarette tobacco products, smokes one-half pack cigarettes per day. Screenin:15 Abuse screen: Denies threats or abuse. Denies injuries from another. Nutritional ca1 screening: No deficits noted. Tuberculosis screening: No symptoms or risk factors identified. Fall Risk IV access (20 points). Ambulatory Aid- Crutches/Cane/Walker (15 pts). Total Omalley Fall Scale indicates Low Risk Score (25-44 pts). Fall prevention measures have been instituted. Side Rails Up X 2 Family Present and informed to notify staff if they need to leave bedside As available Patient and Family Educated on Fall Prevention Program and strategies. Assessment: 10:15 General: Appears in no apparent distress. comfortable, slender, Behavior is ca1 cooperative, appropriate for age. Pain: Complains of pain in right upper quadrant, left upper quadrant and right lower quadrant Pain currently is 10 out of 10 on a pain scale. Pain began 1 day ago. Neuro: Level of Consciousness is awake, alert, obeys commands, Oriented to person, place, time, situation. Cardiovascular: Heart tones S1 S2 present Capillary refill < 3 seconds Patient's skin is warm and dry. Respiratory: Airway is patent Respiratory effort is even, unlabored, Respiratory pattern is regular, symmetrical, Breath sounds are clear bilaterally. GI: Abdomen is flat, non-distended, Bowel sounds present X 4 quads. Abd is soft X 4 quads Abdomen is tender to palpation in right lower quadrant. : No signs and/or symptoms were reported regarding the genitourinary system. EENT: No signs and/or symptoms were reported regarding the EENT system. Derm: Skin is intact, is healthy with good turgor, Skin is pink, warm \T\ dry. Musculoskeletal: Circulation, motion, and sensation intact. Capillary refill < 3 seconds. Vital Signs: 09:56 BP 122 / 57; Pulse 66; Resp 18 S; Temp 97.5(TE); Pulse Ox 98% on R/A; Weight 44.91 kg ca1 (R); Height 5 ft. 2 in. (157.48 cm) (R); Pain 10/10; 12:45 BP 161 / 56; Pulse 82; Resp 20; Pulse Ox 97% on R/A; kg 13:30 BP 167 / 58; Pulse 73; Resp 20; Pulse Ox 98% on R/A; kg 14:30 BP 133 / 66; Pulse 78; Resp 18; Pulse Ox 98% on R/A; kg 20:12 BP 154 / 60; Pulse 64; Resp 20; Temp 98.0(O); Pulse Ox 96% ; Pain 6/10; bs2 09:56 Body Mass Index 18.11 (44.91 kg, 157.48 cm) ca1 ED Course: 08:59 Patient arrived in ED. rg4 09:59 Triage completed. ca1 09:59 Arm band placed on right wrist. ca1 10:01 Bertram Alvarenga MD is Attending Physician. kdr 10:15 Patient has correct armband on for positive identification. Placed in gown. Bed in low ca1 position. Call light in reach. Side rails up X2. Pulse ox on. NIBP on. Warm blanket given. 10:21 Gloria Bowers, SANDHYA is Primary Nurse. ca1 10:21 Missed attempt(s): 22 gauge in left antecubital area. Bleeding controlled, band aid ca1 applied, catheter tip intact. 10:30 Initial lab(s) drawn, by me, sent to lab. Inserted saline lock: 22 gauge in left ca1 antecubital area, using aseptic technique. Blood collected. 10:51 Abdomen In Process Unspecified. EDMS 12:25 NGT: inserted 18 Fr. via right nare. verified placement of air over stomach, verified kg return of gastric contents, Patient tolerated well. 13:13 XRAY Abdomen 1 View (KUB) In Process Unspecified. EDMS 13:36 Sly Lomas MD is Hospitalizing Provider. kdr 15:16 initiated transfer to [facility] with Mateusz, notified facility is at full capacity mt but they will place her on the wait list. 15:22 faxed face sheet to [facility] per product transfer pumper request to [phone]. mt 15:32 Mateusz with [facility] called back to notify us that the patient was declined due to full mt capacity and their new policy of no waitlist. 19:57 CREATININE WHOLE BLOOD Sent. bs2 20:11 No provider procedures requiring assistance completed. Patient admitted, IV remains in bs2 place. Administered Medications: 10:32 Drug: Zofran (Ondansetron) 4 mg Route: IVP; Site: left antecubital; ca1 11:51 Follow up: Response: No adverse reaction; Nausea is decreased ss 10:34 Drug: morphine 2 mg Route: IVP; Site: left antecubital; ca1 11:51 Follow up: Response: No adverse reaction ss 12:20 Drug: morphine 2 mg Route: IVP; Site: left antecubital; kg 14:00 Follow up: Response: No adverse reaction; Marked relief of symptoms kg 15:00 Drug: Flagyl (metroNIDAZOLE) 500 mg Volume: 100 ml; Route: IVPB; Rate: 200 ml/hr; kg Infused Over: 30 mins; Site: left antecubital; 19:53 Follow up: IV Status: Completed infusion bs2 20:10 Drug: fentaNYL (PF) 25 mcg Route: IVP; Site: left antecubital; bs2 20:10 Follow up: Response: No adverse reaction bs2 Outcome: 13:37 Decision to Hospitalize by Provider. kdr 20:11 Admitted to Med/surg accompanied by tech, via stretcher, room 201, with chart, Report bs2 called to Erica ARTHUR 20:11 Condition: stable 20:11 Instructed on the need for admit. 20:35 Patient left the ED. ea Signatures: Dispatcher [employer] EDMS Bertram Alvarenga MD MD kdr Smirch, Shelby, RN RN Jessa Bahena Moriah mt Antunez, Elena, RN RN Gloria Vazquez RN RN Jessa Barrera RN RN kg Smith, Bridget, RN RN bs2
[2021-06-15 14:22] LABS: Blood Morphology Comment NOT SEEN (NOT SEEN); Platelet Estimate ADEQ; White Blood Cell Scan OK (OK)
[2021-06-15] MEDS ORDERED: VANCOMYCIN/NS 1 gm 1 GM/250 ML BAG IV ONE (15:15)
[2021-06-15] MEDS ORDERED: METRONIDAZOLE 500mg IVPB 500 MG/100 ML BAG IV ONE (15:21)
[2021-06-15] MEDS ORDERED: MINERAL OIL 30 ML UCUP FT ONE (16:12)
[2021-06-15] MEDS ORDERED: DIAZEPAM 5 MG TABLET PO ONE (16:12)
--- NOTE | 2021-06-15 16:12 | P.HP ---
Certification for Inpatient Patient admitted to: Inpatient With expected LOS: >2 Midnights Practitioner: I am a practitioner with admitting privileges, knowledge of patient current condition, hospital course, and medical plan of care. Services: Services provided to patient in accordance with Admission requirements found in Title 42 Section 412.3 of the Code of Federal Regulations Patient History Date of Service: 06/15/21 Reason for admission: SBO History of Present Illness: 80-year-old female, PMH: CAD status post CABG, recent coronary artery stent placement approximately 1 month ago, on Eliquis and Plavix. Severe peripheral vascular disease with chronic occlusions of iliac, femoral, celiac, SMA arteries. A. fib, history of renal cell cancer status post nephrectomy, prior bowel obstruction. Recent discovery of unknown primary cancer with metastasis which is not been fully worked up yet. 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 Pain began yesterday evening and progressively worsened, associated with some nausea. Denies vomiting, no diarrhea, last bowel movement was this morning. Also with feeling as though his right lower abdomen is "hardened". Nothing in particular seemed to worsen or alleviate her pain until she received pain medication here in the ER. Evaluation in the ER with CT revealed moderate small bowel obstruction. Incidentally noted new/worsening lesions on the liver concerning for metastasis. Patient was given Flagyl and NG tube was placed. She had some relief with IV morphine. General surgery was consulted by the ER physician. Patient saw oncology once a few months ago, and was preoccupied with her coronary artery and peripheral vascular disease. She said she ignored/"put the cancer work-up on the back burner". She is unsure of any clear primary cancer. Allergies Penicillins Allergy (Verified 04/30/21 10:30) Anaphylaxis promethazine [From Phenergan] Adverse Reaction (Intermediate, Verified 04/30/21 10:30) Shortness of breath ciprofloxacin Adverse Reaction (Verified 04/27/21 19:56) tendonitis Home Medications: Aspirin [Aspirin EC 81 MG] 81 mg PO DAILY 01/26/21 Isosorbide Mononitrate [Isosorbide Mononitrate ER] 60 mg PO BID 01/26/21 Rosuvastatin [Crestor*] 10 mg PO BEDTIME 01/26/21 Amiodarone HCl [Cordarone*] 400 mg PO BID #84 tab 04/30/21 Apixaban [Eliquis] 5 mg PO BID #60 tablet 04/30/21 Furosemide [Lasix] 20 mg PO DAILY #30 tab 04/30/21 levoFLOXacin [Levaquin] 500 mg PO DAILY #5 tab 04/30/21 - Past Medical/Surgical History Diabetic: No -: CAD S/P CABG -: Hypertension -: Hyperlipidemia -: CAD/PVD -: History of renal cancer with nephrectomy -: Nephrectomy -: Hysterectomy -: CABG -: Carotid stent -: Bowel surgery Psychosocial/ Personal History: Patient retired, lives alone in a elderly community. - Family History Father -: Heart disease Mother -: Heart disease - Social History Smoking Status: Former smoker Alcohol use: No CD- Drugs: No Caffeine use: Yes Review of Systems 10-point ROS is otherwise unremarkable Physical Examination - Studies Laboratory Data (last 24 hrs) 06/15/21 10:26: WBC 14.30 H, Hgb 10.3 L, Hct 32.1 L, Plt Count 282 06/15/21 10:26: Sodium 136, Potassium 3.9, BUN 15, Creatinine 0.92, Glucose 117 H, Total Bilirubin 0.7, AST 29, ALT 33, Alkaline Phosphatase 82, Lipase 257 06/15/21 10:03: WBC Cancelled, Hgb Cancelled, Hct Cancelled, Plt Count Cancelled 06/15/21 10:03: Sodium Cancelled, Potassium Cancelled, BUN Cancelled, Creatinine Cancelled, Glucose Cancelled, Total Bilirubin Cancelled, AST Cancelled, ALT Cancelled, Alkaline Phosphatase Cancelled, Lipase Cancelled Assessment and Plan - Advance Directives Does patient have a Living Will: No Does patient have a Durable POA for Healthcare: Yes Physician Review Additional Text: Physical Exam: vitals reviewed Gen: mild distress, uncomfortable HEENT: normal conjunctiva, NGT in place CV: regular rate, no murmur, no edema Pulm: clear to auscultation bilaterally, non-labored on RA Abd: moderate RLQ tenderness to palpation, palpable distended loops / stool MSK: no joint swelling/tenderness Skin: no rash Neuro: moves all extremities equally, normal speech, normal affect Problem List Small bowel obstruction CAD s/p CABG, recent stent, on plavix Afib on eliquis metastastic cancer, unknown primary h/o renal cell cancer s/p R nephrectomy h/o SBO Peripheral vascular disease -Case discussed with Dr. Bernabe, general surgery, who reviewed CT scan Feels this may be more constipation than true bowel obstruction Recommend NG tube, mineral oil now, and mineral oil later this evening. Valium 5 mg x 1 now Morphine for pain control Serial abdominal exams Can take sips of water with medications We will hold Eliquis, give Lovenox for anticoagulation, continue Plavix Obtain home medications, and restart as appropriate Received vancomycin and Flagyl in the ER. Afebrile, mild leukocytosis. Will check procalcitonin Continue Flagyl, patient tolerated Levaquin previously VTE: lovenox Code: DNR Dispo: anticipate dc home in 2-3 days Time Spent Managing Pts Care (In Minutes): 65
[2021-06-15 17:23] VITALS: BMI 18.1
--- NOTE | 2021-06-15 17:59 | P.CNS ---
Date of Consult: 06/15/21 PC: This 80-year-old female presented to the emergency room with severe abdominal pain for diagnosis and treatment. HPC: Patient recently underwent some coronary artery revascularization for coronary artery disease. She has also been having some abdominal pain and on work-up is found to have possible cancer in her liver. She was post to have had a work-up, but cardiac intervention came first, and she has been putting off the work-up of her possible metastatic disease. PSHx: Coronary artery disease and CABG, no nephrectomy for renal cell carcinoma, hysterectomy, carotid surgery, as well as some type of surgery when she was a child for a bowel obstruction. PMHx: Hypertension, Social Hx: Allergic to penicillin, Phenergan, and Cipro Sys R: No cough, wheeze, shortness of breath. No chest pain or palpitations. Denies any urinary complaints, just a feeling of pressure now in the right lower quadrant of her abdomen. O/E: Awake alert vital signs are stable HEENT: Patient has a nasogastric tube in place, minimal drainage Chest: Chest movement equal bilaterally Abd: Abdomen is tender no true guarding though in the right lower quadrant of her abdomen. No organomegaly noted [place]: Intact Data: CT scan suggest partial small bowel obstruction with metastatic disease to the liver Impression: Partial small bowel obstruction Plan: This patient, who is recently status post coronary artery work-up presented with partial small bowel obstruction to our emergency room. At the current time the patient is comfortable, has a nasogastric tube in place. She says she feels mildly better. The NG tube needs to be readjusted, that we will place an mineral down and repeated dose at bedtime tonight. She is behind in IV fluids and hydration will help. She appears to be backed up all the way from the anus to the midportion of the small intestine. I am anticipating that with some IV fluids, some analgesics, and some mineral oil that she will open up, and will avoid requiring intervention on an acute basis. As an outpatient she will definitely need a GI work-up. She also had a question of a left base mass on a MRI that has already been performed. She also will require follow-up with her vascular surgeons as she continues to get her peripheral vascular disease addressed. In the meantime she is comfortable at the moment and does not require acute surgical intervention. We will follow with you.
[2021-06-15] MEDS ORDERED: FENTANYL CITR 100 MCG/2 ML ONE (20:27)
[2021-06-15] MEDS ORDERED: MINERAL OIL 30 ML UCUP PO ONE (21:00)
[2021-06-15] MEDS ORDERED: ENOXAPARIN 80 MG/0.8 ML SQ SCH (21:00)
[2021-06-15] MEDS ORDERED: Levofloxacin500mg IV 500 MG/100 ML BAG IV ONE (22:00)
[2021-06-15] MEDS: ENOXAPARIN 40 MG/0.4 ML SQ SCH (22:46)
[2021-06-15] MEDS: AMIODARONE HCL 200 MG TAB PO SCH (22:46)
[2021-06-15] MEDS: NA CHLORIDE 0.9% 1,000 ML IV SCH (22:46)
[2021-06-16] MEDS: METRONIDAZOLE 500mg IVPB 500 MG/100 ML BAG IV SCH ×3 (01:08→18:08)
[2021-06-16] MEDS: NA CHLORIDE 0.9% 1,000 ML IV SCH ×2 (03:00→09:18)
[2021-06-16] MEDS: MORPHINE 2 MG/ML SYR IV PRN ×3 (04:03→18:28)
[2021-06-16 06:20] LABS: Absolute Lymphocytes (CBC) 0.4 K/uL (0.7-4.9); Basophils % 0.1 % (0-1.3); Hematocrit 25.9 % (36.0-45.0); Lymphocytes % 2.5 % (15.3-44.8); MPV 7.7 fL (7.6-11.3); RBC Red Blood Cell Count 3.51 M/uL (3.86-4.86)
[2021-06-16 06:31] LABS: Albumin 2.9 g/dL (3.4-5.0); Bilirubin Total 0.9 mg/dL (0.2-1.0); Magnesium 1.7 mg/dL (1.8-2.4); Potassium 3.7 mmol/L (3.5-5.1); Protein, Total 5.6 g/dL (6.4-8.2)
[2021-06-16] MEDS: ONDANSETRON 4 MG/2 ML VIAL IV PRN ×3 (06:32→19:28)
[2021-06-16] MEDS ORDERED: PNEUMOCOCCAL VACCINE 0.5 ML IMVAC ONE (09:00)
[2021-06-16] MEDS ORDERED: MAGNESIUM SULFATE 1 gm IVPB 1 GM/100 ML BAG IV ONE (09:00)
[2021-06-16] MEDS ORDERED: KCL 20 MEQ/100 mL IVPB 20 MEQ/100 ML BAG IV SCH (09:00)
[2021-06-16] MEDS: AMIODARONE HCL 200 MG TAB PO SCH ×2 (10:23→20:43)
[2021-06-16] MEDS: CLOPIDOGREL 75 MG TABLET PO SCH (10:23)
[2021-06-16] MEDS: ENOXAPARIN 40 MG/0.4 ML SQ SCH ×2 (10:24→20:43)
[2021-06-16] MEDS: CEPACOL LOZENGES PO PRN ×2 (10:43→18:10)
[2021-06-16] MEDS ORDERED: MINERAL OIL 30 ML UCUP FT ONE ×2 (10:48→16:53)
--- NOTE | 2021-06-16 12:45 | RAD REPORT ---
EXAM DESCRIPTION: RAD - Abdomen 1 View (KUB) - 06/16/2021 2:44 am COMPARISON: None. CLINICAL HISTORY: NGT placement FINDINGS: A single AP view of the abdomen demonstrates a nonobstructive bowel gas pattern. There is a moderate stool burden. The enteric tube tip projects over the gastric body. No gross intraperitoneal free air. Vascular calcifications are present. Surgical clips project over t he right abdomen. Lumbar spondylosis is present. Visualized portions of the chest demonstrates surgical changes and ath erosclerosis but are otherwise unremarkable. IMPRESSION: Nonobstructive bowel gas pattern. The enteric tube tip projects over the gastric body. Electronically signed by: Louis Sharp MD 06/16/2021 2:51 AM CDT Due to temporary technical issues with the PACS/Fluency reporting system, reports are being signed by the in house radiologist without review as a courtesy to ensure prompt reporting. The interpreting r adiologist is fully responsible for the content of the report.
--- NOTE | 2021-06-16 13:26 | P.PN ---
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 s/p mineral oil via NGT x2 no new complaints) Review of Systems 10-point ROS is otherwise unremarkable Physical Examination - Vital Signs Temperature: 98.3 F Blood Pressure: 109/50 Pulse: 73 Respirations: 16 Pulse Ox (%): 98 - Studies Laboratory Data (last 24 hrs) 06/15/21 10:26: WBC 14.30 H, Hgb 10.3 L, Hct 32.1 L, Plt Count 282 Assessment & Plan Physician Review Additional Text: Physical Exam: Gen: NAD, AAOx2 HEENT: normal conjunctiva, NGT in place CV: regular rate, no murmur, no edema Pulm: clear to auscultation bilaterally, non-labored on RA Abd: moderate RLQ tenderness to palpation Skin: no rash Neuro: moves all extremities equally, normal speech, normal affect Problem List Small bowel obstruction CAD s/p CABG, recent stent, on plavix Afib on eliquis metastastic cancer, unknown primary h/o renal cell cancer s/p R nephrectomy h/o SBO Peripheral vascular disease chronic anemia -Dr. Bernabe, general surgery consulted Recommend NG tube, mineral oil Morphine for pain control Serial abdominal exams Can take sips of water with medications We will hold Eliquis, give Lovenox for anticoagulation, continue Plavix continue amiodarone / bb Received vancomycin and Flagyl in the ER. Afebrile, mild leukocytosis. procal mildly elevated Continue Flagyl, levaquin -tolerated Levaquin previously VTE: lovenox Code: DNR Dispo: anticipate dc home in ~1-2 days Time Spent Managing Pts Care (In Minutes): 35
[2021-06-16 15:18] LABS: RBC Red Blood Cell Count 3.71 M/uL (3.86-4.86)
[2021-06-16 15:27] LABS: Ferritin 31.3 ng/mL (8-388)
--- NOTE | 2021-06-16 16:12 | P.PN ---
Date of Service: 06/16/21 S: Patient feels better today, much less abdominal pain. Complaining of some discomfort from the nasogastric tube. Inquiring about possible Covid vaccination. O: Abdomen is soft, minimal tenderness today in comparison to yesterday. Clinically looks much improved. Minimal out through the nasogastric tube. A: Patient is ileus, partial small bowel obstruction appears to be resolving. X-ray and clinical exam show improvement. P: We will reinstill some mineral oil tonight, encourage patient to ambulate, and DC NG tube in the a.m. Continues to be nonoperative, with definite signs of improvement.
[2021-06-16] MEDS ORDERED: MAGNESIUM CITRATE 300 ML BOT FT ONE (17:00)
[2021-06-16] MEDS: Levofloxacin 250mg IV 250 MG/50 ML BAG IV SCH (20:43)
[2021-06-17] MEDS: METRONIDAZOLE 500mg IVPB 500 MG/100 ML BAG IV SCH ×5 (01:00→17:33)
[2021-06-17] MEDS: NA CHLORIDE 0.9% 1,000 ML IV SCH (04:32)
[2021-06-17 06:13] LABS: Absolute Lymphocytes (CBC) 0.9 K/uL (0.7-4.9); Basophils % 0.2 % (0-1.3); Hematocrit 26.5 % (36.0-45.0); Lymphocytes % 6.5 % (15.3-44.8); MPV 8.2 fL (7.6-11.3); RBC Red Blood Cell Count 3.55 M/uL (3.86-4.86)
[2021-06-17 06:33] LABS: ALT/SGPT 48 U/L (12-78); AST/SGOT 58 U/L (15-37); Albumin 2.9 g/dL (3.4-5.0); Alkaline Phosphatase 62 U/L (45-117); BUN Blood Urea Nitrogen 12 mg/dL (7-18); Bicarbonate 23 mmol/L (21-32); Bilirubin Total 0.7 mg/dL (0.2-1.0); Glucose Level 72 mg/dL (74-106); Magnesium 2.2 mg/dL (1.8-2.4); Potassium 3.4 mmol/L (3.5-5.1); Protein, Total 5.8 g/dL (6.4-8.2); Sodium Level 135 mmol/L (136-145)
[2021-06-17] MEDS ORDERED: POTASSIUM CL SA 10 MEQ TAB PO ONE ×2 (07:23→08:00)
--- NOTE | 2021-06-17 09:34 | P.PN ---
Subjective Date of Service: 06/17/21 Chief Complaint: SBO Subjective: Improving (feels better, small BM overnight, no nausea/vomiting, tolerating ice chips, NGT clamped. feeling better. pain improved) Review of Systems 10-point ROS is otherwise unremarkable Physical Examination - Vital Signs Temperature: 97.3 F Blood Pressure: 121/51 Pulse: 62 Respirations: 16 Pulse Ox (%): 98 Assessment & Plan Physician Review Additional Text: Physical Exam: Gen: NAD, AAOx3 HEENT: normal conjunctiva, NGT in place CV: regular rate, no murmur, no edema Pulm: clear to auscultation bilaterally, non-labored on RA Abd: mild-mod RLQ tenderness to palpation Skin: no rash Neuro: moves all extremities equally, normal speech, normal affect Problem List SBO vs ileus, resolving CAD s/p CABG, recent stent, on plavix Afib on eliquis metastastic cancer, unknown primary h/o renal cell cancer s/p R nephrectomy h/o SBO Peripheral vascular disease chronic anemia -Dr. Bernabe, general surgery consulted, Recommend NG tube, mineral oil -continue mineral oil, pt with BM this morning -clamp NGT, advance to clears, pull NGT if tolerating Serial abdominal exams restart eliquis, continue home plavix, amiodarone Received vancomycin and Flagyl in the ER. Afebrile, mild leukocytosis. procal mildly elevated Continue Flagyl, levaquin -tolerated Levaquin previously VTE: eliquis Code: DNR Dispo: anticipate dc home in ~1-2 days Time Spent Managing Pts Care (In Minutes): 35
[2021-06-17] MEDS ORDERED: MINERAL OIL 30 ML UCUP PO ONE ×2 (09:37→17:11)
[2021-06-17] MEDS ORDERED: NA CHLORIDE 0.9% 1,000 ML IV SCH (09:38)
[2021-06-17] MEDS: AMIODARONE HCL 200 MG TAB PO SCH ×2 (11:05→20:37)
[2021-06-17] MEDS: CLOPIDOGREL 75 MG TABLET PO SCH (11:05)
[2021-06-17] MEDS: ENOXAPARIN 40 MG/0.4 ML SQ SCH (11:07)
[2021-06-17] MEDS: Levofloxacin 250mg IV 250 MG/50 ML BAG IV SCH (20:37)
[2021-06-17] MEDS: APIXABAN 2.5 MG TABLET PO SCH (20:37)
[2021-06-17] MEDS: levoFLOXacin 250 MG TAB PO SCH (23:34)
[2021-06-18 06:25] LABS: ALT/SGPT 74 U/L (12-78); AST/SGOT 81 U/L (15-37); Albumin 2.7 g/dL (3.4-5.0); Alkaline Phosphatase 55 U/L (45-117); BUN Blood Urea Nitrogen 8 mg/dL (7-18); Bicarbonate 25 mmol/L (21-32); Bilirubin Total 0.6 mg/dL (0.2-1.0); Glucose Level 84 mg/dL (74-106); Potassium 4.2 mmol/L (3.5-5.1); Protein, Total 5.3 g/dL (6.4-8.2); Sodium Level 136 mmol/L (136-145)
[2021-06-18 06:35] LABS: Absolute Lymphocytes (CBC) 0.6 K/uL (0.7-4.9); Basophils % 0.3 % (0-1.3); Hematocrit 24.8 % (36.0-45.0); Lymphocytes % 6.5 % (15.3-44.8); MPV 8.1 fL (7.6-11.3); RBC Red Blood Cell Count 3.35 M/uL (3.86-4.86)
[2021-06-18] MEDS ORDERED: levoFLOXacin 250 MG TAB PO SCH (09:00)
[2021-06-18] MEDS: CLOPIDOGREL 75 MG TABLET PO SCH (09:39)
[2021-06-18] MEDS: APIXABAN 2.5 MG TABLET PO SCH (09:39)
[2021-06-18] MEDS: metroNIDAZOLE 500 MG TABLET PO SCH ×2 (09:39→14:19)
[2021-06-18] MEDS: AMIODARONE HCL 200 MG TAB PO SCH (09:39)
[2021-06-18] MEDS: levoFLOXacin 250 MG TAB PO SCH (09:44)
[2021-06-18 10:09] VITALS: O2SAT 98
--- NOTE | 2021-06-18 10:22 | RAD REPORT ---
EXAM DESCRIPTION: RAD - Abdomen 1 View (KUB) - 06/18/2021 9:56 am CLINICAL HISTORY: f/u sbo COMPARISON: Abdomen 1 View (KUB) dated 06/16/2021; Abdomen 1 View (KUB) dated 06/15/2021; Abdomen Pelv is Wo Contrast dated 06/15/2021 FINDINGS: Nonobstructive bowel gas pattern. No acute osseous abnormality.Visualized lungs are unrema rkable Heavily calcified arterial structures with stents in place. Surgical clips along the midline. The enteric tube has been removed. IMPRESSION: Nonobstructive bowel gas pattern. Similar appearance to 06/16/2021.
[2021-06-18 16:13] VITALS: BP 177/74; TEMP 97.9
--- NOTE | 2021-06-18 23:26 | P.DS ---
Admission Date: 06/15/21 Discharge Date: 06/18/21 Disposition: ROUTINE DISCHARGE Discharge Condition: GOOD Reason for Admission: SBO Consultations: General Surgery - Dr. Bernabe Procedures: CT Abd/pelvis (06/15): FINDINGS: Mild linear atelectasis is present in the left lung base. Extensive low-density masses have developed throughout the liver parenchyma since prior examinations.The spleen a pancreas are within normal limits. Mild thickening of left adrenal gland is seen. Several calculi are present in the left kidney without hydronephrosis evidence of previous right nephrectomy. Gallstones are likely present in the gallbladder. Significant dilatation is seen of multiple small bowel loops in the central abdomen most compatible with a partial mechanical small-bowel obstruction. Significant sigmoid colon stool retention and diverticulosis is present. Full colonic assessment is quite limited. Aortoiliac atherosclerosis. There is a significant chronic appearing compression fracture of L3 with moderate canal stenosis. 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 Moderately severe mechanical small bowel obstruction. A limited non-contrast examination was performed as detailed. KUB xray (06/15): FINDINGS: Tip of the enteric tube is at the gastroesophageal junction level. KUB xray (06/16): FINDINGS: A single AP view of the abdomen demonstrates a nonobstructive bowel gas pattern. There is a moderate stool burden. The enteric tube tip projects over the gastric body. No gross intraperitoneal free air. Vascular calcifications are present. Surgical clips project over the right abdomen. Lumbar spondylosis is present. Visualized portions of the chest demonstrates surgical changes and atherosclerosis but are otherwise unremarkable. IMPRESSION: Nonobstructive bowel gas pattern. The enteric tube tip projects over the gastric body. KUB xray (06/18): FINDINGS: Nonobstructive bowel gas pattern. No acute osseous abnormality.Visualized lungs are unremarkable Heavily calcified arterial structures with stents in place. Surgical clips along the midline. The enteric tube has been removed. IMPRESSION: Nonobstructive bowel gas pattern. Similar appearance to 06/16/2021. Problem List SBO vs ileus, resolved CAD s/p CABG, recent stent, on plavix Paroxysmal Afib on eliquis metastastic cancer, unknown primary h/o renal cell cancer s/p R nephrectomy h/o SBO Peripheral vascular disease chronic anemia Brief History of Present Illness: 80-year-old female, PMH: CAD status post CABG, recent coronary artery stent placement approximately 1 month ago, on Eliquis and Plavix. Severe peripheral vascular disease with chronic occlusions of iliac, femoral, celiac, SMA arteries. A. fib, history of renal cell cancer status post nephrectomy, prior bowel obstruction. Recent discovery of unknown primary cancer with metastasis which is not been fully worked up yet. 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 Pain began yesterday evening and progressively worsened, associated with some nausea. Denies vomiting, no diarrhea, last bowel movement was this morning. Also with feeling as though his right lower abdomen is "hardened". Nothing in particular seemed to worsen or alleviate her pain until she received pain medication here in the ER. Evaluation in the ER with CT revealed moderate small bowel obstruction. Incidentally noted new/worsening lesions on the liver concerning for metastasis. Patient was given Flagyl and NG tube was placed. She had some relief with IV morphine. General surgery was consulted by the ER physician. Patient saw oncology once a few months ago, and was preoccupied with her coronary artery and peripheral vascular disease. She said she ignored/"put the cancer work-up on the back burner". She is unsure of any clear primary cancer. Hospital Course: Patient was admitted and medically managed with initial bowel rest and empiric antibiotics. General surgery was consulted and recommended adding mineral oil via NGT. Patient was monitored and had gradual improvement/resolution of her symptoms. On day of discharge, she was tolerating a soft diet without any nausea/vomiting/pain and having more regular bowel movements. The findings of her liver lesions were discussed with the patient, her neighbor/friend, and daughter. Encouraged patient to follow up with her Oncologist. Discharged to maintain daily bowel movements and to continue antibiotics. Also found to have significant iron deficiency. Vital Signs/Physical Exam: Physical Exam: Gen: NAD, AAOx3 HEENT: normal conjunctiva, sclera anicteric CV: regular rate, no murmur, no edema Pulm: clear to auscultation bilaterally, non-labored on RA Abd: soft, nontender, nondistended Skin: no rash Neuro: moves all extremities equally, normal speech, normal affect Temp Pulse Resp BP Pulse Ox 97.9 F 59 16 177/74 H 97 06/18/21 16:00 06/18/21 16:00 06/18/21 16:00 06/18/21 16:00 06/18/21 16:00 Laboratory Data at Discharge: WBC 9.20 K/uL (4.3-10.9) D 06/18/21 05:57 Hgb 8.0 g/dL (12.0-15.0) L 06/18/21 05:57 Hct 24.8 % (36.0-45.0) L 06/18/21 05:57 Plt Count 190 K/uL (152-406) 06/18/21 05:57 Sodium 136 mmol/L (136-145) 06/18/21 05:57 Potassium 4.2 mmol/L (3.5-5.1) 06/18/21 05:57 BUN 8 mg/dL (7-18) 06/18/21 05:57 Creatinine 0.58 mg/dL (0.55-1.3) 06/18/21 05:57 Glucose 84 mg/dL (74-106) 06/18/21 05:57 Magnesium 2.2 mg/dL (1.8-2.4) D 06/17/21 05:41 Total Bilirubin 0.6 mg/dL (0.2-1.0) 06/18/21 05:57 AST 81 U/L (15-37) H 06/18/21 05:57 ALT 74 U/L (12-78) 06/18/21 05:57 Alkaline Phosphatase 55 U/L (45-117) 06/18/21 05:57 Lipase 257 U/L (73-393) 06/15/21 10:26 Home Medications: Amiodarone HCl [Cordarone*] 200 mg PO BID 06/16/21 Apixaban [Eliquis *] 5 mg PO BID 06/16/21 Clopidogrel Bisulfate [Plavix*] 75 mg PO DAILY 06/16/21 Furosemide [Lasix*] 20 mg PO DAILY 06/16/21 Isosorbide Mononitrate [Isosorbide Mononitrate ER] 60 mg PO BID 06/16/21 Nebivolol HCl [Bystolic*] 20 mg PO DAILY 06/16/21 Rosuvastatin [Crestor*] 10 mg PO BEDTIME 06/16/21 Ferrous Sulfate [Iron] 325 mg PO DAILY 30 Days #30 tablet 06/18/21 levoFLOXacin [Levaquin*] 250 mg PO DAILY 7 Days #7 tab 06/18/21 metroNIDAZOLE [Flagyl*] 500 mg PO TID 7 Days #21 tablet 06/18/21 New Medications: metroNIDAZOLE [Flagyl*] 500 mg PO TID 7 Days #21 tablet Ferrous Sulfate [Iron] 325 mg PO DAILY 30 Days #30 tablet levoFLOXacin [Levaquin*] 250 mg PO DAILY 7 Days #7 tab Diet: soft Activity: Ad anthony Followup: Shane Palacio MD [Primary Care Provider] - Time spent managing pt's care (in minutes): 40
== END 2021-06-18 16:25 | disposition home or self-care (01) | DRG 389 ==
LOC: ER 08:58 → ERHOLD 16:18 → 2ND 20:21
PROVIDERS: ADMIT Hospitalist; ATTEND Hospitalist
DX: K56.690 Other partial intestinal obstruction (principal); C78.7 Secondary malignant neoplasm of liver and intrahepatic bile duct; I73.9 Peripheral vascular disease, unspecified; I10 Essential (primary) hypertension; I25.10 Atherosclerotic heart disease of native coronary artery without angina pectoris; E78.5 Hyperlipidemia, unspecified; D64.9 Anemia, unspecified; D72.829 Elevated white blood cell count, unspecified; F17.210 Nicotine dependence, cigarettes, uncomplicated; C80.1 Malignant (primary) neoplasm, unspecified; Z88.0 Allergy status to penicillin; Z88.1 Allergy status to other antibiotic agents; Z95.1 Presence of aortocoronary bypass graft; Z95.5 Presence of coronary angioplasty implant and graft; Z79.01 Long term (current) use of anticoagulants; Z79.02 Long term (current) use of antithrombotics/antiplatelets; Z66 Do not resuscitate; Z79.82 Long term (current) use of aspirin; Z85.528 Personal history of other malignant neoplasm of kidney; Z90.710 Acquired absence of both cervix and uterus; Z90.5 Acquired absence of kidney; Z60.2 Problems related to living alone; Z20.822 Contact with and (suspected) exposure to COVID-19
CPT/HCPCS: 36415; 74018; 74176; 80048; 80053; 80076; 82565; 82728; 83540; 83690; 83735; 84132; 84145; 84466; 85025; 85044; 86140; 94760; 96365; 96366; 96375; 99285; J1650; J2270; J2405; J3010; J3370; J3475; J3480; J7030; J7050; U0003